=== PATIENT | female | born 1955 | race Caucasian/White ===

== ENCOUNTER 2018-03-25 05:41 | Emergency (ER) | payer OTHER ==
[2018-03-25 06:14] VITALS: BMI 43.0
--- NOTE | 2018-03-25 06:14 | PDOC ---
History of Present Illness - General Chief Complaint: Headache Stated Complaint: HEADACHE Time Seen by Provider: 03/25/18 06:01 History Source: Patient - History of Present Illness Initial Comments: 03/25/18 06:39 62-year-old female complaining of frontal headache and neck pain. Patient seen for similar complaints on 03/17/18 with negative workup patient was noted to have some disc bulging with possible C6 nerve root impingement as per report. Patient denies any numbness or tingling to arms, loss of function or sensory loss. Patient reports neck pain is as per usual however the headache is much more severe than normal. Past History - Past Medical History Allergies/Adverse Reactions: Allergies Allergy/AdvReac Type Severity Reaction Status Date / Time ciprofloxacin [From Cipro] Allergy Verified 03/25/18 06:13 ciprofloxacin HCl Allergy Verified 03/25/18 06:13 [From Cipro] Penicillins Allergy Verified 03/25/18 06:13 Tetracyclines Allergy Verified 03/25/18 06:13 Home Medications: Ambulatory Orders Albuterol Sulfate [Proair Hfa -] 1 - 2 inh PO TID PRN 11/30/14 Hydrochlorothiazide [Hctz -] 25 mg PO HS 11/30/14 Ranitidine [Zantac -] 150 mg PO BID 11/30/14 Acetaminophen [Tylenol -] 1,000 mg PO Q6H #100 tablet 03/17/18 Lidocaine 5% Patch [Lidoderm Patch -] 1 patch TP DAILY #7 patch 03/17/18 Olmesartan/Hydrochlorothiazide [Benicar Hct 40-25 mg Tablet] 1 each PO DAILY 09/03 Asthma: Yes Cardiac Disorders: Yes (SVT's enlarged heart) COPD: Yes HTN: Yes - Surgical History Cardiac Surgery: Yes (cardiac ablation for SVT'S 1998) - Immunization History Immunization Up to Date: Yes - Suicide/Smoking/Psychosocial Hx Smoking History: Former smoker Have you smoked in the past 12 months: No If you are a former smoker, when did you quit?: 2012 Hx Alcohol Use: No Drug/Substance Use Hx: No Substance Use Type: None *Physical Exam - Vital Signs 03/25/18 06:39 Last Vital Signs Temp Pulse Resp BP Pulse Ox 98.7 F 76 18 153/78 96 03/25/18 05:45 03/25/18 05:45 03/25/18 05:45 08/09/18 05:45 03/25/18 05:45 - Physical Exam General Appearance: Yes: Appropriately Dressed HEENT: positive: Normal ENT Inspection Respiratory/Chest: positive: Lungs Clear, Normal Breath Sounds Cardiovascular: positive: Regular Rhythm, Regular Rate Gastrointestinal/Abdominal: positive: Normal Bowel Sounds, Soft Extremity: positive: Normal Capillary Refill, Normal Inspection, Normal Range of Motion Integumentary: positive: Normal Color, Dry, Warm 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
[2018-03-25] MEDS ORDERED: SODIUM CHLORIDE 1,000 ML IV SCH (06:15)
[2018-03-25] MEDS ORDERED: ACETAMINOPHEN 1000 MG/100 ML VIAL (NON FORMULARY) IVPB ONE (06:15)
[2018-03-25] MEDS ORDERED: METOCLOPRAMIDE HCL INJECTION 10 MG/2 ML VIAL IVPB ONE (06:16)
--- NOTE | 2018-03-25 06:45 | PDOC ---
*Physical Exam - Vital Signs Last Vital Signs Temp Pulse Resp BP Pulse Ox 98.7 F 76 18 153/78 96 03/25/18 05:45 03/25/18 05:45 03/25/18 05:45 03/25/18 05:45 03/25/18 05:45 Medical Decision Making - Medical Decision Making 03/25/18 06:45 agree with care from [facility] *DC/Admit/Observation/Transfer Diagnosis at time of Disposition: Neck pain Headache Qualifiers: Headache type: tension-type Headache chronicity pattern: acute headache Intractability: not intractable Qualified Code(s): G44.209 - Tension-type headache, unspecified, not intractable - Referrals - Patient Instructions - Post Discharge Activity
[2018-03-25] MEDS ORDERED: ACETAMINOPHEN INJECTION 100 ML IVPB ONE (07:02)
[2018-03-25] MEDS ORDERED: METOCLOPRAMIDE HCL INJECTION 10 MG/2 ML VIAL ONE (07:02)
--- NOTE | 2018-03-25 07:09 | PDOC ---
*Physical Exam - Vital Signs Last Vital Signs Temp Pulse Resp BP Pulse Ox 98.7 F 76 18 153/78 96 03/25/18 05:45 03/25/18 05:45 03/25/18 05:45 03/25/18 05:45 03/25/18 05:45 - Physical Exam General Appearance: Yes: Nourished, Appropriately Dressed. No: Apparent Distress HEENT: positive: EOMI, FARTUN Neck: positive: Trachea midline, Supple. 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 Pt currently pending CT read, work up. Dispo to follow. 03/25/18 09:49 CT C-spine: There is no fracture, subluxation, prevertebral soft tissue swelling. There is a small to moderate size bulging disc osteophyte complexes at the C5-6 and C6-7 levels which causing mild central canal and bilateral neural foraminal narrowing. The lung apices are clear. Right lobe of the thyroid large secondary to 3.1 x 2.4 CMP mass. Impression Right thyroid mass can be further evaluated with nonemergent ultrasound. Head CT: No evidence of acute intracranial hemorrhage, edema, midline shift, mass effect, or skull fracture. No CT evidence of acute territorial ischemic changes. Normal CSF. Pt reports feeling much better at this time after IVF and medication. States headache is almost completely resolved. Still pending urine. No leukocytosis, electrolyte abnormalities. H&H low, however less than one point drop since last week. Told pt about the thyroid mass and that she needs to follow up with her PCP. Will dc home at this time. Return precautions given. Neuro surgery follow up given. Pt understands all dc instructions and all questions were answered. *DC/Admit/Observation/Transfer Diagnosis at time of Disposition: Neck pain Headache Qualifiers: Headache type: tension-type Headache chronicity pattern: acute headache Intractability: not intractable Qualified Code(s): G44.209 - Tension-type headache, unspecified, not intractable - Discharge Dispostion Disposition: HOME Condition at time of disposition: Stable Decision to Admit order: No - Referrals Referrals: Dominic Moreno MD, [facility] [Staff Physician] - Shakeel Licona MD [Staff Physician] - - Patient Instructions Printed Discharge Instructions: DI for Headache, DI for Neck Pain Additional Instructions: Head CT was normal today. Your neck CT showed your degenerative disc disease in her neck. Also showed a mass on your right thyroid. This needs to be followed up with your primary care doctor for ultrasound. Please drink plenty of fluids You may take Tylenol 500 mg every 4 hours as needed for headache. Please follow up with her primary care doctor next week. Your also provided a referral for neurosurgery. Return to the emergency department he develop worsening pain, fevers, chills, or any changes in your symptoms. - Post Discharge Activity Forms/Work/School Notes: Back to Work
[2018-03-25 07:19] LABS: BASO % 0.4 % (0-2.0); EOS % 1.8 % (0-4.5); HEMATOCRIT 28.2 % (32.4-45.2); HEMOGLOBIN 9.2 GM/dL (10.7-15.3); LYMPH % 16.9 % (8-40); MCH 22.9 pg (25.7-33.7); MCHC 32.6 g/dl (32.0-36.0); MEAN CELL VOLUME 70.2 fl (80-96); MEAN PLT VOLUME 8.1 fl (7.5-11.1); MONO % 5.9 % (3.8-10.2); PLATELET COUNT 259 K/MM3 (134-434); RBC 4.02 M/mm3 (3.60-5.2); RDW 17.2 % (11.6-15.6); WHITE BLOOD COUNT 6.6 K/mm3 (4.0-10.0)
[2018-03-25 07:24] LABS: INR 1.21 (0.83-1.09); PROTHROMBIN TIME (PATIENT) 13.7 SEC (9.7-13.0)
[2018-03-25 07:32] LABS: ALBUMIN 3.1 g/dl (3.4-5.0); ANION GAP 7 (8-16); BLOOD UREA NITROGEN 14 mg/dL (7-18); CALCIUM 8.6 mg/dL (8.5-10.1); CHLORIDE 106 mmol/L (98-107); CO2 30 mmol/L (21-32); CREATININE 0.6 mg/dL (0.55-1.02); GLUCOSE,RANDOM 130 mg/dL (74-106); POTASSIUM 4.7 mmol/L (3.5-5.1); SGOT/AST 9 U/L (15-37); SGPT/ALT 15 U/L (12-78); SODIUM 143 mmol/L (136-145)
[2018-03-25 07:34] LABS: ALK PHOS 89 U/L (45-117); BILIRUBIN,TOTAL 0.3 mg/dL (0.2-1.0); TOT PROT 6.4 g/dl (6.4-8.2)
[2018-03-25 09:38] VITALS: BP 104/78; PULSE 58; TEMP 98.3
[2018-03-25 09:50] LABS: URINE APPEARANCE CLEAR; URINE BILIRUBIN NEGATIVE (<2.0 mg/dL); URINE COLOR STRAW; URINE GLUCOSE (UA) NEGATIVE (NEGATIVE); URINE KETONE NEGATIVE (NEGATIVE); URINE LEUK ESTERASE NEGATIVE (NEGATIVE); URINE NITRITE NEGATIVE (NEGATIVE); URINE PROTEIN NEGATIVE (NEGATIVE); URINE UROBILINOGEN NEGATIVE mg/dL (0.2-1.0)
--- NOTE | 2018-03-25 15:35 | EKG ---
Test Reason : Blood Pressure : / mmHG Vent. Rate : 061 BPM Atrial Rate : 061 BPM P-R Int : 168 ms QRS Dur : 096 ms QT Int : 422 ms P-R-T Axes : 068 022 030 degrees QTc Int : 424 ms SINUS RHYTHM WITH MARKED SINUS ARRHYTHMIA WITH PREMATURE ATRIAL COMPLEXES OTHERWISE NORMAL ECG WHEN COMPARED WITH ECG OF 01-DEC-2014 10:11, PREMATURE ATRIAL COMPLEXES ARE NOW PRESENT Confirmed by RONI DE GUZMAN, MALGORZATA ([id number]) on 03/25/2018 3:34:44 PM Referred By: Confirmed By:MALGORZATA TAMAYO MD
== END 2018-03-25 11:08 | disposition home or self-care (01) ==
LOC: JER 05:41
PROC: 3E033NZ Introduction of Analgesics, Hypnotics, Sedatives into Peripheral Vein, Percutaneous Approach (ICD-10-PCS; principal; 2018-03-25)
PROC: 3E033GC Introduction of Other Therapeutic Substance into Peripheral Vein, Percutaneous Approach (ICD-10-PCS; 2018-03-25)
PROC: 3E0337Z Introduction of Electrolytic and Water Balance Substance into Peripheral Vein, Percutaneous Approach (ICD-10-PCS; 2018-03-25)
DX: G44.209 Tension-type headache, unspecified, not intractable (principal); M54.2 Cervicalgia; Z87.891 Personal history of nicotine dependence
CPT/HCPCS: 36415; 70450-TC; 72125-TC; 80053; 81003; 85025; 85610; 93005; 93010; 99283-25; J0131; J7030

== ENCOUNTER 2018-03-30 13:57 | Inpatient (IN) | payer OTHER ==
--- NOTE | 2018-03-30 15:03 | HP ---
Admitting History and Physical - Primary Care Physician PCP: Nyla Faith S - Admission Chief Complaint: headaches and blurry vision History of Present Illness: Pt is a 62yo F with PMH of DM, HTN, COPD, herniated discs and OA DJD CSpine, presenting to ED with complaints of headaches for few weeks getting progressively worse. Starts at base of skull, radiates to forehead. Diffuse. Did not have blurry vision until couple days ago, saw me in office yesterday and generalized YEAGER and also L temporal tenderness (new) and some blurry vision like looking through a kaleidoscope. I ordered high doses prednisone as outpt but she was afraid to take it; I called her home today for f/u and she feels worse so I advised her to come to ER aj for further w/u and tx. No fever, chills, neck stiffness, n/v, ear pain, jaw pain, numbness/tingling. History Source: Patient, Medical Record Limitations to Obtaining History: No Limitations - Past Medical History Cardiovascular: Yes: CHF, HTN Pulmonary: Yes: Asthma Heme/Onc: Yes: Cancer Musculoskeletal: Yes: Chronic low back pain, Osteoarthritis Endocrine: Yes: Other (Impaired glucose tolerance) - Smoking History Smoking history: Former smoker Have you smoked in the past 12 months: No If you are a former smoker, when did you quit?: 2013 - Alcohol/Substance Use Hx Alcohol Use: No History of Substance Use: reports: None - Social History Usual Living Arrangement: Yes: With Child ADL: Independent History of Recent Travel: No Home Medications - Allergies Allergies/Adverse Reactions: Allergies Allergy/AdvReac Type Severity Reaction Status Date / Time ciprofloxacin [From Cipro] Allergy Verified 03/25/18 06:13 ciprofloxacin HCl Allergy Verified 03/25/18 06:13 [From Cipro] Penicillins Allergy Verified 03/25/18 06:13 Tetracyclines Allergy Verified 03/25/18 06:13 - Home Medications Home Medications: Ambulatory Orders Albuterol Sulfate [Proair Hfa -] 1 - 2 inh PO TID PRN 11/30/14 Hydrochlorothiazide [Hctz -] 25 mg PO HS 11/30/14 Ranitidine [Zantac -] 150 mg PO BID 11/30/14 Acetaminophen [Tylenol -] 1,000 mg PO Q6H #100 tablet 03/17/18 Lidocaine 5% Patch [Lidoderm Patch -] 1 patch TP DAILY #7 patch 03/17/18 Olmesartan/Hydrochlorothiazide [Benicar Hct 40-25 mg Tablet] 1 each PO DAILY 09/03 Family Disease History - Family Disease History Family Disease History: Heart Disease: Father, Mother Review of Systems - Review of Systems Constitutional: denies: Chills, Fever, Lethargy Eyes: reports: Blurred Vision, Recent Change in Vision. denies: Blind Spots, Double Vision, Eye Pain, Floaters, Photophobia HENT: denies: Difficult Swallowing, Ear Discharge, Ear Pain, Epistaxis Neck: denies: Stiffness, Tenderness Cardiovascular: denies: Chest Pain, Shortness of Breath Respiratory: denies: Cough, SOB Gastrointestinal: denies: Abdominal Pain, Constipation, Diarrhea, Vomiting Genitourinary: denies: Dysuria, Flank Pain Musculoskeletal: reports: Back Pain (chronic) Integumentary: denies: Blister, Bruising, Eczema, Wound Neurological: reports: Headache. denies: Change in LOC, Change in Speech, Confusion, Dizziness, Numbness, Parasthesia, Seizure, Syncope, Tremors, Unsteady Gait, Weakness Endocrine: denies: Unexplained Weight Gain, Unexplained Weight Loss Hematology/Lymphatic: denies: Easily Bruised, Excessive Bleeding Psychiatric: denies: Altered Sleep Pattern, Anxiety, Depression, Hallucinations , Panic, Paranoia, Suicidal Physical Examination Vital Signs: Vital Signs Temperature 98.9 F 03/30/18 14:08 Pulse Rate 51 L 03/30/18 14:08 Respiratory Rate 16 03/30/18 14:08 Blood Pressure 151/73 03/30/18 14:08 O2 Sat by Pulse Oximetry (%) 98 03/30/18 14:08 Constitutional: Yes: No Distress, Anxious Eyes: Yes: Conjunctiva Clear HENT: Yes: Atraumatic Neck: Yes: Supple Cardiovascular: Yes: Regular Rate and Rhythm Respiratory: Yes: CTA Bilaterally Gastrointestinal: Yes: Soft. No: Tenderness Renal/: No: CVA Tenderness - Left, CVA Tenderness - Right Musculoskeletal: No: Joint Stiffness, Joint Swelling Extremities: No: Cold, Cool, Cyanosis Edema: No Peripheral Pulses WNL: Yes Integumentary: No: Pressure Ulcer, Rash, Venous Stasis Changes Neurological: Yes: WNL, Alert, Oriented, Other (L temporal > R temporal tenderness with local palpation) ...Motor Strength: WNL Psychiatric: Yes: WNL, Alert, Oriented. No: Agitated, Suicidal Ideation Imaging - Results Chest X-ray: Report Reviewed Other: Report Reviewed Assessment/Plan Pt is a 62yo F with PMH of DM, HTN, COPD, herniated disc and OA DJD, admitted with intractable YEAGER. R/o temporal arteritis check ESR had recent head and neck CT c/w OA DJD spine and R thyroid mass for which she was advised to see endocrine and have thyroid US IV steroids neurology and rheum eval borderline anemic, anemia w/u gi and heme eval d/w pt and staff
[2018-03-30] MEDS ORDERED: ACETAMINOPHEN 1000 MG/100 ML VIAL (NON FORMULARY) IVPB ONE (15:41)
[2018-03-30] MEDS ORDERED: SODIUM CHLORIDE 1,000 ML IV STA (15:41)
[2018-03-30] MEDS ORDERED: METOCLOPRAMIDE HCL INJECTION 10 MG/2 ML VIAL IVPUSH ONE (15:41)
[2018-03-30] MEDS ORDERED: METOCLOPRAMIDE HCL INJECTION 10 MG/2 ML VIAL ONE (16:02)
[2018-03-30] MEDS ORDERED: ACETAMINOPHEN INJECTION 100 ML IVPB ONE (16:02)
[2018-03-30] MEDS ORDERED: ALBUTEROL SO4 8 GM HFA INHALER IH PRN (16:41)
[2018-03-30] MEDS ORDERED: ACETAMINOPHEN 500 MG TABLET (FP) PO PRN (16:41)
[2018-03-30] MEDS ORDERED: predniSONE 20 MG TABLET (UD) PO ONE (16:47)
--- NOTE | 2018-03-30 16:58 | PDOC ---
History of Present Illness - General Chief Complaint: Migraine Headache Stated Complaint: Migraine Headache Time Seen by Provider: 03/30/18 15:04 History Source: Patient - History of Present Illness Initial Comments: 03/30/18 16:49 Pt is a 62yo F with PMH of DM, HTN, COPD, herniated disc in C3-7 presenting to ED with complaints of YEAGER. Starts at base of skull, radiates to forehead. Diffuse. Not sure if associated with blurry vision. Did seem like periphery of L vision is like a kaleidoscope. some photophobia. not bothered by loud noises. No fever, chills, neck stiffness, n/v, ear pain, jaw pain, numbness/tingling. PCP: [facility] PMH: see hpi PSH: none Meds: see med rec Allergies: levaquins, tetracyclins, penicillins, benadryl, codeine Social: Quit tobacco 6 years ago. Denies alcohol, illicit drug use. Past History - Past Medical History Allergies/Adverse Reactions: Allergies Allergy/AdvReac Type Severity Reaction Status Date / Time ciprofloxacin [From Cipro] Allergy Verified 04/05/18 09:52 ciprofloxacin HCl Allergy Verified 04/05/18 09:52 [From Cipro] Penicillins Allergy Verified 04/05/18 09:52 Tetracyclines Allergy Verified 04/05/18 09:52 Home Medications: Ambulatory Orders Albuterol Sulfate [Proair Hfa -] 1 - 2 inh PO TID PRN 11/30/14 Hydrochlorothiazide [Hctz -] 25 mg PO HS 11/30/14 Ranitidine [Zantac -] 150 mg PO BID 11/30/14 Acetaminophen [Tylenol .Extra-Strength -] 1,000 mg PO Q6H #100 tablet 03/17/18 Olmesartan/Hydrochlorothiazide [Benicar Hct 40-25 mg Tablet] 1 each PO DAILY 09/03 Cholecalciferol (Vitamin D3) [Vitamin D3 -] 1,000 unit PO DAILY tab 04/02/18 Ferrous Sulfate [Feosol] 325 mg PO DAILY ud 04/02/18 Insulin Sliding Scale [Novolog Vial Sliding Scale -] 1 vial SQ ACHS #1 bottle Lidocaine 5% Patch [Lidoderm -] 1 patch TP DAILY #7 patch 04/02/18 Multivitamins [Multivit ([facility] Formulary)] 1 tab PO DAILY tab 04/02/18 Prednisone 50 mg PO BID 15 Days #150 tablet 04/02/18 Sitagliptin Phosphate [Januvia -] 100 mg PO DAILY@0700 #90 ud 04/02/18 Asthma: Yes Cardiac Disorders: Yes (SVT's enlarged heart) COPD: Yes HTN: Yes - Surgical History Cardiac Surgery: Yes (cardiac ablation for SVT'S 1998) - Immunization History Immunization Up to Date: Yes - Suicide/Smoking/Psychosocial Hx Smoking History: Never smoked Have you smoked in the past 12 months: No If you are a former smoker, when did you quit?: 2012 Information on smoking cessation initiated: No Hx Alcohol Use: No Drug/Substance Use Hx: No Substance Use Type: None Review of Systems - Review of Systems Constitutional: Yes: See HPI. No: Chills, Diaphoresis, Fever HEENTM: Yes: See HPI, Recent change in vision. No: Eye Pain, Blurred Vision, Ear Discharge, Throat Pain Respiratory: No: Cough, Shortness of Breath Cardiac (ROS): No: Chest Pain, Lightheadedness, Palpitations, Syncope ABD/GI: No: Constipated, Diarrhea, Nausea, Vomiting, Abdominal cramping : No: Burning, Dysuria Musculoskeletal: Yes: See HPI Neurological: No: Headache, Numbness, Paresthesia, Tingling *Physical Exam - Vital Signs Last Vital Signs Temp Pulse Resp BP Pulse Ox 98.9 F 51 L 16 151/73 98 03/30/18 14:08 03/30/18 14:08 03/30/18 14:08 03/30/18 14:08 03/30/18 14:08 - Physical Exam General Appearance: Yes: Nourished, Appropriately Dressed. No: Apparent Distress HEENT: positive: EOMI, FARTUN, Normal ENT Inspection, Other (no papilledema noted) Neck: positive: Trachea midline, Supple. negative: Lymphadenopathy (R), Lymphadenopathy (L) Respiratory/Chest: positive: Lungs Clear, Normal Breath Sounds. negative: Crackles, Rales, Rhonchi, Stridor Cardiovascular: positive: Regular Rhythm, Regular Rate, S1, S2. negative: JVD, Murmur Vascular Pulses: Dorsalis-Pedis (R): 2+, Doralis-Pedis (L): 2+ Gastrointestinal/Abdominal: positive: Normal Bowel Sounds, Soft. negative: Guarding, Rebound, Tenderness Musculoskeletal: positive: Normal Inspection. 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, Fully Oriented, Alert, Normal Mood/ Affect, Normal Response, Motor Strength 12/19 ED Treatment Course - LABORATORY CBC & Chemistry Diagram: 04/02/18 06:45 04/02/18 06:45 - Medications Given in the ED: ED Medications Discontinued Medications Generic Name Dose Route Start Last Admin Trade Name Freq PRN Reason Stop Dose Admin Acetaminophen 1,000 mg 03/30/18 15:41 03/30/18 16:05 Ofirmev Injection - IVPB 03/30/18 15:42 1,000 mg ONCE ONE Administration Sodium Chloride 1,000 mls @ 1,000 mls/hr 03/30/18 15:41 03/30/18 16:05 Normal Saline - IV 03/30/18 16:40 1,000 mls/hr ASDIR STA Administration Metoclopramide HCl 10 mg 03/30/18 15:41 03/30/18 16:05 Reglan Injection - IVPUSH 03/30/18 15:42 10 mg ONCE ONE Administration Medical Decision Making - Medical Decision Making 03/30/18 16:53 Pt is a 62yo F with PMH of DM, HTN, COPD, herniated disc in C3-7 presenting to ED with complaints of YEAGER. DDX: GCA, meningitis, migraine YEAGER, VST, ICH, vertebral artery dissection. This is the 3rd time pt has been here. has had CT. Did not perform CT today. Dr. Faith is concerned about GCA and pt not complying to see a neurologist. Pt will be admitted to Dr Faith for further management. Pt agrees to plan. Started on IVF, tylenol and reglan. started prednisone CBC CMP *DC/Admit/Observation/Transfer Diagnosis at time of Disposition: Headache Qualifiers: Headache type: tension-type Headache chronicity pattern: acute headache Intractability: not intractable Qualified Code(s): G44.209 - Tension-type headache, unspecified, not intractable - Discharge Dispostion Disposition: HOME Condition at time of disposition: Improved Decision to Admit order Date/Time: Decision to Admit Order Category Date Time Status Decision to Admit to Hospital Routine Admission 03/30/18 16:48 Ordered - Prescriptions - Referrals - Patient Instructions - Post Discharge Activity
--- NOTE | 2018-03-30 17:31 | PDOC ---
Attending Attestation - Resident Resident Name: Karen Butt - ED Attending Attestation I have performed the following: I have examined & evaluated the patient, The case was reviewed & discussed with the resident, I agree w/resident's findings & plan, Exceptions are as noted - HPI HPI: 03/30/18 17:28 62F with h/o HTN, COPD, SVT, presenting with headache. Pt has been having intermittent headaches x 1 month. Has been seen in this ED several times but has not followed up with neurology. Denies F/C. Denies N/V. Denies neck stiffness. Denies weakness/numbness in any extremity. - Physicial Exam PE: 03/30/18 17:30 GENERAL: Awake, alert, and fully oriented, in no acute distress. HEAD: No signs of trauma EYES: PERRLA, EOMI, sclera anicteric, conjunctiva clear ENT: Auricles normal inspection, hearing grossly normal, nares patent, oropharynx clear without exudates. Moist mucosa NECK: Nontender, no stepoffs, Normal ROM, supple, no lymphadenopathy, JVD, or masses LUNGS: Breath sounds equal, clear to auscultation bilaterally. No wheezes, and no crackles HEART: Regular rate and rhythm, normal S1 and S2, no murmurs, rubs or gallops ABDOMEN: Soft, nontender, normoactive bowel sounds. No guarding, no rebound. No masses EXTREMITIES: Normal range of motion, no edema. No clubbing or cyanosis. No cords, erythema, or tenderness NEUROLOGICAL: Cranial nerves II through XII intact. 5/5 strength and sensation in all extremities, Normal speech, normal gait, normal cerebellar function SKIN: Warm, Dry, normal turgor, no rashes or lesions noted. - Medical Decision Making 03/30/18 17:30 62 F with recurrent headaches. Has had multiple prior CTs for similar complaint. - Labs - Tylenol, reglan - Admit to Dr. Faith for further w/u and neuro eval
[2018-03-30] MEDS ORDERED: predniSONE 20 MG TABLET (UD) ONE (17:44)
[2018-03-30] MEDS ORDERED: LIDOCAINE 5% TOPICAL PATCH ONE (17:44)
[2018-03-30] MEDS: LIDOCAINE 5% TOPICAL PATCH TP SCH (17:51)
[2018-03-30 17:56] LABS: BASO % 0.3 % (0-2.0); EOS % 1.5 % (0-4.5); HEMATOCRIT 28.4 % (32.4-45.2); HEMOGLOBIN 9.1 GM/dL (10.7-15.3); LYMPH % 20.4 % (8-40); MCH 22.5 pg (25.7-33.7); MCHC 32.1 g/dl (32.0-36.0); MEAN CELL VOLUME 70.1 fl (80-96); MEAN PLT VOLUME 7.7 fl (7.5-11.1); NEUT % 72.8 % (42.8-82.8); PLATELET COUNT 320 K/MM3 (134-434); RBC 4.05 M/mm3 (3.60-5.2); RDW 17.5 % (11.6-15.6); WHITE BLOOD COUNT 6.3 K/mm3 (4.0-10.0)
[2018-03-30] MEDS: CHOLECALCIFEROL (VITAMIN D3) 1,000 UNIT TABLET (FP) PO SCH (18:04)
[2018-03-30 18:38] LABS: ALBUMIN 3.1 g/dl (3.4-5.0); ALK PHOS 84 U/L (45-117); ANION GAP 9 (8-16); BILIRUBIN,TOTAL 0.4 mg/dL (0.2-1.0); BLOOD UREA NITROGEN 9 mg/dL (7-18); CALCIUM 8.3 mg/dL (8.5-10.1); CHLORIDE 105 mmol/L (98-107); CO2 27 mmol/L (21-32); CREATININE 0.6 mg/dL (0.55-1.02); GLUCOSE,RANDOM 83 mg/dL (74-106); POTASSIUM 3.8 mmol/L (3.5-5.1); SGOT/AST 10 U/L (15-37); SGPT/ALT 14 U/L (12-78); SODIUM 141 mmol/L (136-145); TOT PROT 6.4 g/dl (6.4-8.2)
[2018-03-30 19:23] LABS: ERYTHROCYTE SEDIMENTATION RATE 102 mm/hr (0-30)
[2018-03-30] MEDS ORDERED: CYANOCOBALAMIN (VITAMIN B-12) 1000 MCG/1 ML VIAL IM SCH (21:45)
[2018-03-30] MEDS: methylPREDNISolone NA SUCC 40 MG/1 ML VIAL IVPB SCH (23:00)
[2018-03-30] MEDS: MULTIVITAMINS (DAILY MVI) TABLET (FP) PO SCH (23:00)
[2018-03-30] MEDS: RANITIDINE HCL 150 MG TABLET (FP) PO SCH (23:00)
[2018-03-30] MEDS: HYDROCHLOROTHIAZIDE 25 MG TABLET (FP) PO SCH (23:00)
[2018-03-30] MEDS: CYANOCOBALAMIN (VITAMIN B-12) 100 MCG TABLET PO SCH (23:01)
[2018-03-31 02:23] VITALS: BMI 45.1
--- NOTE | 2018-03-31 07:48 | PN ---
Progress Note, Physician Chief Complaint: feels much better no more blurred vision and head and neck pain almost gone, slept well d/w dr Calixto most likely TA, would ask for TA biopsy, pt agreed - Current Medication List Current Medications: Active Medications Acetaminophen (Tylenol -) 500 mg PO Q6H PRN PRN Reason: PAIN LEVEL 1 - 3 Last Admin: 03/30/18 23:01 Dose: 500 mg Albuterol Sulfate (Ventolin Hfa Inhaler -) 1 puff IH Q6H PRN PRN Reason: ASTHMA Cholecalciferol (Vitamin D3 -) 1,000 unit PO DAILY [facility] Last Admin: 03/30/18 18:04 Dose: 1,000 unit Cyanocobalamin (Vitamin B12 -) 100 mcg PO DAILY [facility] Last Admin: 03/30/18 23:01 Dose: 100 mcg Cyanocobalamin (Vitamin B12 Injection -) 1,000 mcg IM DAILY [facility] Hydrochlorothiazide (Hctz -) 25 mg PO HS [facility] Last Admin: 03/30/18 23:00 Dose: 25 mg Hydrochlorothiazide (Hctz -) 25 mg PO DAILY [facility] Lidocaine (Lidoderm Patch -) 1 patch TP DAILY [facility] Last Admin: 03/30/18 17:51 Dose: 1 patch Methylprednisolone Sodium Succinate (Solu-Medrol -) 60 mg IVPB BID [facility] Last Admin: 03/30/18 23:00 Dose: 60 mg Multivitamins/Minerals/Vitamin C (Tab-A-Vit -) 1 tab PO DAILY [facility] Last Admin: 03/30/18 23:00 Dose: 1 tab Ranitidine HCl (Zantac -) 150 mg PO BID [facility] Last Admin: 03/30/18 23:00 Dose: 150 mg Valsartan (Diovan -) 320 mg PO DAILY [facility] - Objective Vital Signs: Vital Signs Temperature 98 F 03/30/18 22:30 Pulse Rate 74 03/30/18 22:30 Respiratory Rate 18 03/30/18 22:30 Blood Pressure 116/79 03/30/18 22:30 O2 Sat by Pulse Oximetry (%) 98 03/30/18 22:30 Constitutional: Yes: No Distress, Calm Eyes: Yes: Conjunctiva Clear HENT: Yes: Atraumatic Neck: Yes: Supple Cardiovascular: Yes: Regular Rate and Rhythm Respiratory: Yes: CTA Bilaterally Gastrointestinal: Yes: Soft. No: Tenderness Genitourinary: No: CVA Tenderness - Left, CVA Tenderness - Right Musculoskeletal: No: Joint Stiffness, Joint Swelling Extremities: No: Cold, Cool, Cyanosis Edema: No Integumentary: No: Pressure Ulcer, Rash, Skin Tear, Venous Stasis Changes Neurological: Yes: WNL, Alert, Oriented ...Motor Strength: WNL Psychiatric: Yes: WNL, Alert, Oriented. No: Agitated, Suicidal Ideation Labs: CBC, BMP 03/30/18 17:35 03/30/18 17:35 - ....Imaging Other: Report Reviewed Assessment/Plan Pt is a 62yo F with PMH of DM, HTN, COPD, herniated disc and OA DJD, admitted with intractable YEAGER. R/o temporal arteritis high ESR had recent head and neck CT c/w OA DJD spine and R thyroid mass for which she was advised to see endocrine and have thyroid US IV steroids neurology and rheum eval borderline anemic, anemia w/u gi and heme eval TA biopsy d/w pt and staff, pt agreed with plan falls PFX d/w pt.
--- NOTE | 2018-03-31 09:23 | CONSULT ---
Consult - text type - Consultation Consultation Note: Neurology History of Present Illness Pt is a 62yo F with PMH of DM, HTN, COPD, herniated disc in C3-7 presenting to ED with complaints of YEAGER. She reports it orginates at base of skull, radiates to forehead. Diffuse. Not sure if associated with blurry vision. Did report like periphery of L vision is like a kaleidoscope. some photophobia. not bothered by loud noises. No fever, chills, neck stiffness, n/v, ear pain, jaw pain, numbness/tingling. She completed CT head on recent visits, no acute changes. Of note, ESR elevated to 102 and diagnosis of giant cell arterities being considered. When asked specifically, does report bitemporal (L>R) discomfort with these heads. Additionally, started on IV solumedrol and reports much improved. This also points to GCA as likely diagnosis. Spoke with nurse, Ebenezer consulted for further rec'd. Past History - Past Medical History Allergies/Adverse Reactions: Allergies Allergy/AdvReac Type Severity Reaction Status Date / Time ciprofloxacin [From Cipro] Allergy Verified 03/25/18 06:13 ciprofloxacin HCl Allergy Verified 03/25/18 06:13 [From Cipro] Penicillins Allergy Verified 03/25/18 06:13 Tetracyclines Allergy Verified 03/25/18 06:13 Home Medications: Ambulatory Orders Albuterol Sulfate [Proair Hfa -] 1 - 2 inh PO TID PRN 11/30/14 Hydrochlorothiazide [Hctz -] 25 mg PO HS 11/30/14 Ranitidine [Zantac -] 150 mg PO BID 11/30/14 Acetaminophen [Tylenol -] 1,000 mg PO Q6H #100 tablet 03/17/18 Lidocaine 5% Patch [Lidoderm Patch -] 1 patch TP DAILY #7 patch 03/17/18 Olmesartan/Hydrochlorothiazide [Benicar Hct 40-25 mg Tablet] 1 each PO DAILY 09/03 Asthma: Yes Cardiac Disorders: Yes (SVT's enlarged heart) COPD: Yes HTN: Yes - Surgical History Cardiac Surgery: Yes (cardiac ablation for SVT'S 1998) - Immunization History Immunization Up to Date: Yes - Suicide/Smoking/Psychosocial Hx Smoking History: Never smoked Have you smoked in the past 12 months: No If you are a former smoker, when did you quit?: 2013 Information on smoking cessation initiated: No Hx Alcohol Use: No Drug/Substance Use Hx: No Substance Use Type: None *Physical Exam Vital Signs Temperature 97.5 F L 03/31/18 06:00 Pulse Rate 64 03/31/18 06:00 Respiratory Rate 18 03/31/18 06:00 Blood Pressure 167/84 03/31/18 06:00 O2 Sat by Pulse Oximetry (%) 98 03/30/18 22:30 Gen: Awake, alert, responds to questions Card: RRR, nml S1,S2 Resp: Normal symmetric effort, lungs clear to auscultation Abdomen: Soft, nontender, bowel sounds active Musculoskeletal: Adequate range of motion without significant deformity Head atraumatic and normocephalic CN: PERRL, EOMI intact, no apparent facial droop, no abnormalities in facial sensation, palate elevates, uvula and tongue midline Motor: Full strength to confrontation in upper and lower extermities proximally and distally. Tone normal throughout Sensory: Intact to Temperature, light touch, and pinprick in all extremities Reflexes: 2+ biceps, brachioradialis, patellar, achillies Coordination: Intact on [id number] testing CBCD WBC 6.3 K/mm3 (4.0-10.0) 03/30/18 17:35 RBC 4.05 M/mm3 (3.60-5.2) 03/30/18 17:35 Hgb 9.1 GM/dL (10.7-15.3) L 03/30/18 17:35 Hct 28.4 % (32.4-45.2) L 03/30/18 17:35 MCV 70.1 fl (80-96) L 03/30/18 17:35 MCHC 32.1 g/dl (32.0-36.0) 03/30/18 17:35 RDW 17.5 % (11.6-15.6) H 03/30/18 17:35 Plt Count 320 K/MM3 (134-434) D 03/30/18 17:35 MPV 7.7 fl (7.5-11.1) 03/30/18 17:35 CMP Sodium 141 mmol/L (136-145) 03/30/18 17:35 Potassium 3.8 mmol/L (3.5-5.1) 03/30/18 17:35 Chloride 105 mmol/L (98-107) 03/30/18 17:35 Carbon Dioxide 27 mmol/L (21-32) 03/30/18 17:35 Anion Gap 9 (8-16) 03/30/18 17:35 BUN 9 mg/dL (7-18) 03/30/18 17:35 Creatinine 0.6 mg/dL (0.55-1.02) 03/30/18 17:35 Creat Clearance w eGFR > 60 (>60) 03/30/18 17:35 Random Glucose 83 mg/dL (74-106) 03/30/18 17:35 Calcium 8.3 mg/dL (8.5-10.1) L 03/30/18 17:35 Total Bilirubin 0.4 mg/dL (0.2-1.0) 03/30/18 17:35 AST 10 U/L (15-37) L 03/30/18 17:35 ALT 14 U/L (12-78) 03/30/18 17:35 Alkaline Phosphatase 84 U/L (45-117) 03/30/18 17:35 Total Protein 6.4 g/dl (6.4-8.2) 03/30/18 17:35 Albumin 3.1 g/dl (3.4-5.0) L 03/30/18 17:35 CT head reviewed Medical Decision Making 62yo F with PMH of DM, HTN, COPD, herniated disc in C3-7 presenting to ED with complaints of YEAGER. She reports it orginates at base of skull, radiates to forehead. Diffuse. Not sure if associated with blurry vision. Did report like periphery of L vision is like a kaleidoscope. some photophobia. not bothered by loud noises. No fever, chills, neck stiffness, n/v, ear pain, jaw pain, numbness /tingling. She completed CT head on recent visits, no acute changes. Of note, ESR elevated to 102 and diagnosis of giant cell arterities being considered. When asked specifically, does report bitemporal (L>R) discomfort with these heads. Additionally, started on IV solumedrol and reports much improved. This also points to GCA as likely diagnosis. Spoke with nurse, Rheum consulted for further rec'd. Continue steroids, will not add further medication as patient much improved. Monitor glucose, consider insulin sliding scale. Consider PPI while on steroids. Cognitive rest recommended as well. Maintain hydration.
[2018-03-31] MEDS: LIDOCAINE 5% TOPICAL PATCH TP SCH (09:39)
[2018-03-31] MEDS: HYDROCHLOROTHIAZIDE 25 MG TABLET (FP) PO SCH ×2 (09:39→21:46)
[2018-03-31] MEDS: methylPREDNISolone NA SUCC 40 MG/1 ML VIAL IVPB SCH ×2 (09:39→21:49)
[2018-03-31] MEDS: VALSARTAN 160 MG TABLET (UD) PO SCH (09:39)
[2018-03-31] MEDS: RANITIDINE HCL 150 MG TABLET (FP) PO SCH ×2 (09:39→21:46)
[2018-03-31] MEDS: CHOLECALCIFEROL (VITAMIN D3) 1,000 UNIT TABLET (FP) PO SCH (09:39)
[2018-03-31] MEDS: MULTIVITAMINS (DAILY MVI) TABLET (FP) PO SCH (09:39)
--- NOTE | 2018-03-31 09:48 | CONSULT ---
Consult Consult Specialty:: Rheumatology - History of Present Illness History of Present Illness: 62yo Female with PMH of DM, HTN, COPD, S/P ablation for SVT, lymphedema in lower limbs, herniated disc in C3-7, obesity and GERD admitted with severe headache and elevated ESR. HPI. Six weeks ago the patient developed headache, initially in the occipital region and the global. The pain has been very severe with daily presentation and probably it is worse at night. Partial response to Acetaminophen. Three days ago she had transient changes in vision in the left eye, resolved spontaneously in less than 5 minutes. In the hospital she was started on Solumedrol 60 mg IV BID resulting in significant improvement. The patient has a 3 year history of diffuse aches and pains with occasional neck pain radiated to shoulders, mainly the right, low back pain and tenderness in the lateral aspect of pelvis. Occasional pain in knees. Laboratorty woek-up revealed WBC of 6.3, ESR 102, CRP 3.7, creatinine 0.6 and liver function tests were normal. - Past Medical History Cardio/Vascular: Yes: CHF, HTN Pulmonary: Yes: Asthma ...: No Musculoskeletal: Yes: Chronic low back pain, Osteoarthritis Endocrine: Yes: Other (Impaired glucose tolerance) - Alcohol/Substance Use Hx Alcohol Use: No History of Substance Use: reports: None - Smoking History Smoking history: Current some day smoker Have you smoked in the past 12 months: No If you are a former smoker, when did you quit?: 2013 - Social History ADL: Independent History of Recent Travel: No Home Medications - Allergies Allergies/Adverse Reactions: Allergies Allergy/AdvReac Type Severity Reaction Status Date / Time ciprofloxacin [From Cipro] Allergy Verified 03/25/18 06:13 ciprofloxacin HCl Allergy Verified 03/25/18 06:13 [From Cipro] Penicillins Allergy Verified 03/25/18 06:13 Tetracyclines Allergy Verified 03/25/18 06:13 - Home Medications Home Medications: Ambulatory Orders Albuterol Sulfate [Proair Hfa -] 1 - 2 inh PO TID PRN 11/30/14 Hydrochlorothiazide [Hctz -] 25 mg PO HS 11/30/14 Ranitidine [Zantac -] 150 mg PO BID 11/30/14 Acetaminophen [Tylenol -] 1,000 mg PO Q6H #100 tablet 03/17/18 Lidocaine 5% Patch [Lidoderm Patch -] 1 patch TP DAILY #7 patch 03/17/18 Olmesartan/Hydrochlorothiazide [Benicar Hct 40-25 mg Tablet] 1 each PO DAILY 09/03 Family Disease History - Family Disease History Family Disease History: Heart Disease: Father, Mother Review of Systems - Review of Systems Constitutional: reports: Malaise Eyes: reports: Recent Change in Vision HENT: reports: No Symptoms Neck: reports: Tenderness Cardiovascular: reports: No Symptoms Respiratory: reports: No Symptoms Gastrointestinal: reports: No Symptoms Genitourinary: reports: No Symptoms Musculoskeletal: reports: Other (See HPI) Integumentary: reports: No Symptoms Neurological: reports: No Symptoms Physical Exam Vital Signs: Vital Signs Temperature 98.2 F 03/31/18 09:00 Pulse Rate 101 H 03/31/18 09:00 Respiratory Rate 17 03/31/18 09:00 Blood Pressure 159/100 03/31/18 09:00 O2 Sat by Pulse Oximetry (%) 98 03/30/18 22:30 Constitutional: Yes: No Distress, Obese Eyes: Yes: WNL HENT: Yes: WNL Neck: Yes: WNL Cardiovascular: Yes: Other (3/6 systolic murmur in right 2nd intercostal space.) Respiratory: Yes: WNL Musculoskeletal: Yes: Other (Mild tenderness in the right temporal region. Mild tenderness in the right shoulder, mainly over the grater tuberosity on extension of the joint (suggestive of rotator cuff tendonitis or PMR), left hip and right knee. No other active joints.) Labs: CBC, BMP 03/30/18 17:35 03/30/18 17:35 Laboratory Tests 03/30/18 03/30/18 03/30/18 17:35 17:35 17:35 ESR 102 H Ferritin 12.5 Total Bilirubin 0.4 AST 10 L ALT 14 Alkaline Phosphatase 84 C-Reactive Protein 3.7 H Albumin 3.1 L TSH 1.38 Problem List - Problems (1) Giant cell arteritis Assessment/Plan: Probable temporal arteritis. Plan: consult to Dr. Duvall for temporal artery biopsy. Patient is on Solumedrol 60 mg BID, continue same dose, after biopsy, change to same dose of Prednisone PO. (her weight is 108.6 Kg, Requires at least 1 mg/kg) Code(s): M31.6 - OTHER GIANT CELL ARTERITIS
--- NOTE | 2018-03-31 09:50 | CONSULT ---
Consult Consult Specialty:: Hematology -oncology Reason for Consultation:: Anemia - History of Present Illness Chief Complaint: Headache History of Present Illness: Pt is a 62yo F with PMH of DM, HTN, COPD, herniated disc in C3-7 presenting to ED with complaints of YEAGER. She reports it originates at base of skull, radiates to forehead. Diffuse. Not sure if associated with blurry vision. Did report like periphery of L vision is like a kaleidoscope. some photophobia. not bothered by loud noises. No fever, chills, neck stiffness, n/v, ear pain, jaw pain, numbness/tingling. She completed CT head on recent visits, no acute changes. Of note, ESR elevated to 102. She also report decrease in her appetite and loss of weight which she address can be because of stress in her life as she is living in hotel from one month and her apartment in under renovation. Denies blood in stool, constipation, diarrhoea, sob, chest pain, dysphagia, lump in any part of body - Past Medical History Cardio/Vascular: Yes: CHF, HTN Pulmonary: Yes: Asthma ...: No Heme/Onc: Yes: Cancer (breast cancer R side ( details not available)) Musculoskeletal: Yes: Chronic low back pain, Osteoarthritis Endocrine: Yes: Other (Impaired glucose tolerance) - Past Surgical History Additional Surgical History: Lumpectomy left side. - Alcohol/Substance Use Hx Alcohol Use: No History of Substance Use: reports: None - Smoking History Smoking history: Current some day smoker Have you smoked in the past 12 months: No If you are a former smoker, when did you quit?: 2013 - Social History ADL: Independent Occupation: works in [employer], 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 History of Recent Travel: No Home Medications - Allergies Allergies/Adverse Reactions: Allergies Allergy/AdvReac Type Severity Reaction Status Date / Time ciprofloxacin [From Cipro] Allergy Verified 03/25/18 06:13 ciprofloxacin HCl Allergy Verified 03/25/18 06:13 [From Cipro] Penicillins Allergy Verified 03/25/18 06:13 Tetracyclines Allergy Verified 03/25/18 06:13 - Home Medications Home Medications: Ambulatory Orders Albuterol Sulfate [Proair Hfa -] 1 - 2 inh PO TID PRN 11/30/14 Hydrochlorothiazide [Hctz -] 25 mg PO HS 11/30/14 Ranitidine [Zantac -] 150 mg PO BID 11/30/14 Acetaminophen [Tylenol -] 1,000 mg PO Q6H #100 tablet 03/17/18 Lidocaine 5% Patch [Lidoderm Patch -] 1 patch TP DAILY #7 patch 03/17/18 Olmesartan/Hydrochlorothiazide [Benicar Hct 40-25 mg Tablet] 1 each PO DAILY 09/03 Family Disease History - Family Disease History Family Disease History: Heart Disease: Father, Mother Other Family History: unlcles from mother side has esophageal cancer, lymphoma. Physical Exam Vital Signs: Vital Signs Temperature 98.2 F 03/31/18 09:00 Pulse Rate 101 H 03/31/18 09:00 Respiratory Rate 17 03/31/18 09:00 Blood Pressure 159/100 03/31/18 09:00 O2 Sat by Pulse Oximetry (%) 98 03/30/18 22:30 Labs: CBC, BMP 03/30/18 17:35 03/30/18 17:35 Problem List - Problems (1) Anemia Code(s): D64.9 - ANEMIA, UNSPECIFIED (2) Headache Code(s): R51 - HEADACHE Qualifiers: Headache type: tension-type Headache chronicity pattern: acute headache Intractability: not intractable Qualified Code(s): G44.209 - Tension-type headache, unspecified, not intractable (3) ESR raised Code(s): R70.0 - ELEVATED ERYTHROCYTE SEDIMENTATION RATE Assessment/Plan Laboratory Tests 03/25/18 03/30/18 03/30/18 06:40 17:35 17:35 ESR 102 H PT with INR 13.70 H INR 1.21 H Iron Ferritin C-Reactive Protein 3.7 H Vitamin B12 SHABNAM Screen Intrinsic Factor Ab 03/30/18 03/30/18 03/31/18 17:35 17:35 07:00 ESR PT with INR INR Iron Pending Ferritin 12.5 C-Reactive Protein Vitamin B12 134 L SHABNAM Screen Pending Intrinsic Factor Ab Pending 62 y/o female with came to [facility] with complaint of headache and was found to have elevated esr and anemia. Anemia. Micrococytic anemia with low b12 with elevated esr ?temporal arteritis. we will order stool for occult, iron studies , hemoglobin electrophoresis. Other We will start her on IM vitamin b12 and we will order intrinsic factor and parital cell antibody. Patient needs age related cancer workup. Visit type - Emergency Visit Emergency Visit: Yes ED Registration Date: 03/30/18 Care time: The patient presented to the Emergency Department on the above date and was hospitalized for further evaluation of their emergent condition. - New Patient This patient is new to me today: Yes Date on this admission: 04/01/18 - Critical Care Critical Care patient: No
[2018-03-31] MEDS ORDERED: PATIENT'S OWN MEDICATION (NON-FORMULARY) (Olmesartan/Hydrochlorothiazide [Benicar Hct 40-2 PO SCH (10:00)
[2018-03-31] MEDS ORDERED: INSULIN (NOVOLOG) ASPART 100 UNITS/ML 10ML VIAL ONE (11:20)
[2018-03-31] MEDS: INSULIN SLIDING SCALE (NOVOLOG) 1 VIAL SQ SCH ×3 (11:30→21:49)
[2018-03-31] MEDS: CYANOCOBALAMIN (VITAMIN B-12) 1000 MCG/1 ML VIAL IM SCH (11:30)
--- NOTE | 2018-03-31 12:12 | PN ---
Progress Note (short form) - Note Progress Note: Vascular Surgery Pt seen and examined. History of head aches and left sided visual disturbances. Elevated ESR. Pt feels better on iv steriods. Will do temporal artery biopsy tom. Rivera wellington DO
--- NOTE | 2018-03-31 13:49 | CONSULT ---
Consult Consult Specialty:: Endocrinology Referred by:: Dr Nyla Faith Reason for Consultation:: Thyroid mass - History of Present Illness Chief Complaint: Headache History of Present Illness: This is a 62yo F with PMH of DM on diet, HTN, COPD, herniated discs and OA DJD CSpine, who presented to ED with complaints of headaches for few weeks getting progressively worse. It starts at base of skull, radiates to forehead and is diffuse. Left temporal tenderness noted by Dr Faith in her office. Pt also c /o some blurry vision like looking through a kaleidoscope. Pt found to have thyroid mass on CT and referred for evaluation. Denies any neck pain, No difficulty swallowing. Denies any family h/o thyroid ca - History Source History Provided By: Patient, Medical Record - Past Medical History Cardio/Vascular: Yes: CHF, HTN Pulmonary: Yes: Asthma ...: No Musculoskeletal: Yes: Chronic low back pain, Osteoarthritis Endocrine: Yes: Other (Impaired glucose tolerance) - Past Surgical History Additional Surgical History: Lumpectomy left side. 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 History of Recent Travel: No Home Medications - Allergies Allergies/Adverse Reactions: Allergies Allergy/AdvReac Type Severity Reaction Status Date / Time ciprofloxacin [From Cipro] Allergy Verified 03/25/18 06:13 ciprofloxacin HCl Allergy Verified 03/25/18 06:13 [From Cipro] Penicillins Allergy Verified 03/25/18 06:13 Tetracyclines Allergy Verified 03/25/18 06:13 - Home Medications Home Medications: Ambulatory Orders Albuterol Sulfate [Proair Hfa -] 1 - 2 inh PO TID PRN 11/30/14 Hydrochlorothiazide [Hctz -] 25 mg PO HS 11/30/14 Ranitidine [Zantac -] 150 mg PO BID 11/30/14 Acetaminophen [Tylenol -] 1,000 mg PO Q6H #100 tablet 03/17/18 Lidocaine 5% Patch [Lidoderm Patch -] 1 patch TP DAILY #7 patch 03/17/18 Olmesartan/Hydrochlorothiazide [Benicar Hct 40-25 mg Tablet] 1 each PO DAILY 09/03 Family Disease History - Family Disease History Family Disease History: Diabetes: Grandparent, Heart Disease: Father, Mother Other Family History: unlcles from mother side has esophageal cancer, lymphoma. No family h/o thyroid ca Review of Systems - Review of Systems Constitutional: reports: No Symptoms Eyes: reports: No Symptoms HENT: reports: No Symptoms Neck: reports: No Symptoms Cardiovascular: reports: No Symptoms Respiratory: reports: No Symptoms Gastrointestinal: reports: No Symptoms Genitourinary: reports: No Symptoms Breasts: reports: No Symptoms Reported Musculoskeletal: reports: No Symptoms Neurological: reports: No Symptoms Endocrine: reports: No Symptoms Physical Exam Vital Signs: Vital Signs Temperature 98.2 F 03/31/18 09:00 Pulse Rate 101 H 03/31/18 09:00 Respiratory Rate 17 03/31/18 09:00 Blood Pressure 159/100 03/31/18 09:00 O2 Sat by Pulse Oximetry (%) 98 03/30/18 22:30 Constitutional: Yes: No Distress, Calm Eyes: Yes: Conjunctiva Clear, EOM Intact HENT: Yes: Atraumatic, Normocephalic Neck: Yes: Supple, Trachea Midline, Other (rt thyroid mass felt only on deglutition) Cardiovascular: Yes: Regular Rate and Rhythm Respiratory: Yes: Regular, CTA Bilaterally Gastrointestinal: Yes: Normal Bowel Sounds, Soft Musculoskeletal: Yes: WNL Extremities: Yes: WNL Edema: No Neurological: Yes: Alert, Oriented Labs: CBC, BMP 03/30/18 17:35 03/30/18 17:35 Imaging - Results Cat Scan: Report Reviewed Assessment/Plan AP; Headache: ?Temporal Arteritis For Bx tomorrow On IV steroids Rt thyroid Mass Sonogram of thyroid as outpt. Will not be done as inpatient May need FNA T2DM: On diet BGM QACHS Novolog SS coverage Teach pt to self monitor blood sugar and self inject Insulin May need to go home on Insulin if she is discharged on Steroids
--- NOTE | 2018-03-31 18:05 | PN ---
Teaching Attending Note Name of Resident: Krishna Soto ATTENDING PHYSICIAN STATEMENT I saw and evaluated the patient. I reviewed the resident's note and discussed the case with the resident. I agree with the resident's findings and plan as documented. ASSESSMENT AND PLAN: Microcytic anemia, with low ferritin, and low B12. Degree of microcytosis seems out of keeping with that expected with simple combined SHONDA and megaloblastic anemia. Possible hemoglobinopathy in addition. Either way agree with empiric iron and B12 repletion. Check HbEP, for completeness. Needs age appropriate cancer colon screening - has not had colonoscopy. Recommend IV iron while admitted.
[2018-03-31] MEDS ORDERED: IRON SUCROSE INJECTION 300 MG in SODIUM CHLORIDE 235 ML IVPB ONE (18:30)
[2018-04-01] MEDS: INSULIN SLIDING SCALE (NOVOLOG) 1 VIAL SQ SCH ×4 (06:09→22:04)
[2018-04-01 07:10] LABS: BASO % 0.1 % (0-2.0); HEMATOCRIT 28.9 % (32.4-45.2); HEMOGLOBIN 9.5 GM/dL (10.7-15.3); LYMPH % 5.9 % (8-40); MCH 22.7 pg (25.7-33.7); MCHC 32.7 g/dl (32.0-36.0); MEAN CELL VOLUME 69.4 fl (80-96); MEAN PLT VOLUME 7.8 fl (7.5-11.1); MONO % 2.1 % (3.8-10.2); NEUT % 91.9 % (42.8-82.8); PLATELET COUNT 372 K/MM3 (134-434); RBC 4.17 M/mm3 (3.60-5.2); RDW 17.5 % (11.6-15.6); WHITE BLOOD COUNT 14.6 K/mm3 (4.0-10.0)
[2018-04-01 07:55] LABS: ALBUMIN 3.2 g/dl (3.4-5.0); ANION GAP 10 (8-16); BLOOD UREA NITROGEN 25 mg/dL (7-18); CALCIUM 9.2 mg/dL (8.5-10.1); CHLORIDE 98 mmol/L (98-107); CO2 28 mmol/L (21-32); GLUCOSE,RANDOM 185 mg/dL (74-106); POTASSIUM 4.3 mmol/L (3.5-5.1); SODIUM 136 mmol/L (136-145)
[2018-04-01 07:59] LABS: ALK PHOS 82 U/L (45-117); BILIRUBIN,TOTAL 0.2 mg/dL (0.2-1.0); CREATININE 0.8 mg/dL (0.55-1.02); SGOT/AST 8 U/L (15-37); SGPT/ALT 16 U/L (12-78); TOT PROT 6.9 g/dl (6.4-8.2)
--- NOTE | 2018-04-01 08:42 | PN ---
Progress Note, Physician Chief Complaint: feels better less headaches no visual problems on steroids, for TA biopsy today - Current Medication List Current Medications: Active Medications Acetaminophen (Tylenol -) 500 mg PO Q6H PRN PRN Reason: PAIN LEVEL 1 - 3 Last Admin: 03/30/18 23:01 Dose: 500 mg Albuterol Sulfate (Ventolin Hfa Inhaler -) 1 puff IH Q6H PRN PRN Reason: ASTHMA Cholecalciferol (Vitamin D3 -) 1,000 unit PO DAILY [facility] Last Admin: 03/31/18 09:39 Dose: 1,000 unit Cyanocobalamin (Vitamin B12 Injection -) 1,000 mcg IM DAILY [facility] Last Admin: 03/31/18 11:30 Dose: 1,000 mcg Hydrochlorothiazide (Hctz -) 25 mg PO HS [facility] Last Admin: 03/31/18 21:46 Dose: 25 mg Hydrochlorothiazide (Hctz -) 25 mg PO DAILY [facility] Last Admin: 03/31/18 09:39 Dose: 25 mg Insulin Aspart (Novolog Vial Sliding Scale -) 1 vial SQ [facility]; Protocol Last Admin: 04/01/18 06:09 Dose: Not Given Lidocaine (Lidoderm Patch -) 1 patch TP DAILY [facility] Last Admin: 03/31/18 09:39 Dose: 1 patch Methylprednisolone Sodium Succinate (Solu-Medrol -) 60 mg IVPB BID [facility] Last Admin: 03/31/18 21:49 Dose: 60 mg Multivitamins/Minerals/Vitamin C (Tab-A-Vit -) 1 tab PO DAILY [facility] Last Admin: 03/31/18 09:39 Dose: 1 tab Ranitidine HCl (Zantac -) 150 mg PO BID [facility] Last Admin: 03/31/18 21:46 Dose: 150 mg Valsartan (Diovan -) 320 mg PO DAILY [facility] Last Admin: 03/31/18 09:39 Dose: 320 mg - Objective Vital Signs: Vital Signs Temperature 98.5 F 04/01/18 06:00 Pulse Rate 50 L 04/01/18 06:00 Respiratory Rate 18 04/01/18 06:00 Blood Pressure 150/64 04/01/18 06:00 O2 Sat by Pulse Oximetry (%) 97 03/31/18 21:00 Constitutional: Yes: No Distress, Calm Eyes: Yes: Conjunctiva Clear HENT: Yes: Atraumatic Neck: Yes: Supple Cardiovascular: Yes: Regular Rate and Rhythm Respiratory: Yes: CTA Bilaterally Gastrointestinal: Yes: Soft. No: Distention Genitourinary: No: CVA Tenderness - Left, CVA Tenderness - Right Musculoskeletal: No: Joint Stiffness, Joint Swelling Extremities: No: Cold, Cool, Cyanosis Edema: No Integumentary: No: Rash, Venous Stasis Changes Neurological: Yes: WNL, Alert, Oriented ...Motor Strength: WNL Psychiatric: Yes: WNL, Alert, Oriented. No: Agitated, Suicidal Ideation Labs: CBC, BMP 04/01/18 06:15 04/01/18 06:15 - ....Imaging Other: Report Reviewed Assessment/Plan Pt is a 62yo F with PMH of DM, HTN, COPD, herniated disc and OA DJD, admitted with intractable YEAGER. R/o temporal arteritis high ESR had recent head and neck CT c/w OA DJD spine and R thyroid mass for which she was advised to see endocrine and have thyroid US IV steroids per rheum neurology and rheum eval borderline anemic, anemia w/u gi and heme eval; will need EGD colonoscopy outpt pt aware TA biopsy d/w pt and staff, pt agreed with plan falls PFX d/w pt.
--- NOTE | 2018-04-01 09:29 | PN ---
Progress Note (short form) - Note Progress Note: Neurology History of Present Illness Pt is a 62yo F with PMH of DM, HTN, COPD, herniated disc in C3-7 presenting to ED with complaints of YEAGER. She reports it orginates at base of skull, radiates to forehead. Diffuse. Not sure if associated with blurry vision. Did report like periphery of L vision is like a kaleidoscope. some photophobia. not bothered by loud noises. No fever, chills, neck stiffness, n/v, ear pain, jaw pain, numbness/tingling. She completed CT head on recent visits, no acute changes. Of note, ESR elevated to 102 and diagnosis of giant cell arterities being considered. When asked specifically, does report bitemporal (L>R) discomfort with these heads. Additionally, started on IV solumedrol and reports much improved. This also points to GCA as likely diagnosis. Rheum consult reviewed, recommended Dr Duvall for biopsy. Dr. Duvall note reviewed, biopsy planned for today. Well appearing and reports significant improvement. Active Medications Acetaminophen (Tylenol -) 500 mg PO Q6H PRN PRN Reason: PAIN LEVEL 1 - 3 Last Admin: 03/30/18 23:01 Dose: 500 mg Albuterol Sulfate (Ventolin Hfa Inhaler -) 1 puff IH Q6H PRN PRN Reason: ASTHMA Cholecalciferol (Vitamin D3 -) 1,000 unit PO DAILY [facility] Last Admin: 03/31/18 09:39 Dose: 1,000 unit Cyanocobalamin (Vitamin B12 Injection -) 1,000 mcg IM DAILY [facility] Last Admin: 03/31/18 11:30 Dose: 1,000 mcg Ferrous Sulfate (Feosol -) 325 mg PO DAILY [facility] Hydrochlorothiazide (Hctz -) 25 mg PO HS [facility] Last Admin: 03/31/18 21:46 Dose: 25 mg Hydrochlorothiazide (Hctz -) 25 mg PO DAILY [facility] Last Admin: 03/31/18 09:39 Dose: 25 mg Insulin Aspart (Novolog Vial Sliding Scale -) 1 vial SQ ACHS [facility]; Protocol Last Admin: 04/01/18 06:09 Dose: Not Given Lidocaine (Lidoderm Patch -) 1 patch TP DAILY [facility] Last Admin: 03/31/18 09:39 Dose: 1 patch Methylprednisolone Sodium Succinate (Solu-Medrol -) 60 mg IVPB BID [facility] Last Admin: 03/31/18 21:49 Dose: 60 mg Multivitamins/Minerals/Vitamin C (Tab-A-Vit -) 1 tab PO DAILY [facility] Last Admin: 03/31/18 09:39 Dose: 1 tab Ranitidine HCl (Zantac -) 150 mg PO BID [facility] Last Admin: 03/31/18 21:46 Dose: 150 mg Valsartan (Diovan -) 320 mg PO DAILY [facility] Last Admin: 03/31/18 09:39 Dose: 320 mg *Physical Exam Vital Signs Period Temp Pulse Resp BP Sys/Juarez Pulse Ox Last 24 Hr 98 F-98.9 F 50-60 -18 150-165/64-76 97 Gen: Awake, alert, responds to questions Card: RRR, nml S1,S2 Resp: Normal symmetric effort, lungs clear to auscultation Abdomen: Soft, nontender, bowel sounds active Musculoskeletal: Adequate range of motion without significant deformity Head atraumatic and normocephalic CN: PERRL, EOMI intact, no apparent facial droop, no abnormalities in facial sensation, palate elevates, uvula and tongue midline Motor: Full strength to confrontation in upper and lower extermities proximally and distally. Tone normal throughout Sensory: Intact to Temperature, light touch, and pinprick in all extremities Reflexes: 2+ biceps, brachioradialis, patellar, achillies Coordination: Intact on [id number] testing CBCD WBC 14.6 K/mm3 (4.0-10.0) H 04/01/18 06:15 RBC 4.17 M/mm3 (3.60-5.2) 04/01/18 06:15 Hgb 9.5 GM/dL (10.7-15.3) L 04/01/18 06:15 Hct 28.9 % (32.4-45.2) L 04/01/18 06:15 MCV 69.4 fl (80-96) L 04/01/18 06:15 MCHC 32.7 g/dl (32.0-36.0) 04/01/18 06:15 RDW 17.5 % (11.6-15.6) H 04/01/18 06:15 Plt Count 372 K/MM3 (134-434) 04/01/18 06:15 MPV 7.8 fl (7.5-11.1) 04/01/18 06:15 CMP Sodium 136 mmol/L (136-145) 04/01/18 06:15 Potassium 4.3 mmol/L (3.5-5.1) 04/01/18 06:15 Chloride 98 mmol/L (98-107) 04/01/18 06:15 Carbon Dioxide 28 mmol/L (21-32) 04/01/18 06:15 Anion Gap 10 (8-16) 04/01/18 06:15 BUN 25 mg/dL (7-18) H 04/01/18 06:15 Creatinine 0.8 mg/dL (0.55-1.02) 04/01/18 06:15 Creat Clearance w eGFR > 60 (>60) 04/01/18 06:15 Calcium 9.2 mg/dL (8.5-10.1) 04/01/18 06:15 Total Bilirubin 0.2 mg/dL (0.2-1.0) 04/01/18 06:15 AST 8 U/L (15-37) L 04/01/18 06:15 ALT 16 U/L (12-78) 04/01/18 06:15 Alkaline Phosphatase 82 U/L (45-117) 04/01/18 06:15 Total Protein 6.9 g/dl (6.4-8.2) 04/01/18 06:15 Albumin 3.2 g/dl (3.4-5.0) L 04/01/18 06:15 CT head reviewed Medical Decision Making 62yo F with PMH of DM, HTN, COPD, herniated disc in C3-7 presenting to ED with complaints of YEAGER. She reports it orginates at base of skull, radiates to forehead. Diffuse. Not sure if associated with blurry vision. Did report like periphery of L vision is like a kaleidoscope. some photophobia. not bothered by loud noises. No fever, chills, neck stiffness, n/v, ear pain, jaw pain, numbness /tingling. She completed CT head on recent visits, no acute changes. Of note, ESR elevated to 102 and diagnosis of giant cell arterities being considered. When asked specifically, does report bitemporal (L>R) discomfort with these heads. Additionally, started on IV solumedrol and reports much improved. This also points to GCA as likely diagnosis. SRheum consult reviewed, recommended Dr Duvall for biopsy. Dr. Duvall note reviewed, biopsy planned for today. Well appearing and reports significant improvement. Monitor glucose, on insulin sliding scale. Continue PPI while on steroids. Follow up biopsy, duration of IV vs PO steroids per Rheum/primary.
[2018-04-01] MEDS: CYANOCOBALAMIN (VITAMIN B-12) 100 MCG TABLET PO SCH (09:47)
[2018-04-01] MEDS ORDERED: BENZOIN/ALOE VERA/STORAX/TOLU 58 ML BOTTLE ONE (09:55)
[2018-04-01] MEDS ORDERED: FERROUS SO4 325 MG TABLET (FP) PO SCH (10:00)
[2018-04-01] MEDS ORDERED: LACTATED RINGERS SOLUTION 1,000 ML IV SCH (10:45)
[2018-04-01] MEDS ORDERED: MIDAZOLAM HCL 2 MG/2 ML SINGLE DOSE VIAL ONE ×2 (10:53)
[2018-04-01] MEDS ORDERED: PROPOFOL 20 ML ONE ×2 (11:05)
[2018-04-01] MEDS ORDERED: LIDOCAINE HCL 1%, 10 MG/ML (20ML VIAL) INF ONE ×2 (11:10)
--- NOTE | 2018-04-01 11:51 | OP ---
Operative Note - Note: Operative Date: 04/01/18 Pre-Operative Diagnosis: rule out temporal arteritis Operation: left temporal artery biopsy Post-Operative Diagnosis: Same as Pre-op Surgeon: Rivera Duvall Anesthesia: Fractional Estimated Blood Loss (mls): 20 Operative Report Dictated: Yes
[2018-04-01] MEDS: HYDROCHLOROTHIAZIDE 25 MG TABLET (FP) PO SCH (11:53)
[2018-04-01] MEDS: LIDOCAINE 5% TOPICAL PATCH TP SCH (11:53)
[2018-04-01] MEDS: VALSARTAN 160 MG TABLET (UD) PO SCH (11:53)
[2018-04-01] MEDS: CHOLECALCIFEROL (VITAMIN D3) 1,000 UNIT TABLET (FP) PO SCH (11:54)
[2018-04-01] MEDS: RANITIDINE HCL 150 MG TABLET (FP) PO SCH ×2 (11:54→22:01)
[2018-04-01] MEDS: MULTIVITAMINS (DAILY MVI) TABLET (FP) PO SCH (11:54)
[2018-04-01] MEDS: methylPREDNISolone NA SUCC 40 MG/1 ML VIAL IVPB SCH (11:54)
[2018-04-01] MEDS: CYANOCOBALAMIN (VITAMIN B-12) 1000 MCG/1 ML VIAL IM SCH (11:54)
[2018-04-01 12:05] LABS: ANISOCYTOSIS 1+; MACROCYTOSIS 0; PLATELET ESTIMATE NORMAL
[2018-04-01] MEDS ORDERED: ALBUTEROL SO4 8 GM HFA INHALER IH PRN (12:19)
[2018-04-01 12:41] LABS: ERYTHROCYTE SEDIMENTATION RATE 115 mm/hr (0-30)
[2018-04-01] MEDS: ACETAMINOPHEN 500 MG TABLET (FP) PO PRN ×2 (13:58→20:24)
[2018-04-01] MEDS: LACTATED RINGERS SOLUTION 1,000 ML IV SCH (14:09)
--- NOTE | 2018-04-01 18:52 | PN ---
Physical Exam: SUBJECTIVE: Patient seen and examined feels better. states headache improved. OBJECTIVE: Vital Signs Period Temp Pulse Resp BP Sys/Juarez Pulse Ox Last 24 Hr 98.3 F-99.1 F 50-107 15-18 128-176/60-79 96-98 GENERAL: The patient is awake, alert, and fully oriented, LUNGS: Breath sounds equal, clear to auscultation bilaterally, no wheezes, no crackles, no accessory muscle use. HEART: Regular rate and rhythm, S1, S2 without murmur, ABDOMEN: Soft, nontender, nondistended, normoactive bowel sounds, no guarding, EXTREMITIES: 2+ pulses, warm, well-perfused, no edema. PSYCH: Normal mood, normal affect. SKIN: Warm, dry, Laboratory Results - last 24 hr 03/30/18 03/31/18 03/31/18 17:35 10:21 21:48 WBC RBC Hgb Hct MCV MCH MCHC RDW Plt Count MPV Absolute Neuts (auto) Neutrophils % Neutrophils % (Manual) Band Neutrophils % Lymphocytes % Lymphocytes % (Manual) Monocytes % Monocytes % (Manual) Eosinophils % Eosinophils % (Manual) Basophils % Basophils % (Manual) Myelocytes % (Man) Promyelocytes % (Man) Blast Cells % (Manual) Nucleated RBC % Metamyelocytes Hypochromia Platelet Estimate Poikilocytosis Anisocytosis Microcytosis Macrocytosis ESR Sodium Potassium Chloride Carbon Dioxide Anion Gap BUN Creatinine Creat Clearance w eGFR POC Glucometer 207 Random Glucose Calcium Iron 22 L 32 TIBC 350 Iron Saturation 9 L Total Bilirubin AST ALT Alkaline Phosphatase C-Reactive Protein Total Protein Albumin Anti-Parietal Cell Ab 0.8 04/01/18 04/01/18 04/01/18 06:09 06:15 06:15 WBC 14.6 H RBC 4.17 Hgb 9.5 L Hct 28.9 L MCV 69.4 L MCH 22.7 L MCHC 32.7 RDW 17.5 H Plt Count 372 MPV 7.8 Absolute Neuts (auto) 13.4 H Neutrophils % 91.9 H D Neutrophils % (Manual) 92.8 H Band Neutrophils % 0.0 Lymphocytes % 5.9 L D Lymphocytes % (Manual) 7.2 L Monocytes % 2.1 L Monocytes % (Manual) 0 L Eosinophils % 0.0 D Eosinophils % (Manual) 0.0 Basophils % 0.1 Basophils % (Manual) 0.0 Myelocytes % (Man) 0 Promyelocytes % (Man) 0 Blast Cells % (Manual) 0 Nucleated RBC % 0 Metamyelocytes 0 Hypochromia 1+ Platelet Estimate Normal Poikilocytosis 1+ Anisocytosis 1+ Microcytosis 1+ Macrocytosis 0 ESR 115 H Sodium 136 Potassium 4.3 Chloride 98 Carbon Dioxide 28 Anion Gap 10 BUN 25 H Creatinine 0.8 Creat Clearance w eGFR > 60 POC Glucometer 190 Random Glucose 185 H Calcium 9.2 Iron TIBC Iron Saturation Total Bilirubin 0.2 AST 8 L ALT 16 Alkaline Phosphatase 82 C-Reactive Protein 1.4 H Total Protein 6.9 Albumin 3.2 L Anti-Parietal Cell Ab 04/01/18 16:35 WBC RBC Hgb Hct MCV MCH MCHC RDW Plt Count MPV Absolute Neuts (auto) Neutrophils % Neutrophils % (Manual) Band Neutrophils % Lymphocytes % Lymphocytes % (Manual) Monocytes % Monocytes % (Manual) Eosinophils % Eosinophils % (Manual) Basophils % Basophils % (Manual) Myelocytes % (Man) Promyelocytes % (Man) Blast Cells % (Manual) Nucleated RBC % Metamyelocytes Hypochromia Platelet Estimate Poikilocytosis Anisocytosis Microcytosis Macrocytosis ESR Sodium Potassium Chloride Carbon Dioxide Anion Gap BUN Creatinine Creat Clearance w eGFR POC Glucometer 157 Random Glucose Calcium Iron TIBC Iron Saturation Total Bilirubin AST ALT Alkaline Phosphatase C-Reactive Protein Total Protein Albumin Anti-Parietal Cell Ab Active Medications Generic Name Dose Route Start Last Admin Trade Name Freq PRN Reason Stop Dose Admin Acetaminophen 500 mg 04/01/18 12:19 04/01/18 13:58 Tylenol - PO 500 mg Q6H PRN Administration PAIN LEVEL 1 - 3 Albuterol Sulfate 1 puff 04/01/18 12:19 Ventolin Hfa Inhaler - IH Q6H PRN ASTHMA Cholecalciferol 1,000 unit 04/02/18 10:00 Vitamin D3 - PO DAILY [facility] Cyanocobalamin 1,000 mcg 04/02/18 10:00 Vitamin B12 Injection - IM DAILY [facility] Ferrous Sulfate 325 mg 04/02/18 10:00 Feosol - PO DAILY [facility] Hydrochlorothiazide 25 mg 04/01/18 22:00 Hctz - PO HS [facility] Hydrochlorothiazide 25 mg 04/02/18 10:00 Hctz - PO DAILY [facility] Lactated Ringer's 1,000 mls @ 75 mls/hr 04/01/18 12:19 04/01/18 14:09 Lactated Ringers Solution IV 75 mls/hr ASDIR [facility] Administration Iron Sucrose 300 mg/ Sodium 250 mls @ 250 mls/hr 04/02/18 10:00 Chloride IVPB 04/02/18 10:59 ONCE ONE Insulin Aspart 1 vial 04/01/18 16:30 04/01/18 16:43 Novolog Vial Sliding Scale - SQ 2 unit ACHS [facility] Administration Protocol Lidocaine 1 patch 04/02/18 10:00 Lidoderm Patch - TP DAILY [facility] Methylprednisolone Sodium Succinate 60 mg 04/01/18 22:00 Solu-Medrol - IVPB BID [facility] Miscellaneous 1 each 04/01/18 22:00 Lidoderm Patch Removal MC DAILY@2200 [facility] Multivitamins/Minerals/Vitamin C 1 tab 04/02/18 10:00 Tab-A-Vit - PO DAILY [facility] Ranitidine HCl 150 mg 04/01/18 22:00 Zantac - PO BID [facility] Valsartan 320 mg 04/02/18 10:00 Diovan - PO DAILY [facility] ASSESSMENT/PLAN: Headache with elevated ESR? temporal arteritis. Vitamin B12 deficiency. Plan: continue vitamin b12 and iron. Parital call antibody negative. Intrinsic factor pending. Problem List - Problems (1) Anemia Code(s): D64.9 - ANEMIA, UNSPECIFIED (2) Headache Code(s): R51 - HEADACHE Qualifiers: Headache type: tension-type Headache chronicity pattern: acute headache Intractability: not intractable Qualified Code(s): G44.209 - Tension-type headache, unspecified, not intractable (3) ESR raised Code(s): R70.0 - ELEVATED ERYTHROCYTE SEDIMENTATION RATE Visit type - Emergency Visit Emergency Visit: Yes ED Registration Date: 03/30/18 Care time: The patient presented to the Emergency Department on the above date and was hospitalized for further evaluation of their emergent condition. - New Patient This patient is new to me today: No - Critical Care Critical Care patient: No
--- NOTE | 2018-04-01 18:54 | PN ---
Progress Note (short form) - Note Progress Note: Patient seen and examined Seen with Dr. Soto Feels improved Less headache . Some LE musculoskeletal pains Last Vital Signs Temp Pulse Resp BP Pulse Ox 98.3 F 93 H 18 128/74 98 04/01/18 14:50 04/01/18 14:50 04/01/18 14:50 04/01/18 14:50 04/01/18 12:45 HEENT: ASHELY, EOM Intact Cor: RSR, No murmurs, No gallops Lungs: Clear to P&A Abd: Soft, Normal bowel sounds, No organomegaly Ext: edema LE Skin: No rashes, Integument intact CBC, BMP 04/01/18 06:15 04/01/18 06:15 Current Medications Generic Name Dose Route Start Last Admin Trade Name Freq PRN Reason Stop Dose Admin Acetaminophen 500 mg 04/01/18 12:19 04/01/18 13:58 Tylenol - PO 500 mg Q6H PRN Administration PAIN LEVEL 1 - 3 Albuterol Sulfate 1 puff 04/01/18 12:19 Ventolin Hfa Inhaler - IH Q6H PRN ASTHMA Cholecalciferol 1,000 unit 04/02/18 10:00 Vitamin D3 - PO DAILY [facility] Cyanocobalamin 1,000 mcg 04/02/18 10:00 Vitamin B12 Injection - IM DAILY [facility] Ferrous Sulfate 325 mg 04/02/18 10:00 Feosol - PO DAILY [facility] Hydrochlorothiazide 25 mg 04/01/18 22:00 Hctz - PO HS [facility] Hydrochlorothiazide 25 mg 04/02/18 10:00 Hctz - PO DAILY [facility] Lactated Ringer's 1,000 mls @ 75 mls/hr 04/01/18 12:19 04/01/18 14:09 Lactated Ringers Solution IV 75 mls/hr ASDIR [facility] Administration Iron Sucrose 300 mg/ Sodium 250 mls @ 250 mls/hr 04/02/18 10:00 Chloride IVPB 04/02/18 10:59 ONCE ONE Insulin Aspart 1 vial 04/01/18 16:30 04/01/18 16:43 Novolog Vial Sliding Scale - SQ 2 unit ACHS [facility] Administration Protocol Lidocaine 1 patch 04/02/18 10:00 Lidoderm Patch - TP DAILY [facility] Methylprednisolone Sodium Succinate 60 mg 04/01/18 22:00 Solu-Medrol - IVPB BID [facility] Miscellaneous 1 each 04/01/18 22:00 Lidoderm Patch Removal MC DAILY@2200 [facility] Multivitamins/Minerals/Vitamin C 1 tab 04/02/18 10:00 Tab-A-Vit - PO DAILY [facility] Ranitidine HCl 150 mg 04/01/18 22:00 Zantac - PO BID [facility] Valsartan 320 mg 04/02/18 10:00 Diovan - PO DAILY [facility] Impression: S/P temporal artery biopsy S/P B-12 and IV venofer Clinically improved Continue Fe++ and B-12 therapy. Await HbE and T.A. biopsy Continue steroids.
--- NOTE | 2018-04-01 21:29 | CON.GI ---
Consult Consult Specialty:: Gastroenterology Referred by:: Dr Faith Reason for Consultation:: Anemia - History of Present Illness Chief Complaint: Headaches History of Present Illness: 62F is admitted for headaches, visual disturbance and temporal area tenderness and underwent a temporal artery biopsy today. Steroids have already been initiated and causing steroid induced diabetes. She has no GI complaints aside from GERD. She has never had an EGD or a colonoscopy. She denies any signs of GI bleeding. Her anemia is new. She is iron and Vitamin B12 deficient. No FH of colon cancer. A maternal uncle had esophageal cancer and her maternal grandmother and aunt had Crohn's Disease. No dysphagia, early satiety, weight loss or narrowed stools. - History Source History Provided By: Patient Limitations to Obtaining History: No Limitations - Past Medical History Cardio/Vascular: Yes: HTN, Hyperlipdemia, Murmur, Other (SVT required abl;ation at [facility] Dr García) Pulmonary: Yes: Asthma, COPD Gastrointestinal: Yes: GERD Hepatobiliary: Yes: Other (fatty liver) ...: No Heme/Onc: Yes: Anemia, B12 Deficiency, Cancer (breast cancer managed with lumpectomy, no adjuvant therapy) Musculoskeletal: Yes: Chronic low back pain (vertebral spinal fractures), Osteoarthritis Endocrine: Yes: Diabetes Mellitus, Other (morbid obesity, new thyroid nodules) - Past Surgical History Additional Surgical History: Lumpectomy left side for cancer. Benign skin excisions. 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 Place of : [facility] History of Recent Travel: No Home Medications - Allergies Allergies/Adverse Reactions: Allergies Allergy/AdvReac Type Severity Reaction Status Date / Time ciprofloxacin [From Cipro] Allergy Verified 03/25/18 06:13 ciprofloxacin HCl Allergy Verified 03/25/18 06:13 [From Cipro] Penicillins Allergy Verified 03/25/18 06:13 Tetracyclines Allergy Verified 03/25/18 06:13 - Home Medications Home Medications: Ambulatory Orders Albuterol Sulfate [Proair Hfa -] 1 - 2 inh PO TID PRN 11/30/14 Hydrochlorothiazide [Hctz -] 25 mg PO HS 11/30/14 Ranitidine [Zantac -] 150 mg PO BID 11/30/14 Acetaminophen [Tylenol -] 1,000 mg PO Q6H #100 tablet 03/17/18 Lidocaine 5% Patch [Lidoderm Patch -] 1 patch TP DAILY #7 patch 03/17/18 Olmesartan/Hydrochlorothiazide [Benicar Hct 40-25 mg Tablet] 1 each PO DAILY 09/03 Family Disease History - Family Disease History Family Disease History: Diabetes: Grandparent, Heart Disease: Father ( 78 of mesothelioma), Mother (alive 81), CA: Father Other Family History: uncle from mother side has esophageal cancer. maternal GM and aunt had Crohn's Disease Review of Systems - Review of Systems Constitutional: reports: No Symptoms HENT: reports: No Symptoms Neck: reports: No Symptoms Cardiovascular: reports: No Symptoms Respiratory: reports: Exercise Intolerance Gastrointestinal: reports: Other (heartburn) Genitourinary: reports: No Symptoms Musculoskeletal: reports: Back Pain Neurological: reports: No Symptoms Physical Exam-GI Vital Signs: Vital Signs Temperature 98.2 F 04/01/18 18:00 Pulse Rate 59 L 04/01/18 18:00 Respiratory Rate 18 04/01/18 18:00 Blood Pressure 109/56 04/01/18 18:00 O2 Sat by Pulse Oximetry (%) 98 04/01/18 12:45 CBC,CMP WBC 14.6 K/mm3 (4.0-10.0) H 04/01/18 06:15 RBC 4.17 M/mm3 (3.60-5.2) 04/01/18 06:15 Hgb 9.5 GM/dL (10.7-15.3) L 04/01/18 06:15 Hct 28.9 % (32.4-45.2) L 04/01/18 06:15 MCV 69.4 fl (80-96) L 04/01/18 06:15 MCH 22.7 pg (25.7-33.7) L 04/01/18 06:15 MCHC 32.7 g/dl (32.0-36.0) 04/01/18 06:15 RDW 17.5 % (11.6-15.6) H 04/01/18 06:15 Plt Count 372 K/MM3 (134-434) 04/01/18 06:15 MPV 7.8 fl (7.5-11.1) 04/01/18 06:15 Absolute Neuts (auto) 13.4 K/mm3 (1.5-8.0) H 04/01/18 06:15 Neutrophils % 91.9 % (42.8-82.8) H D 04/01/18 06:15 Neutrophils % (Manual) 92.8 % (42.8-82.8) H 04/01/18 06:15 Band Neutrophils % 0.0 % 04/01/18 06:15 Lymphocytes % 5.9 % (8-40) L D 04/01/18 06:15 Lymphocytes % (Manual) 7.2 % (8-40) L 04/01/18 06:15 Monocytes % 2.1 % (3.8-10.2) L 04/01/18 06:15 Monocytes % (Manual) 0 % (3.8-10.2) L 04/01/18 06:15 Eosinophils % 0.0 % (0-4.5) D 04/01/18 06:15 Eosinophils % (Manual) 0.0 % (0-4.5) 04/01/18 06:15 Basophils % 0.1 % (0-2.0) 04/01/18 06:15 Basophils % (Manual) 0.0 % (0-2.0) 04/01/18 06:15 Myelocytes % (Man) 0 % (0-2) 04/01/18 06:15 Promyelocytes % (Man) 0 % (0-2) 04/01/18 06:15 Blast Cells % (Manual) 0 % (0-0) 04/01/18 06:15 Nucleated RBC % 0 % (0-0) 04/01/18 06:15 Metamyelocytes 0 % (0-2) 04/01/18 06:15 Hypochromia 1+ 04/01/18 06:15 Platelet Estimate Normal 04/01/18 06:15 Poikilocytosis 1+ 04/01/18 06:15 Anisocytosis 1+ 04/01/18 06:15 Microcytosis 1+ 04/01/18 06:15 Macrocytosis 0 04/01/18 06:15 ESR 115 mm/hr (0-30) H 04/01/18 06:15 Retic Count 2.44 % (0.5-1.5) H 03/30/18 17:35 Sodium 136 mmol/L (136-145) 04/01/18 06:15 Potassium 4.3 mmol/L (3.5-5.1) 04/01/18 06:15 Chloride 98 mmol/L (98-107) 04/01/18 06:15 Carbon Dioxide 28 mmol/L (21-32) 04/01/18 06:15 Anion Gap 10 (8-16) 04/01/18 06:15 BUN 25 mg/dL (7-18) H 04/01/18 06:15 Creatinine 0.8 mg/dL (0.55-1.02) 04/01/18 06:15 Creat Clearance w eGFR > 60 (>60) 04/01/18 06:15 POC Glucometer 157 UNITS (80-120) 04/01/18 16:35 Random Glucose 185 mg/dL (74-106) H 04/01/18 06:15 Calcium 9.2 mg/dL (8.5-10.1) 04/01/18 06:15 Iron 32 ug/dL (27-159) 03/31/18 10:21 TIBC 350 ug/dL (250-450) 03/31/18 10:21 Iron Saturation 9 % (15-55) L 03/31/18 10:21 Ferritin 12.5 ng/ml (6.9-282.5) 03/30/18 17:35 Total Bilirubin 0.2 mg/dL (0.2-1.0) 04/01/18 06:15 AST 8 U/L (15-37) L 04/01/18 06:15 ALT 16 U/L (12-78) 04/01/18 06:15 Alkaline Phosphatase 82 U/L (45-117) 04/01/18 06:15 C-Reactive Protein 1.4 MG/DL (0.00-0.3) H 04/01/18 06:15 Total Protein 6.9 g/dl (6.4-8.2) 04/01/18 06:15 Albumin 3.2 g/dl (3.4-5.0) L 04/01/18 06:15 Vitamin B12 134 pg/ml (180-914) L 03/30/18 17:35 Serum Folate 11 ng/ml (3.1-17.5) 03/31/18 10:21 TSH 1.38 uIU/ml (0.358-3.74) 03/30/18 17:35 Current Medications Generic Name Dose Route Start Last Admin Trade Name Freq PRN Reason Stop Dose Admin Acetaminophen 500 mg 04/01/18 12:19 04/01/18 20:24 Tylenol - PO 500 mg Q6H PRN Administration PAIN LEVEL 1 - 3 Albuterol Sulfate 1 puff 04/01/18 12:19 Ventolin Hfa Inhaler - IH Q6H PRN ASTHMA Cholecalciferol 1,000 unit 04/02/18 10:00 Vitamin D3 - PO DAILY [facility] Cyanocobalamin 1,000 mcg 04/02/18 10:00 Vitamin B12 Injection - IM DAILY [facility] Ferrous Sulfate 325 mg 04/02/18 10:00 Feosol - PO DAILY [facility] Hydrochlorothiazide 25 mg 04/01/18 22:00 Hctz - PO HS [facility] Hydrochlorothiazide 25 mg 04/02/18 10:00 Hctz - PO DAILY [facility] Lactated Ringer's 1,000 mls @ 75 mls/hr 04/01/18 12:19 04/01/18 14:09 Lactated Ringers Solution IV 75 mls/hr ASDIR [facility] Administration Iron Sucrose 300 mg/ Sodium 250 mls @ 166.667 mls/hr 04/02/18 10:00 Chloride IVPB 04/02/18 11:29 ONCE ONE Insulin Aspart 1 vial 04/01/18 16:30 04/01/18 16:43 Novolog Vial Sliding Scale - SQ 2 unit ACHS [facility] Administration Protocol Lidocaine 1 patch 04/02/18 10:00 Lidoderm Patch - TP DAILY [facility] Methylprednisolone Sodium Succinate 60 mg 04/01/18 22:00 Solu-Medrol - IVPB BID [facility] Miscellaneous 1 each 04/01/18 22:00 Lidoderm Patch Removal MC DAILY@2200 [facility] Multivitamins/Minerals/Vitamin C 1 tab 04/02/18 10:00 Tab-A-Vit - PO DAILY [facility] Ranitidine HCl 150 mg 04/01/18 22:00 Zantac - PO BID [facility] Valsartan 320 mg 04/02/18 10:00 Diovan - PO DAILY [facility] Constitutional: Yes: No Distress Eyes: Yes: Conjunctiva Clear HENT: Yes: Atraumatic Neck: Yes: Supple Cardiovascular: Yes: Regular Rate and Rhythm Respiratory: Yes: CTA Bilaterally Gastrointestinal Inspection: Yes: Other (obese) ...Auscultate: Yes: Normoactive Bowel Sounds ...Palpate: Yes: Soft, Other (nontender) ...Rectal Exam: Yes: Guaiac Negative (no masses) Edema: No Peripheral Pulses WNL: Yes Neurological: Yes: Alert, Oriented Labs: CBC, BMP 04/01/18 06:15 04/01/18 06:15 Laboratory Tests 03/30/18 03/30/18 03/30/18 17:35 17:35 17:35 Hgb 9.1 L MCV Iron 22 L Ferritin 12.5 C-Reactive Protein Albumin Vitamin B12 134 L 04/01/18 04/01/18 06:15 06:15 Hgb MCV 69.4 L Iron Ferritin C-Reactive Protein 1.4 H Albumin 3.2 L Vitamin B12 Problem List - Problems (1) Iron deficiency anemia Assessment/Plan: Despite the lack of occult blood ion her stools I have advised Rowena to undergo both an EGD and a colonoscopy as an outpatient after discharge and recovery from her temporal artery biopsy and headache. She is agreeable to this and has accepted my business card. I have advised dieting and weight loss Code(s): D50.9 - IRON DEFICIENCY ANEMIA, UNSPECIFIED (2) Pernicious anemia Code(s): D51.0 - VITAMIN B12 DEFIC ANEMIA DUE TO INTRINSIC FACTOR DEFICIENCY (3) Morbidly obese Code(s): E66.01 - MORBID (SEVERE) OBESITY DUE TO EXCESS CALORIES (4) Fatty (change of) liver, not elsewhere classified Assessment/Plan: will check fibrosure Code(s): K76.0 - FATTY (CHANGE OF) LIVER, NOT ELSEWHERE CLASSIFIED (5) Acid reflux Assessment/Plan: continue ranitidine Code(s): K21.9 - GASTRO-ESOPHAGEAL REFLUX DISEASE WITHOUT ESOPHAGITIS
[2018-04-01] MEDS ORDERED: LIDOCAINE PATCH REMOVAL MC SCH (22:00)
[2018-04-01] MEDS ORDERED: HYDROCHLOROTHIAZIDE 25 MG TABLET (FP) PO SCH (22:00)
[2018-04-01] MEDS: methylPREDNISolone NA SUCC 125 MG/2 ML VIAL IVPB SCH (22:15)
[2018-04-02] MEDS: LACTATED RINGERS SOLUTION 1,000 ML IV SCH (06:29)
[2018-04-02] MEDS: INSULIN SLIDING SCALE (NOVOLOG) 1 VIAL SQ SCH ×2 (06:30→11:43)
[2018-04-02] MEDS: ACETAMINOPHEN 500 MG TABLET (FP) PO PRN (06:55)
[2018-04-02 07:02] LABS: BASO % 0.1 % (0-2.0); HEMATOCRIT 29.7 % (32.4-45.2); HEMOGLOBIN 9.7 GM/dL (10.7-15.3); LYMPH % 6.7 % (8-40); MCH 22.6 pg (25.7-33.7); MCHC 32.5 g/dl (32.0-36.0); MEAN CELL VOLUME 69.5 fl (80-96); MEAN PLT VOLUME 7.5 fl (7.5-11.1); MONO % 1.4 % (3.8-10.2); NEUT % 91.8 % (42.8-82.8); PLATELET COUNT 374 K/MM3 (134-434); RBC 4.28 M/mm3 (3.60-5.2); RDW 17.6 % (11.6-15.6); WHITE BLOOD COUNT 11.2 K/mm3 (4.0-10.0)
--- NOTE | 2018-04-02 07:20 | PN ---
Progress Note (short form) - Note Progress Note: Patient seen and examined Complains of some minimal headache - relieved by tylenol Seen by GI, Dr. Molina and for outpatient work up for GI blood loss Last Vital Signs Temp Pulse Resp BP Pulse Ox 97.9 F 46 L 18 141/63 98 04/02/18 06:00 04/02/18 06:00 04/02/18 06:00 04/02/18 06:00 04/01/18 21:00 HEENT: ASHELY, EOM Intact Oropharynx: No thrush, No mucositis Cor: RSR, No murmurs, No gallops Lungs: Clear to P&A Abd: Soft, Normal bowel sounds, No organomegaly Ext:LE edema Skin: No rashes, Integument intact CBC, BMP 04/02/18 06:45 Current Medications Generic Name Dose Route Start Last Admin Trade Name Freq PRN Reason Stop Dose Admin Acetaminophen 500 mg 04/01/18 12:19 04/02/18 06:55 Tylenol - PO 500 mg Q6H PRN Administration PAIN LEVEL 1 - 3 Albuterol Sulfate 1 puff 04/01/18 12:19 Ventolin Hfa Inhaler - IH Q6H PRN ASTHMA Cholecalciferol 1,000 unit 04/02/18 10:00 Vitamin D3 - PO DAILY [facility] Cyanocobalamin 1,000 mcg 04/02/18 10:00 Vitamin B12 Injection - IM DAILY [facility] Ferrous Sulfate 325 mg 04/02/18 10:00 Feosol - PO DAILY [facility] Hydrochlorothiazide 25 mg 04/01/18 22:00 04/01/18 22:01 Hctz - PO 25 mg HS [facility] Administration Hydrochlorothiazide 25 mg 04/02/18 10:00 Hctz - PO DAILY [facility] Lactated Ringer's 1,000 mls @ 75 mls/hr 04/01/18 12:19 04/02/18 06:29 Lactated Ringers Solution IV 75 mls/hr ASDIR [facility] Administration Iron Sucrose 300 mg/ Sodium 250 mls @ 166.667 mls/hr 04/02/18 10:00 Chloride IVPB 04/02/18 11:29 ONCE ONE Insulin Aspart 1 vial 04/01/18 16:30 04/02/18 06:30 Novolog Vial Sliding Scale - SQ 4 unit ACHS [facility] Administration Protocol Lidocaine 1 patch 04/02/18 10:00 Lidoderm Patch - TP DAILY [facility] Methylprednisolone Sodium Succinate 60 mg 04/01/18 22:00 04/01/18 22:15 Solu-Medrol - IVPB 60 mg BID [facility] Administration Miscellaneous 1 each 04/01/18 22:00 04/01/18 22:02 Lidoderm Patch Removal MC Not Given DAILY@2200 [facility] Multivitamins/Minerals/Vitamin C 1 tab 04/02/18 10:00 Tab-A-Vit - PO DAILY [facility] Ranitidine HCl 150 mg 04/01/18 22:00 04/01/18 22:01 Zantac - PO 150 mg BID [facility] Administration Valsartan 320 mg 04/02/18 10:00 Diovan - PO DAILY [facility] Impression: Awaiting biopsy results of T.A> On medrol- 60 BID - equivalent of Prednisone 150 mg. Vitamin B-12 deficiency Fe++ deficiency Plan: IV Venofer Rheumatology to decide upon dosing of Prednisone upon discharge GI follow up in future Await IF antibodies and anti-parietal cell antibodies.
[2018-04-02 07:47] LABS: ANION GAP 8 (8-16); BLOOD UREA NITROGEN 26 mg/dL (7-18); CALCIUM 9.5 mg/dL (8.5-10.1); CHLORIDE 99 mmol/L (98-107); CO2 30 mmol/L (21-32); CREATININE 0.9 mg/dL (0.55-1.02); GLUCOSE,RANDOM 179 mg/dL (74-106); POTASSIUM 4.7 mmol/L (3.5-5.1); SODIUM 137 mmol/L (136-145)
--- NOTE | 2018-04-02 07:53 | DS ---
Physical Examination Vital Signs: Vital Signs Temperature 97.9 F 04/02/18 06:00 Pulse Rate 46 L 04/02/18 06:00 Respiratory Rate 18 04/02/18 06:00 Blood Pressure 141/63 04/02/18 06:00 O2 Sat by Pulse Oximetry (%) 98 04/01/18 21:00 Findings/Remarks: s/p L TA biopsy has some mild discomfort at the surgical site but no headaches no visual c/o. OK to DC home on po steroids and PPI, scripts and f/u needed d/w pt in detail ordered glucometer and diabetic supplies all scripts done and d/w pt t time 40 min d/w dr Calixto pt to be DC home on prednisone 50 mg po bid x 2 weeks and to see him within 1-2 weeks in office for further steroids taper d/w pt too. f/u needed d/w pt GI (EGD colonoscopy), breast surgery f/u and mammogram, [employer], cardiology, endocrine f/u and thyroid US, possible biopsy - to be done over the next few weeks; she said she will. Constitutional: Yes: No Distress, Calm Eyes: Yes: Conjunctiva Clear HENT: Yes: Atraumatic Neck: Yes: Supple Cardiovascular: Yes: Regular Rate and Rhythm Respiratory: Yes: CTA Bilaterally Gastrointestinal: Yes: Soft. No: Distention Renal/: No: CVA Tenderness - Left, CVA Tenderness - Right Musculoskeletal: No: Joint Stiffness, Joint Swelling Extremities: No: Cold, Cool Edema: No Integumentary: No: Rash, Venous Stasis Changes Neurological: Yes: WNL, Alert, Oriented ...Motor Strength: WNL Psychiatric: Yes: WNL, Alert, Oriented. No: Agitated, Suicidal Ideation Labs: CBC, BMP 04/02/18 06:45 04/02/18 06:45 Discharge Summary Reason For Visit: HEADACHE Current Active Problems Acid reflux (Acute) Anemia (Acute) ESR raised (Acute) Fatty (change of) liver, not elsewhere classified (Acute) Iron deficiency anemia (Acute) Morbidly obese (Acute) Pernicious anemia (Acute) Procedures: Principal: admitted with intractable headaches r/o TA Other Procedures: seen by rheumatology and neurology; started on IV steroids which improved symtoms; had TA biopsy results pending; Hospital Course: improved with above; DC home on po steroids, f/u as advised Condition: Improved - Instructions Diet, Activity, Other Instructions: f/u labs CBC CMP ESR CRP in 1-2 weeks PCP and rheumatology fu in 1-2 weeks taper steroids per rheumatology; PPI Prilosec while on steroids check BGM TID home while on steroids; might need sq insulin per sliding scale; scripts done GI for EGD colonoscopy outpt check pathology report in 1-2 weeks; cardiology f/u; thyroid US and endocrine f/u in 1-2 weeks; mammogram and breast surgery f/u in 1-2 weeks RTER if worse or recurrent c/o Referrals: Nyla Faith [Primary Care Provider] - Nikita Aceves MD [Staff Physician] - Sivakumar Calixto MD [Staff Physician] - Mario Molina MD [Staff Physician] - Boogie Goodman MD [Staff Physician] - Ara Okeefe MD [Staff Physician] - Disposition: HOME - Home Medications Comprehensive Discharge Medication List: Ambulatory Orders Albuterol Sulfate [Proair Hfa -] 1 - 2 inh PO TID PRN 11/30/14 Hydrochlorothiazide [Hctz -] 25 mg PO HS 11/30/14 Ranitidine [Zantac -] 150 mg PO BID 11/30/14 Acetaminophen [Tylenol -] 1,000 mg PO Q6H #100 tablet 03/17/18 Lidocaine 5% Patch [Lidoderm Patch -] 1 patch TP DAILY #7 patch 03/17/18 Olmesartan/Hydrochlorothiazide [Benicar Hct 40-25 mg Tablet] 1 each PO DAILY 09/03
--- NOTE | 2018-04-02 09:05 | PN ---
Progress Note (short form) - Note Progress Note: Feels good Denies any complaints S/P left temporal artery biopsy Vital Signs Period Temp Pulse Resp BP Sys/Juarez Pulse Ox Last 24 Hr 97.7 F-99.1 F 46-107 109-176/56-81 96-98 PE:aOx3 Neck: Supple HEENT: Left temporal incision site clean, no DC Lungs: CTA CVS: S1S2 Abd: Benign Ext: No edema Neuro: No focal deficit CMP Sodium 137 mmol/L (136-145) 04/02/18 06:45 Potassium 4.7 mmol/L (3.5-5.1) 04/02/18 06:45 Chloride 99 mmol/L (98-107) 04/02/18 06:45 Carbon Dioxide 30 mmol/L (21-32) 04/02/18 06:45 Anion Gap 8 (8-16) 04/02/18 06:45 BUN 26 mg/dL (7-18) H 04/02/18 06:45 Creatinine 0.9 mg/dL (0.55-1.02) 04/02/18 06:45 Creat Clearance w eGFR > 60 (>60) 04/02/18 06:45 POC Glucometer 206 UNITS (80-120) 04/02/18 06:28 Random Glucose 179 mg/dL (74-106) H 04/02/18 06:45 Calcium 9.5 mg/dL (8.5-10.1) 04/02/18 06:45 Iron 32 ug/dL (27-159) 03/31/18 10:21 TIBC 350 ug/dL (250-450) 03/31/18 10:21 Iron Saturation 9 % (15-55) L 03/31/18 10:21 Ferritin 12.5 ng/ml (6.9-282.5) 03/30/18 17:35 Total Bilirubin 0.2 mg/dL (0.2-1.0) 04/01/18 06:15 GGT 27 U/L (5-85) 04/02/18 06:45 AST 8 U/L (15-37) L 04/01/18 06:15 ALT 16 U/L (12-78) 04/01/18 06:15 Alkaline Phosphatase 82 U/L (45-117) 04/01/18 06:15 C-Reactive Protein 1.4 MG/DL (0.00-0.3) H 04/01/18 06:15 Total Protein 6.9 g/dl (6.4-8.2) 04/01/18 06:15 Albumin 3.2 g/dl (3.4-5.0) L 04/01/18 06:15 Vitamin B12 134 pg/ml (180-914) L 03/30/18 17:35 Serum Folate 11 ng/ml (3.1-17.5) 03/31/18 10:21 TSH 1.38 uIU/ml (0.358-3.74) 03/30/18 17:35 Current Medications Generic Name Dose Route Start Last Admin Trade Name Freq PRN Reason Stop Dose Admin Acetaminophen 500 mg 04/01/18 12:19 04/02/18 06:55 Tylenol - PO 500 mg Q6H PRN Administration PAIN LEVEL 1 - 3 Albuterol Sulfate 1 puff 04/01/18 12:19 Ventolin Hfa Inhaler - IH Q6H PRN ASTHMA Cholecalciferol 1,000 unit 04/02/18 10:00 Vitamin D3 - PO DAILY [facility] Cyanocobalamin 1,000 mcg 04/02/18 10:00 Vitamin B12 Injection - IM DAILY [facility] Ferrous Sulfate 325 mg 04/02/18 10:00 Feosol - PO DAILY [facility] Hydrochlorothiazide 25 mg 04/01/18 22:00 04/01/18 22:01 Hctz - PO 25 mg HS [facility] Administration Hydrochlorothiazide 25 mg 04/02/18 10:00 Hctz - PO DAILY [facility] Iron Sucrose 300 mg/ Sodium 250 mls @ 166.667 mls/hr 04/02/18 10:00 Chloride IVPB 04/02/18 11:29 ONCE ONE Insulin Aspart 1 vial 04/01/18 16:30 04/02/18 06:30 Novolog Vial Sliding Scale - SQ 4 unit ACHS [facility] Administration Protocol Lidocaine 1 patch 04/02/18 10:00 Lidoderm Patch - TP DAILY [facility] Losartan Potassium 100 mg 04/02/18 10:00 Cozaar - PO DAILY [facility] Methylprednisolone Sodium Succinate 60 mg 04/01/18 22:00 04/01/18 22:15 Solu-Medrol - IVPB 60 mg BID [facility] Administration Miscellaneous 1 each 04/01/18 22:00 04/01/18 22:02 Lidoderm Patch Removal MC Not Given DAILY@2200 [facility] Multivitamins/Minerals/Vitamin C 1 tab 04/02/18 10:00 Tab-A-Vit - PO DAILY [facility] Ranitidine HCl 150 mg 04/01/18 22:00 04/01/18 22:01 Zantac - PO 150 mg BID [facility] Administration AP; Headache: ?Temporal Arteritis For Bx tomorrow On IV steroids Rt thyroid Mass Sonogram of thyroid as outpt. Will not be done as inpatient May need FNA T2DM: On diet On Methylprednisolone 60 BID IV BGM QACHS Novolog SS coverage Start Januvia 100mg Qd Can't tolerate Metformin Teach pt to self monitor blood sugar and self inject Insulin May need to go home on Insulin if she is discharged on Steroids
[2018-04-02] MEDS: methylPREDNISolone NA SUCC 125 MG/2 ML VIAL IVPB SCH (09:28)
[2018-04-02] MEDS: RANITIDINE HCL 150 MG TABLET (FP) PO SCH (09:28)
[2018-04-02 09:48] LABS: ANISOCYTOSIS 1+; MACROCYTOSIS 0; PLATELET ESTIMATE NORMAL
--- NOTE | 2018-04-02 09:55 | PN ---
Progress Note (short form) - Note Progress Note: Neurology History of Present Illness Pt is a 62yo F with PMH of DM, HTN, COPD, herniated disc in C3-7 presenting to ED with complaints of YEAGER. She reports it orginates at base of skull, radiates to forehead. Diffuse. Not sure if associated with blurry vision. Did report like periphery of L vision is like a kaleidoscope. some photophobia. not bothered by loud noises. No fever, chills, neck stiffness, n/v, ear pain, jaw pain, numbness/tingling. She completed CT head on recent visits, no acute changes. Of note, ESR elevated to 102 and diagnosis of giant cell arterities being considered. When asked specifically, does report bitemporal (L>R) discomfort with these heads. Additionally, started on IV solumedrol and reports much improved. This also points to GCA as likely diagnosis. Rheum consult reviewed, recommended Dr Duvall for biopsy. Dr. Duvall completed biopsy. Well appearing and reports significant improvement. Likely for discharge. Active Medications Acetaminophen (Tylenol -) 500 mg PO Q6H PRN PRN Reason: PAIN LEVEL 1 - 3 Last Admin: 04/02/18 06:55 Dose: 500 mg Albuterol Sulfate (Ventolin Hfa Inhaler -) 1 puff IH Q6H PRN PRN Reason: ASTHMA Cholecalciferol (Vitamin D3 -) 1,000 unit PO DAILY [facility] Last Admin: 04/02/18 09:28 Dose: 1,000 unit Cyanocobalamin (Vitamin B12 Injection -) 1,000 mcg IM DAILY [facility] Last Admin: 04/02/18 09:28 Dose: 1,000 mcg Ferrous Sulfate (Feosol -) 325 mg PO DAILY [facility] Last Admin: 04/02/18 09:28 Dose: 325 mg Hydrochlorothiazide (Hctz -) 25 mg PO HS [facility] Last Admin: 04/01/18 22:01 Dose: 25 mg Hydrochlorothiazide (Hctz -) 25 mg PO DAILY [facility] Last Admin: 04/02/18 09:29 Dose: 25 mg Iron Sucrose 300 mg/ Sodium (Chloride) 250 mls @ 166.667 mls/hr IVPB ONCE ONE Stop: 04/02/18 11:29 Insulin Aspart (Novolog Vial Sliding Scale -) 1 vial SQ ACHS [facility]; Protocol Last Admin: 04/02/18 06:30 Dose: 4 unit Lidocaine (Lidoderm Patch -) 1 patch TP DAILY [facility] Last Admin: 04/02/18 09:29 Dose: 1 patch Losartan Potassium (Cozaar -) 100 mg PO DAILY [facility] Last Admin: 04/02/18 09:28 Dose: 100 mg Methylprednisolone Sodium Succinate (Solu-Medrol -) 60 mg IVPB BID [facility] Last Admin: 04/02/18 09:28 Dose: 60 mg Miscellaneous (Lidoderm Patch Removal) 1 each MC DAILY@2200 [facility] Last Admin: 04/01/18 22:02 Dose: Not Given Multivitamins/Minerals/Vitamin C (Tab-A-Vit -) 1 tab PO DAILY [facility] Last Admin: 04/02/18 09:28 Dose: 1 tab Ranitidine HCl (Zantac -) 150 mg PO BID [facility] Last Admin: 04/02/18 09:28 Dose: 150 mg Sitagliptin Phosphate (Januvia -) 100 mg PO DAILY@0700 [facility] *Physical Exam Vital Signs Period Temp Pulse Resp BP Sys/Juarez Pulse Ox Last 24 Hr 97.7 F-99.1 F 46-107 15-18 109-176/56-81 96-98 Gen: Awake, alert, responds to questions Card: RRR, nml S1,S2 Resp: Normal symmetric effort, lungs clear to auscultation Abdomen: Soft, nontender, bowel sounds active Musculoskeletal: Adequate range of motion without significant deformity Head atraumatic and normocephalic CN: PERRL, EOMI intact, no apparent facial droop, no abnormalities in facial sensation, palate elevates, uvula and tongue midline Motor: Full strength to confrontation in upper and lower extermities proximally and distally. Tone normal throughout Sensory: Intact to Temperature, light touch, and pinprick in all extremities Reflexes: 2+ biceps, brachioradialis, patellar, achillies Coordination: Intact on [id number] testing CBCD WBC 14.6 K/mm3 (4.0-10.0) H 04/01/18 06:15 RBC 4.17 M/mm3 (3.60-5.2) 04/01/18 06:15 Hgb 9.5 GM/dL (10.7-15.3) L 04/01/18 06:15 Hct 28.9 % (32.4-45.2) L 04/01/18 06:15 MCV 69.4 fl (80-96) L 04/01/18 06:15 MCHC 32.7 g/dl (32.0-36.0) 04/01/18 06:15 RDW 17.5 % (11.6-15.6) H 04/01/18 06:15 Plt Count 372 K/MM3 (134-434) 04/01/18 06:15 MPV 7.8 fl (7.5-11.1) 04/01/18 06:15 CMP Sodium 136 mmol/L (136-145) 04/01/18 06:15 Potassium 4.3 mmol/L (3.5-5.1) 04/01/18 06:15 Chloride 98 mmol/L (98-107) 04/01/18 06:15 Carbon Dioxide 28 mmol/L (21-32) 04/01/18 06:15 Anion Gap 10 (8-16) 04/01/18 06:15 BUN 25 mg/dL (7-18) H 04/01/18 06:15 Creatinine 0.8 mg/dL (0.55-1.02) 04/01/18 06:15 Creat Clearance w eGFR > 60 (>60) 04/01/18 06:15 Calcium 9.2 mg/dL (8.5-10.1) 04/01/18 06:15 Total Bilirubin 0.2 mg/dL (0.2-1.0) 04/01/18 06:15 AST 8 U/L (15-37) L 04/01/18 06:15 ALT 16 U/L (12-78) 04/01/18 06:15 Alkaline Phosphatase 82 U/L (45-117) 04/01/18 06:15 Total Protein 6.9 g/dl (6.4-8.2) 04/01/18 06:15 Albumin 3.2 g/dl (3.4-5.0) L 04/01/18 06:15 CT head reviewed Medical Decision Making 62yo F with PMH of DM, HTN, COPD, herniated disc in C3-7 presenting to ED with complaints of YEAGER. She reports it orginates at base of skull, radiates to forehead. Diffuse. Not sure if associated with blurry vision. Did report like periphery of L vision is like a kaleidoscope. some photophobia. not bothered by loud noises. No fever, chills, neck stiffness, n/v, ear pain, jaw pain, numbness /tingling. She completed CT head on recent visits, no acute changes. Of note, ESR elevated to 102 and diagnosis of giant cell arterities being considered. When asked specifically, does report bitemporal (L>R) discomfort with these heads. Additionally, started on IV solumedrol and reports much improved. This also points to GCA as likely diagnosis. SRheum consult reviewed, recommended Dr Duvall for biopsy. Dr. Duvall note reviewed, biopsy completed. Well appearing and reports significant improvement. Monitor glucose, on insulin sliding scale. Continue PPI while on steroids. Follow up biopsy, duration of IV vs PO steroids per Rheum/primary.
[2018-04-02] MEDS ORDERED: LOSARTAN POTASSIUM 50 MG TABLET (FP) PO SCH (10:00)
[2018-04-02] MEDS ORDERED: HYDROCHLOROTHIAZIDE 25 MG TABLET (FP) PO SCH (10:00)
[2018-04-02] MEDS ORDERED: VALSARTAN 160 MG TABLET (UD) PO SCH (10:00)
[2018-04-02] MEDS ORDERED: IRON SUCROSE INJECTION 300 MG in SODIUM CHLORIDE 235 ML IVPB ONE (10:00)
[2018-04-02] MEDS ORDERED: FERROUS SO4 325 MG TABLET (FP) PO SCH (10:00)
[2018-04-02] MEDS ORDERED: CHOLECALCIFEROL (VITAMIN D3) 1,000 UNIT TABLET (FP) PO SCH (10:00)
[2018-04-02] MEDS ORDERED: MULTIVITAMINS (DAILY MVI) TABLET (FP) PO SCH (10:00)
[2018-04-02] MEDS ORDERED: LIDOCAINE 5% TOPICAL PATCH TP SCH (10:00)
[2018-04-02] MEDS ORDERED: CYANOCOBALAMIN (VITAMIN B-12) 1000 MCG/1 ML VIAL IM SCH (10:00)
[2018-04-02 13:33] VITALS: BP 142/66; PULSE 50; TEMP 98
--- NOTE | 2018-04-02 13:35 | PATH ---
Surgical Pathology Report Patient Name: OWEN JOHNSON Med. Rec. #: [id number] /Age/Gender: 1955 (Age: 62) / F Account: [id number] Location: [facility] MED/SURG Taken: 04/01/2018 Received: 04/01/2018 Reported: 04/02/2018 Physicians: Rivera Duvall PHYSICIAN EMERGENCY DEPT Specimen(s) Received LEFT TEMPORAL ARTERY BIOPSY Clinical History Rule out temporal artery arteritis Final Diagnosis TEMPORAL ARTERY, LEFT, BIOPSY: MUSCULAR ARTERY WITH NO EVIDENCE OF ARTERITIS. MULTIPLE LEVELS EXAMINED. Electronically Signed Thalia Martin M.D. Gross Description Received in formalin labeled "left temporal artery," is a 1.4 cm in length portion of vasculature, consistent with a temporal artery biopsy. The specimen is cross sectioned and entirely submitted in one cassette. /04/01/2018 saudi/04/01/2018
[2018-04-03] MEDS ORDERED: sitaGLIPtin PHOSPHATE 100 MG TABLET (FP) PO SCH (07:00)
[2018-04-03 10:11] LABS: TRANSGLUTAMINASE IGA < 2 U/mL (0-3); TRANSGLUTAMINASE IGG < 2 U/mL (0-5)
[2018-04-06 10:14] LABS: ALPHA 2 MACROGLOBULINS,QN 140 mg/dL (110-276); ALT(SGPT)P5P 12 IU/L (0-40); CHOLESTEROL TOTAL 206 mg/dL (100-199); FIBROSIS SCORE 0.04 (0.00-0.21); GGT= 20 IU/L (0-60); GLUCOSE SERUM 199 mg/dL (65-99); HEIGHT 61 in (.); WEIGHT- 238 LBS (.)
[2018-04-06 14:20] LABS: HGB SOLUBILITY Negative (Negative); Hgb A 98.7 % (96.4-98.8); Hgb C 0 % (0.0); Hgb F 0 % (0.0-2.0); Hgb S 0 % (0.0)
--- NOTE | 2018-04-15 08:57 | OP ---
DATE OF OPERATION: 04/01/2018 PREOPERATIVE DIAGNOSIS: Rule out left temporal arteritis. POSTOPERATIVE DIAGNOSIS: Rule out left temporal arteritis. PROCEDURE: Left temporal artery biopsy. SURGEON: Rivera Enrique DO ANESTHESIA: Fractional. BLOOD LOSS: 10 mL The patient is a 62-year-old female sent to our office for left-sided headaches and blurry vision. She has an elevated ESR and CRP which were performed in Dr. Calixto's office, and it was decided that she needs a temporal artery biopsy. Patient was consented for the procedure, understanding all risks, benefits, and alternatives and was then taken to the operating room. Once in the operating room, the area of the left temporal region was prepped and draped in a sterile surgical manner. We then went ahead and injected 10 mL of lidocaine 1% over the left temporal artery which was palpable. We then went ahead and made a 4-cm incision using a 15 blade. Bovie electrocautery used to control hemostasis, and we were able to take Bovie electrocautery all the way down through the fascia. Once down through the fascia, we were able to take Metzenbaum scissors and open the fascia, and we were able to dissect out our temporal artery. Temporal artery was dissected anterior and posteriorly for a segment of 2 cm. We then used 4-0 silk, and we tied the distal portion first and tied the proximal portion next and then ligated the artery and sent it off to Pathology. The incision site was well irrigated, and 3-0 Vicryl was used and the subcutaneous tissue was approximated in an interrupted manner. The skin was closed with 4-0 Biosyn in a subcuticular running fashion. Area was wet and dried, and 2 Steri-Strips were placed. The patient tolerated the procedure with no complications. Patient was transferred to PACU in stable condition. RIVERA ENRIQUE DO BUCKLE STRINGER/[id number]
== END 2018-04-02 16:40 | disposition home or self-care (01) | DRG 41 ==
LOC: JER 13:57 → JERBED 16:48 → J7W 21:57
PROVIDERS: ADMIT Internal Medicine; ATTEND Internal Medicine
PROC: 03BT0ZX Excision of Left Temporal Artery, Open Approach, Diagnostic (ICD-10-PCS; principal; 2018-03-30)
DX: G43.909 Migraine, unspecified, not intractable, without status migrainosus (principal); I11.0 Hypertensive heart disease with heart failure; I50.9 Heart failure, unspecified; Z68.42 Body mass index [BMI] 45.0-49.9, adult; D51.0 Vitamin B12 deficiency anemia due to intrinsic factor deficiency; D50.9 Iron deficiency anemia, unspecified; J44.9 Chronic obstructive pulmonary disease, unspecified; Z87.891 Personal history of nicotine dependence; M54.5 Low back pain; Z79.4 Long term (current) use of insulin; M50.21 Other cervical disc displacement, high cervical region; M50.221 Other cervical disc displacement at C4-C5 level; M50.222 Other cervical disc displacement at C5-C6 level; M50.223 Other cervical disc displacement at C6-C7 level; Z85.3 Personal history of malignant neoplasm of breast; R22.1 Localized swelling, mass and lump, neck; K21.9 Gastro-esophageal reflux disease without esophagitis; K76.0 Fatty (change of) liver, not elsewhere classified; E09.9 Drug or chemical induced diabetes mellitus without complications; E66.01 Morbid (severe) obesity due to excess calories
CPT/HCPCS: 36415; 80048; 80053; 82172; 82247; 82465; 82607; 82728; 82746; 82947; 82962; 82977; 83010; 83021; 83516; 83540; 83550; 83883; 84443; 84450; 84460; 84478; 85025; 85044; 85651; 85660; 86038; 86140; 86340; 88305-TC; 94760; 99283-25; J0131; J1756; J7030

== ENCOUNTER 2018-04-12 12:55 | Inpatient (IN) | payer OTHER ==
[2018-04-12] MEDS: SODIUM CHLORIDE 1,000 ML IV SCH ×2 (14:17→20:38)
--- NOTE | 2018-04-12 14:24 | PDOC ---
History of Present Illness - General Chief Complaint: Weakness Stated Complaint: WOUND Time Seen by Provider: 04/12/18 13:59 History Source: Patient Exam Limitations: No Limitations - History of Present Illness Initial Comments: 04/12/18 14:21 Patient is 62F with history of SVT s/p ablation, HTN, DM, COPD, herniated disc in C3-7 here today complaining of intermittent episodes of left arm weakness and aphasia. She describes 1-2 episodes per day of being unable to speak despite knowing what she wants to say with left arm and hand weakness. She was recently admitted and treated for possible temporal arteritis. Biopsy was negative. Patient complains of a headache for that past two months. Denies chest pain, shortness of breath. The episodes last about an hour and resolve on their own. She was sent in by Dr Duvall for further evaluate for possible TIA. Past History - Past Medical History Allergies/Adverse Reactions: Allergies Allergy/AdvReac Type Severity Reaction Status Date / Time ciprofloxacin [From Cipro] Allergy Verified 04/12/18 12:57 ciprofloxacin HCl Allergy Verified 04/12/18 12:57 [From Cipro] Penicillins Allergy Verified 04/12/18 12:57 Tetracyclines Allergy Verified 04/12/18 12:57 Home Medications: Ambulatory Orders Hydrochlorothiazide [Hctz -] 25 mg PO HS 11/30/14 Ranitidine [Zantac -] 150 mg PO BID 11/30/14 Acetaminophen [Tylenol .Extra-Strength -] 1,000 mg PO Q6H #100 tablet 03/17/18 Olmesartan/Hydrochlorothiazide [Benicar Hct 40-25 mg Tablet] 1 each PO DAILY 09/03 Cholecalciferol (Vitamin D3) [Vitamin D3 -] 1,000 unit PO DAILY tab 04/02/18 Ferrous Sulfate [Feosol] 325 mg PO DAILY ud 04/02/18 Insulin Sliding Scale [Novolog Vial Sliding Scale -] 1 vial SQ ACHS #1 bottle Multivitamins [Multivit ([facility] Formul[facility])] 1 tab PO DAILY tab 04/02/18 Sitagliptin Phosphate [Januvia -] 100 mg PO DAILY@0700 #90 ud 04/02/18 Prednisone 10 mg PO BID 04/12/18 Anemia: No Asthma: Yes Cancer: No Cardiac Disorders: Yes (SVT's enlarged heart) CVA: No COPD: Yes CHF: No Dementia: No Diabetes: Yes GI Disorders: No Disorders: No HTN: Yes Hypercholesterolemia: No Liver Disease: No Seizures: No Thyroid Disease: No - Surgical History Abdominal Surgery: No Appendectomy: No Cardiac Surgery: Yes (cardiac ablation for SVT'S 1998) Cholecystectomy: No Lung Surgery: No Neurologic Surgery: No Orthopedic Surgery: No - Immunization History Immunization Up to Date: Yes - Suicide/Smoking/Psychosocial Hx Smoking History: Former smoker Have you smoked in the past 12 months: No If you are a former smoker, when did you quit?: 2013 Information on smoking cessation initiated: No Hx Alcohol Use: Yes (rare wine) Drug/Substance Use Hx: No Substance Use Type: None Hx Substance Use Treatment: No *Physical Exam - Vital Signs Last Vital Signs Temp Pulse Resp BP Pulse Ox 98.3 F 58 L 18 149/58 100 04/12/18 12:58 04/12/18 12:58 04/12/18 12:58 04/12/18 12:58 04/12/18 12:58 - Physical Exam Comments: 04/12/18 14:31 GENERAL/CONSTITUTIONAL: No fever or chills. + l arm weakness. HEAD, EYES, EARS, NOSE AND THROAT: No change in vision. No ear pain or discharge. No sore throat. CARDIOVASCULAR: No chest pain or shortness of breath RESPIRATORY: No cough, wheezing, or hemoptysis. GASTROINTESTINAL: No nausea, vomiting, diarrhea or constipation. GENITOURINARY: No dysuria, frequency, or change in urination. MUSCULOSKELETAL: No joint or muscle swelling or pain. No neck or back pain. SKIN: No rash NEUROLOGIC: +headache. No vertigo, loss of consciousness, or change in strength/ sensation. ENDOCRINE: No increased thirst. No abnormal weight change HEMATOLOGIC/LYMPHATIC: No anemia, easy bleeding, or history of blood clots. ALLERGIC/IMMUNOLOGIC: No hives or skin allergy. ED Treatment Course - LABORATORY CBC & Chemistry Diagram: 04/12/18 17:07 04/12/18 17:07 - RADIOLOGY Radiology Studies Ordered: Category Date Time Status HEAD CT WITHOUT CONTRAST [CT] Stat CT Scan 04/12/18 14:10 Ordered CHEST X-RAY PORTABLE* [RAD] Stat Radiology 04/12/18 14:10 Ordered Medical Decision Making - Medical Decision Making 04/12/18 14:31 Patient is 62F with history of HTN, DM, COPD, SVT s/p ablation here today with episodic weakness and aphasia. Currently asymptomatic. Vital signs normal and stable. DDx includes, but is not limited to: complex migraine, TIA. 04/12/18 16:39 CBC, CMP, UA, Troponin all wnl. Patient continues to be asymptomatic. CT head shows no acute abnormalities. CXR shows no acute abnormalities. Case d/w Dr Nyla Faith, will admit patient to telemetry for further workup for possible TIA. *DC/Admit/Observation/Transfer Diagnosis at time of Disposition: Weakness - Discharge Dispostion Condition at time of disposition: Stable - Referrals - Patient Instructions - Post Discharge Activity
--- NOTE | 2018-04-12 14:29 | HP ---
Admitting History and Physical - Primary Care Physician PCP: Nyla Faith S - Admission Chief Complaint: blurred vision, slurred speech, L arm wekaness History of Present Illness: Patient is 62F with history of SVT s/p ablation, HTN, DM, COPD, herniated disc in C3-7 here today complaining of intermittent episodes of left arm weakness, blurred vision and slurred speech. She describes 1-2 episodes per day of being unable to speak despite knowing what she wants to say with left arm and some Left hand weakness (unable to rip a paper). She was recently admitted and treated for possible temporal arteritis. Biopsy was negative. Patient complains of a headache for that past few weeks. Denies chest pain, shortness of breath. The episodes last about an hour and resolve on their own. She was seen today by dr Duvall in office and he sent her in for further evaluate for possible TIA. History Source: Patient, Medical Record Limitations to Obtaining History: No Limitations - Past Medical History Cardiovascular: Yes: HTN, Hyperlipdemia, Murmur, Other (SVT required abl;ation at [facility] Dr García) Pulmonary: Yes: Asthma, COPD Gastrointestinal: Yes: GERD Hepatobiliary: Yes: Other (fatty liver) Heme/Onc: Yes: Anemia, B12 Deficiency, Cancer (breast cancer managed with lumpectomy, no adjuvant therapy) Musculoskeletal: Yes: Chronic low back pain (vertebral spinal fractures), Osteoarthritis Endocrine: Yes: Diabetes Mellitus, Other (morbid obesity, new thyroid nodules) - Smoking History Smoking history: Former smoker Have you smoked in the past 12 months: No If you are a former smoker, when did you quit?: 2013 - Alcohol/Substance Use Hx Alcohol Use: Yes (rare wine) History of Substance Use: reports: None - Social History Usual Living Arrangement: Yes: Alone ADL: Independent 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[employer], 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 History of Recent Travel: No Home Medications - Allergies Allergies/Adverse Reactions: Allergies Allergy/AdvReac Type Severity Reaction Status Date / Time ciprofloxacin [From Cipro] Allergy Verified 04/12/18 12:57 ciprofloxacin HCl Allergy Verified 04/12/18 12:57 [From Cipro] Penicillins Allergy Verified 04/12/18 12:57 Tetracyclines Allergy Verified 04/12/18 12:57 - Home Medications Home Medications: Ambulatory Orders Hydrochlorothiazide [Hctz -] 25 mg PO HS 11/30/14 Ranitidine [Zantac -] 150 mg PO BID 11/30/14 Acetaminophen [Tylenol .Extra-Strength -] 1,000 mg PO Q6H #100 tablet 03/17/18 Olmesartan/Hydrochlorothiazide [Benicar Hct 40-25 mg Tablet] 1 each PO DAILY 09/03 Cholecalciferol (Vitamin D3) [Vitamin D3 -] 1,000 unit PO DAILY tab 04/02/18 Ferrous Sulfate [Feosol] 325 mg PO DAILY ud 04/02/18 Insulin Sliding Scale [Novolog Vial Sliding Scale -] 1 vial SQ ACHS #1 bottle Multivitamins [Multivit ([facility] Formulary)] 1 tab PO DAILY tab 04/02/18 Sitagliptin Phosphate [Januvia -] 100 mg PO DAILY@0700 #90 ud 04/02/18 Prednisone 10 mg PO BID 04/12/18 Family Disease History - Family Disease History Family Disease History: Diabetes: Grandparent, Heart Disease: Father ( 78 of mesothelioma), Mother (alive 81), CA: Father Review of Systems - Review of Systems Constitutional: denies: Chills, Fever, Lethargy, Loss of Appetite Eyes: reports: Blurred Vision (r eye). denies: Blind Spots, Double Vision HENT: denies: Difficult Swallowing, Ear Pain, Epistaxis Neck: denies: Stiffness, Tenderness Cardiovascular: denies: Chest Pain, Edema, Palpitations, Shortness of Breath Respiratory: denies: Cough, SOB Gastrointestinal: denies: Abdominal Pain, Constipation, Diarrhea Genitourinary: denies: Dysuria, Flank Pain Musculoskeletal: reports: Back Pain (chronic on/off). denies: Extremity Pain Neurological: reports: Change in Speech, Headache. denies: Change in LOC, Confusion, Dizziness, Seizure, Syncope, Tremors, Unsteady Gait, Weakness Hematology/Lymphatic: denies: Easily Bruised, Excessive Bleeding Psychiatric: denies: Altered Sleep Pattern, Anxiety, Depression Physical Examination Vital Signs: Vital Signs Temperature 98.3 F 04/12/18 12:58 Pulse Rate 58 L 04/12/18 12:58 Respiratory Rate 18 04/12/18 12:58 Blood Pressure 149/58 04/12/18 12:58 O2 Sat by Pulse Oximetry (%) 100 08/27/18 12:58 Constitutional: Yes: No Distress, Calm Eyes: Yes: Conjunctiva Clear HENT: Yes: Atraumatic Neck: Yes: Supple Cardiovascular: Yes: Regular Rate and Rhythm Respiratory: Yes: CTA Bilaterally Gastrointestinal: Yes: Soft. No: Distention Renal/: No: CVA Tenderness - Left, CVA Tenderness - Right Musculoskeletal: No: Joint Stiffness, Joint Swelling Extremities: No: Cold, Cool, Cyanosis Edema: Yes (lymphedema legs) Integumentary: Yes: Venous Stasis Changes Neurological: Yes: WNL, Alert, Oriented ...Motor Strength: WNL Psychiatric: Yes: WNL, Alert, Oriented. No: Agitated, Suicidal Ideation Imaging - Results Chest X-ray: Report Reviewed Cat Scan: Report Reviewed Other: Report Reviewed Assessment/Plan Patient is 62F with history of SVT s/p ablation, HTN, DM, COPD, breast CA, herniated disc in C3-7 here today complaining of intermittent episodes of left arm weakness, headaches, R eye blurred vision (intermittent; previously had Left eye blurred vision) and some slurred speech, transitory, unable to get words out. Currently asymptomatic. admit to telemetry r/o TIA/CVA cardiology and neurology eval rheum eval d/w dr Calixto brain MRI MRA aortic arch MRA carotid US, vascular sx f/u echo, holter prognosis guarded pt reports multiple allergies but might be able to tolerate ASA, lipitor, will start in low dose will d/w cardio, neurology ? Anticoagulation? DVT PFX BP GLU and cholesterol control and weight loss imperative, d/w pt - wreath and garland maker eval; pt also recently diagnosed with thryoid mass needs biopsy - will d/w IR d/w dr Calixto d/w dr Duvall; d/w pt and staff; d/w pt's mother at bedside t time 75 min
[2018-04-12 14:43] LABS: BASO % 0.3 % (0-2.0); EOS % 0.7 % (0-4.5); LYMPH % 17.1 % (8-40); MCH 23.2 pg (25.7-33.7); MCHC 31.5 g/dl (32.0-36.0); MEAN CELL VOLUME 73.6 fl (80-96); MEAN PLT VOLUME 9.6 fl (7.5-11.1); MONO % 6.3 % (3.8-10.2); NEUT % 75.6 % (42.8-82.8); PLATELET COUNT 245 K/MM3 (134-434); RBC 4.76 M/mm3 (3.60-5.2); RDW 22.5 % (11.6-15.6); WHITE BLOOD COUNT 18.9 K/mm3 (4.0-10.0)
[2018-04-12 14:47] LABS: URINE APPEARANCE CLEAR; URINE BILIRUBIN NEGATIVE (<2.0 mg/dL); URINE COLOR YELLOW; URINE GLUCOSE (UA) NEGATIVE (NEGATIVE); URINE KETONE NEGATIVE (NEGATIVE); URINE LEUK ESTERASE NEGATIVE (NEGATIVE); URINE NITRITE NEGATIVE (NEGATIVE); URINE PROTEIN NEGATIVE (NEGATIVE)
[2018-04-12 14:57] LABS: INR 1.01 (0.83-1.09); PROTHROMBIN TIME (PATIENT) 11.4 SEC (9.7-13.0)
[2018-04-12 16:09] LABS: ALBUMIN 3.5 g/dl (3.4-5.0); ANION GAP 9 MMOL/L (8-16); BLOOD UREA NITROGEN 25 mg/dL (7-18); CALCIUM 9.4 mg/dL (8.5-10.1); CHLORIDE 100 mmol/L (98-107); CO2 27 mmol/L (21-32); GLUCOSE,RANDOM 75 mg/dL (74-106); POTASSIUM 4.7 mmol/L (3.5-5.1); SODIUM 136 mmol/L (136-145)
[2018-04-12 16:14] LABS: ALK PHOS 60 U/L (45-117); BILIRUBIN,TOTAL 0.4 mg/dL (0.2-1.0); CHOLESTEROL 162 mg/dL (50-200); CREATININE 0.6 mg/dL (0.55-1.02); HDL CHOLESTEROL 93 mg/dL (40-60); SGOT/AST 9 U/L (15-37); SGPT/ALT 25 U/L (12-78); TOT PROT 6.5 g/dl (6.4-8.2); TRIGLYCERIDES 97 mg/dL (35-160)
[2018-04-12] MEDS ORDERED: ACETAMINOPHEN 500 MG TABLET (FP) PO PRN (16:42)
--- NOTE | 2018-04-12 16:43 | EKG ---
Test Reason : Blood Pressure : / mmHG Vent. Rate : 050 BPM Atrial Rate : 050 BPM P-R Int : 182 ms QRS Dur : 094 ms QT Int : 408 ms P-R-T Axes : 076 020 042 degrees QTc Int : 371 ms SINUS BRADYCARDIA WITH MARKED SINUS ARRHYTHMIA OTHERWISE NORMAL ECG WHEN COMPARED WITH ECG OF 25-MAR-2018 06:57, PREMATURE ATRIAL COMPLEXES ARE NO LONGER PRESENT QT HAS SHORTENED Confirmed by SUKH OBREGON MD ([id number]) on 04/12/2018 4:42:46 PM Referred By: Confirmed By:SUKH OBREGON MD
[2018-04-12 17:17] LABS: BASO % 0.2 % (0-2.0); EOS % 0.9 % (0-4.5); HEMATOCRIT 32.5 % (32.4-45.2); HEMOGLOBIN 10.4 GM/dL (10.7-15.3); LYMPH % 19.1 % (8-40); MCH 23.5 pg (25.7-33.7); MCHC 31.9 g/dl (32.0-36.0); MEAN CELL VOLUME 73.6 fl (80-96); MEAN PLT VOLUME 8.9 fl (7.5-11.1); MONO % 6.7 % (3.8-10.2); NEUT % 73.1 % (42.8-82.8); PLATELET COUNT 217 K/MM3 (134-434); RBC 4.41 M/mm3 (3.60-5.2); RDW 21.7 % (11.6-15.6); WHITE BLOOD COUNT 15.1 K/mm3 (4.0-10.0)
[2018-04-12 17:40] LABS: ALBUMIN 3.2 g/dl (3.4-5.0); ALK PHOS 56 U/L (45-117); ANION GAP 8 MMOL/L (8-16); BILIRUBIN,TOTAL 0.3 mg/dL (0.2-1.0); BLOOD UREA NITROGEN 25 mg/dL (7-18); CALCIUM 8.8 mg/dL (8.5-10.1); CHLORIDE 102 mmol/L (98-107); CO2 29 mmol/L (21-32); CREATININE 0.6 mg/dL (0.55-1.02); GLUCOSE,RANDOM 110 mg/dL (74-106); POTASSIUM 4.5 mmol/L (3.5-5.1); SGOT/AST 8 U/L (15-37); SGPT/ALT 25 U/L (12-78); SODIUM 139 mmol/L (136-145)
--- NOTE | 2018-04-12 18:10 | PDOC ---
Attending Attestation - Resident Resident Name: Gene Ceja - ED Attending Attestation I have performed the following: I have examined & evaluated the patient, The case was reviewed & discussed with the resident, I agree w/resident's findings & plan - HPI HPI: 04/12/18 18:09 62 year old female, with a significant past medical history of COPD, SVT (s/p ablation), HTN, and DM, who presents to the emergency department with, intermittent left arm weakness and aphasia. She reports having 1-2 episodes per day for the past week. The weakness she reports has been persistent for the past 2 weeks. The patient also endorses an associated headache persisting for the past month and half. She denies recent fevers, chills, or dizziness. She denies recent nausea, vomit , diarrhea or constipation. She denies recent dysuria, frequency, urgency or hematuria. She denies recent chest pain or shortness of breath. Allergies: levaquin, tetracyclines, penicillin, benadryl, codeine Primary Care Physician: Dr. Faith - Physicial Exam PE: 04/12/18 18:07 NAD, well appearing, MMM, nl conjunctiva, anicteric; neck supple.+Left carotid bruit, FROM. No JVD. lungs clear, RRR, abdomen soft nontender. No peripheral edema. normal color for ethnicity, WWP. Alert, oriented to person time and place. CN II-XII grossly intact. Strength prox and distally 5/5 throughout. Sensation grossly intact to light touch. BAKER x4. No cerebellar signs, no dysmetria, bilateral finger to nose and heel to mccracken equal and symmetric. Speech clear. - Medical Decision Making 04/12/18 18:05 A portion of this note was documented by scribe services under my direction. I have reviewed the details of the note, within reason, and agree with the documentation with the following case summary and management plan written by me. MDM: Ansemlo 62 YOF with h/o COPD, SVT s/p ablation, HTN, DM, recent temporal artery biopsy presenting with Right arm/side weakness and aphasia and word finding difficulties., typically lasting few minutes x 1 hour, intermittently x 2-3 weeks, last CT imaging 2 weeks ago unremarkable. Currently asymptomatic. DDX, TIA, CVA, metabolic/electrolyte derangements, infection, UTI, pneumonia, ischemia. Vital signs reviewed, wnl. Medical Plan: CBC, CMP, UA, urine cx, ECG, trops/card panel, CXR, CT head; inpatient MRI imaging of brain, head/neck Prior notes reviewed, including admissions, discharges and consultations. laboratory results and imaging reviewed, basic labs and lytes wnl, baseline leukocytosis. trop negative. EKG normal sinus rhythm bradycardia 50 bpm, no interval abnormalities, narrow QRS, ST and T wave segments and morphology normal. Nonspecific T wave abnormalities CT head neg for acute infarct or bleed or abnormalities. currently no neuro deficits, NIHSS 0. will need inpatient neuro cs and stroke workup. Dispo: Admit for stroke/TIA workup. Discussed results and management plan with pt and family member at bedside, agree with impression and plan 04/12/18 18:09 Heart Score/ECG Review - ECG Impressions Comment:: 04/12/18 18:11 EKG normal sinus rhythm bradycardia 50 bpm, no interval abnormalities, narrow QRS, ST and T wave segments and morphology normal. Nonspecific T wave abnormalities
[2018-04-12 18:26] LABS: ANISOCYTOSIS 1+; PLATELET ESTIMATE ADEQUATE
--- NOTE | 2018-04-12 19:11 | CON.CARD ---
Consult Consult Specialty:: cardiology Reason for Consultation:: r/o TIA; multiple cardiac risks - History of Present Illness Chief Complaint: A&Ox3; no chest pain, palpitations. +Gait disturbance, especially on first getting up out of chair. History of Present Illness: Patient is 62 white woman with history of SVT s/p ablation, HTN, DM, COPD, morbid obesity, anxiety, herniated disc in C3-7 here today complaining of intermittent episodes of left arm weakness and aphasia. She describes 1-2 episodes per day of being unable to speak despite knowing what she wants to say with left arm and hand weakness. She was recently admitted and treated for possible temporal arteritis. Biopsy was negative. Patient complains of a headache for that past two months. Denies chest pain, shortness of breath. The episodes last about an hour and resolve on their own. She was sent in by Dr Duvall for further evaluate for possible TIA. - History Source History Provided By: Patient, Family Member, Medical Record Limitations to Obtaining History: No Limitations - Past Medical History Cardio/Vascular: Yes: CHF (diastolic), HTN, Hyperlipdemia, Murmur, Other (SVT required abl;ation at [facility] Dr García) Pulmonary: Yes: Asthma, COPD Gastrointestinal: Yes: GERD Hepatobiliary: Yes: Other (fatty liver) Musculoskeletal: Yes: Chronic low back pain (vertebral spinal fractures), Osteoarthritis Endocrine: Yes: Diabetes Mellitus, Other (morbid obesity, new thyroid nodules) - Alcohol/Substance Use Hx Alcohol Use: Yes (rare wine) History of Substance Use: reports: None - Smoking History Smoking history: Former smoker Have you smoked in the past 12 months: No If you are a former smoker, when did you quit?: 2013 - Social History Usual Living Arrangement: Alone () ADL: Independent 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[employer], 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 History of Recent Travel: No Home Medications - Allergies Allergies/Adverse Reactions: Allergies Allergy/AdvReac Type Severity Reaction Status Date / Time ciprofloxacin [From Cipro] Allergy Verified 04/12/18 12:57 ciprofloxacin HCl Allergy Verified 04/12/18 12:57 [From Cipro] Penicillins Allergy Verified 04/12/18 12:57 Tetracyclines Allergy Verified 04/12/18 12:57 - Home Medications Home Medications: Ambulatory Orders Hydrochlorothiazide [Hctz -] 25 mg PO HS 11/30/14 Ranitidine [Zantac -] 150 mg PO BID 11/30/14 Acetaminophen [Tylenol .Extra-Strength -] 1,000 mg PO Q6H #100 tablet 03/17/18 Olmesartan/Hydrochlorothiazide [Benicar Hct 40-25 mg Tablet] 1 each PO DAILY 09/03 Cholecalciferol (Vitamin D3) [Vitamin D3 -] 1,000 unit PO DAILY tab 04/02/18 Ferrous Sulfate [Feosol] 325 mg PO DAILY ud 04/02/18 Insulin Sliding Scale [Novolog Vial Sliding Scale -] 1 vial SQ ACHS #1 bottle Multivitamins [Multivit ([facility] Formulary)] 1 tab PO DAILY tab 04/02/18 Sitagliptin Phosphate [Januvia -] 100 mg PO DAILY@0700 #90 ud 04/02/18 Prednisone 10 mg PO BID 04/12/18 Family Disease History - Family Disease History Family Disease History: Diabetes: Grandparent, Heart Disease: Father ( 78 of mesothelioma), Mother (alive 81), CA: Father Vital Signs: Vital Signs Temperature 98.4 F 04/12/18 18:32 Pulse Rate 52 L 04/12/18 18:32 Respiratory Rate 16 04/12/18 18:32 Blood Pressure 159/63 04/12/18 18:32 O2 Sat by Pulse Oximetry (%) 94 L 04/12/18 18:32 - Other Data Labs, Other Data: CBC, BMP 04/12/18 17:07 04/12/18 17:07 INR, PTT INR 1.01 (0.83-1.09) 04/12/18 14:31 Troponin, BNP 04/12/18 14:34 Troponin I < 0.02 Troponin, BNP 04/12/18 14:34 Troponin I < 0.02 Problem List - Problems (1) Low vitamin B12 level Code(s): E53.8 - DEFICIENCY OF OTHER SPECIFIED B GROUP VITAMINS (2) TIA (transient ischemic attack) Assessment/Plan: r/o CVA. CT and MRI/A of head. Telemetry (r/o AF). ECHO for LVEF, chamber sizes. F/u with neurology. Code(s): G45.9 - TRANSIENT CEREBRAL ISCHEMIC ATTACK, UNSPECIFIED (3) Weakness Code(s): R53.1 - WEAKNESS (4) Anemia Code(s): D64.9 - ANEMIA, UNSPECIFIED (5) Bradycardia Assessment/Plan: Pt gives hx thyroid mass; f/u TFTs. r/o brain tumor (sinus bradycardia may at times be the first sign of it). Code(s): R00.1 - BRADYCARDIA, UNSPECIFIED (6) HTN (hypertension) Code(s): I10 - ESSENTIAL (PRIMARY) HYPERTENSION (7) Obesity Code(s): E66.9 - OBESITY, UNSPECIFIED
[2018-04-12] MEDS ORDERED: HYDROCHLOROTHIAZIDE 25 MG TABLET (FP) PO ONE (19:14)
[2018-04-12] MEDS ORDERED: VALSARTAN 160 MG TABLET (UD) PO ONE (19:18)
[2018-04-12] MEDS: RANITIDINE HCL 150 MG TABLET (FP) PO SCH (21:34)
[2018-04-12] MEDS: predniSONE 10 MG TABLET (UD) PO SCH (21:34)
[2018-04-12] MEDS: INSULIN SLIDING SCALE (NOVOLOG) 1 VIAL SQ SCH (21:36)
[2018-04-12] MEDS ORDERED: HYDROCHLOROTHIAZIDE 25 MG TABLET (FP) PO SCH (22:00)
--- NOTE | 2018-04-13 05:44 | PN ---
Progress Note, Physician Chief Complaint: feels better less headaches no slurred speech no vision changes consults tests and results d/w pt caroitd US head CT no acute changes will check brain MRI MRA, Aortic MRA holter and echo d/w rheum dr Calixto called neurology; cardio input appreciated - Current Medication List Current Medications: Active Medications Acetaminophen (Tylenol -) 500 mg PO Q6H PRN PRN Reason: FEVER Aspirin (Ecotrin -) 81 mg PO DAILY [facility] Atorvastatin Calcium (Lipitor -) 10 mg PO HS [facility] Cholecalciferol (Vitamin D3 -) 1,000 unit PO DAILY [facility] Ferrous Sulfate (Feosol -) 325 mg PO DAILY [facility] Hydrochlorothiazide (Hctz -) 25 mg PO DAILY [facility] Sodium Chloride (Normal Saline -) 1,000 mls @ 42 mls/hr IV ASDIR [facility] Last Admin: 04/12/18 20:38 Dose: 42 mls/hr Insulin Aspart (Novolog Vial Sliding Scale -) 1 vial SQ ACHS [facility]; Protocol Last Admin: 04/12/18 21:36 Dose: Not Given Multivitamins/Minerals/Vitamin C (Tab-A-Vit -) 1 tab PO DAILY [facility] Prednisone (Deltasone -) 30 mg PO BID [facility] Last Admin: 04/12/18 21:34 Dose: 30 mg Ranitidine HCl (Zantac -) 150 mg PO BID [facility] Last Admin: 04/12/18 21:34 Dose: 150 mg Sitagliptin Phosphate (Januvia -) 100 mg PO DAILY@0700 [facility] Valsartan (Diovan -) 320 mg PO DAILY [facility] - Objective Vital Signs: Vital Signs Temperature 98.3 F 04/13/18 02:00 Pulse Rate 43 L 04/13/18 02:00 Respiratory Rate 18 04/13/18 02:00 Blood Pressure 120/59 04/13/18 02:00 O2 Sat by Pulse Oximetry (%) 96 04/12/18 21:00 Constitutional: Yes: No Distress, Calm Eyes: Yes: Conjunctiva Clear HENT: Yes: Atraumatic Neck: Yes: Supple Cardiovascular: Yes: Regular Rate and Rhythm Respiratory: Yes: CTA Bilaterally Gastrointestinal: Yes: Soft. No: Tenderness Genitourinary: No: CVA Tenderness - Left, CVA Tenderness - Right Musculoskeletal: No: Joint Stiffness, Joint Swelling Extremities: No: Cold, Cool, Cyanosis Edema: Yes (lymphedema both legs) Integumentary: Yes: Venous Stasis Changes. No: Pressure Ulcer, Rash Neurological: Yes: WNL, Alert, Oriented ...Motor Strength: WNL Psychiatric: Yes: WNL, Alert, Oriented. No: Agitated, Suicidal Ideation Labs: CBC, BMP 04/12/18 17:07 04/12/18 17:07 INR, PTT INR 1.01 (0.83-1.09) 04/12/18 14:31 - ....Imaging Other: Report Reviewed Assessment/Plan Patient is 62F with history of SVT s/p ablation, HTN, DM, COPD, breast CA, herniated disc in C3-7 here today complaining of intermittent episodes of left arm weakness, headaches, R eye blurred vision (intermittent; previously had Left eye blurred vision) and some slurred speech, transitory, unable to get words out. Currently asymptomatic. admit to telemetry r/o TIA/CVA cardiology and neurology eval rheum eval d/w dr Calixto brain MRI MRA ordered aortic arch MRA ordered carotid US negative vascular sx echo, holter ordered prognosis guarded pt reports multiple allergies but might be able to tolerate ASA, lipitor, started in low dose will d/w cardio, neurology regarding Anticoagulation, depending on brain MRI results DVT PFX falls PFX gastric PFX while on prednisone; f/u BGM while on steroids; d/w pt possible SE from [facility] doses steroids for senior living. BP GLU and cholesterol control and weight loss imperative, d/w pt - button riveter eval; pt also recently diagnosed with thryoid mass needs biopsy - will d/w IR d/w dr Calixto d/w pt and staff; t time 45 min
[2018-04-13] MEDS: INSULIN SLIDING SCALE (NOVOLOG) 1 VIAL SQ SCH ×4 (06:09→21:58)
[2018-04-13] MEDS: sitaGLIPtin PHOSPHATE 100 MG TABLET (FP) PO SCH (06:10)
[2018-04-13] MEDS ORDERED: INSULIN (NOVOLOG) ASPART 100 UNITS/ML 10ML VIAL ONE (06:14)
[2018-04-13] MEDS: predniSONE 10 MG TABLET (UD) PO SCH ×2 (09:53→21:57)
[2018-04-13] MEDS: MULTIVITAMINS (DAILY MVI) TABLET (FP) PO SCH (09:54)
[2018-04-13] MEDS: RANITIDINE HCL 150 MG TABLET (FP) PO SCH ×2 (09:54→21:58)
[2018-04-13] MEDS: CHOLECALCIFEROL (VITAMIN D3) 1,000 UNIT TABLET (FP) PO SCH (09:58)
[2018-04-13] MEDS: FERROUS SO4 325 MG TABLET (FP) PO SCH (09:59)
[2018-04-13] MEDS ORDERED: VALSARTAN 160 MG TABLET (UD) PO SCH (10:00)
[2018-04-13] MEDS ORDERED: HEPARIN NA (PORCINE) 5,000 UNITS/ML 1ML VIAL SQ SCH (10:00)
[2018-04-13] MEDS ORDERED: HYDROCHLOROTHIAZIDE 25 MG TABLET (FP) PO SCH (10:00)
[2018-04-13] MEDS ORDERED: PATIENT'S OWN MEDICATION (NON-FORMULARY) (Olmesartan/Hydrochlorothiazide [Benicar Hct 40-2 PO SCH (10:00)
[2018-04-13] MEDS ORDERED: ASPIRIN COATED 81 MG TABLET.EC PO SCH (10:00)
--- NOTE | 2018-04-13 10:48 | CON.NEURO ---
Consult - Past Medical History Cardio/Vascular: Yes: HTN, Hyperlipdemia, Murmur, Other (SVT required abl;ation at [facility] Dr García) Pulmonary: Yes: Asthma, COPD Gastrointestinal: Yes: GERD Hepatobiliary: Yes: Other (fatty liver) Musculoskeletal: Yes: Chronic low back pain (vertebral spinal fractures), Osteoarthritis Endocrine: Yes: Diabetes Mellitus, Other (morbid obesity, new thyroid nodules) - Alcohol/Substance Use Hx Alcohol Use: Yes (rare wine) History of Substance Use: reports: None - Smoking History Smoking history: Former smoker Have you smoked in the past 12 months: No If you are a former smoker, when did you quit?: 2013 - Social History Usual Living Arrangement: Alone () ADL: Independent 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[employer], 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 History of 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 Travel: No Home Medications - Allergies Allergies/Adverse Reactions: Allergies Allergy/AdvReac Type Severity Reaction Status Date / Time ciprofloxacin [From Cipro] Allergy Verified 04/12/18 12:57 ciprofloxacin HCl Allergy Verified 04/12/18 12:57 [From Cipro] Penicillins Allergy Verified 04/12/18 12:57 Tetracyclines Allergy Verified 04/12/18 12:57 - Home Medications Home Medications: Ambulatory Orders Hydrochlorothiazide [Hctz -] 25 mg PO HS 11/30/14 Ranitidine [Zantac -] 150 mg PO BID 11/30/14 Acetaminophen [Tylenol .Extra-Strength -] 1,000 mg PO Q6H #100 tablet 03/17/18 Olmesartan/Hydrochlorothiazide [Benicar Hct 40-25 mg Tablet] 1 each PO DAILY 09/03 Cholecalciferol (Vitamin D3) [Vitamin D3 -] 1,000 unit PO DAILY tab 04/02/18 Ferrous Sulfate [Feosol] 325 mg PO DAILY ud 04/02/18 Insulin Sliding Scale [Novolog Vial Sliding Scale -] 1 vial SQ ACHS #1 bottle Multivitamins [Multivit ([facility] Formulary)] 1 tab PO DAILY tab 04/02/18 Sitagliptin Phosphate [Januvia -] 100 mg PO DAILY@0700 #90 ud 04/02/18 Prednisone 10 mg PO BID 04/12/18 Family Disease History - Family Disease History Family Disease History: Diabetes: Grandparent, Heart Disease: Father ( 78 of mesothelioma), Mother (alive 81), CA: Father Physical Exam-Neuro Vital Signs: Vital Signs Temperature 98.2 F 04/13/18 06:00 Pulse Rate 65 04/13/18 06:00 Respiratory Rate 19 04/13/18 06:00 Blood Pressure 140/87 04/13/18 06:00 O2 Sat by Pulse Oximetry (%) 96 04/12/18 21:00 Labs: CBC, BMP 04/12/18 17:07 04/12/18 17:07 INR, PTT INR 1.01 (0.83-1.09) 04/12/18 14:31 Assessment/Plan cc Left arm weakness and slurring of speech HPI 62 year old female history of HTN, DM, COPD, Cervical radiculoapthy, SVT s/ p ablation. She has been going through stress and recent had headhace for one and h afl month. Yesterday she felt she had trouble lifting her hand and weakness along with slurring of speech. Her symptoms resolved in two hour. Her ct scan was normal, she do not take aspirin and statin at home. PMH as above and B12 deficeincy, history of breast cancer, fatty liver Allergies/Adverse Reactions: Allergies Allergy/AdvReac Type Severity Reaction Status Date / Time ciprofloxacin [From Cipro] Allergy Verified 04/12/18 12:57 ciprofloxacin HCl Allergy Verified 04/12/18 12:57 [From Cipro] Penicillins Allergy Verified 04/12/18 12:57 Tetracyclines Allergy Verified 04/12/18 12:57 Home Medications: Hydrochlorothiazide [Hctz -] 25 mg PO HS 11/30/14 Ranitidine [Zantac -] 150 mg PO BID 11/30/14 Acetaminophen [Tylenol .Extra-Strength -] 1,000 mg PO Q6H #100 tablet 03/17/18 Olmesartan/Hydrochlorothiazide [Benicar Hct 40-25 mg Tablet] 1 each PO DAILY 09/03 Cholecalciferol (Vitamin D3) [Vitamin D3 -] 1,000 unit PO DAILY tab 04/02/18 Ferrous Sulfate [Feosol] 325 mg PO DAILY ud 04/02/18 Insulin Sliding Scale [Novolog Vial Sliding Scale -] 1 vial SQ ACHS #1 bottle Multivitamins [Multivit ([facility] Formul[facility])] 1 tab PO DAILY tab 04/02/18 Sitagliptin Phosphate [Januvia -] 100 mg PO DAILY@0700 #90 ud 04/02/18 Prednisone 10 mg PO BID 04/12/18 FH,ROS, SH reviewed in chart Neurological Examination Alert oriented x 3 EOMI, pupils reactive, no face asymmetry motor 5/5 all ext sensation is noraml reflex are normal ct head is normal carotid ultrasound is normal mri of brain and mra of brain is unremarkable Assessment- TIA , risk factor DM,HTN Plan- agree wtih [place] [facility] [place] up on mri of brain and mra - once mri of brain is uremarkable, she can be discharged from neuro point of view Thanking you so much Shakeel Licona MD
--- NOTE | 2018-04-13 13:34 | EKG ---
Test Reason : Blood Pressure : / mmHG Vent. Rate : 046 BPM Atrial Rate : 046 BPM P-R Int : 148 ms QRS Dur : 094 ms QT Int : 402 ms P-R-T Axes : 072 011 030 degrees QTc Int : 351 ms SINUS BRADYCARDIA WITH PREMATURE ATRIAL COMPLEXES MINIMAL VOLTAGE CRITERIA FOR LVH, MAY BE NORMAL VARIANT BORDERLINE ECG WHEN COMPARED WITH ECG OF 12-APR-2018 13:11, PREMATURE ATRIAL COMPLEXES ARE NOW PRESENT Confirmed by Carlos Khan ([id number]) on 04/13/2018 1:34:21 PM Referred By: LEEANN HDEZ DR Confirmed By:Carlos Khan
--- NOTE | 2018-04-13 14:03 | ECHO ---
Name: OWEN JOHNSON Exam:Adult Echocardiogram Study Date: 04/13/2018 11:20 AM Age: 62 yrs Reason For Study: R/O CHF Height: 61 in Weight: 238 lb BSA: 2.0 m2 MMode/2D Measurements & Calculations IVSd: 1.2 cm Ao root diam: 2.6 cm LVIDd: 6.0 cm LA dimension: 4.5 cm LVIDs: 3.7 cm LVPWd: 0.98 cm EDV(Teich): 181.6 ml LAV(MOD-sp4): 88.9 ml ESV(Teich): 58.3 ml Doppler Measurements & Calculations MV E max deniz: 93.5 cm/sec Ao V2 max: 197.6 cm/sec MV A max deniz: 90.3 cm/sec Ao max P.6 mmHg MV E/A: 1.0 Ao V2 mean: 126.3 cm/sec MV dec time: 0.16 sec Ao mean P.5 mmHg Ao V2 VTI: 38.7 cm LV V1 max P.8 mmHg MR max deniz: 342.4 cm/sec LV V1 mean P.4 mmHg MR max P.9 mmHg LV V1 max: 109.6 cm/sec LV V1 mean: 71.8 cm/sec LV V1 VTI: 23.8 cm Med Peak E' Deniz: 8.4 cm/sec Med E/e': 11.2 Lat Peak E' Deniz: 9.0 cm/sec Lat E/e': 10.4 Procedure A complete two-dimensional transthoracic echocardiogram was performed (2D, M-mode, Doppler and color flow Doppler). Left Ventricle The left ventricular size, thickness and function are normal. Right Ventricle The right ventricle is normal in size and function. Atria The left atrium is mildly dilated. Mitral Valve The mitral valve is normal. Tricuspid Valve The tricuspid valve is normal. There is trace tricuspid regurgitation. Inadequate TR to accurately es timate PASP. Aortic Valve The aortic valve is normal in structure and function. Pulmonic Valve The pulmonic valve is not well seen, but is grossly normal. Great Vessels The aortic root is normal size. Mildly dilated inferior vena cava. Pericardium/Pleura There is no pericardial effusion. There is no pleural effusion. Interpretation Summary The left ventricular size, thickness and function are normal The right ventricle is normal in size and function. The left atrium is mildly dilated. Carlos Khan 04/13/2018 01:50 PM
--- NOTE | 2018-04-13 14:47 | PN ---
Progress Note, Physician Chief Complaint: Pt A&Ox3; able to ambulate in hallway at moderate pace; easily tires and is dyspneic. Still feels her "balance is off". History of Present Illness: Patient is 62 white woman with history of SVT s/p ablation, HTN, DM, COPD, morbid obesity, anxiety, herniated disc in C3-7 here today complaining of intermittent episodes of left arm weakness and aphasia. She describes 1-2 episodes per day of being unable to speak despite knowing what she wants to say with left arm and hand weakness. She was recently admitted and treated for possible temporal arteritis. Biopsy was negative. Patient complains of a headache for that past two months. Denies chest pain, shortness of breath. The episodes last about an hour and resolve on their own. She was sent in by Dr Duvall for further evaluate for possible TIA. - Current Medication List Current Medications: Active Medications Acetaminophen (Tylenol -) 500 mg PO Q6H PRN PRN Reason: FEVER Aspirin (Ecotrin -) 81 mg PO DAILY [facility] Last Admin: 04/13/18 09:55 Dose: 81 mg Atorvastatin Calcium (Lipitor -) 10 mg PO [facility] Cholecalciferol (Vitamin D3 -) 1,000 unit PO DAILY [facility] Last Admin: 04/13/18 09:58 Dose: 1,000 unit Ferrous Sulfate (Feosol -) 325 mg PO DAILY [facility] Last Admin: 04/13/18 09:59 Dose: 325 mg Heparin Sodium (Porcine) (Heparin -) 5,000 unit SQ BID [facility] Last Admin: 04/13/18 09:52 Dose: 5,000 unit Hydrochlorothiazide (Hctz -) 25 mg PO DAILY [facility] Last Admin: 04/13/18 09:55 Dose: 25 mg Sodium Chloride (Normal Saline -) 1,000 mls @ 42 mls/hr IV ASDIR [facility] Last Admin: 04/12/18 20:38 Dose: 42 mls/hr Insulin Aspart (Novolog Vial Sliding Scale -) 1 vial SQ ACHS [facility]; Protocol Last Admin: 04/13/18 11:02 Dose: Not Given Multivitamins/Minerals/Vitamin C (Tab-A-Vit -) 1 tab PO DAILY [facility] Last Admin: 04/13/18 09:54 Dose: 1 tab Prednisone (Deltasone -) 30 mg PO BID [facility] Last Admin: 04/13/18 09:53 Dose: 30 mg Ranitidine HCl (Zantac -) 150 mg PO BID [facility] Last Admin: 04/13/18 09:54 Dose: 150 mg Sitagliptin Phosphate (Januvia -) 100 mg PO DAILY@0700 [facility] Last Admin: 04/13/18 06:10 Dose: 100 mg Valsartan (Diovan -) 320 mg PO DAILY [facility] Last Admin: 04/13/18 09:58 Dose: 320 mg - Objective Vital Signs: Vital Signs Temperature 98.2 F 04/13/18 06:00 Pulse Rate 65 04/13/18 06:00 Respiratory Rate 19 04/13/18 06:00 Blood Pressure 140/87 04/13/18 06:00 O2 Sat by Pulse Oximetry (%) 96 04/12/18 21:00 Constitutional: Yes: Anxious Eyes: Yes: WNL HENT: Yes: WNL Neck: Yes: WNL Cardiovascular: Yes: Regular Rate and Rhythm Respiratory: Yes: WNL Gastrointestinal: Yes: Soft, Abdomen, Obese ...Rectal Exam: Yes: Deferred Genitourinary: No: Anuria Musculoskeletal: Yes: Joint Stiffness, Muscle Weakness Extremities: Yes: WNL Edema: No Peripheral Pulses WNL: Yes Integumentary: Yes: WNL Neurological: Yes: Alert, Oriented, Unsteady Gait, Weakness Psychiatric: Yes: Alert, Oriented Labs: CBC, BMP 04/12/18 17:07 04/12/18 17:07 INR, PTT INR 1.01 (0.83-1.09) 04/12/18 14:31 Abnormal Lab Results 04/14/18 04/14/18 04/14/18 02:30 06:00 06:00 WBC 10.9 H Hgb 10.5 L MCV 73.8 L MCH 23.3 L MCHC 31.5 L RDW 22.9 H Absolute Neuts (auto) 9.8 H Neutrophils % 89.5 H D Lymphocytes % 6.5 L D PTT (Actin FS) 52.6 H Sodium 135 L BUN 19 H Random Glucose 174 H AST 10 L C-Reactive Protein 0.5 H Total Protein 6.2 L Albumin 3.2 L TSH 0.25 L - ....Imaging Other: Image Reviewed (telemetry: sinus rhythm;frequent PACs; periods of irregular HR with baseline artifact; cannot exclude AF; marked sinus bradycardia to low 30s.) Problem List - Problems (1) Multiple lacunar infarcts Assessment/Plan: Discussed with Dr. Faith: Agree with anticoagualation (IV heparin). Pt has hx of SVT--> ablation 20 years ago. Telemetry:cannot exclude PAF. Await Holter monitor results. Code(s): I63.9 - CEREBRAL INFARCTION, UNSPECIFIED (2) Low vitamin B12 level Code(s): E53.8 - DEFICIENCY OF OTHER SPECIFIED B GROUP VITAMINS (3) COPD (chronic obstructive pulmonary disease) Code(s): J44.9 - CHRONIC OBSTRUCTIVE PULMONARY DISEASE, UNSPECIFIED (4) Bradycardia Assessment/Plan: Await Holter results. F/u throid function tests; hx throid mass. Code(s): R00.1 - BRADYCARDIA, UNSPECIFIED (5) Obesity Code(s): E66.9 - OBESITY, UNSPECIFIED (6) Thyroid mass Assessment/Plan: will require biopsy F/u TFTs Code(s): E07.9 - DISORDER OF THYROID, UNSPECIFIED
[2018-04-13] MEDS: SODIUM CHLORIDE 1,000 ML IV SCH (15:00)
[2018-04-13] MEDS ORDERED: HEPARIN NA (PORCINE) 5,000 UNITS/ML 1ML VIAL IVPUSH PRN (17:30)
[2018-04-13] MEDS: HEPARIN SOD,PORK IN 0.45% NACL 25,000 UNITS/500 ML INFUS.BAG IVPB SCH (20:26)
[2018-04-13] MEDS ORDERED: PT OWN MED DRAWER 7, Y5N ONE (21:55)
[2018-04-13] MEDS: LOSARTAN 50MG/HCTZ 12.5MG 1 TAB (FP) PO SCH (21:57)
[2018-04-13] MEDS: ATORVASTATIN CA 10 MG TABLET (FP) PO SCH (21:58)
[2018-04-14] MEDS: SODIUM CHLORIDE 1,000 ML IV SCH ×3 (00:52→22:20)
[2018-04-14] MEDS: INSULIN SLIDING SCALE (NOVOLOG) 1 VIAL SQ SCH ×4 (06:23→22:23)
[2018-04-14] MEDS: sitaGLIPtin PHOSPHATE 100 MG TABLET (FP) PO SCH (06:23)
[2018-04-14 06:36] LABS: BASO % 0.2 % (0-2.0); HEMATOCRIT 33.4 % (32.4-45.2); HEMOGLOBIN 10.5 GM/dL (10.7-15.3); LYMPH % 6.5 % (8-40); MCH 23.3 pg (25.7-33.7); MCHC 31.5 g/dl (32.0-36.0); MEAN CELL VOLUME 73.8 fl (80-96); MEAN PLT VOLUME 9.5 fl (7.5-11.1); MONO % 3.8 % (3.8-10.2); NEUT % 89.5 % (42.8-82.8); PLATELET COUNT 192 K/MM3 (134-434); RBC 4.53 M/mm3 (3.60-5.2); RDW 22.9 % (11.6-15.6); WHITE BLOOD COUNT 10.9 K/mm3 (4.0-10.0)
[2018-04-14 06:53] LABS: ADD RBC MORPHOLOGY YES
[2018-04-14 07:26] LABS: CHLORIDE 98 mmol/L (98-107); POTASSIUM 4.5 mmol/L (3.5-5.1); SODIUM 135 mmol/L (136-145)
[2018-04-14 07:50] LABS: ALBUMIN 3.2 g/dl (3.4-5.0); ALK PHOS 60 U/L (45-117); ANION GAP 9 MMOL/L (8-16); BILIRUBIN,TOTAL 0.5 mg/dL (0.2-1.0); BLOOD UREA NITROGEN 19 mg/dL (7-18); CALCIUM 8.7 mg/dL (8.5-10.1); CO2 28 mmol/L (21-32); CREATININE 0.7 mg/dL (0.55-1.02); GLUCOSE,RANDOM 174 mg/dL (74-106); SGOT/AST 10 U/L (15-37); SGPT/ALT 27 U/L (12-78); TOT PROT 6.2 g/dl (6.4-8.2)
--- NOTE | 2018-04-14 08:14 | PN ---
Progress Note (short form) - Note Progress Note: Transient Left arm weakness and slurring of speech, symptoms resolved. She is 62 year old female history of HTN, DM, COPD, Cervical radiculoapthy, SVT s/p ablation. She has been going through stress and recent had headhace for one and h afl month. Yesterday she felt she had trouble lifting her hand and weakness along with slurring of speech. Her symptoms resolved in two hour. Her ct scan was normal, she do not take aspirin and statin at home. PMH as above and B12 deficeincy, history of breast cancer, fatty liver She has been diagnosed with temporal arteritis ( not confirmed on biopsy) and on high dose of steroid. SUBJECTIVE: focal neuro symptoms resolved, equal opportunity officer note reviewed and case discussed with pmd and equal opportunity officer. Given there is suspician for atrial fibrillation adn bilateral hemispheric stroke identified, agree to start on heparin and start anticoagulation. apsirin is stopped and continue steroid for now. Neurological Examination Alert oriented x 3 EOMI, pupils reactive, no face asymmetry motor 5/5 all ext sensation is noraml reflex are normal ct head is normal carotid ultrasound is normal mri of brain showed bi hemispheric stroke Assessment- TIA , risk factor DM,HTN discussed with primary and equal opportunity officer, there is suspician for atrial fibrillation and started on heparin, I agree with that decision , as she has bi hemisperic stroke Plan- agree wtih iv heparin and anticoagultion, stop asirin and continue statin - continue prednisone for temporal arteritis and to be co managed by electronic equipment maint tech - [facility] Thanking you so much Shakeel Licona MD
--- NOTE | 2018-04-14 10:05 | PN ---
Progress Note, Physician History of Present Illness: Patient is 62 white woman with history of SVT s/p ablation, HTN, DM, COPD, morbid obesity, anxiety, herniated disc in C3-7 here today complaining of intermittent episodes of left arm weakness and aphasia. She describes 1-2 episodes per day of being unable to speak despite knowing what she wants to say with left arm and hand weakness. She was recently admitted and treated for possible temporal arteritis. Biopsy was negative. Patient complains of a headache for that past two months. Denies chest pain, shortness of breath. The episodes last about an hour and resolve on their own. She was sent in by Dr Duvall for further evaluate for possible TIA. - Current Medication List Current Medications: Active Medications Acetaminophen (Tylenol -) 500 mg PO Q6H PRN PRN Reason: FEVER Atorvastatin Calcium (Lipitor -) 10 mg PO HS [facility] Last Admin: 04/13/18 21:58 Dose: 10 mg Cholecalciferol (Vitamin D3 -) 1,000 unit PO DAILY [facility] Last Admin: 04/13/18 09:58 Dose: 1,000 unit Ferrous Sulfate (Feosol -) 325 mg PO DAILY [facility] Last Admin: 04/13/18 09:59 Dose: 325 mg HCTZ/Losartan Potassium (Hyzaar -) 2 tab PO HS [facility] Last Admin: 04/13/18 21:57 Dose: 2 tab Heparin Sodium (Porcine) (Heparin -) 1,000 unit IVPUSH PRN PRN PRN Reason: Heparin Sodium Chloride (Normal Saline -) 1,000 mls @ 42 mls/hr IV ASDIR [facility] Last Admin: 04/14/18 00:52 Dose: 42 mls/hr HEPARIN SOD,PORK IN 0.45% NACL (Heparin-1/2ns 25,000 Units/500) 25,000 units in 500 mls @ 20 mls/hr IVPB TITR [facility]; Protocol Last Titration: 04/14/18 03:29 Dose: 1,000 units/hr, 20 mls/hr Insulin Aspart (Novolog Vial Sliding Scale -) 1 vial SQ ACHS [facility]; Protocol Last Admin: 04/14/18 06:23 Dose: 2 units Multivitamins/Minerals/Vitamin C (Tab-A-Vit -) 1 tab PO DAILY [facility] Last Admin: 04/13/18 09:54 Dose: 1 tab Prednisone (Deltasone -) 30 mg PO BID [facility] Last Admin: 04/13/18 21:57 Dose: 30 mg Ranitidine HCl (Zantac -) 150 mg PO BID [facility] Last Admin: 04/13/18 21:58 Dose: 150 mg Sitagliptin Phosphate (Januvia -) 100 mg PO DAILY@0700 [facility] Last Admin: 04/14/18 06:23 Dose: 100 mg - Objective Vital Signs: Vital Signs Temperature 97.6 F 04/14/18 06:00 Pulse Rate 55 L 04/14/18 06:00 Respiratory Rate 18 04/14/18 09:00 Blood Pressure 136/66 04/14/18 06:00 O2 Sat by Pulse Oximetry (%) 97 04/14/18 09:00 Eyes: Yes: WNL, Conjunctiva Clear, EOM Intact HENT: Yes: WNL, Atraumatic, Normocephalic Neck: Yes: WNL, Supple, Trachea Midline Cardiovascular: Yes: WNL, Regular Rate and Rhythm Respiratory: Yes: WNL, Regular, CTA Bilaterally Gastrointestinal: Yes: WNL, Normal Bowel Sounds Genitourinary: Yes: WNL Musculoskeletal: Yes: WNL Extremities: Yes: WNL Edema: No Integumentary: Yes: WNL Neurological: Yes: Alert, Oriented ...Motor Strength: WNL Psychiatric: Yes: WNL Labs: CBC, BMP 04/14/18 06:00 04/14/18 06:00 INR, PTT INR 1.01 (0.83-1.09) 04/12/18 14:31 Assessment/Plan - Problems (1) Multiple lacunar infarcts Assessment/Plan: Discussed with Dr. Faith: Agree with anticoagualation (IV heparin). Pt has hx of SVT--> ablation 20 years ago. Telemetry:cannot exclude PAF. Await Holter monitor results. Code(s): I63.9 - CEREBRAL INFARCTION, UNSPECIFIED (2) Low vitamin B12 level Code(s): E53.8 - DEFICIENCY OF OTHER SPECIFIED B GROUP VITAMINS (3) COPD (chronic obstructive pulmonary disease) Code(s): J44.9 - CHRONIC OBSTRUCTIVE PULMONARY DISEASE, UNSPECIFIED (4) Bradycardia Assessment/Plan: Await Holter results. F/u throid function tests; hx throid mass. Code(s): R00.1 - BRADYCARDIA, UNSPECIFIED (5) Obesity Code(s): E66.9 - OBESITY, UNSPECIFIED (6) Thyroid mass Assessment/Plan: will require biopsy F/u TFTs Code(s): E07.9 - DISORDER OF THYROID, UNSPECIFIED
--- NOTE | 2018-04-14 10:15 | PN ---
Progress Note, Physician Chief Complaint: events noted; MRI MRA Brain c/w small bilateral lacunar new CVAs lond discussions with cardio and neuro, start iv heparin no bolus, for PTT 50-70, stop ASA; carotid US negative; will check legs US r/o DVT and blood cx. d/w rheum dr Calixto suggested Aortic MRA r.o arteritis but pt does not want to do it (d/w pt risks consequences and alternatives) offered xanax if anxiety but still does not want to do it no new neuro signs; HR droppes sometimes 40s no CP/SOB not on betablockers or Ca blockers - Current Medication List Current Medications: Active Medications Acetaminophen (Tylenol -) 500 mg PO Q6H PRN PRN Reason: FEVER Atorvastatin Calcium (Lipitor -) 10 mg PO HS [facility] Last Admin: 04/13/18 21:58 Dose: 10 mg Cholecalciferol (Vitamin D3 -) 1,000 unit PO DAILY [facility] Last Admin: 04/13/18 09:58 Dose: 1,000 unit Ferrous Sulfate (Feosol -) 325 mg PO DAILY [facility] Last Admin: 04/13/18 09:59 Dose: 325 mg HCTZ/Losartan Potassium (Hyzaar -) 2 tab PO HS [facility] Last Admin: 04/13/18 21:57 Dose: 2 tab Heparin Sodium (Porcine) (Heparin -) 1,000 unit IVPUSH PRN PRN PRN Reason: Heparin Sodium Chloride (Normal Saline -) 1,000 mls @ 42 mls/hr IV ASDIR [facility] Last Admin: 04/14/18 00:52 Dose: 42 mls/hr HEPARIN SOD,PORK IN 0.45% NACL (Heparin-1/2ns 25,000 Units/500) 25,000 units in 500 mls @ 20 mls/hr IVPB TITR [facility]; Protocol Last Titration: 04/14/18 03:29 Dose: 1,000 units/hr, 20 mls/hr Insulin Aspart (Novolog Vial Sliding Scale -) 1 vial SQ ACHS [facility]; Protocol Last Admin: 04/14/18 06:23 Dose: 2 units Multivitamins/Minerals/Vitamin C (Tab-A-Vit -) 1 tab PO DAILY [facility] Last Admin: 04/13/18 09:54 Dose: 1 tab Prednisone (Deltasone -) 30 mg PO BID [facility] Last Admin: 04/13/18 21:57 Dose: 30 mg Ranitidine HCl (Zantac -) 150 mg PO BID [facility] Last Admin: 04/13/18 21:58 Dose: 150 mg Sitagliptin Phosphate (Januvia -) 100 mg PO DAILY@0700 [facility] Last Admin: 04/14/18 06:23 Dose: 100 mg - Objective Vital Signs: Vital Signs Temperature 97.6 F 04/14/18 06:00 Pulse Rate 55 L 04/14/18 06:00 Respiratory Rate 18 04/14/18 09:00 Blood Pressure 136/66 04/14/18 06:00 O2 Sat by Pulse Oximetry (%) 97 04/14/18 09:00 Constitutional: Yes: No Distress, Calm Eyes: Yes: Conjunctiva Clear HENT: Yes: Atraumatic Neck: Yes: Supple Cardiovascular: Yes: Regular Rate and Rhythm Respiratory: Yes: CTA Bilaterally Gastrointestinal: Yes: Soft. No: Tenderness Genitourinary: No: CVA Tenderness - Left, CVA Tenderness - Right Musculoskeletal: No: Joint Stiffness, Joint Swelling Extremities: No: Cold, Cool, Cyanosis Edema: No Integumentary: No: Rash, Venous Stasis Changes Neurological: Yes: WNL, Alert, Oriented ...Motor Strength: WNL Psychiatric: Yes: WNL, Alert, Oriented. No: Agitated, Suicidal Ideation Labs: CBC, BMP 04/14/18 06:00 04/14/18 06:00 INR, PTT INR 1.01 (0.83-1.09) 04/12/18 14:31 - ....Imaging Other: Report Reviewed Assessment/Plan Patient is 62F with history of SVT s/p ablation, HTN, DM, COPD, breast CA, herniated disc in C3-7 here today complaining of intermittent episodes of left arm weakness, headaches, R eye blurred vision (intermittent; previously had Left eye blurred vision) and some slurred speech, transitory, unable to get words out. Currently asymptomatic. admitted to telemetry new lacunar small bilateral CVAs, bradycardia possible short AFib on monitor check holter- start IV heparin no bolus, further AC to be determined cardiology and neurology f/u rheum dr Calixto is away in vacation this week no coverage brain MRI MRA noted and d/w pt aortic arch MRA pt refused carotid US negative vascular sx f/u echo, holter ordered prognosis guarded pt reports multiple allergies but might be able to tolerate ASA, lipitor, started in low dose sq heparin stop, ASA stop d/w cardio and neuro who agree gastric PFX while on prednisone; f/u BGM while on steroids; 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
[2018-04-14] MEDS: predniSONE 10 MG TABLET (UD) PO SCH ×2 (10:31→22:25)
[2018-04-14] MEDS: RANITIDINE HCL 150 MG TABLET (FP) PO SCH ×2 (10:32→22:25)
[2018-04-14] MEDS: FERROUS SO4 325 MG TABLET (FP) PO SCH (10:32)
[2018-04-14] MEDS: MULTIVITAMINS (DAILY MVI) TABLET (FP) PO SCH (10:32)
[2018-04-14] MEDS: CHOLECALCIFEROL (VITAMIN D3) 1,000 UNIT TABLET (FP) PO SCH (10:32)
--- NOTE | 2018-04-14 11:43 | PN ---
Progress Note (short form) - Note Progress Note: VAscular surgery Pt seen and examined. Feels much better. CArotid doppler and brain mri and mra are negative. Pt on IV heparin. Not having any episodes of TIA anymore. No need for vascular intervention at this time. 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
[2018-04-14 12:43] VITALS: BMI 49.8
--- NOTE | 2018-04-14 15:07 | HOL ---
Hook-up date: 2018-04-13 09:24:00 Duration: 23:49:00 Test Indications: R/O TIA Medications: 47382 QRS complexes 182 Ventricular ectopics which represent <1 % of total QRS comp. 575 Supraventricular ectopics which represent <1 % of total QRS comp. * Paced QRS complexs which represent % of total QRS comp. 11 % of Time Classified as Noise VENTRICULAR ECTOPY 180 Isolated 0 Bigeminal Cycles 1 Couplets 0 Runs 0 Beats in Runs * Beats LONGEST at * BPM at :: -- * Beats FASTEST at * BPM at :: -- SUPRAVENTRICULAR ECTOPY 478 Isolated 39 Couplets 6 Runs 19 Beats in Runs 4 Beats LONGEST at 100 BPM at 10:59:51 2018-04-13 3 Beats FASTEST at 148 BPM at 10:37:56 2018-04-13 HEART RATES 29 MIN at 03:30:25 2018-04-14 55 AVG 97 MAX at 09:29:09 2018-04-13 LONGEST RR 2.536 secs at 03:30:17 2018-04-14 SCANNED BY: JACEK 04/14/18 nsr episodes of profund sinus bradycardia at 29 BPM occasional apc's and vpc's 6 short (3-4 beats) atrial runs Confirmed by FAVIOLA DE GUZMAN, GIANNI ([id number]) on 04/14/2018 3:05:57 PM Referred By: Silva SHUKLA Overread By: GIANNI SALMERON MD
[2018-04-14] MEDS: HEPARIN SOD,PORK IN 0.45% NACL 25,000 UNITS/500 ML INFUS.BAG IVPB SCH ×2 (16:55→21:00)
[2018-04-14] MEDS ORDERED: PT OWN MED DRAWER 7, Y5N ONE (22:14)
[2018-04-14] MEDS: ATORVASTATIN CA 10 MG TABLET (FP) PO SCH (22:25)
[2018-04-14] MEDS: LOSARTAN 50MG/HCTZ 12.5MG 1 TAB (FP) PO SCH (22:25)
[2018-04-15] MEDS: INSULIN SLIDING SCALE (NOVOLOG) 1 VIAL SQ SCH ×4 (06:51→21:54)
[2018-04-15] MEDS: sitaGLIPtin PHOSPHATE 100 MG TABLET (FP) PO SCH (06:52)
[2018-04-15] MEDS ORDERED: INSULIN (NOVOLOG) ASPART 100 UNITS/ML 10ML VIAL ONE (06:57)
[2018-04-15 07:20] LABS: BASO % 0.1 % (0-2.0); EOS % 0.1 % (0-4.5); HEMATOCRIT 31.3 % (32.4-45.2); HEMOGLOBIN 9.9 GM/dL (10.7-15.3); LYMPH % 7.3 % (8-40); MCH 23.7 pg (25.7-33.7); MCHC 31.7 g/dl (32.0-36.0); MEAN CELL VOLUME 74.9 fl (80-96); MEAN PLT VOLUME 9.8 fl (7.5-11.1); MONO % 3.6 % (3.8-10.2); NEUT % 88.9 % (42.8-82.8); PLATELET COUNT 159 K/MM3 (134-434); RBC 4.18 M/mm3 (3.60-5.2); RDW 22.4 % (11.6-15.6); WHITE BLOOD COUNT 9.8 K/mm3 (4.0-10.0)
--- NOTE | 2018-04-15 07:47 | PN ---
Progress Note, Physician Chief Complaint: OOB to chair on IV heparin PTT 50s feels better no new c/o holter no AFib but HR down to 29, h/o SVT/ ablation 20 years ago d/w pt and staff; d/w cardio further w/u per cardio - ? EPS, cardiac cath? continue anticoags? to be determined by cardio. pt asked me to fill papers for her work for disability and fax them, will do today - Current Medication List Current Medications: Active Medications Acetaminophen (Tylenol -) 500 mg PO Q6H PRN PRN Reason: FEVER Atorvastatin Calcium (Lipitor -) 10 mg PO HS [facility] Last Admin: 04/14/18 22:25 Dose: 10 mg Cholecalciferol (Vitamin D3 -) 1,000 unit PO DAILY [facility] Last Admin: 04/14/18 10:32 Dose: 1,000 unit Ferrous Sulfate (Feosol -) 325 mg PO DAILY [facility] Last Admin: 04/14/18 10:32 Dose: 325 mg HCTZ/Losartan Potassium (Hyzaar -) 2 tab PO HS [facility] Last Admin: 04/14/18 22:25 Dose: 2 tab Heparin Sodium (Porcine) (Heparin -) 1,000 unit IVPUSH PRN PRN PRN Reason: Heparin Last Admin: 04/14/18 22:27 Dose: 1,000 unit Sodium Chloride (Normal Saline -) 1,000 mls @ 42 mls/hr IV ASDIR [facility] Last Admin: 04/14/18 22:20 Dose: 42 mls/hr HEPARIN SOD,PORK IN 0.45% NACL (Heparin-1/2ns 25,000 Units/500) 25,000 units in 500 mls @ 20 mls/hr IVPB TITR [facility]; Protocol Last Titration: 04/15/18 05:24 Dose: 1,100 units/hr, 22 mls/hr Insulin Aspart (Novolog Vial Sliding Scale -) 1 vial SQ ACHS [facility]; Protocol Last Admin: 04/15/18 06:51 Dose: 2 units Multivitamins/Minerals/Vitamin C (Tab-A-Vit -) 1 tab PO DAILY [facility] Last Admin: 04/14/18 10:32 Dose: 1 tab Prednisone (Deltasone -) 30 mg PO BID [facility] Last Admin: 04/14/18 22:25 Dose: 30 mg Ranitidine HCl (Zantac -) 150 mg PO BID [facility] Last Admin: 04/14/18 22:25 Dose: 150 mg Sitagliptin Phosphate (Januvia -) 100 mg PO DAILY@0700 [facility] Last Admin: 04/15/18 06:52 Dose: 100 mg - Objective Vital Signs: Vital Signs Temperature 97.8 F 04/15/18 06:00 Pulse Rate 47 L 04/15/18 06:00 Respiratory Rate 20 04/15/18 06:00 Blood Pressure 122/63 04/15/18 06:00 O2 Sat by Pulse Oximetry (%) 98 04/14/18 21:00 Constitutional: Yes: No Distress, Calm Eyes: Yes: Conjunctiva Clear HENT: Yes: Atraumatic Neck: Yes: Supple Cardiovascular: Yes: Regular Rate and Rhythm Respiratory: Yes: CTA Bilaterally Gastrointestinal: Yes: Soft. No: Tenderness Genitourinary: No: CVA Tenderness - Left, CVA Tenderness - Right Musculoskeletal: No: Joint Stiffness, Joint Swelling Extremities: No: Cold, Cool, Cyanosis Edema: No (lymphedema ) Integumentary: Yes: Venous Stasis Changes. No: Rash Neurological: Yes: WNL, Alert, Oriented ...Motor Strength: WNL Psychiatric: Yes: WNL, Alert, Oriented. No: Agitated, Suicidal Ideation Labs: INR, PTT INR 1.01 (0.83-1.09) 04/12/18 14:31 - ....Imaging Other: Report Reviewed Assessment/Plan Patient is 62F with history of SVT s/p ablation, HTN, DM, COPD, breast CA, herniated disc in C3-7 here today complaining of intermittent episodes of left arm weakness, headaches, R eye blurred vision (intermittent; previously had Left eye blurred vision) and some slurred speech, transitory, unable to get words out. Currently asymptomatic. admitted to telemetry new lacunar small bilateral CVAs, bradycardia HR down to 29 on holter, started on IV heparin no bolus, further AC tx to be determined cardiology and neurology f/u; further w/u per cardio: cath? EPS? PPM? 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
[2018-04-15 08:20] LABS: CHLORIDE 99 mmol/L (98-107); POTASSIUM 5.2 mmol/L (3.5-5.1); SODIUM 135 mmol/L (136-145)
[2018-04-15 08:38] LABS: ALK PHOS 55 U/L (45-117); ANION GAP 7 MMOL/L (8-16); BILIRUBIN,TOTAL 0.1 mg/dL (0.2-1.0); BLOOD UREA NITROGEN 21 mg/dL (7-18); CALCIUM 8.7 mg/dL (8.5-10.1); CO2 29 mmol/L (21-32); CREATININE 0.6 mg/dL (0.55-1.02); GLUCOSE,RANDOM 171 mg/dL (74-106); SGOT/AST 9 U/L (15-37); SGPT/ALT 24 U/L (12-78); TOT PROT 5.8 g/dl (6.4-8.2)
--- NOTE | 2018-04-15 08:42 | CON.NEURO ---
Consult - Past Medical History Cardio/Vascular: Yes: CHF (diastolic), HTN, Hyperlipdemia, Murmur, Other (SVT required abl;ation at [facility] [place] Dr García) Pulmonary: Yes: Asthma, COPD Gastrointestinal: Yes: GERD Hepatobiliary: Yes: Other (fatty liver) Musculoskeletal: Yes: Chronic low back pain (vertebral spinal fractures), Osteoarthritis Endocrine: Yes: Diabetes Mellitus, Other (morbid obesity, new thyroid nodules) - Alcohol/Substance Use Hx Alcohol Use: Yes (rare wine) History of Substance Use: reports: None - Smoking History Smoking history: Former smoker Have you smoked in the past 12 months: No If you are a former smoker, when did you quit?: 2013 - Social History Usual Living Arrangement: Alone () ADL: Independent 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 [employer], 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 History of Recent Travel: No Home Medications - Allergies Allergies/Adverse Reactions: Allergies Allergy/AdvReac Type Severity Reaction Status Date / Time ciprofloxacin [From Cipro] Allergy Verified 04/12/18 12:57 ciprofloxacin HCl Allergy Verified 04/12/18 12:57 [From Cipro] Penicillins Allergy Verified 04/12/18 12:57 Tetracyclines Allergy Verified 04/12/18 12:57 - Home Medications Home Medications: Ambulatory Orders Hydrochlorothiazide [Hctz -] 25 mg PO HS 11/30/14 Ranitidine [Zantac -] 150 mg PO BID 11/30/14 Acetaminophen [Tylenol .Extra-Strength -] 1,000 mg PO Q6H #100 tablet 03/17/18 Olmesartan/Hydrochlorothiazide [Benicar Hct 40-25 mg Tablet] 1 each PO DAILY 09/03 Cholecalciferol (Vitamin D3) [Vitamin D3 -] 1,000 unit PO DAILY tab 04/02/18 Ferrous Sulfate [Feosol] 325 mg PO DAILY ud 04/02/18 Insulin Sliding Scale [Novolog Vial Sliding Scale -] 1 vial SQ ACHS #1 bottle Multivitamins [Multivit ([facility] Formulary)] 1 tab PO DAILY tab 04/02/18 Sitagliptin Phosphate [Januvia -] 100 mg PO DAILY@0700 #90 ud 04/02/18 Prednisone 10 mg PO BID 04/12/18 Family Disease History - Family Disease History Family Disease History: Diabetes: Grandparent, Heart Disease: Father ( 78 of mesothelioma), Mother (alive 81), CA: Father Physical Exam-Neuro Vital Signs: Vital Signs Temperature 97.8 F 04/15/18 06:00 Pulse Rate 47 L 04/15/18 06:00 Respiratory Rate 20 04/15/18 06:00 Blood Pressure 122/63 04/15/18 06:00 O2 Sat by Pulse Oximetry (%) 98 04/14/18 21:00 Labs: CBC, BMP 04/15/18 06:30 INR, PTT INR 1.01 (0.83-1.09) 04/12/18 14:31 Assessment/Plan Transient Left arm weakness and slurring of speech, symptoms resolved. She is 62 year old female history of HTN, DM, COPD, Cervical radiculoapthy, SVT s/p ablation. She has been going through stress and recent had headhace for one and h afl month. Yesterday she felt she had trouble lifting her hand and weakness along with slurring of speech. Her symptoms resolved in two hour. Her ct scan was normal, she do not take aspirin and statin at home. MRI showed bihemispheric strokes. PMH as above and B12 deficeincy, history of breast cancer, fatty liver She has been diagnosed with temporal arteritis ( not confirmed on biopsy) and on high dose of steroid. SUBJECTIVE: focal neuro symptoms resolved, no focal neuro symptoms, and her hr is going in 20s NEUROLOGICAL EXAMINATION: Alert oriented x 3 EOMI, pupils reactive, no face asymmetry motor 5/5 all ext sensation is noraml reflex are normal ct head is normal carotid ultrasound is normal mri of brain showed bi hemispheric stroke Assessment- TIA , risk factor DM,HTN and suspected atrial fibrillation. Plan- continue anticoagulation and heparin - continue prednisone for temporal arteritis and to be co managed by sales development consultant - [facility] Thanking you so much Shakeel Licona MD
[2018-04-15] MEDS: FERROUS SO4 325 MG TABLET (FP) PO SCH (10:06)
[2018-04-15] MEDS: predniSONE 10 MG TABLET (UD) PO SCH ×2 (10:06→21:53)
[2018-04-15] MEDS: PANTOPRAZOLE 20 MG TABLET (FP) PO SCH (10:07)
[2018-04-15] MEDS: MULTIVITAMINS (DAILY MVI) TABLET (FP) PO SCH (10:07)
[2018-04-15] MEDS: RANITIDINE HCL 150 MG TABLET (FP) PO SCH ×2 (10:07→21:53)
[2018-04-15] MEDS: CHOLECALCIFEROL (VITAMIN D3) 1,000 UNIT TABLET (FP) PO SCH (10:07)
[2018-04-15] MEDS ORDERED: PT OWN MED DRAWER 7, Y5N ONE ×2 (10:34→21:50)
--- NOTE | 2018-04-15 12:34 | PN ---
Progress Note, Physician Chief Complaint: Pt A&Ox3;still feels weak and off-balance when she tries to walk. History of Present Illness: Patient is 62 white woman with history of SVT s/p ablation, HTN, DM, COPD, morbid obesity, anxiety, herniated disc in C3-7 here today complaining of intermittent episodes of left arm weakness and aphasia. She describes 1-2 episodes per day of being unable to speak despite knowing what she wants to say with left arm and hand weakness. She was recently admitted and treated for possible temporal arteritis. Biopsy was negative. Patient complains of a headache for that past two months. Denies chest pain, shortness of breath. The episodes last about an hour and resolve on their own. She was sent in by Dr Duvall for further evaluate for possible TIA. - Current Medication List Current Medications: Active Medications Acetaminophen (Tylenol -) 500 mg PO Q6H PRN PRN Reason: FEVER Atorvastatin Calcium (Lipitor -) 10 mg PO HS [facility] Last Admin: 04/14/18 22:25 Dose: 10 mg Cholecalciferol (Vitamin D3 -) 1,000 unit PO DAILY [facility] Last Admin: 04/15/18 10:07 Dose: 1,000 unit Ferrous Sulfate (Feosol -) 325 mg PO DAILY [facility] Last Admin: 04/15/18 10:06 Dose: 325 mg HCTZ/Losartan Potassium (Hyzaar -) 2 tab PO HS [facility] Last Admin: 04/14/18 22:25 Dose: 2 tab Heparin Sodium (Porcine) (Heparin -) 1,000 unit IVPUSH PRN PRN PRN Reason: Heparin Last Admin: 04/14/18 22:27 Dose: 1,000 unit Sodium Chloride (Normal Saline -) 1,000 mls @ 42 mls/hr IV ASDIR [facility] Last Admin: 04/14/18 22:20 Dose: 42 mls/hr HEPARIN SOD,PORK IN 0.45% NACL (Heparin-1/2ns 25,000 Units/500) 25,000 units in 500 mls @ 20 mls/hr IVPB TITR [facility]; Protocol Last Titration: 04/15/18 10:09 Dose: 1,100 units/hr, 22 mls/hr Insulin Aspart (Novolog Vial Sliding Scale -) 1 vial SQ ACHS [facility]; Protocol Last Admin: 04/15/18 11:40 Dose: Not Given Multivitamins/Minerals/Vitamin C (Tab-A-Vit -) 1 tab PO DAILY [facility] Last Admin: 04/15/18 10:07 Dose: 1 tab Pantoprazole Sodium (Protonix -) 20 mg PO DAILY [facility] Last Admin: 04/15/18 10:07 Dose: 20 mg Prednisone (Deltasone -) 30 mg PO BID [facility] Last Admin: 04/15/18 10:06 Dose: 30 mg Ranitidine HCl (Zantac -) 150 mg PO BID [facility] Last Admin: 04/15/18 10:07 Dose: 150 mg Sitagliptin Phosphate (Januvia -) 100 mg PO DAILY@0700 [facility] Last Admin: 04/15/18 06:52 Dose: 100 mg - Objective Vital Signs: Vital Signs Temperature 97.7 F 04/15/18 09:14 Pulse Rate 40 L 04/15/18 09:14 Respiratory Rate 18 04/15/18 09:14 Blood Pressure 146/80 04/15/18 09:14 O2 Sat by Pulse Oximetry (%) 98 04/15/18 09:00 Constitutional: Yes: Anxious, Obese Eyes: Yes: WNL HENT: Yes: WNL Neck: Yes: WNL Cardiovascular: Yes: Bradycardia, Pulse Irregular, S1, S2 Respiratory: Yes: Regular Gastrointestinal: Yes: Soft, Abdomen, Obese ...Rectal Exam: Yes: Deferred Genitourinary: No: Anuria Breast(s): Yes: WNL Musculoskeletal: Yes: Muscle Weakness Extremities: Yes: WNL Edema: No Peripheral Pulses WNL: Yes Integumentary: Yes: Bruising (right upper arm 4x6 cm; nontender) Psychiatric: Yes: Other (anxiety/depression) Labs: CBC, BMP 04/15/18 06:30 04/15/18 06:30 INR, PTT INR 1.01 (0.83-1.09) 04/12/18 14:31 - ....Imaging Other: Image Reviewed (telemetry: NSR; periods of marked sinus bradycardia) Problem List - Problems (1) Multiple lacunar infarcts Assessment/Plan: Discussed with Dr. Faith: Agree with anticoagualation (IV heparin). Pt has hx of SVT--> ablation 20 years ago; brief run of PSVT on Holter. Telemetry:cannot exclude PAF. As discussed with Dr. Doll, EP, pt will have long-term loop recorder implanted as outpatient for f/u of PSVT, ?AF, and bradycardia. On PO anticoagulation ((PSVT; ?PAF; distended LA; frequent atrial ectopy increase risk of emboli). Code(s): I63.9 - CEREBRAL INFARCTION, UNSPECIFIED (2) Low vitamin B12 level Code(s): E53.8 - DEFICIENCY OF OTHER SPECIFIED B GROUP VITAMINS (3) COPD (chronic obstructive pulmonary disease) Code(s): J44.9 - CHRONIC OBSTRUCTIVE PULMONARY DISEASE, UNSPECIFIED (4) Bradycardia Assessment/Plan: Holter: average HR 50 bpm; minimum 29 bpm. Discussed with EP: Pt will be folowed as oupatient with Dr. Kumar Doll, EP at [facility]. An implantable loop recorder will be placed for long-terma f/u of HR and rhythm. Code(s): R00.1 - BRADYCARDIA, UNSPECIFIED (5) Obesity Code(s): E66.9 - OBESITY, UNSPECIFIED (6) Thyroid mass Code(s): E07.9 - DISORDER OF THYROID, UNSPECIFIED
[2018-04-15] MEDS: RIVAROXABAN 20 MG TABLET PO SCH (18:14)
[2018-04-15] MEDS: LOSARTAN 50MG/HCTZ 12.5MG 1 TAB (FP) PO SCH (21:53)
[2018-04-15] MEDS: ATORVASTATIN CA 10 MG TABLET (FP) PO SCH (21:53)
[2018-04-16] MEDS: sitaGLIPtin PHOSPHATE 100 MG TABLET (FP) PO SCH (06:29)
[2018-04-16] MEDS: INSULIN SLIDING SCALE (NOVOLOG) 1 VIAL SQ SCH ×4 (06:29→21:42)
[2018-04-16 06:48] LABS: BASO % 0.2 % (0-2.0); EOS % 0.1 % (0-4.5); HEMATOCRIT 32.8 % (32.4-45.2); HEMOGLOBIN 10.3 GM/dL (10.7-15.3); MCH 23.4 pg (25.7-33.7); MCHC 31.5 g/dl (32.0-36.0); MEAN CELL VOLUME 74.4 fl (80-96); MEAN PLT VOLUME 9.6 fl (7.5-11.1); MONO % 3.7 % (3.8-10.2); PLATELET COUNT 193 K/MM3 (134-434); RBC 4.41 M/mm3 (3.60-5.2); WHITE BLOOD COUNT 13.8 K/mm3 (4.0-10.0)
[2018-04-16 07:28] LABS: ALBUMIN 3.2 g/dl (3.4-5.0); ALK PHOS 52 U/L (45-117); ANION GAP 7 MMOL/L (8-16); BILIRUBIN,TOTAL 0.4 mg/dL (0.2-1.0); BLOOD UREA NITROGEN 20 mg/dL (7-18); CALCIUM 9.3 mg/dL (8.5-10.1); CHLORIDE 99 mmol/L (98-107); CO2 30 mmol/L (21-32); CREATININE 0.7 mg/dL (0.55-1.02); GLUCOSE,RANDOM 155 mg/dL (74-106); POTASSIUM 4.7 mmol/L (3.5-5.1); SGOT/AST 6 U/L (15-37); SGPT/ALT 26 U/L (12-78); SODIUM 136 mmol/L (136-145); TOT PROT 6.1 g/dl (6.4-8.2)
[2018-04-16] MEDS ORDERED: INSULIN (NOVOLOG) ASPART 100 UNITS/ML 10ML VIAL ONE (08:06)
--- NOTE | 2018-04-16 09:02 | PN ---
Progress Note, Physician Chief Complaint: pt had new general weakness last night and unsteady gait (I was called by nurse who also called neuro dr Lock) head CT done stat no bleed, I also ordered stat MRI last evening but pt refused to do it, also d/w pt again about aortic arch mra as rec by rheumatology but she does not want to do it said she is allergic to all IV contrasts and has anxiety in MRI; I offered premedication but she does not want to do it; risks and alternatives d/w pt;will d/.w cardio and neuro further w/u and treatment; she was just started on po xarelto and IV heparin and po ASA were held (I d/w neuro dr Licona and cardio dr Goodman extensively last evening and they were all in agreement with the plan). this am all symptoms resolved and she feels back to NL. - Current Medication List Current Medications: Active Medications Acetaminophen (Tylenol -) 500 mg PO Q6H PRN PRN Reason: FEVER Atorvastatin Calcium (Lipitor -) 10 mg PO HS [facility] Last Admin: 04/15/18 21:53 Dose: 10 mg Cholecalciferol (Vitamin D3 -) 1,000 unit PO DAILY [facility] Last Admin: 04/15/18 10:07 Dose: 1,000 unit Ferrous Sulfate (Feosol -) 325 mg PO DAILY [facility] Last Admin: 04/15/18 10:06 Dose: 325 mg HCTZ/Losartan Potassium (Hyzaar -) 2 tab PO HS [facility] Last Admin: 04/15/18 21:53 Dose: 2 tab Insulin Aspart (Novolog Vial Sliding Scale -) 1 vial SQ ACHS [facility]; Protocol Last Admin: 04/16/18 06:29 Dose: 2 units Multivitamins/Minerals/Vitamin C (Tab-A-Vit -) 1 tab PO DAILY [facility] Last Admin: 04/15/18 10:07 Dose: 1 tab Pantoprazole Sodium (Protonix -) 20 mg PO DAILY [facility] Last Admin: 04/15/18 10:07 Dose: 20 mg Prednisone (Deltasone -) 30 mg PO BID [facility] Last Admin: 04/15/18 21:53 Dose: 30 mg Ranitidine HCl (Zantac -) 150 mg PO BID [facility] Last Admin: 04/15/18 21:53 Dose: 150 mg Rivaroxaban (Xarelto -) 20 mg PO DAILY@1800 [facility] Last Admin: 04/15/18 18:14 Dose: 20 mg Sitagliptin Phosphate (Januvia -) 100 mg PO DAILY@0700 [facility] Last Admin: 04/16/18 06:29 Dose: 100 mg - Objective Vital Signs: Vital Signs Temperature 97.6 F 04/16/18 06:00 Pulse Rate 67 04/16/18 06:00 Respiratory Rate 20 04/16/18 06:00 Blood Pressure 147/71 04/16/18 06:00 O2 Sat by Pulse Oximetry (%) 98 04/15/18 21:00 Constitutional: Yes: No Distress, Calm Eyes: Yes: Conjunctiva Clear HENT: Yes: Atraumatic Neck: Yes: Supple Cardiovascular: Yes: Regular Rate and Rhythm Respiratory: Yes: CTA Bilaterally Gastrointestinal: Yes: Soft. No: Tenderness Genitourinary: No: CVA Tenderness - Left, CVA Tenderness - Right Musculoskeletal: No: Joint Stiffness, Joint Swelling Extremities: No: Cold, Cool, Cyanosis Edema: No Integumentary: No: Rash, Venous Stasis Changes Neurological: Yes: WNL, Alert, Oriented ...Motor Strength: WNL Psychiatric: Yes: WNL, Alert, Oriented. No: Agitated, Suicidal Ideation Labs: CBC, BMP 04/16/18 06:05 04/16/18 06:05 INR, PTT INR 1.01 (0.83-1.09) 04/12/18 14:31 - ....Imaging Other: Report Reviewed Assessment/Plan Patient is 62F with history of SVT s/p ablation, HTN, DM, COPD, breast CA, cervical herniated discs, intermittent episodes of left arm weakness, headaches , R eye blurred vision (intermittent; previously had Left eye blurred vision) and some slurred speech, transitory, unable to get words out. admitted to telemetry new lacunar small bilateral CVAs, bradycardia HR down to 29 on holter, started on IV heparin no bolus and po ASA per neuro, had another episode last evening but totally resolved now. Head CT no bleed; started on xarelto po per cardiology and neurology further w/u per cardio and neuro: cath? EPS? PPM? SORIN? 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 pt also recently diagnosed with thryoid mass needs biopsy - in light of new strokes and AC needed, the biopsy will be challenging d/w pt will need cardio and neuro clearance heme onc eval r/o hypercoag state d/w pt and staff; t time 40 min
[2018-04-16] MEDS: predniSONE 10 MG TABLET (UD) PO SCH ×2 (10:29→21:41)
[2018-04-16] MEDS: RANITIDINE HCL 150 MG TABLET (FP) PO SCH ×2 (10:30→21:41)
[2018-04-16] MEDS: CHOLECALCIFEROL (VITAMIN D3) 1,000 UNIT TABLET (FP) PO SCH (10:30)
[2018-04-16] MEDS: FERROUS SO4 325 MG TABLET (FP) PO SCH (10:30)
[2018-04-16] MEDS: PANTOPRAZOLE 20 MG TABLET (FP) PO SCH (10:30)
[2018-04-16] MEDS: MULTIVITAMINS (DAILY MVI) TABLET (FP) PO SCH (10:30)
--- NOTE | 2018-04-16 10:43 | PN ---
Progress Note, Physician History of Present Illness: Patient is 62 white woman with history of SVT s/p ablation, HTN, DM, COPD, morbid obesity, anxiety, herniated disc in C3-7 here today complaining of intermittent episodes of left arm weakness and aphasia. She describes 1-2 episodes per day of being unable to speak despite knowing what she wants to say with left arm and hand weakness. She was recently admitted and treated for possible temporal arteritis. Biopsy was negative. Patient complains of a headache for that past two months. Denies chest pain, shortness of breath. The episodes last about an hour and resolve on their own. She was sent in by Dr Duvall for further evaluate for possible TIA. - Current Medication List Current Medications: Active Medications Acetaminophen (Tylenol -) 500 mg PO Q6H PRN PRN Reason: FEVER Atorvastatin Calcium (Lipitor -) 10 mg PO HS [facility] Last Admin: 04/15/18 21:53 Dose: 10 mg Cholecalciferol (Vitamin D3 -) 1,000 unit PO DAILY [facility] Last Admin: 04/16/18 10:30 Dose: 1,000 unit Ferrous Sulfate (Feosol -) 325 mg PO DAILY [facility] Last Admin: 04/16/18 10:30 Dose: 325 mg HCTZ/Losartan Potassium (Hyzaar -) 2 tab PO [facility] Last Admin: 04/15/18 21:53 Dose: 2 tab Insulin Aspart (Novolog Vial Sliding Scale -) 1 vial SQ ACHS [facility]; Protocol Last Admin: 04/16/18 06:29 Dose: 2 units Multivitamins/Minerals/Vitamin C (Tab-A-Vit -) 1 tab PO DAILY [facility] Last Admin: 04/16/18 10:30 Dose: 1 tab Pantoprazole Sodium (Protonix -) 20 mg PO DAILY [facility] Last Admin: 04/16/18 10:30 Dose: 20 mg Prednisone (Deltasone -) 30 mg PO BID [facility] Last Admin: 04/16/18 10:29 Dose: 30 mg Ranitidine HCl (Zantac -) 150 mg PO BID [facility] Last Admin: 04/16/18 10:30 Dose: 150 mg Rivaroxaban (Xarelto -) 20 mg PO DAILY@1800 [facility] Last Admin: 04/15/18 18:14 Dose: 20 mg Sitagliptin Phosphate (Januvia -) 100 mg PO DAILY@0700 [facility] Last Admin: 04/16/18 06:29 Dose: 100 mg - Objective Vital Signs: Vital Signs Temperature 98 F 04/16/18 10:00 Pulse Rate 42 L 04/16/18 10:00 Respiratory Rate 20 04/16/18 10:00 Blood Pressure 135/67 04/16/18 10:00 O2 Sat by Pulse Oximetry (%) 98 04/15/18 21:00 Eyes: Yes: WNL, Conjunctiva Clear, EOM Intact HENT: Yes: WNL, Atraumatic, Normocephalic Neck: Yes: WNL, Supple, Trachea Midline Cardiovascular: Yes: WNL, Regular Rate and Rhythm Respiratory: Yes: WNL, Regular, CTA Bilaterally Gastrointestinal: Yes: WNL, Normal Bowel Sounds Genitourinary: Yes: WNL Musculoskeletal: Yes: WNL Extremities: Yes: WNL Edema: No Integumentary: Yes: WNL Neurological: Yes: WNL, Alert, Oriented ...Motor Strength: WNL Psychiatric: Yes: WNL Labs: CBC, BMP 04/16/18 06:05 04/16/18 06:05 INR, PTT INR 1.01 (0.83-1.09) 04/12/18 14:31 Assessment/Plan - Problems (1) Multiple lacunar infarcts Code(s): I63.9 - CEREBRAL INFARCTION, UNSPECIFIED f/u with Neurology cont AC (2) Low vitamin B12 level Code(s): E53.8 - DEFICIENCY OF OTHER SPECIFIED B GROUP VITAMINS (3) COPD (chronic obstructive pulmonary disease) Code(s): J44.9 - CHRONIC OBSTRUCTIVE PULMONARY DISEASE, UNSPECIFIED (4) Bradycardia Assessment/Plan: Holter: average HR 50 bpm; minimum 29 bpm. Discussed with EP: Pt will be folowed as oupatient with Dr. Kumar Doll, EP at [facility]. An implantable loop recorder will be placed for long-terma f/u of HR and rhythm. Code(s): R00.1 - BRADYCARDIA, UNSPECIFIED (5) Obesity Code(s): E66.9 - OBESITY, UNSPECIFIED (6) Thyroid mass Code(s): E07.9 - DISORDER OF THYROID, UNSPECIFIED
[2018-04-16 10:57] LABS: ANISOCYTOSIS 2+; MACROCYTOSIS 0; OVALOCYTE 1+; PLATELET ESTIMATE NORMAL
--- NOTE | 2018-04-16 11:10 | PN ---
Progress Note (short form) - Note Progress Note: Transient Left arm weakness and slurring of speech, symptoms resolved. She is 62 year old female history of HTN, DM, COPD, Cervical radiculoapthy, SVT s/p ablation. She has been going through stress and recent had headhace for one and h afl month. Yesterday she felt she had trouble lifting her hand and weakness along with slurring of speech. Her ct scan was normal, she do not take aspirin and statin at home. MRI showed bihemispheric strokes. PMH as above and B12 deficeincy, history of breast cancer, fatty liver She has been diagnosed with temporal arteritis ( not confirmed on biopsy) and on high dose of steroid. SUBJECTIVE: yesterday she has subjective feeling of left sided arm and leg weakness, no facial symptoms, and she is able to walk, no headache NEUROLOGICAL EXAMINATION: Alert oriented x 3 EOMI, pupils reactive, no face asymmetry motor 5/5 all ext sensation is noraml reflex are normal she is able to walk and hip flexion and extension , knee flexion and extension is normal on left side ct head is normal carotid ultrasound is normal mri of brain showed bi hemispheric stroke Assessment- Right mca stroke risk factor DM,HTN and suspected atrial fibrillation. yesterday she has subjective worsening , neuro exam is unremarkable Plan- continue anticoagulation and repeat ct head tomorrow, she refuse repeat mri of brain but agree for repeat ct head - continue prednisone for temporal arteritis and to be co managed by manager nursing - [facility] Thanking you so much Shakeel Licona MD
--- NOTE | 2018-04-16 11:33 | CONSULT ---
Consultation: REQUESTING PROVIDER: CONSULT REQUEST: We have been asked to medically evaluate this patient for ( evaluation of hypercoagulable state). HISTORY OF PRESENT ILLNESS: Patient is a 62 year old female was sent by Dr. Duvall from wound care on 2017 for evaluation of left arm weakness and blurring of vision. Patient was recently diagnosed to have Temporal cell arteritis, is being treated with high dose steroids, had a left sided temporal artery biospy and visited Dr. Duvall on a routing f/up. Patient mentions that since a day prior to admission, she had left arm and leg weakness, on/off, lasting for few hours, associated with alternate partial visual loss, on/off, feeling dizzy and weak. Patient reports she didn't know what was going on. Also is non compliant to doctors visits, hasn't had a colonoscopy ever, hasn't had a mammogram in 5 years. Gives a h/o Right breast CA diagnosed in 2007, had DCIS for which had lumpectomy , but didn't received chemo or radiation. Has a h/o unintentional weight loss 30-35 lbs over a period of 3 months. Also reports to have night sweats. Denies chest pain, sob, cough, palpitation, abdominal pain, nausea or vomiting. Now her neurological symptoms have resolved. Bowel/Bladder habit normal. Sleep/appetite normal. PAST MEDICAL HISTORY: Right breast DCIS s/p lumpectomy, SVT s/p ablation, HTN, DM, COPD, herniated disc in C3-7 PAST SURGICAL HISTORY: Lumpectomy of Right breast for DCIS. 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 REVIEW OF SYSTEMS: CONSTITUTIONAL: Absent: fever, chills, diaphoresis, generalized weakness, malaise, loss of appetite, weight change HEENT: Absent: rhinorrhea, nasal congestion, throat pain, throat swelling, difficulty swallowing, mouth swelling, ear pain, eye pain, visual changes CARDIOVASCULAR: Absent: chest pain, syncope, palpitations, irregular heart rate, lightheadedness , peripheral edema RESPIRATORY: Absent: cough, shortness of breath, dyspnea with exertion, orthopnea, wheezing, stridor, hemoptysis GASTROINTESTINAL: Absent: abdominal pain, abdominal distension, nausea, vomiting, diarrhea, constipation, melena, hematochezia GENITOURINARY: Absent: dysuria, frequency, urgency, hesitancy, hematuria, flank pain, genital pain MUSCULOSKELETAL: Absent: myalgia, arthralgia, joint swelling, back pain, neck pain SKIN: Absent: rash, itching, pallor HEMATOLOGIC/IMMUNOLOGIC: Absent: easy bleeding, easy bruising, lymphadenopathy, frequent infections ENDOCRINE: Absent: unexplained weight gain, unexplained weight loss, heat intolerance, cold intolerance NEUROLOGIC: Absent: headache, focal weakness or paresthesias, dizziness, unsteady gait, seizure, mental status changes, bladder or bowel incontinence PSYCHIATRIC: Absent: anxiety, depression, suicidal or homicidal ideation, hallucinations. PHYSICAL EXAMINATION Vital Signs - 24 hr 04/15/18 04/15/18 04/15/18 13:20 18:00 21:00 Temperature 98.2 F 97.9 F Pulse Rate 66 42 L Respiratory 18 18 16 Rate Blood Pressure 144/69 141/52 O2 Sat by Pulse 98 Oximetry (%) 04/15/18 04/16/18 04/16/18 21:52 02:00 06:00 Temperature 98.3 F 97.9 F 97.6 F Pulse Rate 45 L 45 L 67 Respiratory 16 20 20 Rate Blood Pressure 144/67 139/91 147/71 O2 Sat by Pulse Oximetry (%) 04/16/18 10:00 Temperature 98 F Pulse Rate 42 L Respiratory 20 Rate Blood Pressure 135/67 O2 Sat by Pulse Oximetry (%) GENERAL: Middle aged women, sitting comfortably in bed, Awake, alert, and fully oriented, in no acute distress. HEAD: Normal with no signs of trauma. EYES: EOM intact, no pallor or icterus. No visual loss. EARS, NOSE, THROAT: Ears normal. Moist mucous membranes. NECK: Supple, loud murmur heard on the right side of the neck. LUNGS: B/L Breath sounds equal, clear to auscultation bilaterally. No wheezes, and no crackles. No accessory muscle use. HEART: Regular rate and rhythm, normal S1 and S2 with loud systolic murmur radiating to the neck. BREAST: B/L breast exam normal, no lumps. ABDOMEN: Soft, nontender, not distended, normoactive bowel sounds, no guarding, no rebound, no masses. No hepatomegaly or splenomegaly. MUSCULOSKELETAL: Normal range of motion at all joints. No bony deformities or tenderness. No CVA tenderness. UPPER EXTREMITIES: 2+ pulses, warm, well-perfused. No cyanosis. No clubbing. Cap refill <2 seconds. No peripheral edema. LOWER EXTREMITIES: 2+ pulses, warm, well-perfused. No calf tenderness. No peripheral edema. NEUROLOGICAL: No facial droop, Cranial nerves II-XII intact. Normal speech. Gait not observed. PSYCHIATRIC: Cooperative. Good eye contact. Appropriate mood and affect. SKIN: Warm, dry, normal turgor, no rashes or lesions noted. Laboratory Results - last 24 hr 04/15/18 04/15/18 04/15/18 11:38 16:22 21:41 WBC RBC Hgb Hct MCV MCH MCHC RDW Plt Count MPV Absolute Neuts (auto) Neutrophils % Neutrophils % (Manual) Band Neutrophils % Lymphocytes % Lymphocytes % (Manual) Monocytes % Monocytes % (Manual) Eosinophils % Eosinophils % (Manual) Basophils % Basophils % (Manual) Myelocytes % (Man) Promyelocytes % (Man) Blast Cells % (Manual) Nucleated RBC % Metamyelocytes Hypochromia Platelet Estimate Polychromasia Poikilocytosis Anisocytosis Microcytosis Macrocytosis Ovalocytes PTT (Actin FS) Sodium Potassium Chloride Carbon Dioxide Anion Gap BUN Creatinine Creat Clearance w eGFR POC Glucometer 114 222 134 Random Glucose Calcium Total Bilirubin AST ALT Alkaline Phosphatase Total Protein Albumin 04/16/18 04/16/18 04/16/18 05:33 06:05 06:05 WBC 13.8 H RBC 4.41 Hgb 10.3 L Hct 32.8 MCV 74.4 L MCH 23.4 L MCHC 31.5 L RDW 23.0 H Plt Count 193 D MPV 9.6 Absolute Neuts (auto) 12.6 H Neutrophils % 91.0 H Neutrophils % (Manual) 93.0 H Band Neutrophils % 0.0 Lymphocytes % 5.0 L D Lymphocytes % (Manual) 4.0 L Monocytes % 3.7 L Monocytes % (Manual) 3 L D Eosinophils % 0.1 Eosinophils % (Manual) 0.0 Basophils % 0.2 Basophils % (Manual) 0.0 Myelocytes % (Man) 0 D Promyelocytes % (Man) 0 Blast Cells % (Manual) 0 Nucleated RBC % 0 Metamyelocytes 0 D Hypochromia 1+ Platelet Estimate Normal Polychromasia 0 Poikilocytosis 1+ Anisocytosis 2+ Microcytosis 2+ Macrocytosis 0 Ovalocytes 1+ PTT (Actin FS) 26.7 Sodium Potassium Chloride Carbon Dioxide Anion Gap BUN Creatinine Creat Clearance w eGFR POC Glucometer 181 Random Glucose Calcium Total Bilirubin AST ALT Alkaline Phosphatase Total Protein Albumin 04/16/18 04/16/18 06:05 11:13 WBC RBC Hgb Hct MCV MCH MCHC RDW Plt Count MPV Absolute Neuts (auto) Neutrophils % Neutrophils % (Manual) Band Neutrophils % Lymphocytes % Lymphocytes % (Manual) Monocytes % Monocytes % (Manual) Eosinophils % Eosinophils % (Manual) Basophils % Basophils % (Manual) Myelocytes % (Man) Promyelocytes % (Man) Blast Cells % (Manual) Nucleated RBC % Metamyelocytes Hypochromia Platelet Estimate Polychromasia Poikilocytosis Anisocytosis Microcytosis Macrocytosis Ovalocytes PTT (Actin FS) Sodium 136 Potassium 4.7 Chloride 99 Carbon Dioxide 30 Anion Gap 7 L BUN 20 H Creatinine 0.7 Creat Clearance w eGFR > 60 POC Glucometer 195 Random Glucose 155 H Calcium 9.3 Total Bilirubin 0.4 AST 6 L ALT 26 Alkaline Phosphatase 52 Total Protein 6.1 L Albumin 3.2 L Active Medications Generic Name Dose Route Start Last Admin Trade Name Freq PRN Reason Stop Dose Admin Acetaminophen 500 mg 04/12/18 16:42 Tylenol - PO Q6H PRN FEVER Atorvastatin Calcium 10 mg 04/13/18 22:00 04/15/18 21:53 Lipitor - PO 10 mg HS [facility] Administration Cholecalciferol 1,000 unit 04/13/18 10:00 04/16/18 10:30 Vitamin D3 - PO 1,000 unit DAILY [facility] Administration Ferrous Sulfate 325 mg 04/13/18 10:00 04/16/18 10:30 Feosol - PO 325 mg DAILY [facility] Administration HCTZ/Losartan Potassium 2 tab 04/13/18 22:00 04/15/18 21:53 Hyzaar - PO 2 tab HS [facility] Administration Insulin Aspart 1 vial 04/12/18 22:00 04/16/18 06:29 Novolog Vial Sliding Scale - SQ 2 units ACHS [facility] Administration Protocol Multivitamins/Minerals/Vitamin C 1 tab 04/13/18 10:00 04/16/18 10:30 Tab-A-Vit - PO 1 tab DAILY [facility] Administration Pantoprazole Sodium 20 mg 04/15/18 10:00 04/16/18 10:30 Protonix - PO 20 mg DAILY [facility] Administration Prednisone 30 mg 04/12/18 22:00 04/16/18 10:29 Deltasone - PO 30 mg BID [facility] Administration Ranitidine HCl 150 mg 04/12/18 22:00 04/16/18 10:30 Zantac - PO 150 mg BID [facility] Administration Rivaroxaban 20 mg 04/15/18 18:00 04/15/18 18:14 Xarelto - PO 20 mg DAILY@1800 [facility] Administration Sitagliptin Phosphate 100 mg 04/13/18 07:00 04/16/18 06:29 Januvia - PO 100 mg DAILY@0700 [facility] Administration Patient is a 62 year old female with significant past medical history of Right breast DCIS s/p lumpectomy, SVT s/p ablation, HTN, DM, COPD, herniated disc in C3-[address] Duvall from wound care on 03/13/2018 for evaluation of left arm weakness and blurring of vision. ASSESSMENT: New onset right MCA stroke Right breast CA DCIS s/p lumpectomy in 2007 Hypertension DM COPD: not in exacerbation Postmenopausal bleed PLAN: New onset right MCA stroke without focal neurological deficits Heme was consulted for hypercoagulable workup. Etiology could be: Factor 5 leiden def, Prothrombin gene 2; Antiphospholipid ab; Protein c/s def; malignancy For the new onset of stroke, suggest to start anticoagulation. Right breast CA (DCIS s.p lumpectomy) Patient reports she had lumpectomy done in 2007, however, didn't see any incisional scar. Would consider getting reports from her oncologist In 11/2014 , she had postmenopausal bleed for which she was recommended to do a cytology and malignancy work up, however, patient never followed up as outpatient. Since patient has a h/o breast cancer and is a non compliant patient (hasn't done a colonoscopy, mammogram since 5 yrs, pap smear), would consider doing an age related tumor work up Will order CT of chest, abdomen/pelvis. Needs mammogram which can be done as outpatient. Microcytic anemia Iron profile 03/31/18, Iron saturation 9 %, rest of the iron profile is normal. Needs GI work up- colonoscopy and Endoscopy. Plan of care explained to the patient. She verbalized understanding. Wants all tests to be done. Case discussed with Dr. Kraus. Dispo: We will continue to follow the patient. Thank you for this consultative opportunity.
--- NOTE | 2018-04-16 13:29 | PN ---
Teaching Attending Note Name of Resident: Stephanie Greenberg ATTENDING PHYSICIAN STATEMENT I saw and evaluated the patient. I reviewed the resident's note and discussed the case with the resident. I agree with the resident's findings and plan as documented. SUBJECTIVE:Case discussed ; Work up as outlined . OBJECTIVE: ASSESSMENT AND PLAN:
[2018-04-16] MEDS ORDERED: PT OWN MED DRAWER 7, Y5N ONE ×2 (17:28→21:34)
[2018-04-16] MEDS: RIVAROXABAN 20 MG TABLET PO SCH (17:54)
[2018-04-16] MEDS: ATORVASTATIN CA 10 MG TABLET (FP) PO SCH (21:41)
[2018-04-16] MEDS: LOSARTAN 50MG/HCTZ 12.5MG 1 TAB (FP) PO SCH (21:41)
[2018-04-17] MEDS: sitaGLIPtin PHOSPHATE 100 MG TABLET (FP) PO SCH (07:00)
[2018-04-17] MEDS: INSULIN SLIDING SCALE (NOVOLOG) 1 VIAL SQ SCH ×4 (07:00→22:00)
[2018-04-17 07:55] LABS: HEMATOCRIT 33.5 % (32.4-45.2); HEMOGLOBIN 10.6 GM/dL (10.7-15.3); MCH 23.6 pg (25.7-33.7); MCHC 31.7 g/dl (32.0-36.0); MEAN CELL VOLUME 74.3 fl (80-96); MEAN PLT VOLUME 9.6 fl (7.5-11.1); PLATELET COUNT 208 K/MM3 (134-434); RBC 4.51 M/mm3 (3.60-5.2)
--- NOTE | 2018-04-17 08:26 | PN ---
Progress Note, Physician Chief Complaint: all consults reviewed and d/w pt she feels well no new c/o ate OK slept OK no new neuro c.o taking her meds as ordered, AxOx3 nonfocal. d/w heme dr Kraus, ordered hypercoag state w/u and Chest abdomen pelvic CT ordered r/o occult malignancy - d/w pt she agreed for CT but she does not want MRIs or MRAs. Also d/w pt and cardio dr Goodman about SORIN, pt is reluctant to have SORIN at this time - I advised her to d/w cardio dr Goodman. d/w cardio no definite AFib on holter but had bradycardia and few SVT episodes and the monitor on 4S showed some episodes suspicious for AFib; is on anticoag per cardio and neuro. Will need EPS and SORIN as outpt. No PPM needed at this point per cardio. HR average 55 on holter. also I d./w cardio dr Goodman and neuro dr Licona pt should be stable for DC home on the current regimen with close f/u as outpt; per cardio and neuro there are no restrictions to return to work and to drive; d/w pt, papers for work done head CT from 04/15 showed the acute CVA that was seen initially on MRI but no new CVA, will repeat head CT today for f/u given that pt still refusing MRI, d/ w neuro dr Licona - Current Medication List Current Medications: Active Medications Acetaminophen (Tylenol -) 500 mg PO Q6H PRN PRN Reason: FEVER Atorvastatin Calcium (Lipitor -) 10 mg PO HS [facility] Last Admin: 04/16/18 21:41 Dose: 10 mg Cholecalciferol (Vitamin D3 -) 1,000 unit PO DAILY [facility] Last Admin: 04/16/18 10:30 Dose: 1,000 unit Ferrous Sulfate (Feosol -) 325 mg PO DAILY [facility] Last Admin: 04/16/18 10:30 Dose: 325 mg HCTZ/Losartan Potassium (Hyzaar -) 2 tab PO HS [facility] Last Admin: 04/16/18 21:41 Dose: 2 tab Insulin Aspart (Novolog Vial Sliding Scale -) 1 vial SQ ACHS [facility]; Protocol Last Admin: 04/17/18 07:00 Dose: Not Given Multivitamins/Minerals/Vitamin C (Tab-A-Vit -) 1 tab PO DAILY [facility] Last Admin: 04/16/18 10:30 Dose: 1 tab Pantoprazole Sodium (Protonix -) 20 mg PO DAILY [facility] Last Admin: 04/16/18 10:30 Dose: 20 mg Prednisone (Deltasone -) 30 mg PO BID [facility] Last Admin: 04/16/18 21:41 Dose: 30 mg Ranitidine HCl (Zantac -) 150 mg PO BID [facility] Last Admin: 04/16/18 21:41 Dose: 150 mg Rivaroxaban (Xarelto -) 20 mg PO DAILY@1800 [facility] Last Admin: 04/16/18 17:54 Dose: 20 mg Sitagliptin Phosphate (Januvia -) 100 mg PO DAILY@0700 [facility] Last Admin: 04/17/18 07:00 Dose: Not Given - Objective Vital Signs: Vital Signs Temperature 98.0 F 04/17/18 06:00 Pulse Rate 60 04/17/18 06:00 Respiratory Rate 18 04/17/18 06:00 Blood Pressure 147/63 04/17/18 06:00 O2 Sat by Pulse Oximetry (%) 98 04/16/18 21:00 Constitutional: Yes: No Distress, Calm Eyes: Yes: Conjunctiva Clear HENT: Yes: Atraumatic Neck: Yes: Supple Cardiovascular: Yes: Regular Rate and Rhythm Respiratory: Yes: CTA Bilaterally Gastrointestinal: Yes: Soft. No: Tenderness Genitourinary: No: CVA Tenderness - Left, CVA Tenderness - Right Musculoskeletal: No: Joint Stiffness, Joint Swelling Extremities: No: Cold, Cool, Cyanosis Edema: No Neurological: Yes: WNL, Alert, Oriented ...Motor Strength: WNL Psychiatric: Yes: WNL, Alert, Oriented. No: Agitated, Suicidal Ideation Labs: CBC, BMP 04/17/18 07:15 04/16/18 06:05 INR, PTT INR 1.01 (0.83-1.09) 04/12/18 14:31 - ....Imaging Cat Scan: Report Reviewed Other: Report Reviewed Assessment/Plan Patient is 62F with history of SVT s/p ablation, HTN, DM, COPD, breast CA, cervical herniated discs, recent temporal arteritis, admitted to telemetry new lacunar small bilateral CVAs, bradycardia; started on xarelto po per cardiology and neurology continue current treatment, as per previous discussions with cardio and neuro, will need close f/u and w/u as outpt, d/w pt she agreed with plan. Temporal arteritis on po prednisone 30 mg po bid will need f/u with dr Calixto in office soon after DC home. heme onc eval r/o hypercoag state w/u in progress. possible DC home in am; d/w pt and staff; t time 35 min
--- NOTE | 2018-04-17 08:42 | PN ---
Progress Note, Physician Chief Complaint: Pt A&Ox3;lying in bed. Frustrated that she cannot get back to her daily routine. History of Present Illness: Patient is 62 white woman with history of SVT s/p ablation, HTN, DM, COPD, morbid obesity, anxiety, herniated disc in C3-7 here today complaining of intermittent episodes of left arm weakness and aphasia. She describes 1-2 episodes per day of being unable to speak despite knowing what she wants to say with left arm and hand weakness. She was recently admitted and treated for possible temporal arteritis. Biopsy was negative. Patient complains of a headache for that past two months. Denies chest pain, shortness of breath. The episodes last about an hour and resolve on their own. She was sent in by Dr Duvall for further evaluate for possible TIA. - Current Medication List Current Medications: Active Medications Acetaminophen (Tylenol -) 500 mg PO Q6H PRN PRN Reason: FEVER Atorvastatin Calcium (Lipitor -) 10 mg PO HS [facility] Last Admin: 04/16/18 21:41 Dose: 10 mg Cholecalciferol (Vitamin D3 -) 1,000 unit PO DAILY [facility] Last Admin: 04/16/18 10:30 Dose: 1,000 unit Ferrous Sulfate (Feosol -) 325 mg PO DAILY [facility] Last Admin: 04/16/18 10:30 Dose: 325 mg HCTZ/Losartan Potassium (Hyzaar -) 2 tab PO [facility] Last Admin: 04/16/18 21:41 Dose: 2 tab Insulin Aspart (Novolog Vial Sliding Scale -) 1 vial SQ [facility]; Protocol Last Admin: 04/17/18 07:00 Dose: Not Given Multivitamins/Minerals/Vitamin C (Tab-A-Vit -) 1 tab PO DAILY [facility] Last Admin: 04/16/18 10:30 Dose: 1 tab Pantoprazole Sodium (Protonix -) 20 mg PO DAILY [facility] Last Admin: 04/16/18 10:30 Dose: 20 mg Prednisone (Deltasone -) 30 mg PO BID [facility] Last Admin: 04/16/18 21:41 Dose: 30 mg Ranitidine HCl (Zantac -) 150 mg PO BID [facility] Last Admin: 04/16/18 21:41 Dose: 150 mg Rivaroxaban (Xarelto -) 20 mg PO DAILY@1800 [facility] Last Admin: 04/16/18 17:54 Dose: 20 mg Sitagliptin Phosphate (Januvia -) 100 mg PO DAILY@0700 [facility] Last Admin: 04/17/18 07:00 Dose: Not Given - Objective Vital Signs: Vital Signs Temperature 98.0 F 04/17/18 06:00 Pulse Rate 60 04/17/18 06:00 Respiratory Rate 18 04/17/18 06:00 Blood Pressure 147/63 04/17/18 06:00 O2 Sat by Pulse Oximetry (%) 98 04/16/18 21:00 Constitutional: Yes: Anxious, Obese Eyes: Yes: WNL Labs: CBC, BMP 04/17/18 07:15 04/16/18 06:05 INR, PTT INR 1.01 (0.83-1.09) 04/12/18 14:31 Problem List - Problems (1) Multiple lacunar infarcts Assessment/Plan: Discussed with Dr. Faith: Agree with anticoagualation (IV heparin). Pt has hx of SVT--> ablation 20 years ago; brief run of PSVT on Holter. Telemetry: NSR; periods of marked sinus bradycardia; frequent atrial ectopy). As discussed with Dr. Doll, EP, pt will have long-term loop recorder implanted as outpatient for f/u of PSVT, ?AF, and bradycardia. On PO anticoagulation ((PSVT; ?PAF; distended LA; frequent atrial ectopy increase risk of emboli). Code(s): I63.9 - CEREBRAL INFARCTION, UNSPECIFIED (2) Low vitamin B12 level Code(s): E53.8 - DEFICIENCY OF OTHER SPECIFIED B GROUP VITAMINS (3) COPD (chronic obstructive pulmonary disease) Code(s): J44.9 - CHRONIC OBSTRUCTIVE PULMONARY DISEASE, UNSPECIFIED (4) Bradycardia Assessment/Plan: Holter: average HR 50 bpm; minimum 29 bpm. Discussed with EP: Pt will be folowed as oupatient with Dr. Kumar Doll, EP at [facility]. An implantable loop recorder will be placed for long-terma f/u of HR and rhythm. Code(s): R00.1 - BRADYCARDIA, UNSPECIFIED (5) Obesity Code(s): E66.9 - OBESITY, UNSPECIFIED (6) Thyroid mass Assessment/Plan: Free T3 and free T4 WNL. Code(s): E07.9 - DISORDER OF THYROID, UNSPECIFIED (7) Anxiety and depression Assessment/Plan: pt is under great stress at home (caring for son and mother; work-related issues ; self-esteem). Often non-compliant to diet, medications.She feels all responsibilities are on her. Code(s): F41.9 - ANXIETY DISORDER, UNSPECIFIED; F32.9 - MAJOR DEPRESSIVE DISORDER, SINGLE EPISODE, UNSPECIFIED
--- NOTE | 2018-04-17 13:09 | PN ---
Progress Note (short form) - Note Progress Note: Transient Left arm weakness and slurring of speech, symptoms resolved. She is 62 year old female history of HTN, DM, COPD, Cervical radiculoapthy, SVT s/p ablation. She has been going through stress and recent had headhace for one and h afl month. Yesterday she felt she had trouble lifting her hand and weakness along with slurring of speech. Her ct scan was normal, she do not take aspirin and statin at home. MRI showed bihemispheric strokes. PMH as above and B12 deficeincy, history of breast cancer, fatty liver She has been diagnosed with temporal arteritis ( not confirmed on biopsy) and on high dose of steroid. SUBJECTIVE: She is feeling better today, and able to walk around. she had ct head done and report pending NEUROLOGICAL EXAMINATION: Alert oriented x 3 EOMI, pupils reactive, no face asymmetry motor 5/5 all ext sensation is noraml reflex are normal she is able to walk and hip flexion and extension , knee flexion and extension is normal on left side ct head is normal, repeat ct head done on april 17 i spending carotid ultrasound is normal mri of brain showed bi hemispheric stroke Assessment- Right mca stroke risk factor DM,HTN and suspected atrial fibrillation. clinically stable and on anticoagulation. Plan -continue prednisone for temporal arteritis and to be co managed by type photography supervisor . continue anticoagulation , statin and no aspirin - ct head is pending - shahab[employer] education, probable discharge tomorrow Thanking you so much Shakeel Licona MD
[2018-04-17] MEDS: MULTIVITAMINS (DAILY MVI) TABLET (FP) PO SCH (13:30)
[2018-04-17] MEDS: RANITIDINE HCL 150 MG TABLET (FP) PO SCH ×2 (13:30→22:00)
[2018-04-17] MEDS: predniSONE 10 MG TABLET (UD) PO SCH ×2 (13:30→22:00)
[2018-04-17] MEDS: CHOLECALCIFEROL (VITAMIN D3) 1,000 UNIT TABLET (FP) PO SCH (13:30)
[2018-04-17] MEDS: PANTOPRAZOLE 20 MG TABLET (FP) PO SCH (13:30)
[2018-04-17] MEDS: FERROUS SO4 325 MG TABLET (FP) PO SCH (13:30)
[2018-04-17] MEDS: RIVAROXABAN 20 MG TABLET PO SCH (17:40)
[2018-04-17] MEDS: LOSARTAN 50MG/HCTZ 12.5MG 1 TAB (FP) PO SCH (22:00)
[2018-04-17] MEDS: ATORVASTATIN CA 10 MG TABLET (FP) PO SCH (22:00)
--- NOTE | 2018-04-17 23:19 | PN ---
Progress Note (short form) - Note Progress Note: Patient seen and examined Denies any complaints AFVSS Cor: RSR, No murmurs, No gallops Lungs: Clear to P&A Abd: Soft, Normal bowel sounds, No organomegaly Ext:No significant edema Labs/Meds reviewed A/P New onset right MCA stroke Right breast CA DCIS s/p lumpectomy in 2007 Hypertension DM COPD: not in exacerbation Postmenopausal bleed PLAN: New onset right MCA stroke without focal neurological deficits.transient left arm weakness suspected afib On Xeralto Thrombophilia w/u -- Factor 5 leiden def, Prothrombin gene 2; Antiphospholipid ab; Protein c/s def; malignancy w/u Right breast CA (DCIS s.p lumpectomy) Patient reports she had lumpectomy done in 2007, In 11/2014 , she had postmenopausal bleed for which she was recommended to do a cytology and malignancy work up, however, patient never followed up CT c/a/p pending Microcytic anemia Iron profile 03/31/18, Iron saturation 9 % Needs GI work up- colonoscopy and Endoscopy when mediccallycleasred
[2018-04-17] MEDS ORDERED: PT OWN MED DRAWER 7, Y5N ONE (23:40)
[2018-04-18] MEDS: sitaGLIPtin PHOSPHATE 100 MG TABLET (FP) PO SCH (06:27)
[2018-04-18] MEDS: INSULIN SLIDING SCALE (NOVOLOG) 1 VIAL SQ SCH ×2 (06:52→11:46)
[2018-04-18 07:57] LABS: HEMATOCRIT 31.3 % (32.4-45.2); HEMOGLOBIN 9.9 GM/dL (10.7-15.3); MCH 23.6 pg (25.7-33.7); MCHC 31.7 g/dl (32.0-36.0); MEAN CELL VOLUME 74.5 fl (80-96); MEAN PLT VOLUME 9.7 fl (7.5-11.1); PLATELET COUNT 175 K/MM3 (134-434); WHITE BLOOD COUNT 14.2 K/mm3 (4.0-10.0)
--- NOTE | 2018-04-18 08:29 | PN ---
Progress Note, Physician Chief Complaint: when I walked in pt's room this am pt was very sleepy (around 10.30 am) but she woke up with chest rubbing; she could not get words out (she could say only yes or no) and her left arm and left leg were weak 3/5; i ordered stat head CT no ivc and also I called with neuro dr Escobar heme dr Westfall and cardio dr Goodman; stroke code was called stat. per nurse pt was at baseline earlier this am when she ate her breakfast OK then she went to sleep. Noted that head CT done yesterday read last night as 0.7 cm acute R frontal CVA but pt had no new neuro smptoms at that time (per note neuro dr Bentley was informed). I spoke with pt's son Chad about the above and called pt's mother Callie ( no answer); son Chad said he saw Rowena last night and she was ok although not her usual self, but he thinks she might try to hide symptoms because she wants to go home; pt told him she was reluctant to have repeat MRI and to have SORIN and said he will d/w her later about them. I mentioned that the fact she still has new neuro symptoms despite treatment are very concerning, and would transfer her to [facility] for further management. - Current Medication List Current Medications: Active Medications Acetaminophen (Tylenol -) 500 mg PO Q6H PRN PRN Reason: FEVER Atorvastatin Calcium (Lipitor -) 10 mg PO HS VINEET Last Admin: 04/17/18 22:00 Dose: 10 mg Cholecalciferol (Vitamin D3 -) 1,000 unit PO DAILY VINEET Last Admin: 04/17/18 13:30 Dose: 1,000 unit Ferrous Sulfate (Feosol -) 325 mg PO DAILY VINEET Last Admin: 04/17/18 13:30 Dose: 325 mg HCTZ/Losartan Potassium (Hyzaar -) 2 tab PO HS VINEET Last Admin: 04/17/18 22:00 Dose: 2 tab Insulin Aspart (Novolog Vial Sliding Scale -) 1 vial SQ ACHS [facility]; Protocol Last Admin: 04/18/18 06:52 Dose: Not Given Multivitamins/Minerals/Vitamin C (Tab-A-Vit -) 1 tab PO DAILY VINEET Last Admin: 04/17/18 13:30 Dose: 1 tab Pantoprazole Sodium (Protonix -) 20 mg PO DAILY [facility] Last Admin: 04/17/18 13:30 Dose: 20 mg Prednisone (Deltasone -) 30 mg PO BID [facility] Last Admin: 04/17/18 22:00 Dose: 30 mg Ranitidine HCl (Zantac -) 150 mg PO BID [facility] Last Admin: 04/17/18 22:00 Dose: 150 mg Rivaroxaban (Xarelto -) 20 mg PO DAILY@1800 [facility] Last Admin: 04/17/18 17:40 Dose: 20 mg Sitagliptin Phosphate (Januvia -) 100 mg PO DAILY@0700 [facility] Last Admin: 04/18/18 06:27 Dose: 100 mg - Objective Vital Signs: Vital Signs Temperature 98.1 F 04/18/18 06:00 Pulse Rate 76 04/18/18 06:00 Respiratory Rate 16 04/18/18 06:00 Blood Pressure 148/62 04/18/18 06:00 O2 Sat by Pulse Oximetry (%) 98 04/17/18 21:00 Constitutional: Yes: Mild Distress Eyes: Yes: Conjunctiva Clear HENT: Yes: Atraumatic Neck: Yes: Supple. No: Tenderness Cardiovascular: Yes: Regular Rate and Rhythm Respiratory: Yes: CTA Bilaterally Gastrointestinal: Yes: Soft. No: Tenderness Genitourinary: No: Hematuria Musculoskeletal: No: Joint Swelling Extremities: No: Cold, Cool, Cyanosis Edema: No Integumentary: No: Rash, Venous Stasis Changes Neurological: Yes: Alert, Aphasia. No: Oriented ...Motor Strength: LUE (3/5), LLE (3/5) Psychiatric: Yes: Alert. No: Oriented, Agitated Labs: CBC, BMP 04/18/18 06:45 04/16/18 06:05 INR, PTT INR 1.01 (0.83-1.09) 04/12/18 14:31 Fibrinogen 339.0 mg/dL (238-498) 04/17/18 07:15 - ....Imaging Other: Report Reviewed Assessment/Plan Patient is 62F with history of SVT s/p ablation, HTN, DM, COPD, breast CA, cervical herniated discs, recent temporal arteritis, admitted to telemetry new lacunar small bilateral CVAs, bradycardia; started on xarelto po per cardiology and neurology new evolving neuro symptoms (aphasia and left sided weakness) despite treatment are very concerning; stroke protocol called; stat head CT ordered and called radiology, d/w staff pt sent on monitor and accompanied by house staff I called and d/w dr Licona neuro: if head CT negative will stop xarelto and start IV heparin no bolus and po baby ASA stat; no thrombolysis b/o recent anticoag treatment (received po xarelto last night) d/w heme dr Linton; called cardio dr Goodman; also I d/w rheum dr Calixto who suggested no change in her treatment (unlikely vasculitis ESR 16 & 20) but with recurrent symptoms despite treatment would recommend brain biopsy; d/w neuro dr Licona he initiated transfer to [facility]. Further w/u (repeat brain MRI, brain biopsy) to be done at [facility] per neuro. add note head CT done stat and read stat showed no bleed but increased size of bilateral CVAs d/w neuro, stop xarelto, start stat baby asa po and IV heparin 1000 U/h no bolus, d/w nurse Katie who will start them now; also I d/w dr NANCE transfer to ICU until bed available at [facility]; upon return from CT scan Rowena was more alert and able to speak better and seems able to understand and follows commands but LUE and LLE 3/5; advised bed rest; falls and decubs PFX; do not get OOB alone, NPO for now until swallow eval ; aspiration PFX. fiona Bonilla arrived at the hospital d/w pt and him at bedside all the above in detail and they agreed with plan d.w pt and staff t time over 3 hours
[2018-04-18] MEDS: RANITIDINE HCL 150 MG TABLET (FP) PO SCH (09:44)
[2018-04-18] MEDS: PANTOPRAZOLE 20 MG TABLET (FP) PO SCH (09:44)
[2018-04-18] MEDS: CHOLECALCIFEROL (VITAMIN D3) 1,000 UNIT TABLET (FP) PO SCH (09:44)
[2018-04-18] MEDS: MULTIVITAMINS (DAILY MVI) TABLET (FP) PO SCH (09:44)
[2018-04-18] MEDS: predniSONE 10 MG TABLET (UD) PO SCH (09:44)
[2018-04-18] MEDS: FERROUS SO4 325 MG TABLET (FP) PO SCH (09:44)
[2018-04-18] MEDS ORDERED: methylPREDNISolone NA SUCC 40 MG/1 ML VIAL IVPB SCH (10:45)
[2018-04-18] MEDS ORDERED: SODIUM CHLORIDE 1,000 ML IV SCH (11:00)
--- NOTE | 2018-04-18 12:03 | RAPID ---
Physical Examination Vital Signs: Vital Signs Temperature 98.3 F 04/18/18 09:42 Pulse Rate 72 04/18/18 09:42 Respiratory Rate 18 04/18/18 09:42 Blood Pressure 169/70 04/18/18 09:42 O2 Sat by Pulse Oximetry (%) 98 04/17/18 21:00 Findings/Remarks: Lisa schmid called 10:52AM Patient presented with weakness upon admission. Has received repeated imaging showing increasing microinfarcts Has been on xarelto for Afib. Has been seen by neurology throughout this admission. Last Neurologist encounter describes transient upper extremity weakness. Patient was seen in stretcher in [facility] by nurses station. she was having difficulty speaking, and answering questions. Physical exam General: middle aged female alert oriented x3 Cardiac: +S1 S2, no murmurs appreciated. Pulmonary: CTA B/L. No wheezing auscultated. GI: Obese abdomen, soft non-tender to palpation. No hepatoplenomegaly appreciated. Neuro: Mild left sided facial droop, mild slurring of her speech Left upper extremity 3/5 strength Left lower extremity 0/5 strength Right upper 5/5 strength Right lower 5/5 strength NIHSS: Facial Palsy 1, Motor leg left 4, Motor right arm 2 =7 at time of stroke code. Assessment: 62 year old female with history of Afib, on Xarelto, presented with weakness. Lisa Schmid was called at 10:52 for new onset lower extremity weakness. Left lower extremity weakness noted on physical exam. Embolic stroke vs. worsening infarct vs rule out hemorrhagic stroke Patient is not a candidate for thrombectomy, due to recent stroke with multi- infracts within the past three months (during this admission). She is currently on Xarelto. Plan CT head noncontrast STAT. Read as worsening multiinfarcts without new intracranial hemorrhage. Neurology consult (Dr. Licona) STAT Patient to be transferred to be ICU. Considering transfer to [facility] for elevation of care. Care as per. Dr. Faith, present at patient bedside. -Discontinue Xarelto, begin Heparin drip per neurology recommendation. Neuro Checks Q1H Speech and swallow consult Fall precautions Labs: CBC, BMP 04/18/18 06:45 04/16/18 06:05 Suspected CVA - Suspected CVA MD Exam Time (Code Lawson Time): 10:52 CT Stroke ordered: Yes Stat "Code Lawson" Consult to Neurology called: Yes Last Known Well (Date): 04/18/18 (Patient's nurse confirms patient was without left lower extremity weakness) Last Known Well (Time): 07:15 (Physical exam from Neurology ea (yesterday) showed transient left upper exremity weakness. ) Symptom Discovery (Date): 04/18/18 Symptom Discovery (Time): 10:52
[2018-04-18] MEDS ORDERED: HEPARIN NA (PORCINE) 5,000 UNITS/ML 1ML VIAL IVPUSH PRN (12:11)
[2018-04-18] MEDS ORDERED: HEPARIN - 25,000 UNIT in SODIUM CHLORIDE 495 ML IV SCH (12:15)
[2018-04-18] MEDS ORDERED: ASPIRIN COATED 81 MG TABLET.EC PO SCH (12:15)
[2018-04-18 12:27] LABS: BASO % 0.1 % (0-2.0); HEMOGLOBIN 10.4 GM/dL (10.7-15.3); LYMPH % 5.4 % (8-40); MCH 23.5 pg (25.7-33.7); MCHC 31.6 g/dl (32.0-36.0); MEAN CELL VOLUME 74.5 fl (80-96); MEAN PLT VOLUME 9.5 fl (7.5-11.1); MONO % 5.2 % (3.8-10.2); NEUT % 89.3 % (42.8-82.8); PLATELET COUNT 213 K/MM3 (134-434); RBC 4.43 M/mm3 (3.60-5.2); WHITE BLOOD COUNT 16.2 K/mm3 (4.0-10.0)
[2018-04-18 12:39] LABS: INR 1.27 (0.83-1.09); PROTHROMBIN TIME (PATIENT) 14.3 SEC (9.7-13.0)
[2018-04-18 12:40] LABS: TRIGLYCERIDES 86 mg/dL (35-160)
[2018-04-18 12:41] LABS: ALBUMIN 3.2 g/dl (3.4-5.0); ANION GAP 10 MMOL/L (8-16); BILIRUBIN,TOTAL 0.3 mg/dL (0.2-1.0); BLOOD UREA NITROGEN 29 mg/dL (7-18); CALCIUM 9.2 mg/dL (8.5-10.1); CHLORIDE 97 mmol/L (98-107); CHOLESTEROL 173 mg/dL (50-200); CO2 29 mmol/L (21-32); CREATININE 0.7 mg/dL (0.55-1.02); GLUCOSE,RANDOM 140 mg/dL (74-106); POTASSIUM 4.3 mmol/L (3.5-5.1); SGOT/AST 7 U/L (15-37); SGPT/ALT 28 U/L (12-78); SODIUM 136 mmol/L (136-145); TOT PROT 6.2 g/dl (6.4-8.2)
[2018-04-18 12:44] LABS: ALK PHOS 56 U/L (45-117); HDL CHOLESTEROL 99 mg/dL (40-60)
--- NOTE | 2018-04-18 13:15 | PN ---
Progress Note (short form) - Note Progress Note: 62 year old female initial admission was Transient Left arm weakness and slurring of speech, symptoms resolved. She is 62 year old female history of HTN , DM, COPD, Cervical radiculoapthy, SVT s/p ablation. She has been going through stress and recent had headhace for one and h afl month. Yesterday she felt she had trouble lifting her hand and weakness along with slurring of speech. Her ct scan was normal, she do not take aspirin and statin at home. MRI showed bihemispheric strokes. PMH as above and B12 deficeincy, history of breast cancer, fatty liver She has been diagnosed with temporal arteritis ( not confirmed on biopsy) and on high dose of steroid. SUBJECTIVE: This morning she is found to have left sided hemiparesis and difficulty in talking . Her symptom are improving little bit. Last night she was started in xarelto and heparin. Spent 30 minute doing critical care NEUROLOGICAL EXAMINATION: Alert follow command, having dificulty with spontaneous speech and not able to move her left side of arm and leg. She has trouble repeating and spontaneous speech EOMI, pupils reactive, mild left sided facial asymmetry Left arm threading machine tender is 5- and there is prnator drift and left lower extremity is grade [address] head is normal, repeat ct head done on april 17 i spending carotid ultrasound is normal mri of brain showed bi hemispheric stroke 98.3, hr 72, bp 169/70, rr 18 Assessment- Right mca stroke risk factor DM,HTN and suspected atrial fibrillation. It appears that she has another episode of stroke, ? she is already on anticoagulation , steroid and statin. Plan - patient is not a tpa candidate given she is on anticoagulation, I would like to add aspirin as she has stroke on anticoagulation and it was not very clear that she had atrial fibrillation - I inititated the transfer to [facility] and spoke to Neurology continuous yarn dyeing machine operator and he recommended that there is no intervention needed at this time, and they would check their bed situation and would call me back - in the mean time, would restart heparin and add aspirin. Continue statin and steroid - cardioloy follow up - speech, dvt prophylaxis, - I woudl order mri of brain THnaking you so much Shakeel Licona MD
[2018-04-18 13:32] VITALS: TEMP 98.3
[2018-04-18 13:47] VITALS: BP 167/43; PULSE 68
--- NOTE | 2018-04-19 13:27 | EKG ---
Test Reason : Blood Pressure : / mmHG Vent. Rate : 044 BPM Atrial Rate : 044 BPM P-R Int : 152 ms QRS Dur : 096 ms QT Int : 434 ms P-R-T Axes : 062 013 038 degrees QTc Int : 371 ms MARKED SINUS BRADYCARDIA WITH MARKED SINUS ARRHYTHMIA ABNORMAL ECG WHEN COMPARED WITH ECG OF 13-APR-2018 09:19, PREMATURE ATRIAL COMPLEXES ARE NO LONGER PRESENT Confirmed by SUKH OBREGON MD ([id number]) on 04/19/2018 1:27:36 PM Referred By: Aldo PRIETO Confirmed By:SUKH OBREGON MD
[2018-04-21 14:14] LABS: PROTEIN C ACTIVITY > 199 % (73-180); PROTEIN S, FREE 135 % (57-157)
== END 2018-04-18 15:57 | disposition short-term general hospital (02) | DRG 65 ==
LOC: JER 12:55 → JERBED 16:36 → J4S 18:16 → JICU 04-18 13:20
PROVIDERS: ADMIT Internal Medicine; ATTEND Internal Medicine
DX: I63.9 Cerebral infarction, unspecified (principal); G45.9 Transient cerebral ischemic attack, unspecified; Z68.41 Body mass index [BMI] 40.0-44.9, adult; I50.32 Chronic diastolic (congestive) heart failure; G81.94 Hemiplegia, unspecified affecting left nondominant side; R47.01 Aphasia; R47.81 Slurred speech; I11.0 Hypertensive heart disease with heart failure; E11.9 Type 2 diabetes mellitus without complications; Z79.4 Long term (current) use of insulin; Z79.84 Long term (current) use of oral hypoglycemic drugs; J44.9 Chronic obstructive pulmonary disease, unspecified; M50.21 Other cervical disc displacement, high cervical region; Z87.891 Personal history of nicotine dependence; E66.01 Morbid (severe) obesity due to excess calories; E04.1 Nontoxic single thyroid nodule; K76.0 Fatty (change of) liver, not elsewhere classified; K21.9 Gastro-esophageal reflux disease without esophagitis; D64.9 Anemia, unspecified; D51.9 Vitamin B12 deficiency anemia, unspecified; E78.5 Hyperlipidemia, unspecified; R00.1 Bradycardia, unspecified; Z85.3 Personal history of malignant neoplasm of breast; I48.91 Unspecified atrial fibrillation; F41.9 Anxiety disorder, unspecified; M31.6 Other giant cell arteritis; D50.9 Iron deficiency anemia, unspecified; F32.9 Major depressive disorder, single episode, unspecified
CPT/HCPCS: 36415; 70450-TC; 70544-TC; 70551-TC; 71045-TC-FY; 71250-TC; 74176-TC; 80053; 81003; 82465; 82550; 82962; 83718; 83721; 84439; 84443; 84478; 84481; 84484; 85025; 85027; 85300; 85303; 85305; 85306; 85384; 85610; 85651; 85730; 86140; 86850; 86900; 86901; 87040; 93005; 93010; 93225; 93226; 93306-TC; 93880-TC; 93970-TC; 97116-GP; 97161-GP; 99283-25; G0463-25; J1644; J7030

== ENCOUNTER 2018-09-06 12:51 | Inpatient (IN) | payer OTHER | END 2018-09-20 11:13 | disposition short-term general hospital (02) | LOC: JER 12:51 → JERBED 14:58 → J4W 22:39 ==

== ENCOUNTER 2018-11-01 17:10 | Inpatient (IN) | payer OTHER ==
[2018-11-01] MEDS ORDERED: ONDANSETRON 4 MG/2 ML VIAL IVPUSH ONE (18:01)
[2018-11-01] MEDS ORDERED: SODIUM CHLORIDE 1,000 ML IV STA (18:01)
--- NOTE | 2018-11-01 18:05 | PDOC ---
History of Present Illness - General Chief Complaint: Nausea/Vomiting Stated Complaint: ELEVATED LAB Time Seen by Provider: 11/01/18 17:55 History Source: Patient, Primary Care Provider Exam Limitations: No Limitations - History of Present Illness Initial Comments: 11/01/18 19:03 Patient is a 63F from [place] w/ PMHx SVT s/p ablation, afib on Eliquis, HTN , DM, COPD. C3-C7 herniation, multiple CVAs here today with vomiting and elevated LFTs. Patient is currently under the care of Dr Faith, who sent the patient in for admission. US done on 10/26 showed fatty liver, no other abnormalities. Dr Faith requesting CT scan at this time. Patient reports that she fell last night, as she got out of bed. Denies head trauma. Patient denies abdominal pain, blood in vomit, dysuria. Denies chest pain, shortness of breath and cough. Denies diarrhea, constipation. Past History - Past Medical History Allergies/Adverse Reactions: Allergies Allergy/AdvReac Type Severity Reaction Status Date / Time ciprofloxacin [From Cipro] Allergy Verified 11/01/18 17:18 ciprofloxacin HCl Allergy Verified 11/01/18 17:18 [From Cipro] Penicillins Allergy Verified 11/01/18 17:18 Tetracyclines Allergy Verified 11/01/18 17:18 Home Medications: Ambulatory Orders Multivitamins [Multivit ([facility] Form[facility])] 1 tab PO DAILY tab 04/02/18 Alprazolam 0.25 mg PO BID PRN 09/06/18 Apixaban [Eliquis -] 5 mg PO BID 09/06/18 Atorvastatin Ca [Lipitor] 80 mg PO HS 09/06/18 Escitalopram Oxalate [Lexapro -] 20 mg PO DAILY 09/06/18 Folic Acid 1 mg PO DAILY 09/06/18 Pantoprazole Sodium [Protonix] 40 mg PO DAILY 09/06/18 Ferrous Sulfate [Feosol] 325 mg PO TID 11/01/18 Lisinopril [Prinivil] 5 mg PO DAILY 11/01/18 Metoprolol Tartrate [Lopressor -] 25 mg PO DAILY 11/01/18 Sucralfate [Carafate -] 1 gm PO QID 11/01/18 Anemia: No Asthma: Yes Cancer: Yes (breast) Cardiac Disorders: Yes (SVT's enlarged heart) CVA: Yes (multiple - bilateral) COPD: Yes (asthma) CHF: No Dementia: No Diabetes: Yes GI Disorders: (GERD) Disorders: No HTN: Yes Hypercholesterolemia: No Liver Disease: No Seizures: No Thyroid Disease: (thyroid mass) - Surgical History Abdominal Surgery: No Appendectomy: No Cardiac Surgery: Yes (cardiac ablation for SVT'S 1998) Cholecystectomy: No Lung Surgery: No Neurologic Surgery: No Orthopedic Surgery: No - Immunization History Immunization Up to Date: Yes - Suicide/Smoking/Psychosocial Hx Smoking History: Former smoker Have you smoked in the past 12 months: No If you are a former smoker, when did you quit?: 2012 Information on smoking cessation initiated: No Hx Alcohol Use: No Drug/Substance Use Hx: No Substance Use Type: None Hx Substance Use Treatment: No Review of Systems - Review of Systems Able to Perform ROS?: Yes Comments:: 11/01/18 19:08 GENERAL/CONSTITUTIONAL: No fever or chills. No weakness. HEAD, EYES, EARS, NOSE AND THROAT: No change in vision. No ear pain or discharge. No sore throat. CARDIOVASCULAR: No chest pain or shortness of breath RESPIRATORY: No cough, wheezing, or hemoptysis. GASTROINTESTINAL: +nausea, +vomiting, no diarrhea or constipation. GENITOURINARY: No dysuria, frequency, or change in urination. MUSCULOSKELETAL: No joint or muscle swelling or pain. No neck or back pain. SKIN: No rash NEUROLOGIC: No headache, vertigo, loss of consciousness, or change in strength/ sensation. ENDOCRINE: No increased thirst. No abnormal weight change ALLERGIC/IMMUNOLOGIC: No hives or skin allergy. *Physical Exam - Vital Signs Last Vital Signs Temp Pulse Resp BP Pulse Ox 98.1 F 94 H 18 121/58 L 97 11/01/18 17:19 11/01/18 17:19 11/01/18 17:19 11/01/18 17:19 11/01/18 17:19 - Physical Exam Comments: 11/01/18 19:09 GENERAL: Awake, alert, and fully oriented, in no acute distress HEAD: No signs of trauma, normocephalic, atraumatic EYES: PERRLA, EOMI, sclera anicteric, conjunctiva clear ENT: Auricles normal inspection, hearing grossly normal, nares patent, oropharynx clear without exudates. Moist mucosa NECK: Normal ROM, supple, no lymphadenopathy, JVD, or masses LUNGS: No distress, speaks full sentences, clear to auscultation bilaterally HEART: Regular rate and rhythm, normal S1 and S2, no murmurs, rubs or gallops, peripheral pulses normal and equal bilaterally. ABDOMEN: Soft, +RUQ tenderness, normoactive bowel sounds. No guarding, no rebound. No masses EXTREMITIES: Normal inspection, Normal range of motion, no edema. No clubbing or cyanosis. NEUROLOGICAL: Cranial nerves II through XII grossly intact. Normal speech, no focal sensorimotor deficits SKIN: Warm, Dry, normal turgor, no rashes or lesions noted. Moderate Sedation - Procedure Monitoring Vital Signs: Procedure Monitoring Vital Signs Temperature 98.1 F 11/01/18 17:19 Pulse Rate 94 H 11/01/18 17:19 Respiratory Rate 18 11/01/18 17:19 Blood Pressure 121/58 L 11/01/18 17:19 O2 Sat by Pulse Oximetry (%) 97 11/01/18 17:19 ED Treatment Course - LABORATORY CBC & Chemistry Diagram: 11/01/18 18:15 11/01/18 18:15 - RADIOLOGY Radiology Studies Ordered: Category Date Time Status ABDOMEN US -LIMITED [US] Stat Ultrasound 11/01/18 18:02 Ordered Medical Decision Making - Medical Decision Making 11/01/18 19:09 Patient is 63F with history of SVT s/p ablation, afib on Eliquis, HTN, DM, COPD. C3-C7 herniation, multiple CVAs here today with vomiting and elevated LFTs as outpatient. Normal ultrasound as outpatient, Dr Faith requesting CT scan. Will workup with abdominal labs, ct head for fall, ct a/p. 11/01/18 22:27 EKG shows aflutter with 3:[address] head shows no acute abnormalities. CT abd/pelvis shows mild splenomegaly, no other changes. CBC shows baseline anemia, CMP shows mild elevation in LFTs. Dr Faith paged. *DC/Admit/Observation/Transfer Diagnosis at time of Disposition: Vomiting, Elevated LFTs - Discharge Dispostion Condition at time of disposition: Stable Decision to Admit order: Yes - Referrals Referrals: Nyla Faith [Primary Care Provider] - - Patient Instructions - Post Discharge Activity
--- NOTE | 2018-11-01 18:08 | PDOC ---
Attending Attestation - HPI HPI: 11/01/18 22:41 The patient is a 63 year old female, from [place] with a significant past medical history of SVT (s/p ablation), afib (on Eliquis), HTN, DM, COPD, C3-C7 herniation, multiple CVAs who presents to the emergency department with vomiting and elevated LFTs. Patient notes he was sent to the ED by Dr. Faith for further evaluation, a CT scan, and admission. The patient reports she fell last night as she was getting out of bed. The patient denies any head trauma, The patient denies chest pain, shortness of breath, headache or dizziness. The patient denies fever, chills, nausea, diarrhea or constipation. The patient denies abdominal pain, blood in vomit, dysuria, frequency, urgency or hematuria. Allergies: NKDA Past surgical history:Laparoscopic Right Oophorectomy, LUMBAR DISCECTOMY, LAMINECTOMY,Spinal Fusion (06/2016), and Appendectomy Social history: None reported PCP: Dr. Mariela Faith - Physicial Exam PE: 11/01/18 22:42 GENERAL: Awake, alert, and fully oriented, in no acute distress HEAD: No signs of trauma EYES: PERRLA, EOMI, sclera anicteric, conjunctiva clear ENT: Auricles normal inspection, hearing grossly normal, nares patent, oropharynx clear without exudates. Moist mucosa NECK: Normal ROM, supple, no lymphadenopathy, JVD, or masses LUNGS: Breath sounds equal, clear to auscultation bilaterally. No wheezes, and no crackles HEART: (+) regular irregular rate and rhythm, normal S1 and S2, no murmurs, rubs or gallops ABDOMEN: Soft, nontender, normoactive bowel sounds. No guarding, no rebound. No masses EXTREMITIES: (+) scattered ecchymosis. Normal range of motion, no edema. No clubbing or cyanosis. No cords, erythema, or tenderness NEUROLOGICAL: Cranial nerves II through XII grossly intact. Normal speech, normal gait SKIN: Warm, Dry, normal turgor, no rashes or lesions noted. <Silvino Mcintyre - Last Filed: 11/01/18 22:41> - Resident Resident Name: Gene Ceja - ED Attending Attestation I have performed the following: I have examined & evaluated the patient, The case was reviewed & discussed with the resident, I agree w/resident's findings & plan, Exceptions are as noted - HPI HPI: 11/01/18 18:07 CC :vomiting, this am, elevated LFTs sent in for admission by Dr Faith No diarrhea,fever,chest pain,sob ++RUQ tenderness - Medical Decision Making 11/03/18 02:53 pt admitted for fiurther eval by Dr Faith <Beverly Mills - Last Filed: 11/03/18 02:53> Attestations - Attestations 11/01/18 22:43 Documentation prepared by Silvino Mcintyre, acting as medical administrative technician for Beverly Mills MD <Silvino Mcintyre - Last Filed: 11/01/18 22:41>
[2018-11-01] MEDS ORDERED: ONDANSETRON 4 MG/2 ML VIAL ONE (18:13)
[2018-11-01 18:34] LABS: BASO % 0.5 % (0-2.0); EOS % 2.4 % (0-4.5); HEMATOCRIT 29.4 % (32.4-45.2); HEMOGLOBIN 9.7 GM/dL (10.7-15.3); LYMPH % 10.1 % (8-40); MCH 26.6 pg (25.7-33.7); MCHC 32.9 g/dl (32.0-36.0); MEAN CELL VOLUME 80.9 fl (80-96); MEAN PLT VOLUME 8.6 fl (7.5-11.1); MONO % 4.5 % (3.8-10.2); NEUT % 82.5 % (42.8-82.8); PLATELET COUNT 245 K/MM3 (134-434); RBC 3.64 M/mm3 (3.60-5.2); RDW 20.7 % (11.6-15.6); WHITE BLOOD COUNT 4.7 K/mm3 (4.0-10.0)
[2018-11-01 18:56] LABS: ALBUMIN 2.4 g/dl (3.4-5.0); ALK PHOS 662 U/L (45-117); ANION GAP 7 MMOL/L (8-16); BILIRUBIN,TOTAL 0.9 mg/dL (0.2-1); BLOOD UREA NITROGEN 15 mg/dL (7-18); CALCIUM 8.2 mg/dL (8.5-10.1); CHLORIDE 107 mmol/L (98-107); CO2 25 mmol/L (21-32); CREATININE 0.5 mg/dL (0.55-1.3); GLUCOSE,RANDOM 91 mg/dL (74-106); LIPASE 74 U/L (73-393); POTASSIUM 4.4 mmol/L (3.5-5.1); SGOT/AST 146 U/L (15-37); SGPT/ALT 141 U/L (13-61); SODIUM 139 mmol/L (136-145)
[2018-11-01 20:38] LABS: ANISOCYTOSIS 2+; MACROCYTOSIS 1+
[2018-11-01 20:39] LABS: PLATELET ESTIMATE ADEQUATE
[2018-11-01] MEDS ORDERED: ATORVASTATIN CA 80 MG TABLET (FP) PO SCH (22:00)
[2018-11-02] MEDS ORDERED: FERROUS SO4 325 MG TABLET (FP) ONE (00:54)
[2018-11-02] MEDS: FERROUS SO4 325 MG TABLET (FP) PO SCH ×4 (01:11→17:08)
[2018-11-02] MEDS: METOPROLOL TARTRATE 25 MG TABLET (FP) PO SCH ×3 (01:11→22:09)
[2018-11-02] MEDS: APIXABAN 5 MG TABLET PO SCH ×3 (01:11→22:09)
[2018-11-02] MEDS: SUCRALFATE 1 GM TABLET (FP) PO SCH ×5 (01:11→22:09)
[2018-11-02] MEDS: SODIUM CHLORIDE 1,000 ML IV SCH ×2 (01:45→22:17)
[2018-11-02 06:05] LABS: BASO % 0.3 % (0-2.0); EOS % 6.1 % (0-4.5); HEMATOCRIT 26.4 % (32.4-45.2); HEMOGLOBIN 8.6 GM/dL (10.7-15.3); LYMPH % 15.1 % (8-40); MCH 26.1 pg (25.7-33.7); MCHC 32.6 g/dl (32.0-36.0); MEAN PLT VOLUME 8.6 fl (7.5-11.1); MONO % 7.1 % (3.8-10.2); NEUT % 71.4 % (42.8-82.8); PLATELET COUNT 172 K/MM3 (134-434); RDW 20.3 % (11.6-15.6); WHITE BLOOD COUNT 3.4 K/mm3 (4.0-10.0)
[2018-11-02 06:20] VITALS: BMI 32.8
[2018-11-02 06:26] LABS: INR 1.26 (0.83-1.09); PROTHROMBIN TIME (PATIENT) 14.9 SEC (9.7-13.0)
[2018-11-02 06:29] LABS: ACTIVATED PTT 32.4 SECONDS (25.2-36.5)
[2018-11-02 06:44] LABS: ANION GAP 7 MMOL/L (8-16); BLOOD UREA NITROGEN 14 mg/dL (7-18); CALCIUM 7.9 mg/dL (8.5-10.1); CHLORIDE 107 mmol/L (98-107); CO2 26 mmol/L (21-32); CREATININE 0.4 mg/dL (0.55-1.3); GAMMA GLUTAMYL TRANSPEPTIDASE 492 U/L (5-85); GLUCOSE,RANDOM 68 mg/dL (74-106); LDH 188 U/L (84-246); POTASSIUM 3.7 mmol/L (3.5-5.1); SODIUM 140 mmol/L (136-145)
[2018-11-02 06:48] LABS: CHOLESTEROL 140 mg/dL (50-200); HDL CHOLESTEROL 52 mg/dL (40-60); N-TERMINAL BNP 500.3 pg/ml (5-125); TRIGLYCERIDES 45 mg/dL (0-150)
[2018-11-02 07:02] LABS: ALBUMIN 2.2 g/dl (3.4-5.0); BILIRUBIN,DIRECT 0.7 mg/dL (0.0-0.2); TOT PROT 4.4 g/dl (6.4-8.2)
--- NOTE | 2018-11-02 09:27 | HP ---
Admitting History and Physical - Primary Care Physician PCP: Nyla Faith S - Admission Chief Complaint: vomiting; high LFTs, fall h/o CVA History of Present Illness: Patient is a 63F from [place] w/ PMHx SVT s/p ablation, afib on Eliquis, HTN , DM, COPD. C3-C7 herniation, multiple CVAs, anemia and colon CA s/p recent R hemicolectomt; remote breast CA s/p lumpectomy; thyroid nodule s/p biopsy benign (needs f/u US in January- February) here today with vomiting and elevated LFTs. Patient is currently in Rehab had UTI 3 weeks ago tx with macrodantin then bactrim per S. US done on 10/26 in [place] showed fatty liver, no other abnormalities. Notived increased LFTs x 1 week on no hepatotoxic drugs. Asymtpomatic until thsi am when she started to vomit, sent to ER. Patient also fell last night, as she got out of bed alone despite being told not to, d/w [place] staff fall was witnessed no head trauma no new neuro changes noted, alert and more oriented and less aphasic than before. Patient denies abdominal pain, blood in vomit, dysuria. Denies chest pain, shortness of breath and cough. Denies diarrhea, constipation. 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: Yes: CVA Cardiovascular: Yes: AFIB, CHF, HTN, Hyperlipdemia, Murmur, Other Pulmonary: Yes: Asthma, COPD, Sleep Apnea (at high risk, if not already tested) Gastrointestinal: Yes: GERD Hepatobiliary: Yes: Other (fatty liver) Heme/Onc: Yes: Anemia Musculoskeletal: Yes: Chronic low back pain (vertebral spinal fractures), Osteoarthritis Endocrine: Yes: Diabetes Mellitus, Other (morbid obesity, new thyroid nodules) - Smoking History Smoking history: Former smoker Have you smoked in the past 12 months: No If you are a former smoker, when did you quit?: 2013 - Alcohol/Substance Use Hx Alcohol Use: No History of Substance Use: reports: None - Social History Usual Living Arrangement: Yes: Longterm ADL: Support Services 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[employer], 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 History of Recent Travel: No Home Medications - Allergies Allergies/Adverse Reactions: Allergies Allergy/AdvReac Type Severity Reaction Status Date / Time ciprofloxacin [From Cipro] Allergy Verified 11/01/18 17:18 ciprofloxacin HCl Allergy Verified 11/01/18 17:18 [From Cipro] Penicillins Allergy Verified 11/01/18 17:18 Tetracyclines Allergy Verified 11/01/18 17:18 - Home Medications Home Medications: Ambulatory Orders Multivitamins [Multivit ([facility] Formulary)] 1 tab PO DAILY tab 04/02/18 Alprazolam 0.25 mg PO BID PRN 09/06/18 Apixaban [Eliquis -] 5 mg PO BID 09/06/18 Atorvastatin Ca [Lipitor] 80 mg PO HS 09/06/18 Escitalopram Oxalate [Lexapro -] 20 mg PO DAILY 09/06/18 Folic Acid 1 mg PO DAILY 09/06/18 Pantoprazole Sodium [Protonix] 40 mg PO DAILY 09/06/18 Ferrous Sulfate [Feosol] 325 mg PO TID 11/01/18 Lisinopril [Prinivil] 5 mg PO DAILY 11/01/18 Metoprolol Tartrate [Lopressor -] 25 mg PO DAILY 11/01/18 Sucralfate [Carafate -] 1 gm PO QID 11/01/18 Family Disease History - Family Disease History Family Disease History: Diabetes: Grandparent, Heart Disease: Father ( 78 of myeloma), Mother (lung CA 82), CA: Father, Mother Review of Systems - Review of Systems Constitutional: denies: Chills, Fever, Lethargy Eyes: denies: Blind Spots, Double Vision HENT: denies: Ear Pain, Epistaxis Neck: denies: Stiffness, Tenderness Cardiovascular: denies: Chest Pain, Shortness of Breath Respiratory: denies: Cough, SOB Gastrointestinal: reports: Vomiting. denies: Abdominal Pain, Constipation, Diarrhea, Rectal Bleeding, Vomiting Blood Genitourinary: denies: Dysuria, Flank Pain Musculoskeletal: denies: Back Pain Neurological: reports: Confusion (occasional), Unsteady Gait, Weakness (general) . denies: Change in LOC, Change in Speech (not new but has expressive aphasia sine 2018), Dizziness, Seizure, Syncope Endocrine: denies: Excessive Sweating, Flushing Hematology/Lymphatic: denies: Easily Bruised, Excessive Bleeding, Swollen Glands Psychiatric: reports: Anxiety, Depression. denies: Altered Sleep Pattern, Suicidal Physical Examination Vital Signs: Vital Signs Temperature 97.5 F L 11/02/18 07:00 Pulse Rate 83 11/02/18 07:00 Respiratory Rate 17 11/02/18 07:00 Blood Pressure 111/84 11/02/18 07:00 O2 Sat by Pulse Oximetry (%) 99 11/02/18 05:15 Constitutional: Yes: No Distress, Calm Eyes: Yes: Conjunctiva Clear HENT: Yes: Atraumatic Neck: Yes: Supple Cardiovascular: Yes: Regular Rate and Rhythm Respiratory: Yes: CTA Bilaterally Gastrointestinal: Yes: Soft, Other (sp R hemicolectomy scar healed). No: Tenderness Renal/: No: CVA Tenderness - Left, CVA Tenderness - Right Musculoskeletal: No: Joint Stiffness, Joint Swelling Extremities: No: Cold, Cool, Cyanosis Edema: No Integumentary: No: Rash, Venous Stasis Changes Neurological: Yes: Alert, Oriented (x2), Pre-Existing Deficit (expressive aphasia), Other (moves U/LE bilat) Psychiatric: Yes: Alert, Oriented (x2). No: Agitated, Suicidal Ideation Labs: CBC, BMP 11/02/18 05:30 11/02/18 06:00 Imaging - Results Chest X-ray: Report Reviewed Cat Scan: Report Reviewed Other: Report Reviewed Assessment/Plan Patient is a 63F from [facility] w/ PMHx SVT s/p ablation, afib on Eliquis, HTN, DM, COPD. C3-C7 herniation, multiple CVAs, anemia, colon CA s/p recent R hemicolectomy, remote breast CA lumpectomy, benign thyroid nodule, admitted with vomiting x1 day and elevated LFTs x 1 week.. s/p recent UTI tx with macrodantin x2d then batrim x3d (had increased confusion and UA UCx c/w U[place] in [place] about 3 weeks ago) GI, ONC eval hold all hepatotoxic drugs; f/u labs; might need liver biopsy if not improving; is on eliquis will need to switch to IV heparin abdomen CT in ER also s/p fall within 24h no head trauma per [place] no new neuro changes no LOC but given h/o many CVAs head CT ordered; neuro and cardio eval falls pfx d/w pt do not get OOB alone she understood prognosis guarded d/w pt and staff called GI called pt's son Trent mckeon time 75 min
[2018-11-02] MEDS ORDERED: LISINOPRIL 5 MG TABLET (FP) PO SCH ×2 (10:00)
[2018-11-02] MEDS ORDERED: METOPROLOL TARTRATE 25 MG TABLET (FP) PO SCH (10:00)
[2018-11-02 10:29] LABS: ERYTHROCYTE SEDIMENTATION RATE 19 mm/hr (0-30)
--- NOTE | 2018-11-02 10:42 | EKG ---
Test Reason : Blood Pressure : / mmHG Vent. Rate : 088 BPM Atrial Rate : 264 BPM P-R Int : 000 ms QRS Dur : 078 ms QT Int : 386 ms P-R-T Axes : 089 029 042 degrees QTc Int : 467 ms ATRIAL FLUTTER WITH 3:1 A-V CONDUCTION NONSPECIFIC ST ABNORMALITY ABNORMAL ECG WHEN COMPARED WITH ECG OF 14-SEP-2018 13:39, NO SIGNIFICANT CHANGE WAS FOUND Confirmed by Greg De La Fuente MD ([id number]) on 11/02/2018 10:42:11 AM Referred By: Confirmed By:Greg De La Fuente MD
[2018-11-02] MEDS: MULTIVITAMINS (DAILY MVI) TABLET (FP) PO SCH (10:49)
[2018-11-02] MEDS: FOLIC ACID 1 MG TABLET (FP) PO SCH (10:49)
[2018-11-02] MEDS: ESCITALOPRAM OXALATE 20 MG TABLET (FP) PO SCH (10:49)
[2018-11-02] MEDS: LISINOPRIL 5 MG TABLET (FP) PO SCH (10:50)
[2018-11-02] MEDS: PANTOPRAZOLE 40 MG TABLET (FP) PO SCH (10:50)
[2018-11-02] MEDS: ONDANSETRON 4 MG/2 ML VIAL IVPB PRN (12:52)
--- NOTE | 2018-11-02 16:33 | CON.GI ---
Consult Consult Specialty:: Gastroenterology Referred by:: Dr. Faith Reason for Consultation:: Abnormal LFTs - History of Present Illness Chief Complaint: Fell in [place] History of Present Illness: 63F with h/o multiple CVAs fell backwards at the detention and onto her buttocks. She has fallen previously. She fell without warning but did not suffer syncope. Since her 09/04 surgery for cecal cancer she has been moving her bowels regularly and enjoying a good appetite. She denies abdominal pain. She presents with elevated LFTs. She denies any recent new medications but Dr Faith informed me that she got Macrodantin 3 weeks ago for a UTI. She does not have gallstones. Her CT scan revealed a 2cm increase in the size of her spleen and enlargement of nodes in the jamarcus hepatis. Her right hemicolectomy path revealed 21 lymph nodes negative for metastases but she had penetration into local pericolonic tissue and lymphovascular small vessel involvement. Her CEA has not risen significantly and remains in a normal range. She has an enlarged heart but has no lower extremity edema. - History Source History Provided By: Patient Limitations to Obtaining History: Poor Historian - Past Medical History TOUR GUIDE: Yes: CVA Cardio/Vascular: Yes: AFIB, CHF, HTN, Hyperlipdemia, Murmur, Other Pulmonary: Yes: Asthma, COPD, Sleep Apnea (at high risk, if not already tested) Gastrointestinal: Yes: Cancer (cecal cancer with right hemicolectomy 09/10/18), GERD (with Carter's esophagus), Hiatal Hernia, Other (gastric polyps and gastritis on 09/10/18 EGD) Hepatobiliary: Yes: Other (fatty liver) Musculoskeletal: Yes: Chronic low back pain (vertebral spinal fractures), Osteoarthritis Endocrine: Yes: Diabetes Mellitus, Other (morbid obesity, new thyroid nodules) - Past Surgical History Past Surgical History: Yes: Breast Biopsy (benign left lumpcetomy), Colectomy ( right open hemicolectomy 09/10/18), Colonoscopy, Upper Endoscopy Additional Surgical History: left temporal artery biopsy. 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 Formulary)] 1 tab PO DAILY tab 04/02/18 Alprazolam 0.25 mg PO BID PRN 09/06/18 Apixaban [Eliquis -] 5 mg PO BID 09/06/18 Atorvastatin Ca [Lipitor] 80 mg PO HS 09/06/18 Escitalopram Oxalate [Lexapro -] 20 mg PO DAILY 09/06/18 Folic Acid 1 mg PO DAILY 09/06/18 Pantoprazole Sodium [Protonix] 40 mg PO DAILY 09/06/18 Ferrous Sulfate [Feosol] 325 mg PO TID 11/01/18 Lisinopril [Prinivil] 5 mg PO DAILY 11/01/18 Metoprolol Tartrate [Lopressor -] 25 mg PO DAILY 11/01/18 Sucralfate [Carafate -] 1 gm PO QID 11/01/18 Family Disease History - Family Disease History Family Disease History: Diabetes: Grandparent, Heart Disease: Father ( 78 of mesothelioma), Mother ( 82), CA: Father Review of Systems - Review of Systems Constitutional: reports: No Symptoms Eyes: reports: No Symptoms HENT: reports: No Symptoms Neck: reports: No Symptoms Cardiovascular: reports: No Symptoms Respiratory: reports: No Symptoms Gastrointestinal: reports: No Symptoms Neurological: reports: Dizziness, Unsteady Gait, Other (prone to falls) Physical Exam-GI Vital Signs: Vital Signs Temperature 97.8 F 11/02/18 15:46 Pulse Rate 89 11/02/18 15:46 Respiratory Rate 18 11/02/18 15:46 Blood Pressure 156/88 11/02/18 15:46 O2 Sat by Pulse Oximetry (%) 99 11/02/18 09:00 CBC,CMP WBC 3.4 K/mm3 (4.0-10.0) L 11/02/18 05:30 RBC 3.30 M/mm3 (3.60-5.2) L 11/02/18 05:30 Hgb 8.6 GM/dL (10.7-15.3) L 11/02/18 05:30 Hct 26.4 % (32.4-45.2) L 11/02/18 05:30 MCV 80.0 fl (80-96) 11/02/18 05:30 MCH 26.1 pg (25.7-33.7) 11/02/18 05:30 MCHC 32.6 g/dl (32.0-36.0) 11/02/18 05:30 RDW 20.3 % (11.6-15.6) H 11/02/18 05:30 Plt Count 172 K/MM3 (134-434) D 11/02/18 05:30 MPV 8.6 fl (7.5-11.1) 11/02/18 05:30 Absolute Neuts (auto) 2.4 K/mm3 (1.5-8.0) 11/02/18 05:30 Neutrophils % 71.4 % (42.8-82.8) 11/02/18 05:30 Lymphocytes % 15.1 % (8-40) D 11/02/18 05:30 Monocytes % 7.1 % (3.8-10.2) 11/02/18 05:30 Eosinophils % 6.1 % (0-4.5) H D 11/02/18 05:30 Basophils % 0.3 % (0-2.0) 11/02/18 05:30 Nucleated RBC % 0 % (0-0) 11/02/18 05:30 Hypochromia 1+ 11/01/18 18:15 Platelet Estimate Adequate 11/01/18 18:15 Polychromasia 1+ 11/01/18 18:15 Anisocytosis 2+ 11/01/18 18:15 Microcytosis 1+ 11/01/18 18:15 Macrocytosis 1+ 11/01/18 18:15 ESR 19 mm/hr (0-30) 11/02/18 05:30 Retic Count 3.76 % (0.5-1.5) H D 11/02/18 05:30 Sodium 140 mmol/L (136-145) 11/02/18 06:00 Potassium 3.7 mmol/L (3.5-5.1) 11/02/18 06:00 Chloride 107 mmol/L (98-107) 11/02/18 06:00 Carbon Dioxide 26 mmol/L (21-32) 11/02/18 06:00 Anion Gap 7 MMOL/L (8-16) L 11/02/18 06:00 BUN 14 mg/dL (7-18) 11/02/18 06:00 Creatinine 0.4 mg/dL (0.55-1.3) L 11/02/18 06:00 Creat Clearance w eGFR 162.27 (>60) 11/02/18 06:00 Random Glucose 68 mg/dL (74-106) L 11/02/18 06:00 Calcium 7.9 mg/dL (8.5-10.1) L 11/02/18 06:00 Ferritin 61.5 ng/ml (8-388) 11/02/18 06:00 Total Bilirubin 1.0 mg/dL (0.2-1) 11/02/18 05:30 Direct Bilirubin 0.7 mg/dL (0.0-0.2) H 11/02/18 05:30 GGT 492 U/L (5-85) H 11/02/18 06:00 AST 123 U/L (15-37) H 11/02/18 05:30 ALT 131 U/L (13-61) H 11/02/18 05:30 Alkaline Phosphatase 579 U/L (45-117) H 11/02/18 05:30 Ammonia 23.80 umol/L (11-32) 11/02/18 06:00 LD Total 188 U/L (84-246) 11/02/18 06:00 Creatine Kinase 11 U/L (26-192) L 11/02/18 06:00 Troponin I < 0.02 ng/ml (0.00-0.05) 11/02/18 05:30 C-Reactive Protein 3.7 MG/DL (0.00-0.3) H 11/02/18 06:00 B-Natriuretic Peptide 500.3 pg/ml (5-125) H 11/02/18 05:30 Total Protein 4.4 g/dl (6.4-8.2) L 11/02/18 05:30 Albumin 2.2 g/dl (3.4-5.0) L 11/02/18 05:30 Triglycerides 45 mg/dL (0-150) 11/02/18 05:30 Cholesterol 140 mg/dL (50-200) 11/02/18 05:30 Total LDL Cholesterol 52 mg/dL (5-100) 11/02/18 05:30 HDL Cholesterol 52 mg/dL (40-60) 11/02/18 05:30 Total Amylase 18 U/L (25-115) L 11/02/18 05:30 Lipase 73 U/L (73-393) 11/02/18 05:30 Vitamin B12 1451 pg/ml (193-986) H 11/02/18 05:30 Current Medications Generic Name Dose Route Start Last Admin Trade Name Freq PRN Reason Stop Dose Admin Alprazolam 0.25 mg 11/01/18 20:53 Xanax - PO BID PRN AGITATION Apixaban 5 mg 11/01/18 22:00 11/02/18 10:51 Eliquis - PO 5 mg BID VINEET Administration Atorvastatin Calcium 40 mg 11/02/18 22:00 Lipitor - PO HS [facility] Escitalopram Oxalate 20 mg 11/02/18 10:00 11/02/18 10:49 Lexapro - PO 20 mg DAILY VINEET Administration Ferrous Sulfate 325 mg 11/01/18 22:00 11/02/18 12:04 Feosol - PO Not Given TIDCM [facility] Folic Acid 1 mg 11/02/18 10:00 11/02/18 10:49 Folic Acid - PO 1 mg DAILY [facility] Administration Sodium Chloride 1,000 mls @ 42 mls/hr 11/01/18 21:15 11/02/18 01:45 Normal Saline - IV 42 mls/hr ASDIR [facility] Administration Insulin Aspart 1 units 11/02/18 16:30 Novolog Vial SQ ACHS [facility] Protocol Lisinopril 2.5 mg 11/02/18 10:00 11/02/18 10:50 Prinivil PO 2.5 mg DAILY VINEET Administration Metoprolol Tartrate 25 mg 11/01/18 22:00 11/02/18 10:50 Lopressor - PO 25 mg BID VINEET Administration Multivitamins/Minerals/Vitamin C 1 tab 11/02/18 10:00 11/02/18 10:49 Tab-A-Vit - PO 1 tab DAILY VINEET Administration Ondansetron HCl 8 mg 11/01/18 21:04 11/02/18 12:52 Zofran Injection IVPB 8 mg Q8H PRN Administration NAUSEA AND/OR VOMITING Pantoprazole Sodium 40 mg 11/02/18 10:00 11/02/18 10:50 Protonix - PO 40 mg DAILY VINEET Administration Sucralfate 1 gm 11/01/18 22:00 11/02/18 10:49 Carafate - PO 1 gm ACHS VINEET Administration Constitutional: Yes: Calm Eyes: Yes: Conjunctiva Clear HENT: Yes: Atraumatic Neck: Yes: Supple Cardiovascular: Yes: Regular Rate and Rhythm Respiratory: Yes: CTA Bilaterally Gastrointestinal Inspection: Yes: Scars (healed transverse suprapubic incisions) ...Auscultate: Yes: Normoactive Bowel Sounds ...Palpate: Yes: Soft, Other (nontender) ...Rectal Exam: Yes: Guaiac Positive (brown soft guaiac positive stool) Edema: No Peripheral Pulses WNL: Yes Neurological: Yes: Alert, Aphasia (expressive) Labs: CBC, BMP 11/02/18 05:30 11/02/18 06:00 INR, PTT INR 1.26 (0.83-1.09) H 11/02/18 05:30 Problem List - Problems (1) Abnormal liver function Assessment/Plan: I find no obvious etiology for the rise in Rowena's LFTs unless this proves to be a DILI ( drug induced liver injury) from her recent treatment with Macrodantin. GIven her postsurgical pathology suggesting extracolonic cancer spread and her enlarging hepatic fossa nodes and spleen I am concerned that she has liver metastases. As those nodes are not easily accessible she will come to need a liver biopsy. If her LFTs start to improve can hold off. I discussed the case with Dr Kraus. Code(s): R94.5 - ABNORMAL RESULTS OF LIVER FUNCTION STUDIES (2) Colon cancer Code(s): C18.9 - MALIGNANT NEOPLASM OF COLON, UNSPECIFIED (3) Carter's esophagus determined by biopsy Code(s): K22.70 - CARTER'S ESOPHAGUS WITHOUT DYSPLASIA (4) CVA (cerebral vascular accident) Code(s): I63.9 - CEREBRAL INFARCTION, UNSPECIFIED (5) Fatty (change of) liver, not elsewhere classified Code(s): K76.0 - FATTY (CHANGE OF) LIVER, NOT ELSEWHERE CLASSIFIED (6) GI bleed Code(s): K92.2 - GASTROINTESTINAL HEMORRHAGE, UNSPECIFIED Assessment/Plan IMpression: Rise in LFTs may be due to Macrodantin. If they fail to fall then a liver biopsy needs to be considered to exclude metastatic liver cancer. 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 Plan: Follow LFTs and await liver studies If LFTs fail to improve will need liver biopsy
[2018-11-02] MEDS: INSULIN (NOVOLOG) ASPART 100 UNITS/ML 10ML VIAL SQ SCH ×2 (17:13→22:10)
--- NOTE | 2018-11-02 17:27 | CONSULT ---
Consult Consult Specialty:: Oncology Referred by:: Dr. Faith Reason for Consultation:: History of T3, N0 , colon ca s/p right hemicolectomy for a moderately differentiated adenoca invading thru the muscularis propria into the pericolonic fat (T3). Tumor measured 3.3 cm in greatest diameter. 21 negative lymph nodes;(N0). No MSI, No perineural invasion and all margins clear - History of Present Illness Chief Complaint: Abnormal LFT's recently noted. 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 Cardio/Vascular: Yes: AFIB, CHF, HTN, Hyperlipdemia, Murmur, Other (cardiac ablation) Pulmonary: Yes: Asthma, COPD, Sleep Apnea (at high risk, if not already tested) Gastrointestinal: Yes: Cancer (cecal cancer with right hemicolectomy 09/10/18), GERD (with Calderon's esophagus), Hiatal Hernia, Other (gastric polyps and gastritis on 09/10/18 EGD) Musculoskeletal: Yes: Chronic low back pain (vertebral spinal fractures), Osteoarthritis Endocrine: Yes: Diabetes Mellitus, Other (morbid obesity, new thyroid nodules) - Past Surgical History Past Surgical History: Yes: Breast Biopsy (benign left lumpcetomy), Colectomy ( right open hemicolectomy 09/10/18), Colonoscopy, Upper Endoscopy Additional Surgical History: left temporal artery biopsy. benign skin lesion excisions. 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 History of Recent Travel: No Home Medications - Allergies Allergies/Adverse Reactions: Allergies Allergy/AdvReac Type Severity Reaction Status Date / Time ciprofloxacin [From Cipro] Allergy Verified 11/01/18 17:18 ciprofloxacin HCl Allergy Verified 11/01/18 17:18 [From Cipro] Penicillins Allergy Verified 11/01/18 17:18 Tetracyclines Allergy Verified 11/01/18 17:18 - Home Medications Home Medications: Ambulatory Orders Multivitamins [Multivit ([facility] Formulary)] 1 tab PO DAILY tab 04/02/18 Alprazolam 0.25 mg PO BID PRN 09/06/18 Apixaban [Eliquis -] 5 mg PO BID 09/06/18 Atorvastatin Ca [Lipitor] 80 mg PO HS 09/06/18 Escitalopram Oxalate [Lexapro -] 20 mg PO DAILY 09/06/18 Folic Acid 1 mg PO DAILY 09/06/18 Pantoprazole Sodium [Protonix] 40 mg PO DAILY 09/06/18 Ferrous Sulfate [Feosol] 325 mg PO TID 11/01/18 Lisinopril [Prinivil] 5 mg PO DAILY 11/01/18 Metoprolol Tartrate [Lopressor -] 25 mg PO DAILY 11/01/18 Sucralfate [Carafate -] 1 gm PO QID 11/01/18 Family Disease History - Family Disease History Family Disease History: Diabetes: Grandparent, Heart Disease: Father ( 78 of mesothelioma), Mother ( 82), CA: Father Other Family History: maternal uncle- stomach ca; 2 other uncles with cancer --? ? type Review of Systems - Review of Systems Constitutional: reports: Loss of Appetite, Malaise, Weakness Eyes: denies: Blind Spots, Blurred Vision, Eye Pain, Photophobia HENT: denies: Difficult Swallowing, Hearing Loss, Throat Pain, Ringing in Ears, Other Neck: denies: Decreased ROM, Tenderness Cardiovascular: denies: Chest Pain Respiratory: denies: Exercise Intolerance, Hemoptysis, SOB on Exertion, Wheezing Gastrointestinal: reports: Nausea, Vomiting. denies: No Symptoms, Diarrhea Genitourinary: reports: Incontinence Breasts: reports: No Symptoms Reported Musculoskeletal: reports: Back Pain Integumentary: denies: Rash, Wound, Other Neurological: reports: Pre-Existing Deficit, Other (right sideed weakness). denies: Change in Speech Hematology/Lymphatic: reports: No Symptoms Psychiatric: reports: No Symptoms Physical Exam Vital Signs: Vital Signs Temperature 97.8 F 11/02/18 15:46 Pulse Rate 89 11/02/18 15:46 Respiratory Rate 18 11/02/18 15:46 Blood Pressure 156/88 11/02/18 15:46 O2 Sat by Pulse Oximetry (%) 99 11/02/18 09:00 Constitutional: Yes: Mild Distress Eyes: Yes: PERRL. No: Diplopia, Ptosis, Sclera Icterus HENT: Yes: Atraumatic, Normocephalic. No: Epistaxis, Hoarseness, Thrush, Tonsillar Exudate Neck: Yes: Supple, Trachea Midline. No: Lymphadenopathy, Tenderness, Thyromegaly Cardiovascular: Yes: Regular Rate and Rhythm Respiratory: Yes: CTA Bilaterally Gastrointestinal: Yes: Normal Bowel Sounds, Soft, Abdomen, Obese, Other (RUQ fullness). No: Hepatomegaly, Splenomegaly Renal/: No: CVA Tenderness - Left, CVA Tenderness - Right Breast(s): Yes: WNL, Left, Right Edema: No Peripheral Pulses WNL: Yes Neurological: Yes: Other (right sided weakness) ...Motor Strength: RLE (weeakness) Labs: CBC, BMP 11/02/18 05:30 11/02/18 06:00 Imaging - Results Cat Scan: Report Reviewed Problem List - Problems (1) Elevated LFTs Assessment/Plan: 09/10/18 - history of right hemicolectomy for a T3, N0 invasive adenoca with 0/ 21 nodes. Tumor penetrated the muscularis propria and invaded the pericolonic fat. Margins clear. No MSI. No perineural invasion. LVI as risk factor. Recently seen and decided against adjuvant therapy in view of T3 lesion , ( Stage II) and co- morbid conditions. Now with progressive abnormal LFT's with anorexia, general malaise and lassitude. CT with non specific periportal nodes, hepatomegaly and new splenomegaly. Without obvious etiology for abnormal LFT's. Consider metastatic disease. Discussed with Dr. Molina - recommend liver biopsy . Check coags . Code(s): R94.5 - ABNORMAL RESULTS OF LIVER FUNCTION STUDIES
--- NOTE | 2018-11-02 17:44 | CONSULT ---
Consult - text type - Consultation Consultation Note: Neurology History of Present Illness Chief Complaint: Nausea/Vomiting Stated Complaint: ELEVATED LAB Time Seen by Provider: 11/01/18 17:55 History Source: Patient, Primary Care Provider Exam Limitations: No Limitations - History of Present Illness Initial Comments: Patient is a 63F from [place] w/ PMHx SVT s/p ablation, afib on Eliquis, HTN , DM, COPD. C3-C7 herniation, multiple CVAs here today with vomiting and elevated LFTs. Patient is currently under the care of Dr Faith, who sent the patient in for admission. US done on 10/26 showed fatty liver, no other abnormalities. Patient reported that she had recent fall as she got out of bed. Denied head trauma but CT head completed and showed area of subacute hemoraghe in R bird radiata. Also showed ischemic infarcts in b/l bird as well as right occipital. I was notified by primary and discussed case earlier today. She is on AC, Eliquis, and at this time I would not hold AC for multiple reasons. 1. blood products no longer acute and therefore have resorbed regardless of AC. 2. though risk of bleed, risk of recurrent CVA also signficant and patient does not want recurrent infarcts. Ordered repeat CT head to confirm findings. Of note, elevated BP can also cause basal ganglia blood noted above and tight blood pressure control recommended. Patient denies abdominal pain, blood in vomit, dysuria. Denies chest pain, shortness of breath and cough. Denies diarrhea, constipation. Past History - Past Medical History Allergies/Adverse Reactions: Allergies Allergy/AdvReac Type Severity Reaction Status Date / Time ciprofloxacin [From Cipro] Allergy Verified 11/01/18 17:18 ciprofloxacin HCl Allergy Verified 11/01/18 17:18 [From Cipro] Penicillins Allergy Verified 11/01/18 17:18 Tetracyclines Allergy Verified 11/01/18 17:18 Home Medications: Ambulatory Orders Multivitamins [Multivit ([facility] Formulary)] 1 tab PO DAILY tab 04/02/18 Alprazolam 0.25 mg PO BID PRN 09/06/18 Apixaban [Eliquis -] 5 mg PO BID 09/06/18 Atorvastatin Ca [Lipitor] 80 mg PO HS 09/06/18 Escitalopram Oxalate [Lexapro -] 20 mg PO DAILY 09/06/18 Folic Acid 1 mg PO DAILY 09/06/18 Pantoprazole Sodium [Protonix] 40 mg PO DAILY 09/06/18 Ferrous Sulfate [Feosol] 325 mg PO TID 11/01/18 Lisinopril [Prinivil] 5 mg PO DAILY 11/01/18 Metoprolol Tartrate [Lopressor -] 25 mg PO DAILY 11/01/18 Sucralfate [Carafate -] 1 gm PO QID 11/01/18 Anemia: No Asthma: Yes Cancer: Yes (breast) Cardiac Disorders: Yes (SVT's enlarged heart) CVA: Yes (multiple - bilateral) COPD: Yes (asthma) CHF: No Dementia: No Diabetes: Yes GI Disorders: (GERD) Disorders: No HTN: Yes Hypercholesterolemia: No Liver Disease: No Seizures: No Thyroid Disease: (thyroid mass) - Surgical History Abdominal Surgery: No Appendectomy: No Cardiac Surgery: Yes (cardiac ablation for SVT'S 1998) Cholecystectomy: No Lung Surgery: No Neurologic Surgery: No Orthopedic Surgery: No Family history: heart disease, HTN Review of Systems GENERAL/CONSTITUTIONAL: No fever or chills. No weakness. HEAD, EYES, EARS, NOSE AND THROAT: No change in vision. No ear pain or discharge. No sore throat. CARDIOVASCULAR: No chest pain or shortness of breath RESPIRATORY: No cough, wheezing, or hemoptysis. GASTROINTESTINAL: +nausea, +vomiting, no diarrhea or constipation. GENITOURINARY: No dysuria, frequency, or change in urination. MUSCULOSKELETAL: No joint or muscle swelling or pain. No neck or back pain. SKIN: No rash NEUROLOGIC: No headache, vertigo, loss of consciousness, or change in strength/ sensation. ENDOCRINE: No increased thirst. No abnormal weight change ALLERGIC/IMMUNOLOGIC: No hives or skin allergy. *Physical Exam Vital Signs Period Temp Pulse Resp BP Sys/Juarez Pulse Ox Last 24 Hr 97.5 F-98.1 F 83-90 17-18 111-156/68-88 99-99 GENERAL: Awake, alert, and fully oriented, in no acute distress HEAD: No signs of trauma, normocephalic, atraumatic EYES: PERRLA, EOMI, sclera anicteric, conjunctiva clear ENT: Auricles normal inspection, hearing grossly normal, nares patent, oropharynx clear without exudates. Moist mucosa NECK: Normal ROM, supple, no lymphadenopathy, JVD, or masses LUNGS: No distress, speaks full sentences, clear to auscultation bilaterally HEART: Regular rate and rhythm, normal S1 and S2, no murmurs, rubs or gallops, peripheral pulses normal and equal bilaterally. ABDOMEN: Soft, +RUQ tenderness, normoactive bowel sounds. No guarding, no rebound. No masses EXTREMITIES: Normal inspection, Normal range of motion, no edema. No clubbing or cyanosis. NEUROLOGICAL: Cranial nerves II through XII grossly intact. Normal speech, no focal sensorimotor deficits SKIN: Warm, Dry, normal turgor, no rashes or lesions noted. CBCD WBC 3.4 K/mm3 (4.0-10.0) L 11/02/18 05:30 RBC 3.30 M/mm3 (3.60-5.2) L 11/02/18 05:30 Hgb 8.6 GM/dL (10.7-15.3) L 11/02/18 05:30 Hct 26.4 % (32.4-45.2) L 11/02/18 05:30 MCV 80.0 fl (80-96) 11/02/18 05:30 MCHC 32.6 g/dl (32.0-36.0) 11/02/18 05:30 RDW 20.3 % (11.6-15.6) H 11/02/18 05:30 Plt Count 172 K/MM3 (134-434) D 11/02/18 05:30 MPV 8.6 fl (7.5-11.1) 11/02/18 05:30 CMP Sodium 140 mmol/L (136-145) 11/02/18 06:00 Potassium 3.7 mmol/L (3.5-5.1) 11/02/18 06:00 Chloride 107 mmol/L (98-107) 11/02/18 06:00 Carbon Dioxide 26 mmol/L (21-32) 11/02/18 06:00 Anion Gap 7 MMOL/L (8-16) L 11/02/18 06:00 BUN 14 mg/dL (7-18) 11/02/18 06:00 Creatinine 0.4 mg/dL (0.55-1.3) L 11/02/18 06:00 Creat Clearance w eGFR 162.27 (>60) 11/02/18 06:00 Random Glucose 68 mg/dL (74-106) L 11/02/18 06:00 Calcium 7.9 mg/dL (8.5-10.1) L 11/02/18 06:00 Total Bilirubin 1.0 mg/dL (0.2-1) 11/02/18 05:30 AST 123 U/L (15-37) H 11/02/18 05:30 ALT 131 U/L (13-61) H 11/02/18 05:30 Alkaline Phosphatase 579 U/L (45-117) H 11/02/18 05:30 Total Protein 4.4 g/dl (6.4-8.2) L 11/02/18 05:30 Albumin 2.2 g/dl (3.4-5.0) L 11/02/18 05:30 CARDIAC ENZYMES Creatine Kinase 11 U/L (26-192) L 11/02/18 06:00 Troponin I < 0.02 ng/ml (0.00-0.05) 11/02/18 05:30 Medical Decision Making 63F from [place] w/ PMHx SVT s/p ablation, afib on Eliquis, HTN, DM, COPD. C3 -C7 herniation, multiple CVAs here today with vomiting and elevated LFTs. Patient is currently under the care of Dr Faith, who sent the patient in for admission. US done on 10/26 showed fatty liver, no other abnormalities. Patient reported that she had recent fall as she got out of bed. Denied head trauma but CT head completed and showed area of subacute hemoraghe in R bird radiata. Also showed ischemic infarcts in b/l bird as well as right occipital. I was notified by primary and discussed case earlier today. She is on AC, Eliquis, and at this time I would not hold AC for multiple reasons. 1. blood products no longer acute and therefore have resorbed regardless of AC. 2. though risk of bleed, risk of recurrent CVA also signficant and patient does not want recurrent infarcts. Ordered repeat CT head to confirm findings. Of note, elevated BP can also cause basal ganglia blood noted above and tight blood pressure control recommended, goal < 140/90 for now. Will not add seizure ppx as bleed is in deep schmid matter, not cortical. Strict avoidance of head trauma. Follow up cards rec'd, tele monitoring. PT as tolerated. DVT ppx.
[2018-11-02] MEDS ORDERED: LISINOPRIL 5 MG TABLET (FP) PO ONE (20:00)
[2018-11-02] MEDS: ATORVASTATIN CA 80 MG TABLET (FP) PO SCH (22:09)
[2018-11-03 05:18] LABS: HEP.C VIRUS AB <0.1 s/co ratio (0.0-0.9)
[2018-11-03] MEDS: SUCRALFATE 1 GM TABLET (FP) PO SCH ×4 (06:34→21:35)
[2018-11-03] MEDS: INSULIN (NOVOLOG) ASPART 100 UNITS/ML 10ML VIAL SQ SCH ×4 (06:38→21:36)
[2018-11-03 07:20] LABS: INR 1.46 (0.83-1.09); PROTHROMBIN TIME (PATIENT) 17.3 SEC (9.7-13.0)
[2018-11-03 07:22] LABS: ACTIVATED PTT 34.5 SECONDS (25.2-36.5)
[2018-11-03 08:24] LABS: ALBUMIN 2.1 g/dl (3.4-5.0); BILIRUBIN,DIRECT 0.7 mg/dL (0.0-0.2); BILIRUBIN,TOTAL 2.3 mg/dL (0.2-1); TOT PROT 4.4 g/dl (6.4-8.2)
--- NOTE | 2018-11-03 08:46 | PN ---
Progress Note (short form) - Note Progress Note: Neurology - History of Present Illness Initial Comments: 63F from [place] w/ PMHx SVT s/p ablation, afib on Eliquis, HTN, DM, COPD. C3 -C7 herniation, multiple CVAs here today with vomiting and elevated LFTs. Patient is currently under the care of Dr Faith, who was sent the patient in for admission. US done on 10/26 showed fatty liver, no other abnormalities. Patient reported that she had recent fall as she got out of bed. Denied head trauma but CT head completed and showed area of subacute hemoraghe in R bird radiata. Also showed ischemic infarcts in b/l bird as well as right occipital. I was notified by primary and discussed case. She is on AC, Eliquis, and at this time I would not hold AC for multiple reasons. 1. blood products no longer acute and therefore have resorbed regardless of AC. 2. though risk of bleed, risk of recurrent CVA also signficant and patient does not want recurrent infarcts. Ordered repeat CT head to confirm findings, reviewed images and report. Discussed with patient. She is agreement with above. Blood products now look subacute to chronic. Of note, elevated BP can also cause basal ganglia blood noted above and tight blood pressure control recommended. Active Medications Alprazolam (Xanax -) 0.25 mg PO BID PRN PRN Reason: AGITATION Apixaban (Eliquis -) 5 mg PO BID [facility] Last Admin: 11/02/18 22:09 Dose: 5 mg Atorvastatin Calcium (Lipitor -) 40 mg PO HS [facility] Last Admin: 11/02/18 22:09 Dose: 40 mg Escitalopram Oxalate (Lexapro -) 20 mg PO DAILY [facility] Last Admin: 11/02/18 10:49 Dose: 20 mg Ferrous Sulfate (Feosol -) 325 mg PO TIDCM [facility] Last Admin: 11/02/18 17:08 Dose: 325 mg Folic Acid (Folic Acid -) 1 mg PO DAILY [facility] Last Admin: 11/02/18 10:49 Dose: 1 mg Sodium Chloride (Normal Saline -) 1,000 mls @ 42 mls/hr IV ASDIR [facility] Last Admin: 11/02/18 22:17 Dose: 42 mls/hr Insulin Aspart (Novolog Vial) 1 units SQ ACHS [facility]; Protocol Last Admin: 11/03/18 06:38 Dose: Not Given Lisinopril (Prinivil) 2.5 mg PO DAILY [facility] Last Admin: 11/02/18 10:50 Dose: 2.5 mg Metoprolol Tartrate (Lopressor -) 25 mg PO BID [facility] Last Admin: 11/02/18 22:09 Dose: 25 mg Multivitamins/Minerals/Vitamin C (Tab-A-Vit -) 1 tab PO DAILY [facility] Last Admin: 11/02/18 10:49 Dose: 1 tab Ondansetron HCl (Zofran Injection) 8 mg IVPB Q8H PRN PRN Reason: NAUSEA AND/OR VOMITING Last Admin: 11/02/18 12:52 Dose: 8 mg Pantoprazole Sodium (Protonix -) 40 mg PO DAILY [facility] Last Admin: 11/02/18 10:50 Dose: 40 mg Sucralfate (Carafate -) 1 gm PO ACHS [facility] Last Admin: 11/03/18 06:34 Dose: 1 gm *Physical Exam Vital Signs Period Temp Pulse Resp BP Sys/Juarez Pulse Ox Last 24 Hr 97.8 F-98.2 F 72-90 17-18 119-156/68-90 99-99 GENERAL: Awake, alert, and fully oriented, in no acute distress HEAD: No signs of trauma, normocephalic, atraumatic EYES: PERRLA, EOMI, sclera anicteric, conjunctiva clear ENT: Auricles normal inspection, hearing grossly normal, nares patent, oropharynx clear without exudates. Moist mucosa NECK: Normal ROM, supple, no lymphadenopathy, JVD, or masses LUNGS: No distress, speaks full sentences, clear to auscultation bilaterally HEART: Regular rate and rhythm, normal S1 and S2, no murmurs, rubs or gallops, peripheral pulses normal and equal bilaterally. ABDOMEN: Soft, +RUQ tenderness, normoactive bowel sounds. No guarding, no rebound. No masses EXTREMITIES: Normal inspection, Normal range of motion, no edema. No clubbing or cyanosis. NEUROLOGICAL: Cranial nerves II through XII grossly intact. Normal speech, no focal sensorimotor deficits, finger to nose normal, sensory intact. SKIN: Warm, Dry, normal turgor, no rashes or lesions noted. CBCD WBC 3.4 K/mm3 (4.0-10.0) L 11/02/18 05:30 RBC 3.30 M/mm3 (3.60-5.2) L 11/02/18 05:30 Hgb 8.6 GM/dL (10.7-15.3) L 11/02/18 05:30 Hct 26.4 % (32.4-45.2) L 11/02/18 05:30 MCV 80.0 fl (80-96) 11/02/18 05:30 MCHC 32.6 g/dl (32.0-36.0) 11/02/18 05:30 RDW 20.3 % (11.6-15.6) H 11/02/18 05:30 Plt Count 172 K/MM3 (134-434) D 11/02/18 05:30 MPV 8.6 fl (7.5-11.1) 11/02/18 05:30 CMP Sodium 140 mmol/L (136-145) 11/02/18 06:00 Potassium 3.7 mmol/L (3.5-5.1) 11/02/18 06:00 Chloride 107 mmol/L (98-107) 11/02/18 06:00 Carbon Dioxide 26 mmol/L (21-32) 11/02/18 06:00 Anion Gap 7 MMOL/L (8-16) L 11/02/18 06:00 BUN 14 mg/dL (7-18) 11/02/18 06:00 Creatinine 0.4 mg/dL (0.55-1.3) L 11/02/18 06:00 Creat Clearance w eGFR 162.27 (>60) 11/02/18 06:00 Random Glucose 68 mg/dL (74-106) L 11/02/18 06:00 Calcium 7.9 mg/dL (8.5-10.1) L 11/02/18 06:00 Total Bilirubin 2.3 mg/dL (0.2-1) H 11/03/18 06:10 AST 120 U/L (15-37) H 11/03/18 06:10 ALT 124 U/L (13-61) H 11/03/18 06:10 Alkaline Phosphatase 692 U/L (45-117) H 11/03/18 06:10 Total Protein 4.4 g/dl (6.4-8.2) L 11/03/18 06:10 Albumin 2.1 g/dl (3.4-5.0) L 11/03/18 06:10 CARDIAC ENZYMES Creatine Kinase 11 U/L (26-192) L 11/02/18 06:00 Troponin I < 0.02 ng/ml (0.00-0.05) 11/02/18 05:30 Medical Decision Making 63F from [place] w/ PMHx SVT s/p ablation, afib on Eliquis, HTN, DM, COPD. C3 -C7 herniation, multiple CVAs here today with vomiting and elevated LFTs. Patient is currently under the care of Dr Faith, who sent the patient in for admission. US done on 10/26 showed fatty liver, no other abnormalities. Patient reported that she had recent fall as she got out of bed. Denied head trauma but CT head completed and showed area of subacute hemoraghe in R bird radiata. Also showed ischemic infarcts in b/l bird as well as right occipital. I was notified by primary and discussed case earlier today. She is on AC, Eliquis, and at this time I would not hold AC for multiple reasons. 1. blood products no longer acute and therefore have resorbed regardless of AC. 2. though risk of bleed, risk of recurrent CVA also signficant and patient does not want recurrent infarcts. Ordered repeat CT head to confirm findings, reviewed images and report. Discussed with patient. She is agreement with above. Blood products now look subacute to chronic. Of note, elevated BP can also cause basal ganglia blood noted above and tight blood pressure control recommended, goal < 140/90 for now. Will not add seizure ppx as blood products not cortical and now subacute to chronic. Strict avoidance of head trauma. Follow up cards rec'd, tele monitoring. PT as tolerated. DVT ppx. Continue to monitor mental status, informed by nurse previously that patient can have episodes of confusion. Can have outpatient follow up for more formal memory evaluation.
--- NOTE | 2018-11-03 09:12 | CON.CARD ---
Consult Consult Specialty:: cardiology Reason for Consultation:: new CVA - History of Present Illness History of Present Illness: The patient is a 63 year old female, from [place] with a significant past medical history of SVT (s/p ablation), afib (on Eliquis), HTN, DM, COPD, C3-C7 herniation, multiple CVAs who presents to the emergency department with vomiting and elevated LFTs. Patient notes he was sent to the ED by Dr. Faith for further evaluation, a CT scan, and admission. The patient reports she fell last night as she was getting out of bed. 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), GERD (with Calderon's esophagus), Hiatal Hernia, Other (gastric polyps and gastritis on 09/10/18 EGD) Hepatobiliary: Yes: Other (fatty liver) Reproductive: Yes: Postmenopausal ...: No Heme/Onc: Yes: Anemia Psych: Yes: Anxiety, Depression Musculoskeletal: Yes: Chronic low back pain (vertebral spinal fractures), Osteoarthritis Endocrine: Yes: Diabetes Mellitus, Other (morbid obesity, new thyroid nodules) - Past Surgical History Past Surgical History: Yes: Breast Biopsy (benign left lumpcetomy), Colectomy ( right open hemicolectomy 09/10/18), Colonoscopy, Upper Endoscopy Additional Surgical History: left temporal artery biopsy. 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 History of Recent Travel: No Home Medications - Allergies Allergies/Adverse Reactions: Allergies Allergy/AdvReac Type Severity Reaction Status Date / Time ciprofloxacin [From Cipro] Allergy Verified 11/01/18 17:18 ciprofloxacin HCl Allergy Verified 11/01/18 17:18 [From Cipro] Penicillins Allergy Verified 11/01/18 17:18 Tetracyclines Allergy Verified 11/01/18 17:18 - Home Medications Home Medications: Ambulatory Orders Multivitamins [Multivit ([facility] Formulary)] 1 tab PO DAILY tab 04/02/18 Alprazolam 0.25 mg PO BID PRN 09/06/18 Apixaban [Eliquis -] 5 mg PO BID 09/06/18 Atorvastatin Ca [Lipitor] 80 mg PO HS 09/06/18 Escitalopram Oxalate [Lexapro -] 20 mg PO DAILY 09/06/18 Folic Acid 1 mg PO DAILY 09/06/18 Pantoprazole Sodium [Protonix] 40 mg PO DAILY 09/06/18 Ferrous Sulfate [Feosol] 325 mg PO TID 11/01/18 Lisinopril [Prinivil] 5 mg PO DAILY 11/01/18 Metoprolol Tartrate [Lopressor -] 25 mg PO DAILY 11/01/18 Sucralfate [Carafate -] 1 gm PO QID 11/01/18 Family Disease History - Family Disease History Family Disease History: Diabetes: Grandparent, Heart Disease: Father ( 78 of mesothelioma), Mother ( 82), CA: Father Other Family History: maternal uncle- stomach ca; 2 other uncles with cancer --? ? type Review of Systems - Review of Systems Constitutional: reports: Malaise, Weakness Eyes: reports: No Symptoms HENT: reports: No Symptoms Neck: reports: No Symptoms Cardiovascular: reports: No Symptoms Respiratory: reports: No Symptoms Gastrointestinal: reports: No Symptoms Genitourinary: reports: No Symptoms Breasts: reports: No Symptoms Reported Musculoskeletal: reports: Muscle Weakness Integumentary: reports: No Symptoms Neurological: reports: Pre-Existing Deficit (multiple recent CVAs), Weakness Psychiatric: reports: Anxiety, Depression - Risk Factors Known Risk Factors: Yes: Age, Diabetes Mellitus, Hypercholesterolemia, Hypertension, Physical Inactivity, Prior AR /Emb Stroke Vital Signs: Vital Signs Temperature 98.1 F 11/03/18 06:00 Pulse Rate 72 11/03/18 06:00 Respiratory Rate 18 11/03/18 06:00 Blood Pressure 119/69 11/03/18 06:00 O2 Sat by Pulse Oximetry (%) 99 11/02/18 20:28 Constitutional: Yes: Anxious Eyes: Yes: WNL HENT: Yes: WNL Neck: Yes: WNL Respiratory: Yes: WNL Gastrointestinal: Yes: Soft, Abdomen, Obese Renal/: No: Anuria JVD: No Carotid Bruit: No PMI: Non-Displaced Heart Sounds: Yes: S1 (varies in intensity), S2 Murmur: Yes: Systolic Murmur, Grade 2 Musculoskeletal: Yes: Muscle Weakness Extremities: Yes: WNL Edema: No Peripheral Pulses WNL: Yes Integumentary: Yes: WNL Neurological: Yes: Alert, Oriented, Aphasia, Unsteady Gait, Weakness Psychiatric: Yes: Alert, Other - Other Data Labs, Other Data: CBC, BMP 11/02/18 05:30 11/02/18 06:00 INR, PTT INR 1.46 (0.83-1.09) H 11/03/18 06:10 Ejection Fraction %: LVEF > or = 40 % Imaging - Results Chest X-ray: Image Reviewed EKG: Image Reviewed Problem List - Problems (1) Elevated LFTs Code(s): R94.5 - ABNORMAL RESULTS OF LIVER FUNCTION STUDIES (2) Acute on chronic diastolic CHF (congestive heart failure) Code(s): I50.33 - ACUTE ON CHRONIC DIASTOLIC (CONGESTIVE) HEART FAILURE (3) Anemia Code(s): D64.9 - ANEMIA, UNSPECIFIED Qualifiers: Anemia type: unspecified type Qualified Code(s): D64.9 - Anemia, unspecified (4) Anxiety and depression Code(s): F41.9 - ANXIETY DISORDER, UNSPECIFIED; F32.9 - MAJOR DEPRESSIVE DISORDER, SINGLE EPISODE, UNSPECIFIED (5) Atrial flutter Assessment/Plan: ON metoprolol for HR control. Has been on apixaban: ? breakthrough embolic CVA. 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 Code(s): I10 - ESSENTIAL (PRIMARY) HYPERTENSION (12) Headache Code(s): R51 - HEADACHE Qualifiers: Headache type: tension-type Headache chronicity pattern: acute headache Intractability: not intractable Qualified Code(s): G44.209 - Tension-type headache, unspecified, not intractable (13) Hyperlipidemia Code(s): E78.5 - HYPERLIPIDEMIA, UNSPECIFIED (14) Obesity Code(s): E66.9 - OBESITY, UNSPECIFIED (15) Weakness Code(s): R53.1 - WEAKNESS (16) CVA (cerebral vascular accident) Assessment/Plan: Evidence of new CVA. Pt needs evaluation of efficacy of anticoaguant(s), if this incident shows "breakthrough" incident despite regular use of DOAC. F/u with hematolgy/oncology /GI. Code(s): I63.9 - CEREBRAL INFARCTION, UNSPECIFIED
--- NOTE | 2018-11-03 10:16 | PN ---
GI Progress Note Subjective: GI NOte: LFTS are not normalizing completely. Has indirect hyperbilirubinemia but alk phos continues to climb. INR is also elevated. Hesitant to stop Eliquis in anticipation of need for liver biopsy given new CVA. - Objective Vital Signs: Vital Signs Temperature 97.9 F 11/03/18 09:19 Pulse Rate 93 H 11/03/18 09:19 Respiratory Rate 18 11/03/18 09:19 Blood Pressure 131/78 11/03/18 09:19 O2 Sat by Pulse Oximetry (%) 99 11/02/18 20:28 Laboratory Tests 09/11/18 09/20/18 10/25/18 05:30 05:30 13:48 PT with INR Total Bilirubin Direct Bilirubin ALT 31 154 H Alkaline Phosphatase 53 621 H AST 14 L 114 H Carcinoembryonic Ag 2.3 10/25/18 11/01/18 11/02/18 13:48 18:15 05:30 PT with INR Total Bilirubin 0.9 1.0 Direct Bilirubin ALT 141 H 131 H Alkaline Phosphatase 662 H 579 H AST 146 H 123 H Carcinoembryonic Ag 2.6 11/03/18 11/03/18 06:10 06:10 PT with INR 17.30 H Total Bilirubin 2.3 H Direct Bilirubin 0.7 H ALT 124 H Alkaline Phosphatase 692 H AST 120 H Carcinoembryonic Ag Constitutional: Calm ...Auscultate: Yes: Normoactive Bowel Sounds ...Palpate: Yes: Soft, Other (nontender) Labs: CBC, BMP 11/02/18 05:30 11/02/18 06:00 INR, PTT INR 1.46 (0.83-1.09) H 11/03/18 06:10 Assessment/Plan IMpression: Rise in LFTs may be due to Macrodantin. If they fail to fall then a liver biopsy needs to be considered to exclude metastatic liver cancer. 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 Plan: Follow LFTs and await liver studies If LFTs fail to improve will need liver biopsy if deemed safe to stop Eliquis Problem List - Problems (1) Abnormal liver function Code(s): R94.5 - ABNORMAL RESULTS OF LIVER FUNCTION STUDIES (2) Colon cancer Code(s): C18.9 - MALIGNANT NEOPLASM OF COLON, UNSPECIFIED (3) Carter's esophagus determined by biopsy Code(s): K22.70 - CARTER'S ESOPHAGUS WITHOUT DYSPLASIA (4) CVA (cerebral vascular accident) Code(s): I63.9 - CEREBRAL INFARCTION, UNSPECIFIED (5) Fatty (change of) liver, not elsewhere classified Code(s): K76.0 - FATTY (CHANGE OF) LIVER, NOT ELSEWHERE CLASSIFIED (6) GI bleed Code(s): K92.2 - GASTROINTESTINAL HEMORRHAGE, UNSPECIFIED
[2018-11-03] MEDS: METOPROLOL TARTRATE 25 MG TABLET (FP) PO SCH ×2 (10:35→21:35)
[2018-11-03] MEDS: MULTIVITAMINS (DAILY MVI) TABLET (FP) PO SCH (10:35)
[2018-11-03] MEDS: ESCITALOPRAM OXALATE 20 MG TABLET (FP) PO SCH (10:35)
[2018-11-03] MEDS: APIXABAN 5 MG TABLET PO SCH ×2 (10:35→21:35)
[2018-11-03] MEDS: PANTOPRAZOLE 40 MG TABLET (FP) PO SCH (10:36)
[2018-11-03] MEDS: FOLIC ACID 1 MG TABLET (FP) PO SCH (10:36)
[2018-11-03] MEDS: FERROUS SO4 325 MG TABLET (FP) PO SCH ×3 (10:36→17:23)
[2018-11-03] MEDS: LISINOPRIL 5 MG TABLET (FP) PO SCH ×2 (10:37→21:35)
[2018-11-03] MEDS: ONDANSETRON 4 MG/2 ML VIAL IVPB PRN (11:14)
--- NOTE | 2018-11-03 13:05 | PN ---
Progress Note, Physician Chief Complaint: OOB to WC awake alert NAD VSS \had BP borderline high last night 146/86 but in am 111/60 - lisinopril changed to 2.5 mg po bid was anxious easr;ier received xanax; dw pt and staff falls pfx and possible risks and SE falls tolerance dependence vomied once today again, no abdominal pain; abdomen CT noted head CT noted subacute nonhg R frontal new CVA - pt has been on eliquis and taking it, and her BP, BGM, chol were well controlled; problematic, will d/w cardio, neuro and heme further AC LFTs stable; GI and onc input appreciated and d/w pt - Current Medication List Current Medications: Active Medications Alprazolam (Xanax -) 0.25 mg PO BID PRN PRN Reason: AGITATION Apixaban (Eliquis -) 5 mg PO BID [facility] Last Admin: 11/03/18 10:35 Dose: 5 mg Atorvastatin Calcium (Lipitor -) 40 mg PO HS [facility] Last Admin: 11/02/18 22:09 Dose: 40 mg Escitalopram Oxalate (Lexapro -) 20 mg PO DAILY [facility] Last Admin: 11/03/18 10:35 Dose: 20 mg Ferrous Sulfate (Feosol -) 325 mg PO TIDCM [facility] Last Admin: 11/03/18 11:23 Dose: Not Given Folic Acid (Folic Acid -) 1 mg PO DAILY [facility] Last Admin: 11/03/18 10:36 Dose: 1 mg Sodium Chloride (Normal Saline -) 1,000 mls @ 42 mls/hr IV ASDIR [facility] Last Admin: 11/02/18 22:17 Dose: 42 mls/hr Insulin Aspart (Novolog Vial) 1 units SQ ACHS [facility]; Protocol Last Admin: 11/03/18 11:17 Dose: Not Given Lisinopril (Prinivil) 2.5 mg PO BID [facility] Metoprolol Tartrate (Lopressor -) 25 mg PO BID [facility] Last Admin: 11/03/18 10:35 Dose: 25 mg Multivitamins/Minerals/Vitamin C (Tab-A-Vit -) 1 tab PO DAILY [facility] Last Admin: 11/03/18 10:35 Dose: 1 tab Ondansetron HCl (Zofran Injection) 8 mg IVPB Q8H PRN PRN Reason: NAUSEA AND/OR VOMITING Last Admin: 11/03/18 11:14 Dose: 8 mg Pantoprazole Sodium (Protonix -) 40 mg PO DAILY [facility] Last Admin: 11/03/18 10:36 Dose: 40 mg Sucralfate (Carafate -) 1 gm PO ACHS [facility] Last Admin: 11/03/18 10:36 Dose: 1 gm - Objective Vital Signs: Vital Signs Temperature 97.9 F 11/03/18 09:19 Pulse Rate 93 H 11/03/18 09:19 Respiratory Rate 18 11/03/18 09:19 Blood Pressure 131/78 11/03/18 09:19 O2 Sat by Pulse Oximetry (%) 99 11/02/18 20:28 Constitutional: Yes: No Distress, Calm Eyes: Yes: Conjunctiva Clear HENT: Yes: Atraumatic Neck: Yes: Supple Cardiovascular: Yes: Regular Rate and Rhythm Respiratory: Yes: CTA Bilaterally Gastrointestinal: Yes: Soft. No: Tenderness Musculoskeletal: No: Joint Stiffness, Joint Swelling Extremities: No: Cold, Cool, Cyanosis, Deformity Edema: No Integumentary: No: Rash, Venous Stasis Changes Neurological: Yes: Alert, Oriented, Unsteady Gait, Weakness (general but able to move U/LE bilat). No: Seizure ...Motor Strength: WNL Psychiatric: Yes: WNL, Alert, Oriented. No: Agitated, Suicidal Ideation Labs: CBC, BMP 11/02/18 05:30 11/02/18 06:00 INR, PTT INR 1.46 (0.83-1.09) H 11/03/18 06:10 - ....Imaging Other: Report Reviewed Assessment/Plan Patient is a 63F from [facility] w/ PMHx SVT s/p ablation, afib on Eliquis, HTN, DM, COPD. C3-C7 herniation, multiple CVAs, anemia, colon CA s/p recent R hemicolectomy, remote breast CA lumpectomy, benign thyroid nodule, admitted with vomiting and elevated LFTs x 1 week.. s/p recent UTI; falls recent subacute new CVA nonhg R frontal GI, ONC f/u - consults noted hold all hepatotoxic drugs; f/u labs; might need liver biopsy if not improving; is on eliquis will need to switch to IV heparin abdomen CT noted head CT noted; neuro and cardio evals noted; to determine further AC falls pfx d/w pt do not get OOB alone she understood prognosis guarded d/w pt and staff called GI called pt's son Trent t time 35 min
--- NOTE | 2018-11-03 13:08 | PN ---
Progress Note, Physician History of Present Illness: The patient is a 63 year old female, from [place] with a significant past medical history of SVT (s/p ablation), afib (on Eliquis), HTN, DM, COPD, C3-C7 herniation, multiple CVAs who presents to the emergency department with vomiting and elevated LFTs. Patient notes he was sent to the ED by Dr. Faith for further evaluation, a CT scan, and admission. The patient reports she fell last night as she was getting out of bed. The patient denies any head trauma, - Current Medication List Current Medications: Active Medications Alprazolam (Xanax -) 0.25 mg PO BID PRN PRN Reason: AGITATION Apixaban (Eliquis -) 5 mg PO BID [facility] Last Admin: 11/03/18 10:35 Dose: 5 mg Atorvastatin Calcium (Lipitor -) 40 mg PO HS [facility] Last Admin: 11/02/18 22:09 Dose: 40 mg Escitalopram Oxalate (Lexapro -) 20 mg PO DAILY [facility] Last Admin: 11/03/18 10:35 Dose: 20 mg Ferrous Sulfate (Feosol -) 325 mg PO TIDCM [facility] Last Admin: 11/03/18 11:23 Dose: Not Given Folic Acid (Folic Acid -) 1 mg PO DAILY [facility] Last Admin: 11/03/18 10:36 Dose: 1 mg Sodium Chloride (Normal Saline -) 1,000 mls @ 42 mls/hr IV ASDIR [facility] Last Admin: 11/02/18 22:17 Dose: 42 mls/hr Insulin Aspart (Novolog Vial) 1 units SQ ACHS [facility]; Protocol Last Admin: 11/03/18 11:17 Dose: Not Given Lisinopril (Prinivil) 2.5 mg PO BID [facility] Metoprolol Tartrate (Lopressor -) 25 mg PO BID [facility] Last Admin: 11/03/18 10:35 Dose: 25 mg Multivitamins/Minerals/Vitamin C (Tab-A-Vit -) 1 tab PO DAILY [facility] Last Admin: 11/03/18 10:35 Dose: 1 tab Ondansetron HCl (Zofran Injection) 8 mg IVPB Q8H PRN PRN Reason: NAUSEA AND/OR VOMITING Last Admin: 11/03/18 11:14 Dose: 8 mg Pantoprazole Sodium (Protonix -) 40 mg PO DAILY [facility] Last Admin: 11/03/18 10:36 Dose: 40 mg Sucralfate (Carafate -) 1 gm PO ACHS [facility] Last Admin: 11/03/18 10:36 Dose: 1 gm - Objective Vital Signs: Vital Signs Temperature 97.9 F 11/03/18 09:19 Pulse Rate 93 H 11/03/18 09:19 Respiratory Rate 18 11/03/18 09:19 Blood Pressure 131/78 11/03/18 09:19 O2 Sat by Pulse Oximetry (%) 99 11/02/18 20:28 Eyes: Yes: WNL, Conjunctiva Clear, EOM Intact HENT: Yes: WNL, Atraumatic, Normocephalic Neck: Yes: WNL, Supple, Trachea Midline Cardiovascular: Yes: WNL, Regular Rate and Rhythm Respiratory: Yes: WNL, Regular, CTA Bilaterally Gastrointestinal: Yes: WNL, Normal Bowel Sounds Genitourinary: Yes: WNL Musculoskeletal: Yes: WNL Extremities: Yes: WNL Edema: No Integumentary: Yes: WNL ...Motor Strength: WNL Psychiatric: Yes: WNL Labs: CBC, BMP 11/02/18 05:30 11/02/18 06:00 INR, PTT INR 1.46 (0.83-1.09) H 11/03/18 06:10 Assessment/Plan - Problems (1) Elevated LFTs Code(s): R94.5 - ABNORMAL RESULTS OF LIVER FUNCTION STUDIES (2) Acute on chronic diastolic CHF (congestive heart failure) 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 Code(s): K22.70 - CALDERON'S ESOPHAGUS WITHOUT DYSPLASIA (7) COPD (chronic obstructive pulmonary disease) Code(s): J44.9 - CHRONIC OBSTRUCTIVE PULMONARY DISEASE, UNSPECIFIED (8) Colon cancer Code(s): C18.9 - MALIGNANT NEOPLASM OF COLON, UNSPECIFIED (9) Diabetes Code(s): E11.9 - TYPE 2 DIABETES MELLITUS WITHOUT COMPLICATIONS (10) Fall Code(s): W19.XXXA - UNSPECIFIED FALL, INITIAL ENCOUNTER Qualifiers: Encounter type: initial encounter Qualified Code(s): W19.XXXA - Unspecified fall, initial encounter (11) HTN (hypertension) Code(s): I10 - ESSENTIAL (PRIMARY) HYPERTENSION (12) Headache Code(s): R51 - HEADACHE Qualifiers: Headache type: tension-type Headache chronicity pattern: acute headache Intractability: not intractable Qualified Code(s): G44.209 - Tension-type headache, unspecified, not intractable (13) Hyperlipidemia Code(s): E78.5 - HYPERLIPIDEMIA, UNSPECIFIED (14) Obesity Code(s): E66.9 - OBESITY, UNSPECIFIED (15) Weakness Code(s): R53.1 - WEAKNESS (16) CVA (cerebral vascular accident) Assessment/Plan: Evidence of new CVA. Pt needs evaluation of efficacy of anticoaguant(s), if this incident shows "breakthrough" incident despite regular use of DOAC. F/u with hematolgy/oncology /GI. Code(s): I63.9 - CEREBRAL INFARCTION, UNSPECIFIED
[2018-11-03] MEDS: ALPRAZolam 0.25 MG TABLET PO PRN ×2 (14:46→21:35)
[2018-11-03 17:16] LABS: MITOCHONDRIAL AB <20.0 Units (0.0-20.0)
--- NOTE | 2018-11-03 18:56 | PN ---
Progress Note (short form) - Note Progress Note: Patient seen and examined Possibility of macrodantoin raised as etiology for abnormal LFT's. -Liver biopsy on hold. Indirect hyperbilirubinemia - to check haptoglobin, LDH, retic count. ?? of failure of NOAC in view of recent new acute or subacute infarct. Coumadin may be problematic in view of abnormal LFT's. Lovenox may be a short term bridge and if LFT's improve switch to coumadin. Problem List - Problems (1) Elevated LFTs Code(s): R94.5 - ABNORMAL RESULTS OF LIVER FUNCTION STUDIES
[2018-11-03] MEDS: ATORVASTATIN CA 80 MG TABLET (FP) PO SCH (21:34)
[2018-11-03] MEDS: SODIUM CHLORIDE 1,000 ML IV SCH (21:35)
[2018-11-04] MEDS: SUCRALFATE 1 GM TABLET (FP) PO SCH ×4 (06:51→21:45)
[2018-11-04] MEDS: INSULIN (NOVOLOG) ASPART 100 UNITS/ML 10ML VIAL SQ SCH ×4 (07:03→21:55)
--- NOTE | 2018-11-04 07:27 | PN ---
Progress Note, Physician Chief Complaint: no vomiting today but felt nauseous no pain - Current Medication List Current Medications: Active Medications Alprazolam (Xanax -) 0.25 mg PO BID PRN PRN Reason: AGITATION Last Admin: 11/03/18 21:35 Dose: 0.25 mg Apixaban (Eliquis -) 5 mg PO BID [facility] Last Admin: 11/03/18 21:35 Dose: 5 mg Atorvastatin Calcium (Lipitor -) 40 mg PO HS [facility] Last Admin: 11/03/18 21:34 Dose: 40 mg Escitalopram Oxalate (Lexapro -) 20 mg PO DAILY [facility] Last Admin: 11/03/18 10:35 Dose: 20 mg Ferrous Sulfate (Feosol -) 325 mg PO TIDCM [facility] Last Admin: 11/03/18 17:23 Dose: 325 mg Folic Acid (Folic Acid -) 1 mg PO DAILY [facility] Last Admin: 11/03/18 10:36 Dose: 1 mg Sodium Chloride (Normal Saline -) 1,000 mls @ 42 mls/hr IV ASDIR [facility] Last Admin: 11/03/18 21:35 Dose: Not Given Insulin Aspart (Novolog Vial) 1 units SQ [facility]; Protocol Last Admin: 11/04/18 07:03 Dose: Not Given Lisinopril (Prinivil) 2.5 mg PO BID [facility] Last Admin: 11/03/18 21:35 Dose: 2.5 mg Metoprolol Tartrate (Lopressor -) 25 mg PO BID [facility] Last Admin: 11/03/18 21:35 Dose: 25 mg Multivitamins/Minerals/Vitamin C (Tab-A-Vit -) 1 tab PO DAILY [facility] Last Admin: 11/03/18 10:35 Dose: 1 tab Ondansetron HCl (Zofran Injection) 8 mg IVPB Q8H PRN PRN Reason: NAUSEA AND/OR VOMITING Last Admin: 11/03/18 11:14 Dose: 8 mg Pantoprazole Sodium (Protonix -) 40 mg PO DAILY [facility] Last Admin: 11/03/18 10:36 Dose: 40 mg Sucralfate (Carafate -) 1 gm PO [facility] Last Admin: 11/04/18 06:51 Dose: 1 gm - Objective Vital Signs: Vital Signs Temperature 97.7 F 11/03/18 23:00 Pulse Rate 60 11/04/18 06:38 Respiratory Rate 17 11/04/18 06:38 Blood Pressure 125/73 11/04/18 06:38 O2 Sat by Pulse Oximetry (%) 98 11/03/18 21:00 Constitutional: Yes: Calm Eyes: Yes: Conjunctiva Clear HENT: Yes: Atraumatic Neck: Yes: Supple Cardiovascular: Yes: Regular Rate and Rhythm Respiratory: Yes: CTA Bilaterally Gastrointestinal: Yes: Soft. No: Tenderness Genitourinary: No: CVA Tenderness - Left, CVA Tenderness - Right Musculoskeletal: No: Joint Stiffness, Joint Swelling Extremities: No: Cold, Cool, Cyanosis Edema: No Neurological: Yes: Alert ...Motor Strength: WNL Psychiatric: Yes: Alert. No: Agitated Labs: CBC, BMP 11/02/18 05:30 11/02/18 06:00 INR, PTT INR 1.46 (0.83-1.09) H 11/03/18 06:10 - ....Imaging Other: Report Reviewed Assessment/Plan Patient is a 63F from [facility] w/ PMHx SVT s/p ablation, afib on Eliquis, HTN, DM, COPD. C3-C7 herniation, multiple CVAs, anemia, colon CA s/p recent R hemicolectomy, remote breast CA lumpectomy, benign thyroid nodule, admitted with vomiting and elevated LFTs x 1 week.. s/p recent UTI; falls; on head CT evidence of recent subacute new CVA nonhg R frontal GI, ONC f/u - consults noted LFTs pending; f/u labs; might need liver biopsy if not improving; is on eliquis will need to switch to IV heparin abdomen CT noted head CT noted; neuro and cardio evals noted; to determine further AC falls pfx d/w pt do not get OOB alone she understood prognosis guarded d/w pt and staff
--- NOTE | 2018-11-04 09:06 | PN ---
Progress Note (short form) - Note Progress Note: Neurology - History of Present Illness 63F from [place] w/ PMHx SVT s/p ablation, afib on Eliquis, HTN, DM, COPD. C3 -C7 herniation, multiple CVAs here today with vomiting and elevated LFTs. Patient is currently under the care of Dr Faith, who was sent the patient in for admission. US done on 10/26 showed fatty liver, no other abnormalities. Patient reported that she had recent fall as she got out of bed. Denied head trauma but CT head completed and showed area of subacute infarct in R bird radiata. Also showed ischemic infarcts in b/l bird as well as right occipital. I was notified by primary and discussed case. She is on AC, Eliquis, and did not hold AC. Repeat CT head confirmed findings. Discussed with patient. She is agreement with above. Blood products now look subacute to chronic. Of note, elevated BP can also cause basal ganglia blood noted above and tight blood pressure control recommended. LDL normal at 52. Seen at bedside with nurse, still with elevated LFTs but no focal deficits. Active Medications Alprazolam (Xanax -) 0.25 mg PO BID PRN PRN Reason: AGITATION Last Admin: 11/03/18 21:35 Dose: 0.25 mg Apixaban (Eliquis -) 5 mg PO BID [facility] Last Admin: 11/03/18 21:35 Dose: 5 mg Atorvastatin Calcium (Lipitor -) 40 mg PO HS [facility] Last Admin: 11/03/18 21:34 Dose: 40 mg Escitalopram Oxalate (Lexapro -) 20 mg PO DAILY [facility] Last Admin: 11/03/18 10:35 Dose: 20 mg Ferrous Sulfate (Feosol -) 325 mg PO TIDCM [facility] Last Admin: 11/03/18 17:23 Dose: 325 mg Folic Acid (Folic Acid -) 1 mg PO DAILY [facility] Last Admin: 11/03/18 10:36 Dose: 1 mg Sodium Chloride (Normal Saline -) 1,000 mls @ 42 mls/hr IV ASDIR [facility] Last Admin: 11/03/18 21:35 Dose: Not Given Insulin Aspart (Novolog Vial) 1 units SQ ACHS [facility]; Protocol Last Admin: 11/04/18 07:03 Dose: Not Given Lisinopril (Prinivil) 2.5 mg PO BID [facility] Last Admin: 11/03/18 21:35 Dose: 2.5 mg Metoprolol Tartrate (Lopressor -) 25 mg PO BID [facility] Last Admin: 11/03/18 21:35 Dose: 25 mg Multivitamins/Minerals/Vitamin C (Tab-A-Vit -) 1 tab PO DAILY [facility] Last Admin: 11/03/18 10:35 Dose: 1 tab Ondansetron HCl (Zofran Injection) 8 mg IVPB Q8H PRN PRN Reason: NAUSEA AND/OR VOMITING Last Admin: 11/03/18 11:14 Dose: 8 mg Pantoprazole Sodium (Protonix -) 40 mg PO DAILY [facility] Last Admin: 11/03/18 10:36 Dose: 40 mg Sucralfate (Carafate -) 1 gm PO ACHS [facility] Last Admin: 11/04/18 06:51 Dose: 1 gm *Physical Exam Vital Signs Period Temp Pulse Resp BP Sys/Juarez Pulse Ox Last 24 Hr 97.7 F-98.5 F 60-97 16-18 125-145/73-86 98-98 GENERAL: Awake, alert, and fully oriented, in no acute distress HEAD: No signs of trauma, normocephalic, atraumatic EYES: PERRLA, EOMI, sclera anicteric, conjunctiva clear ENT: Auricles normal inspection, hearing grossly normal, nares patent, oropharynx clear without exudates. Moist mucosa NECK: Normal ROM, supple, no lymphadenopathy, JVD, or masses LUNGS: No distress, speaks full sentences, clear to auscultation bilaterally HEART: Regular rate and rhythm, normal S1 and S2, no murmurs, rubs or gallops, peripheral pulses normal and equal bilaterally. ABDOMEN: Soft, +RUQ tenderness, normoactive bowel sounds. No guarding, no rebound. No masses EXTREMITIES: Normal inspection, Normal range of motion, no edema. No clubbing or cyanosis. NEUROLOGICAL: Cranial nerves II through XII grossly intact. Normal speech, no focal sensorimotor deficits, finger to nose normal, sensory intact. SKIN: Warm, Dry, normal turgor, no rashes or lesions noted. CBCD WBC 3.4 K/mm3 (4.0-10.0) L 11/02/18 05:30 RBC 3.30 M/mm3 (3.60-5.2) L 11/02/18 05:30 Hgb 8.6 GM/dL (10.7-15.3) L 11/02/18 05:30 Hct 26.4 % (32.4-45.2) L 11/02/18 05:30 MCV 80.0 fl (80-96) 11/02/18 05:30 MCHC 32.6 g/dl (32.0-36.0) 11/02/18 05:30 RDW 20.3 % (11.6-15.6) H 11/02/18 05:30 Plt Count 172 K/MM3 (134-434) D 11/02/18 05:30 MPV 8.6 fl (7.5-11.1) 11/02/18 05:30 CMP Sodium 140 mmol/L (136-145) 11/02/18 06:00 Potassium 3.7 mmol/L (3.5-5.1) 11/02/18 06:00 Chloride 107 mmol/L (98-107) 11/02/18 06:00 Carbon Dioxide 26 mmol/L (21-32) 11/02/18 06:00 Anion Gap 7 MMOL/L (8-16) L 11/02/18 06:00 BUN 14 mg/dL (7-18) 11/02/18 06:00 Creatinine 0.4 mg/dL (0.55-1.3) L 11/02/18 06:00 Creat Clearance w eGFR 162.27 (>60) 11/02/18 06:00 Random Glucose 68 mg/dL (74-106) L 11/02/18 06:00 Calcium 7.9 mg/dL (8.5-10.1) L 11/02/18 06:00 Total Bilirubin 2.3 mg/dL (0.2-1) H 11/03/18 06:10 AST 120 U/L (15-37) H 11/03/18 06:10 ALT 124 U/L (13-61) H 11/03/18 06:10 Alkaline Phosphatase 692 U/L (45-117) H 11/03/18 06:10 Total Protein 4.4 g/dl (6.4-8.2) L 11/03/18 06:10 Albumin 2.1 g/dl (3.4-5.0) L 11/03/18 06:10 CARDIAC ENZYMES Creatine Kinase 11 U/L (26-192) L 11/02/18 06:00 Troponin I < 0.02 ng/ml (0.00-0.05) 11/02/18 05:30 Medical Decision Making 63F from [place] w/ PMHx SVT s/p ablation, afib on Eliquis, HTN, DM, COPD. C3 -C7 herniation, multiple CVAs here today with vomiting and elevated LFTs. Patient is currently under the care of Dr Faith, who was sent the patient in for admission. US done on 10/26 showed fatty liver, no other abnormalities. Patient reported that she had recent fall as she got out of bed. Denied head trauma but CT head completed and showed area of subacute infarct in R bird radiata. Also showed ischemic infarcts in b/l bird as well as right occipital. I was notified by primary and discussed case. She is on AC, Eliquis, and did not hold AC. Repeat CT head confirmed findings. Discussed with patient. She is agreement with above. Blood products now look subacute to chronic. Of note, elevated BP can also cause basal ganglia blood noted above and tight blood pressure control recommended. LDL normal at 52. Seen at bedside with nurse, still with elevated LFTs but no focal deficits. Continue medical optimization. BP monitoring, maintain <140/90 for now, <130/80 as outpatient. Can have outpatient follow up for more formal memory evaluation.
[2018-11-04] MEDS: LISINOPRIL 5 MG TABLET (FP) PO SCH ×2 (09:13→21:45)
[2018-11-04] MEDS: METOPROLOL TARTRATE 25 MG TABLET (FP) PO SCH ×2 (09:13→21:45)
[2018-11-04] MEDS: MULTIVITAMINS (DAILY MVI) TABLET (FP) PO SCH (09:13)
[2018-11-04] MEDS: APIXABAN 5 MG TABLET PO SCH ×2 (09:13→21:45)
[2018-11-04] MEDS: FERROUS SO4 325 MG TABLET (FP) PO SCH ×3 (09:13→17:33)
[2018-11-04] MEDS: FOLIC ACID 1 MG TABLET (FP) PO SCH (09:13)
[2018-11-04] MEDS: PANTOPRAZOLE 40 MG TABLET (FP) PO SCH (09:14)
[2018-11-04] MEDS: ESCITALOPRAM OXALATE 20 MG TABLET (FP) PO SCH (09:14)
[2018-11-04] MEDS: SODIUM CHLORIDE 1,000 ML IV SCH ×2 (09:29→21:45)
[2018-11-04 09:33] LABS: BASO % 0.6 % (0-2.0); EOS % 7.1 % (0-4.5); HEMATOCRIT 26.7 % (32.4-45.2); HEMOGLOBIN 8.5 GM/dL (10.7-15.3); LYMPH % 17.7 % (8-40); MCH 25.6 pg (25.7-33.7); MCHC 31.7 g/dl (32.0-36.0); MEAN CELL VOLUME 80.9 fl (80-96); MEAN PLT VOLUME 8.8 fl (7.5-11.1); MONO % 9.7 % (3.8-10.2); NEUT % 64.9 % (42.8-82.8); PLATELET COUNT 178 K/MM3 (134-434); RDW 19.6 % (11.6-15.6); WHITE BLOOD COUNT 3.8 K/mm3 (4.0-10.0)
[2018-11-04] MEDS: ONDANSETRON 4 MG/2 ML VIAL IVPB PRN (10:01)
[2018-11-04 11:06] LABS: ALK PHOS 836 U/L (45-117); ANION GAP 7 MMOL/L (8-16); BILIRUBIN,TOTAL 1.3 mg/dL (0.2-1); BLOOD UREA NITROGEN 10 mg/dL (7-18); CALCIUM 7.5 mg/dL (8.5-10.1); CHLORIDE 107 mmol/L (98-107); CO2 26 mmol/L (21-32); CREATININE 0.6 mg/dL (0.55-1.3); GLUCOSE,RANDOM 81 mg/dL (74-106); LDH 199 U/L (84-246); POTASSIUM 3.7 mmol/L (3.5-5.1); SGOT/AST 168 U/L (15-37); SGPT/ALT 150 U/L (13-61); SODIUM 140 mmol/L (136-145); TOT PROT 4.3 g/dl (6.4-8.2)
[2018-11-04] MEDS: ALPRAZolam 0.25 MG TABLET PO PRN ×2 (18:04→21:45)
[2018-11-04] MEDS: LIDOCAINE 5% TOPICAL PATCH TP SCH (18:46)
[2018-11-04] MEDS: ATORVASTATIN CA 80 MG TABLET (FP) PO SCH (21:44)
[2018-11-05] MEDS: INSULIN (NOVOLOG) ASPART 100 UNITS/ML 10ML VIAL SQ SCH ×4 (06:03→22:07)
[2018-11-05] MEDS: SUCRALFATE 1 GM TABLET (FP) PO SCH ×4 (06:27→22:07)
[2018-11-05 07:28] LABS: BASO % 0.4 % (0-2.0); EOS % 6.5 % (0-4.5); HEMATOCRIT 26.1 % (32.4-45.2); HEMOGLOBIN 8.5 GM/dL (10.7-15.3); LYMPH % 15.4 % (8-40); MCH 26.4 pg (25.7-33.7); MCHC 32.4 g/dl (32.0-36.0); MEAN CELL VOLUME 81.3 fl (80-96); MEAN PLT VOLUME 9.2 fl (7.5-11.1); MONO % 8.1 % (3.8-10.2); NEUT % 69.6 % (42.8-82.8); PLATELET COUNT 157 K/MM3 (134-434); RBC 3.21 M/mm3 (3.60-5.2); RDW 19.5 % (11.6-15.6); WHITE BLOOD COUNT 3.8 K/mm3 (4.0-10.0)
[2018-11-05 08:08] LABS: ALBUMIN 1.9 g/dl (3.4-5.0); ALK PHOS 811 U/L (45-117); ANION GAP 6 MMOL/L (8-16); BILIRUBIN,DIRECT 1.2 mg/dL (0.0-0.2); BILIRUBIN,TOTAL 1.4 mg/dL (0.2-1); BLOOD UREA NITROGEN 10 mg/dL (7-18); CALCIUM 7.6 mg/dL (8.5-10.1); CHLORIDE 107 mmol/L (98-107); CO2 26 mmol/L (21-32); CREATININE 0.4 mg/dL (0.55-1.3); GLUCOSE,RANDOM 78 mg/dL (74-106); POTASSIUM 3.5 mmol/L (3.5-5.1); SGOT/AST 168 U/L (15-37); SGPT/ALT 152 U/L (13-61); SODIUM 139 mmol/L (136-145); TOT PROT 3.9 g/dl (6.4-8.2)
[2018-11-05] MEDS: FERROUS SO4 325 MG TABLET (FP) PO SCH ×3 (09:06→16:42)
--- NOTE | 2018-11-05 09:08 | PN ---
Progress Note, Physician Chief Complaint: awake alert NAD no abdominal pain no vomiting but still with nausea; had some legs pains L>R yesterday; lidoderm ordered; NOT on tylenol. LFTs still high; AP high DBili slightly higher; MRI can not be done b/o PPM; will d/w GI reg liver biospy? - Current Medication List Current Medications: Active Medications Alprazolam (Xanax -) 0.25 mg PO BID PRN PRN Reason: AGITATION Last Admin: 11/04/18 21:45 Dose: 0.25 mg Apixaban (Eliquis -) 5 mg PO BID [facility] Last Admin: 11/04/18 21:45 Dose: 5 mg Atorvastatin Calcium (Lipitor -) 40 mg PO HS [facility] Last Admin: 11/04/18 21:44 Dose: 40 mg Escitalopram Oxalate (Lexapro -) 20 mg PO DAILY [facility] Last Admin: 11/04/18 09:14 Dose: 20 mg Ferrous Sulfate (Feosol -) 325 mg PO TIDCM [facility] Last Admin: 11/04/18 17:33 Dose: 325 mg Folic Acid (Folic Acid -) 1 mg PO DAILY [facility] Last Admin: 11/04/18 09:13 Dose: 1 mg Sodium Chloride (Normal Saline -) 1,000 mls @ 42 mls/hr IV ASDIR [facility] Last Admin: 11/04/18 21:45 Dose: Not Given Insulin Aspart (Novolog Vial) 1 units SQ [facility]; Protocol Last Admin: 11/05/18 06:03 Dose: Not Given Lidocaine (Lidoderm Patch -) 1 patch TP DAILY [facility] Last Admin: 11/04/18 18:46 Dose: 1 patch Lisinopril (Prinivil) 2.5 mg PO BID [facility] Last Admin: 11/04/18 21:45 Dose: 2.5 mg Metoprolol Tartrate (Lopressor -) 25 mg PO BID [facility] Last Admin: 11/04/18 21:45 Dose: 25 mg Miscellaneous (Lidoderm Patch Removal) 1 each [facility] DAILY@2200 [facility] Multivitamins/Minerals/Vitamin C (Tab-A-Vit -) 1 tab PO DAILY [facility] Last Admin: 11/04/18 09:13 Dose: 1 tab Ondansetron HCl (Zofran Injection) 8 mg IVPB Q8H PRN PRN Reason: NAUSEA AND/OR VOMITING Last Admin: 11/04/18 10:01 Dose: 8 mg Pantoprazole Sodium (Protonix -) 40 mg PO DAILY [facility] Last Admin: 11/04/18 09:14 Dose: 40 mg Sucralfate (Carafate -) 1 gm PO ACHS [facility] Last Admin: 11/05/18 06:27 Dose: 1 gm - Objective Vital Signs: Vital Signs Temperature 97.6 F 11/05/18 06:26 Pulse Rate 61 11/05/18 06:26 Respiratory Rate 18 11/05/18 06:26 Blood Pressure 119/54 L 11/05/18 06:26 O2 Sat by Pulse Oximetry (%) 98 11/04/18 21:00 Constitutional: Yes: Calm Eyes: Yes: Conjunctiva Clear HENT: Yes: Atraumatic Neck: Yes: Supple Cardiovascular: Yes: Regular Rate and Rhythm Respiratory: Yes: CTA Bilaterally Gastrointestinal: Yes: Soft. No: Tenderness Genitourinary: No: CVA Tenderness - Left, CVA Tenderness - Right, Hematuria Musculoskeletal: No: Joint Stiffness, Joint Swelling Extremities: No: Cold, Cool, Cyanosis Edema: No Integumentary: No: Rash, Venous Stasis Changes Neurological: Yes: Alert ...Motor Strength: WNL Psychiatric: Yes: Alert. No: Agitated, Suicidal Ideation Labs: CBC, BMP 11/05/18 06:35 11/05/18 06:35 INR, PTT INR 1.46 (0.83-1.09) H 11/03/18 06:10 - ....Imaging Other: Report Reviewed Assessment/Plan Patient is a 63F from [facility] w/ PMHx SVT s/p ablation, afib on Eliquis, HTN, DM, COPD. C3-C7 herniation, multiple CVAs, anemia, colon CA s/p recent R hemicolectomy, remote breast CA lumpectomy, benign thyroid nodule, admitted with vomiting and elevated LFTs x 1 week.. s/p recent UTI; falls; on head CT evidence of recent subacute new CVA nonhg R frontal GI, ONC f/u - consults noted LFTs high; will d/w GI might need liver biopsy if not improving; is on eliquis - will need to switch to IV heparin if eliquis will be DCd; abdomen CT; liver US c/w fatty liver; MRI can not be done b/o PPM head CT noted; neuro and cardio f/u; to determine further AC - consider switching from eliquis to coumadin? per heme WHEN LFTs normalizing falls pfx d/w pt do not get OOB alone she understood prognosis guarded d/w pt and staff d/w pt's son Bill all the above / phone and d/w CM
--- NOTE | 2018-11-05 10:07 | PN ---
Progress Note (short form) - Note Progress Note: Neurology - History of Present Illness 63F from [place] w/ PMHx SVT s/p ablation, afib on Eliquis, HTN, DM, COPD. C3 -C7 herniation, multiple CVAs here today with vomiting and elevated LFTs. Patient is currently under the care of Dr Fiath, who was sent the patient in for admission. US done on 10/26 showed fatty liver, no other abnormalities. Patient reported that she had recent fall as she got out of bed. Denied head trauma but CT head completed and showed area of subacute infarct in R bird radiata. Also showed ischemic infarcts in b/l bird as well as right occipital. I was notified by primary and discussed case. She is on AC, Eliquis, and did not hold AC. Repeat CT head confirmed findings. LDL normal at 52. Patient remains alert, awake, cooperative. Does have lapses in mental status at times. This AM does know she's in [facility] as well as October but had some difficulty with year. Remains stable, expect further improvement with time and being in more familiar enviorment. Active Medications Alprazolam (Xanax -) 0.25 mg PO BID PRN PRN Reason: AGITATION Last Admin: 11/04/18 21:45 Dose: 0.25 mg Apixaban (Eliquis -) 5 mg PO BID [facility] Last Admin: 11/04/18 21:45 Dose: 5 mg Atorvastatin Calcium (Lipitor -) 40 mg PO HS [facility] Last Admin: 11/04/18 21:44 Dose: 40 mg Escitalopram Oxalate (Lexapro -) 20 mg PO DAILY [facility] Last Admin: 11/04/18 09:14 Dose: 20 mg Ferrous Sulfate (Feosol -) 325 mg PO TIDCM [facility] Last Admin: 11/04/18 17:33 Dose: 325 mg Folic Acid (Folic Acid -) 1 mg PO DAILY [facility] Last Admin: 11/04/18 09:13 Dose: 1 mg Sodium Chloride (Normal Saline -) 1,000 mls @ 42 mls/hr IV ASDIR [facility] Last Admin: 11/04/18 21:45 Dose: Not Given Insulin Aspart (Novolog Vial) 1 units SQ ACHS [facility]; Protocol Last Admin: 11/05/18 06:03 Dose: Not Given Lidocaine (Lidoderm Patch -) 1 patch TP DAILY [facility] Last Admin: 11/04/18 18:46 Dose: 1 patch Lisinopril (Prinivil) 2.5 mg PO BID [facility] Last Admin: 11/04/18 21:45 Dose: 2.5 mg Metoprolol Tartrate (Lopressor -) 25 mg PO BID [facility] Last Admin: 11/04/18 21:45 Dose: 25 mg Miscellaneous (Lidoderm Patch Removal) 1 each MC DAILY@2200 [facility] Multivitamins/Minerals/Vitamin C (Tab-A-Vit -) 1 tab PO DAILY [facility] Last Admin: 11/04/18 09:13 Dose: 1 tab Ondansetron HCl (Zofran Injection) 8 mg IVPB Q8H PRN PRN Reason: NAUSEA AND/OR VOMITING Last Admin: 11/04/18 10:01 Dose: 8 mg Pantoprazole Sodium (Protonix -) 40 mg PO DAILY [facility] Last Admin: 11/04/18 09:14 Dose: 40 mg Sucralfate (Carafate -) 1 gm PO ACHS [facility] Last Admin: 11/05/18 06:27 Dose: 1 gm *Physical Exam Vital Signs Period Temp Pulse Resp BP Sys/Juarez Pulse Ox Last 24 Hr 97.4 F-97.6 F 61-87 18-18 119-134/54-90 98 GENERAL: Awake, alert, and fully oriented, in no acute distress HEAD: No signs of trauma, normocephalic, atraumatic EYES: PERRLA, EOMI, sclera anicteric, conjunctiva clear ENT: Auricles normal inspection, hearing grossly normal, nares patent, oropharynx clear without exudates. Moist mucosa NECK: Normal ROM, supple, no lymphadenopathy, JVD, or masses LUNGS: No distress, speaks full sentences, clear to auscultation bilaterally HEART: Regular rate and rhythm, normal S1 and S2, no murmurs, rubs or gallops, peripheral pulses normal and equal bilaterally. ABDOMEN: Soft, +RUQ tenderness, normoactive bowel sounds. No guarding, no rebound. No masses EXTREMITIES: Normal inspection, Normal range of motion, no edema. No clubbing or cyanosis. NEUROLOGICAL: Cranial nerves II through XII grossly intact. Normal speech, no focal sensorimotor deficits, finger to nose normal, sensory intact. SKIN: Warm, Dry, normal turgor, no rashes or lesions noted. CBCD WBC 3.8 K/mm3 (4.0-10.0) L 11/05/18 06:35 RBC 3.21 M/mm3 (3.60-5.2) L 11/05/18 06:35 Hgb 8.5 GM/dL (10.7-15.3) L 11/05/18 06:35 Hct 26.1 % (32.4-45.2) L 11/05/18 06:35 MCV 81.3 fl (80-96) 11/05/18 06:35 MCHC 32.4 g/dl (32.0-36.0) 11/05/18 06:35 RDW 19.5 % (11.6-15.6) H 11/05/18 06:35 Plt Count 157 K/MM3 (134-434) 11/05/18 06:35 MPV 9.2 fl (7.5-11.1) 11/05/18 06:35 CMP Sodium 139 mmol/L (136-145) 11/05/18 06:35 Potassium 3.5 mmol/L (3.5-5.1) 11/05/18 06:35 Chloride 107 mmol/L (98-107) 11/05/18 06:35 Carbon Dioxide 26 mmol/L (21-32) 11/05/18 06:35 Anion Gap 6 MMOL/L (8-16) L 11/05/18 06:35 BUN 10 mg/dL (7-18) 11/05/18 06:35 Creatinine 0.4 mg/dL (0.55-1.3) L 11/05/18 06:35 Creat Clearance w eGFR 162.27 (>60) 11/05/18 06:35 Calcium 7.6 mg/dL (8.5-10.1) L 11/05/18 06:35 Total Bilirubin 1.4 mg/dL (0.2-1) H 11/05/18 06:35 AST 168 U/L (15-37) H 11/05/18 06:35 ALT 152 U/L (13-61) H 11/05/18 06:35 Alkaline Phosphatase 811 U/L (45-117) H 11/05/18 06:35 Total Protein 3.9 g/dl (6.4-8.2) L 11/05/18 06:35 Albumin 1.9 g/dl (3.4-5.0) L 11/05/18 06:35 Medical Decision Making 63F from [place] w/ PMHx SVT s/p ablation, afib on Eliquis, HTN, DM, COPD. C3 -C7 herniation, multiple CVAs here today with vomiting and elevated LFTs. Patient is currently under the care of Dr Faith, who was sent the patient in for admission. US done on 10/26 showed fatty liver, no other abnormalities. Patient reported that she had recent fall as she got out of bed. Denied head trauma but CT head completed and showed area of subacute infarct in R bird radiata. Also showed ischemic infarcts in b/l bird as well as right occipital. I was notified by primary and discussed case. She is on AC, Eliquis, and did not hold AC. Repeat CT head confirmed findings. LDL normal at 52. Patient remains alert, awake, cooperative. Does have lapses in mental status at times. This AM does know she's in [place] as well as October but had some difficulty with year. Remains stable, expect further improvement with time and being in more familiar enviorment. Continue medical optimization. BP monitoring , maintain <140/90 for now, <130/80 as outpatient. Can have outpatient follow up for more formal memory evaluation.
[2018-11-05] MEDS: PANTOPRAZOLE 40 MG TABLET (FP) PO SCH (11:07)
[2018-11-05] MEDS: APIXABAN 5 MG TABLET PO SCH ×2 (11:07→23:12)
[2018-11-05] MEDS: LIDOCAINE 5% TOPICAL PATCH TP SCH (11:09)
[2018-11-05] MEDS: FOLIC ACID 1 MG TABLET (FP) PO SCH (13:08)
[2018-11-05] MEDS: MULTIVITAMINS (DAILY MVI) TABLET (FP) PO SCH (13:08)
[2018-11-05] MEDS: METOPROLOL TARTRATE 25 MG TABLET (FP) PO SCH ×2 (13:08→22:07)
[2018-11-05] MEDS: ESCITALOPRAM OXALATE 20 MG TABLET (FP) PO SCH (13:08)
[2018-11-05] MEDS: LISINOPRIL 5 MG TABLET (FP) PO SCH ×2 (13:09→22:07)
--- NOTE | 2018-11-05 15:38 | PN ---
Progress Note (short form) - Note Progress Note: Patient seen and examined LFT's remain abnormal Biopsy being contemplated. Eliquis will need be discontinued. Lovenox while off eliquis until 24 hours before procedure. Coags to be checked and blood products prn. Problem List - Problems (1) Elevated LFTs Code(s): R94.5 - ABNORMAL RESULTS OF LIVER FUNCTION STUDIES
--- NOTE | 2018-11-05 15:46 | PN.GI ---
GI Progress Note Subjective: GI NOte: LFTs are not substantially improving. No obvious etiologies so differential is Macrodantin DILI vs metastatic disease. I have told Rowena that I am in favor of proceeding with liver biopsy as the information will significantly alter management. She is agreeable. I have communicated with Dr Faith and Dr Kraus - Objective Vital Signs: Vital Signs Temperature 97.6 F 11/05/18 06:26 Pulse Rate 61 11/05/18 06:26 Respiratory Rate 18 11/05/18 06:26 Blood Pressure 119/54 L 11/05/18 06:26 O2 Sat by Pulse Oximetry (%) 98 11/04/18 21:00 Laboratory Tests 11/01/18 11/02/18 11/02/18 18:15 05:30 05:30 Iron 20 L Ferritin Total Bilirubin Direct Bilirubin AST 146 H ALT Alkaline Phosphatase 662 H Ceruloplasmin 24.7 SHABNAM Screen Negative Mitochon/Sm Musc Ab Titr <20.0 Hepatitis A IgM Ab Negative Hep Bs Antigen Negative Hep B Core IgM Ab Negative Hepatitis C Antibody <0.1 11/02/18 11/02/18 11/03/18 05:30 06:00 06:10 Iron Ferritin 61.5 Total Bilirubin Direct Bilirubin AST 120 H ALT Alkaline Phosphatase 579 H 692 H Ceruloplasmin SHABNAM Screen Mitochon/Sm Musc Ab Titr Hepatitis A IgM Ab Hep Bs Antigen Hep B Core IgM Ab Hepatitis C Antibody 11/04/18 11/05/18 08:25 06:35 Iron Ferritin Total Bilirubin 1.4 H Direct Bilirubin 1.2 H AST 168 H ALT 152 H Alkaline Phosphatase 836 H 811 H Ceruloplasmin SHABNAM Screen Mitochon/Sm Musc Ab Titr Hepatitis A IgM Ab Hep Bs Antigen Hep B Core IgM Ab Hepatitis C Antibody Constitutional: Anxious ...Auscultate: Yes: Normoactive Bowel Sounds ...Palpate: Yes: Soft, Other (nontender) Labs: CBC, BMP 11/05/18 06:35 11/05/18 06:35 INR, PTT INR 1.46 (0.83-1.09) H 11/03/18 06:10 Assessment/Plan IMpression: Abnormal LFTs: Macrodantin DILI vs metastatic liver cancer. 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 Plan: Stop Eliquis to allow for sono guided liver biopsy by IR Problem List - Problems (1) Abnormal liver function Code(s): R94.5 - ABNORMAL RESULTS OF LIVER FUNCTION STUDIES (2) Colon cancer Code(s): C18.9 - MALIGNANT NEOPLASM OF COLON, UNSPECIFIED (3) Carter's esophagus determined by biopsy Code(s): K22.70 - CARTER'S ESOPHAGUS WITHOUT DYSPLASIA (4) CVA (cerebral vascular accident) Code(s): I63.9 - CEREBRAL INFARCTION, UNSPECIFIED (5) Fatty (change of) liver, not elsewhere classified Code(s): K76.0 - FATTY (CHANGE OF) LIVER, NOT ELSEWHERE CLASSIFIED (6) GI bleed Code(s): K92.2 - GASTROINTESTINAL HEMORRHAGE, UNSPECIFIED
--- NOTE | 2018-11-05 20:46 | PN ---
Progress Note, Physician Chief Complaint: Pt alert; denies chest pain or dhyspnea. History of Present Illness: The patient is a 63 year old female, from [place] with a significant past medical history of SVT (s/p ablation), afib (on Eliquis), HTN, DM, COPD, C3-C7 herniation, multiple CVAs who presents to the emergency department with vomiting and elevated LFTs. Patient notes he was sent to the ED by Dr. Faith for further evaluation, a CT scan, and admission. The patient reports she fell last night as she was getting out of bed. The patient denies any head trauma, - Current Medication List Current Medications: Active Medications Alprazolam (Xanax -) 0.25 mg PO BID PRN PRN Reason: AGITATION Last Admin: 11/04/18 21:45 Dose: 0.25 mg Apixaban (Eliquis -) 5 mg PO BID [facility] Last Admin: 11/05/18 11:07 Dose: 5 mg Escitalopram Oxalate (Lexapro -) 20 mg PO DAILY [facility] Last Admin: 11/05/18 13:08 Dose: 20 mg Ferrous Sulfate (Feosol -) 325 mg PO TIDCM [facility] Last Admin: 11/05/18 16:42 Dose: 325 mg Folic Acid (Folic Acid -) 1 mg PO DAILY [facility] Last Admin: 11/05/18 13:08 Dose: 1 mg Insulin Aspart (Novolog Vial) [address] [facility]; Protocol Last Admin: 11/05/18 16:42 Dose: Not Given Lidocaine (Lidoderm Patch -) 1 patch TP DAILY [facility] Last Admin: 11/05/18 11:09 Dose: 1 patch Lisinopril (Prinivil) 2.5 mg PO BID [facility] Last Admin: 11/05/18 13:09 Dose: 2.5 mg Metoprolol Tartrate (Lopressor -) 25 mg PO BID [facility] Last Admin: 11/05/18 13:08 Dose: 25 mg Miscellaneous (Lidoderm Patch Removal) 1 each MC DAILY@2200 [facility] Multivitamins/Minerals/Vitamin C (Tab-A-Vit -) 1 tab PO DAILY [facility] Last Admin: 11/05/18 13:08 Dose: 1 tab Ondansetron HCl (Zofran Injection) 8 mg IVPB Q8H PRN PRN Reason: NAUSEA AND/OR VOMITING Last Admin: 11/04/18 10:01 Dose: 8 mg Pantoprazole Sodium (Protonix -) 40 mg PO DAILY [facility] Last Admin: 11/05/18 11:07 Dose: 40 mg Sucralfate (Carafate -) 1 gm PO ACHS [facility] Last Admin: 11/05/18 16:42 Dose: 1 gm - Objective Vital Signs: Vital Signs Temperature 97.8 F 11/05/18 17:31 Pulse Rate 89 11/05/18 17:31 Respiratory Rate 18 11/05/18 17:31 Blood Pressure 149/87 11/05/18 17:31 O2 Sat by Pulse Oximetry (%) 98 11/05/18 09:00 Labs: CBC, BMP 11/05/18 06:35 11/05/18 06:35 INR, PTT INR 1.46 (0.83-1.09) H 11/03/18 06:10 Problem List - Problems (1) Elevated LFTs Assessment/Plan: Increasing LFTS this admission. Decrease or hold statin. F/u with GI. Code(s): R94.5 - ABNORMAL RESULTS OF LIVER FUNCTION STUDIES (2) Acute on chronic diastolic CHF (congestive heart failure) Assessment/Plan: On metoprolol and lisinopril. Code(s): I50.33 - ACUTE ON CHRONIC DIASTOLIC (CONGESTIVE) HEART FAILURE (3) Anemia Code(s): D64.9 - ANEMIA, UNSPECIFIED Qualifiers: Anemia type: unspecified type Qualified Code(s): D64.9 - Anemia, unspecified (4) Anxiety and depression Assessment/Plan: On SSRI. Code(s): F41.9 - ANXIETY DISORDER, UNSPECIFIED; F32.9 - MAJOR DEPRESSIVE DISORDER, SINGLE EPISODE, UNSPECIFIED (5) Atrial flutter Assessment/Plan: ON metoprolol for HR control. Has been on apixaban: ? breakthrough embolic CVA. 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 Code(s): K22.70 - CALDERON'S ESOPHAGUS WITHOUT DYSPLASIA (7) COPD (chronic obstructive pulmonary disease) Code(s): J44.9 - CHRONIC OBSTRUCTIVE PULMONARY DISEASE, UNSPECIFIED (8) Colon cancer Code(s): C18.9 - MALIGNANT NEOPLASM OF COLON, UNSPECIFIED (9) Diabetes Code(s): E11.9 - TYPE 2 DIABETES MELLITUS WITHOUT COMPLICATIONS (10) Fall Code(s): W19.XXXA - UNSPECIFIED FALL, INITIAL ENCOUNTER Qualifiers: Encounter type: initial encounter Qualified Code(s): W19.XXXA - Unspecified fall, initial encounter (11) HTN (hypertension) Code(s): I10 - ESSENTIAL (PRIMARY) HYPERTENSION (12) Headache Code(s): R51 - HEADACHE Qualifiers: Headache type: tension-type Headache chronicity pattern: acute headache Intractability: not intractable Qualified Code(s): G44.209 - Tension-type headache, unspecified, not intractable (13) Hyperlipidemia Code(s): E78.5 - HYPERLIPIDEMIA, UNSPECIFIED (14) Obesity Code(s): E66.9 - OBESITY, UNSPECIFIED (15) Weakness Code(s): R53.1 - WEAKNESS (16) CVA (cerebral vascular accident) Code(s): I63.9 - CEREBRAL INFARCTION, UNSPECIFIED
[2018-11-05 21:12] LABS: COMPLEMENT TOTAL(CH50) 60 U/mL (>41)
[2018-11-05] MEDS ORDERED: ATORVASTATIN CA 20 MG TABLET (FP) PO SCH (22:00)
[2018-11-05] MEDS: ALPRAZolam 0.25 MG TABLET PO PRN (22:07)
[2018-11-05] MEDS: LIDOCAINE PATCH REMOVAL MC SCH ×2 (22:08→22:27)
[2018-11-06] MEDS: SUCRALFATE 1 GM TABLET (FP) PO SCH ×4 (06:37→22:46)
[2018-11-06] MEDS: INSULIN (NOVOLOG) ASPART 100 UNITS/ML 10ML VIAL SQ SCH ×4 (06:38→22:50)
[2018-11-06 08:03] LABS: INR 1.41 (0.83-1.09); PROTHROMBIN TIME (PATIENT) 16.7 SEC (9.7-13.0)
[2018-11-06 08:18] LABS: CHOLESTEROL 160 mg/dL (50-200); HDL CHOLESTEROL 32 mg/dL (40-60); TRIGLYCERIDES 40 mg/dL (0-150)
[2018-11-06 08:20] LABS: BASO % 0.5 % (0-2.0); EOS % 7.6 % (0-4.5); HEMATOCRIT 27.6 % (32.4-45.2); HEMOGLOBIN 8.8 GM/dL (10.7-15.3); LYMPH % 15.9 % (8-40); MCH 25.7 pg (25.7-33.7); MEAN CELL VOLUME 80.3 fl (80-96); MEAN PLT VOLUME 8.8 fl (7.5-11.1); MONO % 8.6 % (3.8-10.2); NEUT % 67.4 % (42.8-82.8); PLATELET COUNT 171 K/MM3 (134-434); RBC 3.44 M/mm3 (3.60-5.2); RDW 19.5 % (11.6-15.6); WHITE BLOOD COUNT 3.4 K/mm3 (4.0-10.0)
[2018-11-06 08:25] LABS: ALK PHOS 975 U/L (45-117); ANION GAP 6 MMOL/L (8-16); BILIRUBIN,DIRECT 1.6 mg/dL (0.0-0.2); BILIRUBIN,TOTAL 1.8 mg/dL (0.2-1); BLOOD UREA NITROGEN 8 mg/dL (7-18); CALCIUM 7.8 mg/dL (8.5-10.1); CHLORIDE 106 mmol/L (98-107); CO2 27 mmol/L (21-32); CREATININE 0.4 mg/dL (0.55-1.3); GLUCOSE,RANDOM 76 mg/dL (74-106); POTASSIUM 3.4 mmol/L (3.5-5.1); SGOT/AST 194 U/L (15-37); SGPT/ALT 177 U/L (13-61); SODIUM 138 mmol/L (136-145); TOT PROT 4.3 g/dl (6.4-8.2)
[2018-11-06] MEDS ORDERED: PT OWN MED DRAWER 7, Y5N ONE ×2 (08:33→17:08)
[2018-11-06] MEDS: FOLIC ACID 1 MG TABLET (FP) PO SCH (09:17)
[2018-11-06] MEDS: LISINOPRIL 5 MG TABLET (FP) PO SCH ×3 (09:17→22:46)
[2018-11-06] MEDS: PANTOPRAZOLE 40 MG TABLET (FP) PO SCH (09:17)
[2018-11-06] MEDS: APIXABAN 5 MG TABLET PO SCH ×2 (09:17→10:26)
[2018-11-06] MEDS: MULTIVITAMINS (DAILY MVI) TABLET (FP) PO SCH (09:17)
[2018-11-06] MEDS: METOPROLOL TARTRATE 25 MG TABLET (FP) PO SCH ×3 (09:17→22:47)
[2018-11-06] MEDS: ESCITALOPRAM OXALATE 20 MG TABLET (FP) PO SCH (09:17)
[2018-11-06] MEDS: LIDOCAINE 5% TOPICAL PATCH TP SCH ×2 (09:17→10:00)
[2018-11-06] MEDS: FERROUS SO4 325 MG TABLET (FP) PO SCH ×3 (09:18→18:30)
--- NOTE | 2018-11-06 09:57 | PN ---
Progress Note, Physician Chief Complaint: awake alert NAD n new c/o no pain no N/V increasing LFTs - Current Medication List Current Medications: Active Medications Alprazolam (Xanax -) 0.25 mg PO BID PRN PRN Reason: AGITATION Last Admin: 11/05/18 22:07 Dose: 0.25 mg Apixaban (Eliquis -) 5 mg PO BID [facility] Last Admin: 11/06/18 09:17 Dose: 5 mg Escitalopram Oxalate (Lexapro -) 20 mg PO DAILY [facility] Last Admin: 11/06/18 09:17 Dose: 20 mg Ferrous Sulfate (Feosol -) 325 mg PO TIDCM [facility] Last Admin: 11/06/18 09:18 Dose: 325 mg Folic Acid (Folic Acid -) 1 mg PO DAILY [facility] Last Admin: 11/06/18 09:17 Dose: 1 mg Insulin Aspart (Novolog Vial) 1 units SQ ACHS [facility]; Protocol Last Admin: 11/06/18 06:38 Dose: Not Given Lidocaine (Lidoderm Patch -) 1 patch TP DAILY [facility] Last Admin: 11/06/18 09:17 Dose: 1 patch Lisinopril (Prinivil) 2.5 mg PO BID [facility] Last Admin: 11/06/18 09:45 Dose: Not Given Metoprolol Tartrate (Lopressor -) 25 mg PO BID [facility] Last Admin: 11/06/18 09:42 Dose: Not Given Miscellaneous (Lidoderm Patch Removal) 1 each MC DAILY@2200 [facility] Last Admin: 11/05/18 22:27 Dose: 1 each Multivitamins/Minerals/Vitamin C (Tab-A-Vit -) 1 tab PO DAILY [facility] Last Admin: 11/06/18 09:17 Dose: 1 tab Ondansetron HCl (Zofran Injection) 8 mg IVPB Q8H PRN PRN Reason: NAUSEA AND/OR VOMITING Last Admin: 11/04/18 10:01 Dose: 8 mg Pantoprazole Sodium (Protonix -) 40 mg PO DAILY [facility] Last Admin: 11/06/18 09:17 Dose: 40 mg Sucralfate (Carafate -) 1 gm PO ACHS [facility] Last Admin: 11/06/18 06:37 Dose: 1 gm - Objective Vital Signs: Vital Signs Temperature 97.9 F 11/06/18 06:27 Pulse Rate 61 11/06/18 06:27 Respiratory Rate 18 11/06/18 06:27 Blood Pressure 134/74 11/06/18 06:27 O2 Sat by Pulse Oximetry (%) 98 11/05/18 21:00 Constitutional: Yes: No Distress, Calm Eyes: Yes: Conjunctiva Clear HENT: Yes: Atraumatic Neck: Yes: Supple Cardiovascular: Yes: Regular Rate and Rhythm Respiratory: Yes: CTA Bilaterally Gastrointestinal: Yes: Soft. No: Tenderness Genitourinary: No: Hematuria Musculoskeletal: No: Joint Stiffness, Joint Swelling Extremities: No: Cold, Cool, Cyanosis Edema: No Neurological: Yes: Alert ...Motor Strength: WNL Psychiatric: Yes: Alert. No: Agitated, Suicidal Ideation Labs: CBC, BMP 11/06/18 06:30 11/06/18 06:30 INR, PTT INR 1.41 (0.83-1.09) H 11/06/18 06:30 - ....Imaging Other: Report Reviewed Assessment/Plan Patient is a 63F from [facility] w/ PMHx SVT s/p ablation, afib on Eliquis, HTN, DM, COPD. C3-C7 herniation, multiple CVAs, anemia, colon CA s/p recent R hemicolectomy, remote breast CA lumpectomy, benign thyroid nodule, admitted with vomiting and elevated LFTs;. s/p recent UTI tx with 2d macrobid then 3 days bactrim (ATB completed in [place] about 1 month ago at that time UCx done for increased confusion and aggressive behaviour toward NH staff at that time) ; Recurrent falls; on head CT evidence of recent subacute new CVA nonhg R frontal (not present on head CT from September) despite eliquis tx. GI, ONC f/u - consults noted d/w GI might need liver biopsy if not improving; held eliquis - start sq lovenox d/w cardiology abdomen CT; liver US c/w fatty liver; MRI can not be done b/o PPM (d/w cardiology: her PPM is newer generation and is compatible with MRI but per MRI staff our MRI is not compatible with any PPM) falls pfx d/w pt do not get OOB alone she understood prognosis guarded d/w pt and staff d/w pt's son Bill all the above / phone
[2018-11-06] MEDS ORDERED: POTASSIUM CHLORIDE TABS 10 MEQ TABLET.ER (FP) PO ONE (10:24)
--- NOTE | 2018-11-06 10:42 | PN ---
Progress Note, Physician Chief Complaint: Pt alert; denies chest pain or dhyspnea.; able to talk about her conversation with her son, and his awareness that a procedure might need to be done. History of Present Illness: The patient is a 63 year old female, from [place] with a significant past medical history of SVT (s/p ablation), afib (on Eliquis), HTN, DM, COPD, C3-C7 herniation, multiple CVAs who presents to the emergency department with vomiting and elevated LFTs. Patient notes he was sent to the ED by Dr. Faith for further evaluation, a CT scan, and admission. The patient reports she fell last night as she was getting out of bed. The patient denies any head trauma, - Current Medication List Current Medications: Active Medications Alprazolam (Xanax -) 0.25 mg PO BID PRN PRN Reason: AGITATION Last Admin: 11/05/18 22:07 Dose: 0.25 mg Escitalopram Oxalate (Lexapro -) 20 mg PO DAILY [facility] Last Admin: 11/06/18 09:17 Dose: 20 mg Ferrous Sulfate (Feosol -) 325 mg PO TIDCM [facility] Last Admin: 11/06/18 09:18 Dose: 325 mg Folic Acid (Folic Acid -) 1 mg PO DAILY [facility] Last Admin: 11/06/18 09:17 Dose: 1 mg Insulin Aspart (Novolog Vial) 1 units SQ ACHS [facility]; Protocol Last Admin: 11/06/18 06:38 Dose: Not Given Lidocaine (Lidoderm Patch -) 1 patch TP DAILY [facility] Last Admin: 11/06/18 09:17 Dose: 1 patch Lisinopril (Prinivil) 2.5 mg PO BID [facility] Last Admin: 11/06/18 09:45 Dose: Not Given Metoprolol Tartrate (Lopressor -) 25 mg PO BID [facility] Last Admin: 11/06/18 09:42 Dose: Not Given Miscellaneous (Lidoderm Patch Removal) 1 each MC DAILY@2200 [facility] Last Admin: 11/05/18 22:27 Dose: 1 each Multivitamins/Minerals/Vitamin C (Tab-A-Vit -) 1 tab PO DAILY [facility] Last Admin: 11/06/18 09:17 Dose: 1 tab Ondansetron HCl (Zofran Injection) 8 mg IVPB Q8H PRN PRN Reason: NAUSEA AND/OR VOMITING Last Admin: 11/04/18 10:01 Dose: 8 mg Pantoprazole Sodium (Protonix -) 40 mg PO DAILY [facility] Last Admin: 11/06/18 09:17 Dose: 40 mg Sucralfate (Carafate -) 1 gm PO ACHS [facility] Last Admin: 11/06/18 06:37 Dose: 1 gm - Objective Vital Signs: Vital Signs Temperature 97.9 F 11/06/18 06:27 Pulse Rate 61 11/06/18 06:27 Respiratory Rate 18 11/06/18 06:27 Blood Pressure 134/74 11/06/18 06:27 O2 Sat by Pulse Oximetry (%) 98 11/05/18 21:00 Constitutional: Yes: Well Nourished, Calm Eyes: Yes: WNL HENT: Yes: WNL, Tonsillar Exudate Cardiovascular: Yes: Pulse Irregular, S1 (varies in intensity) Respiratory: Yes: WNL Gastrointestinal: Yes: Soft ...Rectal Exam: Yes: Deferred Genitourinary: No: Anuria Breast(s): Yes: WNL Musculoskeletal: Yes: Muscle Weakness Extremities: Yes: Cool Edema: No Peripheral Pulses WNL: Yes Integumentary: Yes: WNL Neurological: Yes: Alert, Oriented, Aphasia, Unsteady Gait, Weakness Psychiatric: Yes: Other (anxiety/depression) Labs: CBC, BMP 11/06/18 06:30 11/06/18 06:30 INR, PTT INR 1.41 (0.83-1.09) H 11/06/18 06:30 Abnormal Lab Results 11/06/18 11/06/18 11/06/18 06:30 06:30 06:30 WBC 3.4 L RBC 3.44 L Hgb 8.8 L Hct 27.6 L RDW 19.5 H Eosinophils % 7.6 H PT with INR 16.70 H INR 1.41 H Potassium 3.4 L Anion Gap 6 L Creatinine 0.4 L Calcium 7.8 L Total Bilirubin 1.8 H Direct Bilirubin 1.6 H AST 194 H ALT 177 H Alkaline Phosphatase 975 H Total Protein 4.3 L Albumin 2.0 L HDL Cholesterol 11/06/18 06:30 WBC RBC Hgb Hct RDW Eosinophils % PT with INR INR Potassium Anion Gap Creatinine Calcium Total Bilirubin Direct Bilirubin AST ALT Alkaline Phosphatase Total Protein Albumin HDL Cholesterol 32 L Problem List - Problems (1) Elevated LFTs Assessment/Plan: Increasing LFTS and alk phos this admission. Statin held. SSRIs rarelhy increase LFTS (< 1%). F/u with GI, heme/onc. Code(s): R94.5 - ABNORMAL RESULTS OF LIVER FUNCTION STUDIES (2) Acute on chronic diastolic CHF (congestive heart failure) Assessment/Plan: On metoprolol and lisinopril. Code(s): I50.33 - ACUTE ON CHRONIC DIASTOLIC (CONGESTIVE) HEART FAILURE (3) Anemia Code(s): D64.9 - ANEMIA, UNSPECIFIED Qualifiers: Anemia type: unspecified type Qualified Code(s): D64.9 - Anemia, unspecified (4) Anxiety and depression Assessment/Plan: On SSRI. Code(s): F41.9 - ANXIETY DISORDER, UNSPECIFIED; F32.9 - MAJOR DEPRESSIVE DISORDER, SINGLE EPISODE, UNSPECIFIED (5) Atrial flutter Assessment/Plan: ON metoprolol for HR control. Has been on apixaban: ? breakthrough embolic CVA. f/u anticoagulant advice with hematolgy/oncology. 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 F/u with GI, heme/onc. Code(s): C18.9 - MALIGNANT NEOPLASM OF COLON, UNSPECIFIED (9) Diabetes Code(s): E11.9 - TYPE 2 DIABETES MELLITUS WITHOUT COMPLICATIONS (10) Fall Code(s): W19.XXXA - UNSPECIFIED FALL, INITIAL ENCOUNTER Qualifiers: Encounter type: initial encounter Qualified Code(s): W19.XXXA - Unspecified fall, initial encounter (11) HTN (hypertension) Assessment/Plan: on metoprolol and lisinopril. Code(s): I10 - ESSENTIAL (PRIMARY) HYPERTENSION (12) Headache Code(s): R51 - HEADACHE Qualifiers: Headache type: tension-type Headache chronicity pattern: acute headache Intractability: not intractable Qualified Code(s): G44.209 - Tension-type headache, unspecified, not intractable (13) Hyperlipidemia Code(s): E78.5 - HYPERLIPIDEMIA, UNSPECIFIED (14) Obesity Code(s): E66.9 - OBESITY, UNSPECIFIED (15) Weakness Code(s): R53.1 - WEAKNESS (16) CVA (cerebral vascular accident) Code(s): I63.9 - CEREBRAL INFARCTION, UNSPECIFIED
--- NOTE | 2018-11-06 11:16 | PN ---
Progress Note, Physician Chief Complaint: Pt alert; denies chest pain or dhyspnea. History of Present Illness: The patient is a 63 year old white woman from [place] with a significant past medical history of SVT (s/p ablation), afib (on Eliquis), HTN, DM, COPD, C3 -C7 herniation, multiple CVAs who presents to the emergency department with vomiting and elevated LFTs. Patient notes he was sent to the ED by Dr. Faith for further evaluation, a CT scan, and admission. The patient reports she fell last night as she was getting out of bed. The patient denies any head trauma, - Current Medication List Current Medications: Active Medications Alprazolam (Xanax -) 0.25 mg PO BID PRN PRN Reason: AGITATION Last Admin: 11/05/18 22:07 Dose: 0.25 mg Escitalopram Oxalate (Lexapro -) 20 mg PO DAILY [facility] Last Admin: 11/06/18 09:17 Dose: 20 mg Ferrous Sulfate (Feosol -) 325 mg PO TIDCM [facility] Last Admin: 11/06/18 09:18 Dose: 325 mg Folic Acid (Folic Acid -) 1 mg PO DAILY [facility] Last Admin: 11/06/18 09:17 Dose: 1 mg Insulin Aspart (Novolog Vial) 1 units SQ ACHS [facility]; Protocol Last Admin: 11/06/18 06:38 Dose: Not Given Lidocaine (Lidoderm Patch -) 1 patch TP DAILY [facility] Last Admin: 11/06/18 09:17 Dose: 1 patch Lisinopril (Prinivil) 2.5 mg PO BID [facility] Last Admin: 11/06/18 09:45 Dose: Not Given Metoprolol Tartrate (Lopressor -) 25 mg PO BID [facility] Last Admin: 11/06/18 09:42 Dose: Not Given Miscellaneous (Lidoderm Patch Removal) 1 each MC DAILY@2200 [facility] Last Admin: 11/05/18 22:27 Dose: 1 each Multivitamins/Minerals/Vitamin C (Tab-A-Vit -) 1 tab PO DAILY [facility] Last Admin: 11/06/18 09:17 Dose: 1 tab Ondansetron HCl (Zofran Injection) 8 mg IVPB Q8H PRN PRN Reason: NAUSEA AND/OR VOMITING Last Admin: 11/04/18 10:01 Dose: 8 mg Pantoprazole Sodium (Protonix -) 40 mg PO DAILY [facility] Last Admin: 11/06/18 09:17 Dose: 40 mg Sucralfate (Carafate -) 1 gm PO ACHS [facility] Last Admin: 11/06/18 06:37 Dose: 1 gm - Objective Vital Signs: Vital Signs Temperature 97.9 F 11/06/18 06:27 Pulse Rate 61 11/06/18 06:27 Respiratory Rate 18 11/06/18 06:27 Blood Pressure 134/74 11/06/18 06:27 O2 Sat by Pulse Oximetry (%) 98 11/05/18 21:00 Constitutional: Yes: Calm Eyes: Yes: WNL HENT: Yes: WNL Neck: Yes: WNL Cardiovascular: Yes: Pulse Irregular, S1 (varies in intensity), S2 Respiratory: Yes: WNL Gastrointestinal: Yes: Soft, Abdomen, Obese ...Rectal Exam: Yes: Deferred Genitourinary: No: Anuria Breast(s): Yes: WNL Musculoskeletal: Yes: Muscle Weakness Extremities: Yes: Cool Edema: No Peripheral Pulses WNL: No Neurological: Yes: Alert, Pre-Existing Deficit, Weakness Psychiatric: Yes: Other Labs: CBC, BMP 11/06/18 06:30 11/06/18 06:30 INR, PTT INR 1.41 (0.83-1.09) H 11/06/18 06:30 Abnormal Lab Results 11/08/18 11/08/18 11/08/18 07:00 07:00 07:00 Hgb 9.9 L Hct 29.9 L RDW 20.5 H Eosinophils % 5.2 H PT with INR 13.90 H INR 1.18 H Anion Gap 7 L Creatinine 0.5 L Calcium 7.7 L Direct Bilirubin AST 82 H ALT 121 H Alkaline Phosphatase 923 H Total Protein 4.4 L Albumin 2.0 L 11/08/18 07:00 Hgb Hct RDW Eosinophils % PT with INR INR Anion Gap Creatinine Calcium Direct Bilirubin 0.6 H AST ALT Alkaline Phosphatase Total Protein Albumin Problem List - Problems (1) Elevated LFTs Assessment/Plan: Increasing LFTS and alk phos this admission. Statin held.Pt had been on macrodantin before. SSRIs rarelhy increase LFTS (< 1%). Suspicionf for liver metastases from colon CA. F/u with GI, heme/onc. Apixaban held in anticipation of possible procedure (e.g. liver biopsy); start Lovenox 12 hours after the last dose of apixaban which was at 10 pm last night. Pt has an GUERA compatible PPM that was recently placed for AF with slow VR. However, discussion with MR alexander: the MRI unit in the hospital does not have the capability to do the test, nor is there protocol in place to do so. Code(s): R94.5 - ABNORMAL RESULTS OF LIVER FUNCTION STUDIES (2) Acute on chronic diastolic CHF (congestive heart failure) Assessment/Plan: On metoprolol and lisinopril. Code(s): I50.33 - ACUTE ON CHRONIC DIASTOLIC (CONGESTIVE) HEART FAILURE (3) Anemia Code(s): D64.9 - ANEMIA, UNSPECIFIED Qualifiers: Anemia type: unspecified type Qualified Code(s): D64.9 - Anemia, unspecified (4) Anxiety and depression Assessment/Plan: On SSRI. Code(s): F41.9 - ANXIETY DISORDER, UNSPECIFIED; F32.9 - MAJOR DEPRESSIVE DISORDER, SINGLE EPISODE, UNSPECIFIED (5) Atrial flutter Assessment/Plan: ON metoprolol for HR control. Apixapabn held; Lovenox started in anticipation of procedure. 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 Code(s): K22.70 - CALDERON'S ESOPHAGUS WITHOUT DYSPLASIA (7) COPD (chronic obstructive pulmonary disease) Code(s): J44.9 - CHRONIC OBSTRUCTIVE PULMONARY DISEASE, UNSPECIFIED (8) Colon cancer Code(s): C18.9 - MALIGNANT NEOPLASM OF COLON, UNSPECIFIED (9) Diabetes Code(s): E11.9 - TYPE 2 DIABETES MELLITUS WITHOUT COMPLICATIONS (10) Fall Code(s): W19.XXXA - UNSPECIFIED FALL, INITIAL ENCOUNTER Qualifiers: Encounter type: initial encounter Qualified Code(s): W19.XXXA - Unspecified fall, initial encounter (11) HTN (hypertension) Code(s): I10 - ESSENTIAL (PRIMARY) HYPERTENSION (12) Headache Code(s): R51 - HEADACHE Qualifiers: Headache type: tension-type Headache chronicity pattern: acute headache Intractability: not intractable Qualified Code(s): G44.209 - Tension-type headache, unspecified, not intractable (13) Hyperlipidemia Code(s): E78.5 - HYPERLIPIDEMIA, UNSPECIFIED (14) Obesity Code(s): E66.9 - OBESITY, UNSPECIFIED (15) Weakness Code(s): R53.1 - WEAKNESS (16) CVA (cerebral vascular accident) Code(s): I63.9 - CEREBRAL INFARCTION, UNSPECIFIED
[2018-11-06] MEDS ORDERED: ENOXAPARIN NA (PORCINE) 80 MG/0.8 ML DISP.SYRIN SQ ONE (11:36)
--- NOTE | 2018-11-06 13:05 | PN.GI ---
GI Progress Note Subjective: GI NOte: Denies abdominal pain but is constipated. Will start Miralax. Mentally alert. LFTs not improving. Discussed case with Dr Faith and Dr Goodman and with neurophysiology tech. MRI is not possible at [facility] with our current generation MRI and given her PPM. - Objective Vital Signs: Vital Signs Temperature 97.9 F 11/06/18 06:27 Pulse Rate 61 11/06/18 06:27 Respiratory Rate 18 11/06/18 06:27 Blood Pressure 134/74 11/06/18 06:27 O2 Sat by Pulse Oximetry (%) 98 11/05/18 21:00 Laboratory Tests 11/02/18 11/04/18 11/05/18 06:00 08:25 06:35 WBC Hgb 8.5 L Plt Count Retic Count 3.07 H D Ferritin 61.5 Total Bilirubin Direct Bilirubin AST ALT Alkaline Phosphatase 11/06/18 11/06/18 06:30 06:30 WBC 3.4 L Hgb 8.8 L Plt Count 171 Retic Count Ferritin Total Bilirubin 1.8 H Direct Bilirubin 1.6 H AST 194 H ALT 177 H Alkaline Phosphatase 975 H Constitutional: Calm ...Auscultate: Yes: Normoactive Bowel Sounds ...Palpate: Yes: Soft, Other (nontender) Labs: CBC, BMP 11/06/18 06:30 11/06/18 06:30 INR, PTT INR 1.41 (0.83-1.09) H 11/06/18 06:30 Assessment/Plan IMpression: Abnormal LFTs: Macrodantin cholestatic DILI vs metastatic liver cancer. 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
--- NOTE | 2018-11-06 20:21 | PN ---
Progress Note (short form) - Note Progress Note: Patient seen and examined Feels Ok Last Vital Signs Temp Pulse Resp BP Pulse Ox 97.9 F 82 22 H 129/64 96 11/06/18 14:14 11/06/18 14:14 11/06/18 14:14 11/06/18 14:14 11/06/18 09:00 Cor: RSR, No murmurs, No gallops Lungs: Clear to P&A Abd: Soft, Normal bowel sounds, No organomegaly Ext:No significant edema Labs/Meds reviewed A/P 63 y/o history of right hemicolectomy for a T3, N0 invasive adenoca with 0/21 nodes. Tumor penetrated the muscularis propria and invaded the pericolonic fat. Margins clear. No MSI. No perineural invasion. LVI as risk factor. Recently seen and decided against adjuvant therapy in view of T3 lesion , ( Stage II) and co- morbid conditions. Now with progressive abnormal LFT's with anorexia, general malaise and lassitude. CT with non specific periportal nodes, hepatomegaly and new splenomegaly. Mildly enlarged Argelia hepatis and retroperitoneal adenopathy will check cultures will check duple to r/o portal vein thrombus CEA normal ? liver biopsy ct head -- subacute infarct on eliquis On lovenox
[2018-11-06] MEDS: ALPRAZolam 0.25 MG TABLET PO PRN (22:47)
[2018-11-06] MEDS: ENOXAPARIN NA (PORCINE) 80 MG/0.8 ML DISP.SYRIN SQ SCH (22:47)
[2018-11-06] MEDS: LIDOCAINE PATCH REMOVAL MC SCH (22:47)
[2018-11-06] MEDS: POLYETHYLENE GLYCOL 3350 119 GM BTL PO SCH (22:49)
--- NOTE | 2018-11-07 06:10 | PN ---
Progress Note, Physician Chief Complaint: feels better no N/V no pain LFTs slightly better today - Current Medication List Current Medications: Active Medications Alprazolam (Xanax -) 0.25 mg PO BID PRN PRN Reason: AGITATION Last Admin: 11/06/18 22:47 Dose: 0.25 mg Enoxaparin Sodium (Lovenox -) 80 mg SQ Q12H [facility] Last Admin: 11/06/18 22:47 Dose: 80 mg Escitalopram Oxalate (Lexapro -) 20 mg PO DAILY [facility] Last Admin: 11/06/18 09:17 Dose: 20 mg Ferrous Sulfate (Feosol -) 325 mg PO TIDCM [facility] Last Admin: 11/06/18 18:30 Dose: 325 mg Folic Acid (Folic Acid -) 1 mg PO DAILY [facility] Last Admin: 11/06/18 09:17 Dose: 1 mg Insulin Aspart (Novolog Vial) 1 units SQ [facility]; Protocol Last Admin: 11/06/18 22:50 Dose: Not Given Lidocaine (Lidoderm Patch -) 1 patch TP DAILY [facility] Last Admin: 11/06/18 10:00 Dose: Not Given Lisinopril (Prinivil) 2.5 mg PO BID [facility] Last Admin: 11/06/18 22:46 Dose: 2.5 mg Metoprolol Tartrate (Lopressor -) 25 mg PO BID [facility] Last Admin: 11/06/18 22:47 Dose: 25 mg Miscellaneous (Lidoderm Patch Removal) 1 each MC DAILY@2200 [facility] Last Admin: 11/06/18 22:47 Dose: 1 each Multivitamins/Minerals/Vitamin C (Tab-A-Vit -) 1 tab PO DAILY [facility] Last Admin: 11/06/18 09:17 Dose: 1 tab Ondansetron HCl (Zofran Injection) 8 mg IVPB Q8H PRN PRN Reason: NAUSEA AND/OR VOMITING Last Admin: 11/04/18 10:01 Dose: 8 mg Pantoprazole Sodium (Protonix -) 40 mg PO DAILY [facility] Last Admin: 11/06/18 09:17 Dose: 40 mg Polyethylene Glycol (Miralax (For Daily Use) -) 17 gm PO BID [facility] Last Admin: 11/06/18 22:49 Dose: 17 gm Sucralfate (Carafate -) 1 gm PO [facility] Last Admin: 11/06/18 22:46 Dose: 1 gm - Objective Vital Signs: Vital Signs Temperature 97.9 F 11/06/18 22:29 Pulse Rate 89 11/06/18 22:29 Respiratory Rate 20 11/06/18 22:29 Blood Pressure 144/80 11/06/18 22:29 O2 Sat by Pulse Oximetry (%) 96 11/06/18 21:00 Constitutional: Yes: Calm Eyes: Yes: Conjunctiva Clear HENT: Yes: Atraumatic Neck: Yes: Supple Cardiovascular: Yes: Regular Rate and Rhythm Respiratory: Yes: CTA Bilaterally Gastrointestinal: Yes: Soft. No: Tenderness Genitourinary: No: Hematuria Musculoskeletal: No: Joint Stiffness, Joint Swelling Extremities: No: Cold, Cool, Cyanosis Edema: No Integumentary: No: Rash, Venous Stasis Changes Neurological: Yes: WNL, Alert, Oriented ...Motor Strength: WNL Psychiatric: Yes: WNL, Alert, Oriented. No: Agitated, Suicidal Ideation Labs: CBC, BMP 11/06/18 06:30 11/06/18 06:30 INR, PTT INR 1.41 (0.83-1.09) H 11/06/18 06:30 - ....Imaging Other: Report Reviewed Assessment/Plan Patient is a 63F from [place] w/ PMHx SVT s/p ablation,P afib on Eliquis, HTN, DM, COPD. C3-C7 herniation, multiple CVAs, anemia, colon CA s/p recent R hemicolectomy, remote breast CA s/p lumpectomy, benign thyroid nodule, admitted with vomiting and elevated LFTs;. s/p recent UTI / ATB x 5 days 1 month ago; Recurrent falls; on head CT evidence of recent subacute new CVA nonhg R frontal (not present on head CT from September) despite eliquis tx. Switched to sq lovenox in anticipation for liver biopsy f/u LFTs - today slightly better; falls pfx d/w pt do not get OOB alone she understood prognosis guarded d/w pt and staff called and d/w pt's son Bill all the above / phone
[2018-11-07] MEDS: SUCRALFATE 1 GM TABLET (FP) PO SCH ×4 (06:13→22:46)
[2018-11-07] MEDS: INSULIN (NOVOLOG) ASPART 100 UNITS/ML 10ML VIAL SQ SCH ×4 (06:14→22:55)
[2018-11-07 08:36] LABS: BASO % 0.5 % (0-2.0); EOS % 5.8 % (0-4.5); HEMATOCRIT 29.7 % (32.4-45.2); HEMOGLOBIN 9.5 GM/dL (10.7-15.3); LYMPH % 18.5 % (8-40); MCH 25.7 pg (25.7-33.7); MEAN CELL VOLUME 80.2 fl (80-96); MEAN PLT VOLUME 8.8 fl (7.5-11.1); MONO % 7.4 % (3.8-10.2); NEUT % 67.8 % (42.8-82.8); PLATELET COUNT 206 K/MM3 (134-434); WHITE BLOOD COUNT 4.5 K/mm3 (4.0-10.0)
[2018-11-07 08:42] LABS: INR 1.28 (0.83-1.09); PROTHROMBIN TIME (PATIENT) 15.1 SEC (9.7-13.0)
[2018-11-07 08:49] LABS: ALK PHOS 906 U/L (45-117); ANION GAP 7 MMOL/L (8-16); BILIRUBIN,TOTAL 1.2 mg/dL (0.2-1); BLOOD UREA NITROGEN 5 mg/dL (7-18); CHLORIDE 105 mmol/L (98-107); CO2 28 mmol/L (21-32); CREATININE 0.5 mg/dL (0.55-1.3); GAMMA GLUTAMYL TRANSPEPTIDASE 743 U/L (5-85); GLUCOSE,RANDOM 75 mg/dL (74-106); POTASSIUM 3.3 mmol/L (3.5-5.1); SGOT/AST 123 U/L (15-37); SGPT/ALT 151 U/L (13-61); SODIUM 140 mmol/L (136-145); TOT PROT 4.3 g/dl (6.4-8.2)
[2018-11-07] MEDS: PANTOPRAZOLE 40 MG TABLET (FP) PO SCH (09:47)
[2018-11-07] MEDS: LISINOPRIL 5 MG TABLET (FP) PO SCH ×2 (09:48→22:46)
[2018-11-07] MEDS: ESCITALOPRAM OXALATE 20 MG TABLET (FP) PO SCH (09:50)
[2018-11-07] MEDS: FOLIC ACID 1 MG TABLET (FP) PO SCH (09:50)
[2018-11-07] MEDS: METOPROLOL TARTRATE 25 MG TABLET (FP) PO SCH ×2 (09:51→22:47)
[2018-11-07] MEDS: MULTIVITAMINS (DAILY MVI) TABLET (FP) PO SCH (09:51)
[2018-11-07] MEDS: LIDOCAINE 5% TOPICAL PATCH TP SCH (09:52)
[2018-11-07] MEDS: FERROUS SO4 325 MG TABLET (FP) PO SCH ×3 (09:54→16:46)
[2018-11-07] MEDS: ENOXAPARIN NA (PORCINE) 80 MG/0.8 ML DISP.SYRIN SQ SCH ×2 (09:54→22:46)
[2018-11-07] MEDS: POLYETHYLENE GLYCOL 3350 119 GM BTL PO SCH ×2 (09:55→22:47)
[2018-11-07] MEDS ORDERED: POTASSIUM CHLORIDE TABS 20 MEQ TABLET.ER (FP) PO SCH (10:00)
[2018-11-07] MEDS: POTASSIUM CHLORIDE TABS 20 MEQ TABLET.ER (FP) PO SCH (11:33)
[2018-11-07] MEDS: LIDOCAINE PATCH REMOVAL MC SCH (22:47)
[2018-11-08] MEDS: INSULIN (NOVOLOG) ASPART 100 UNITS/ML 10ML VIAL SQ SCH ×4 (06:01→23:00)
[2018-11-08] MEDS: SUCRALFATE 1 GM TABLET (FP) PO SCH ×4 (06:14→22:42)
[2018-11-08 07:36] LABS: BASO % 0.5 % (0-2.0); EOS % 5.2 % (0-4.5); HEMATOCRIT 29.9 % (32.4-45.2); HEMOGLOBIN 9.9 GM/dL (10.7-15.3); LYMPH % 18.3 % (8-40); MCH 26.8 pg (25.7-33.7); MCHC 33.1 g/dl (32.0-36.0); MEAN CELL VOLUME 80.9 fl (80-96); MEAN PLT VOLUME 8.8 fl (7.5-11.1); MONO % 7.7 % (3.8-10.2); NEUT % 68.3 % (42.8-82.8); PLATELET COUNT 234 K/MM3 (134-434); RBC 3.69 M/mm3 (3.60-5.2); RDW 20.5 % (11.6-15.6); WHITE BLOOD COUNT 4.4 K/mm3 (4.0-10.0)
[2018-11-08 08:03] LABS: ALK PHOS 923 U/L (45-117); ANION GAP 7 MMOL/L (8-16); BILIRUBIN,TOTAL 0.8 mg/dL (0.2-1); BLOOD UREA NITROGEN 9 mg/dL (7-18); CALCIUM 7.7 mg/dL (8.5-10.1); CHLORIDE 105 mmol/L (98-107); CO2 27 mmol/L (21-32); CREATININE 0.5 mg/dL (0.55-1.3); GLUCOSE,RANDOM 83 mg/dL (74-106); POTASSIUM 3.6 mmol/L (3.5-5.1); SGOT/AST 82 U/L (15-37); SGPT/ALT 121 U/L (13-61); SODIUM 139 mmol/L (136-145); TOT PROT 4.4 g/dl (6.4-8.2)
[2018-11-08] MEDS: FERROUS SO4 325 MG TABLET (FP) PO SCH ×3 (08:30→17:47)
--- NOTE | 2018-11-08 08:49 | PN ---
Progress Note, Physician Chief Complaint: feeling better no new c/o labs better - Current Medication List Current Medications: Active Medications Alprazolam (Xanax -) 0.25 mg PO BID PRN PRN Reason: AGITATION Last Admin: 11/06/18 22:47 Dose: 0.25 mg Enoxaparin Sodium (Lovenox -) 80 mg SQ Q12H [facility] Last Admin: 11/07/18 22:46 Dose: 80 mg Escitalopram Oxalate (Lexapro -) 20 mg PO DAILY [facility] Last Admin: 11/07/18 09:50 Dose: 20 mg Ferrous Sulfate (Feosol -) 325 mg PO TIDCM [facility] Last Admin: 11/08/18 08:30 Dose: 325 mg Folic Acid (Folic Acid -) 1 mg PO DAILY [facility] Last Admin: 11/07/18 09:50 Dose: 1 mg Insulin Aspart (Novolog Vial) 1 units SQ ACHS [facility]; Protocol Last Admin: 11/08/18 06:01 Dose: Not Given Lidocaine (Lidoderm Patch -) 1 patch TP DAILY [facility] Last Admin: 11/07/18 09:52 Dose: 1 patch Lisinopril (Prinivil) 2.5 mg PO BID [facility] Last Admin: 11/07/18 22:46 Dose: 2.5 mg Metoprolol Tartrate (Lopressor -) 25 mg PO BID [facility] Last Admin: 11/07/18 22:47 Dose: 25 mg Miscellaneous (Lidoderm Patch Removal) 1 each MC DAILY@2200 [facility] Last Admin: 11/07/18 22:47 Dose: 1 each Multivitamins/Minerals/Vitamin C (Tab-A-Vit -) 1 tab PO DAILY [facility] Last Admin: 11/07/18 09:51 Dose: 1 tab Ondansetron HCl (Zofran Injection) 8 mg IVPB Q8H PRN PRN Reason: NAUSEA AND/OR VOMITING Last Admin: 11/04/18 10:01 Dose: 8 mg Pantoprazole Sodium (Protonix -) 40 mg PO DAILY [facility] Last Admin: 11/07/18 09:47 Dose: 40 mg Polyethylene Glycol (Miralax (For Daily Use) -) 17 gm PO BID [facility] Last Admin: 11/07/18 22:47 Dose: 17 gm Potassium Chloride (K-Dur -) 20 meq PO DAILY [facility] Last Admin: 11/07/18 11:33 Dose: 20 meq Sucralfate (Carafate -) 1 gm PO ACHS [facility] Last Admin: 11/08/18 06:14 Dose: 1 gm - Objective Vital Signs: Vital Signs Temperature 97.9 F 11/08/18 06:00 Pulse Rate 87 11/08/18 06:00 Respiratory Rate 18 11/08/18 06:00 Blood Pressure 130/84 11/08/18 06:00 O2 Sat by Pulse Oximetry (%) 96 11/07/18 09:00 Constitutional: Yes: No Distress, Calm Eyes: Yes: Conjunctiva Clear HENT: Yes: Atraumatic Neck: Yes: Supple Cardiovascular: Yes: Regular Rate and Rhythm Respiratory: Yes: CTA Bilaterally Gastrointestinal: Yes: Soft. No: Tenderness Genitourinary: No: Hematuria Musculoskeletal: No: Joint Stiffness, Joint Swelling Extremities: No: Cold, Cool, Cyanosis Edema: No Integumentary: No: Rash, Venous Stasis Changes Neurological: Yes: Alert ...Motor Strength: WNL Psychiatric: Yes: Alert. No: Agitated, Suicidal Ideation Labs: CBC, BMP 11/08/18 07:00 11/08/18 07:00 INR, PTT INR 1.28 (0.83-1.09) H 11/07/18 07:00 - ....Imaging Other: Report Reviewed Assessment/Plan Patient is a 63F from [facility] w/ PMHx SVT s/p ablation,P afib on Eliquis, HTN, DM, COPD. C3-C7 herniation, multiple CVAs, anemia, colon CA s/p recent R hemicolectomy, remote breast CA s/p lumpectomy, benign thyroid nodule, admitted with vomiting and elevated LFTs;. s/p recent UTI / ATB x 5 days 1 month ago; Recurrent falls; on head CT evidence of recent subacute new CVA nonhg R frontal (not present on head CT from September) despite eliquis tx. Switched to sq lovenox further AC to be determined f/u LFTs - better; will dwGI heme onc the need for liver biopsy anymore; pt's son expressed wish to have PET scan done; d/w him PET would be done outpt - [facility] does not have it falls pfx d/w pt do not get OOB alone she understood prognosis guarded d/w pt and staff called and d/w pt's son Bill all the above / phone
[2018-11-08 08:50] LABS: INR 1.18 (0.83-1.09); PROTHROMBIN TIME (PATIENT) 13.9 SEC (9.7-13.0)
--- NOTE | 2018-11-08 09:03 | PN ---
Progress Note (short form) - Note Progress Note: Neurology - History of Present Illness 63F from [place] w/ PMHx SVT s/p ablation, afib on Eliquis, HTN, DM, COPD. C3 -C7 herniation, multiple CVAs here today with vomiting and elevated LFTs. Patient is currently under the care of Dr Faith, who was sent the patient in for admission. US done on 10/26 showed fatty liver, no other abnormalities. Patient reported that she had recent fall as she got out of bed. Denied head trauma but CT head completed and showed area of subacute infarct in R bird radiata. Also showed ischemic infarcts in b/l bird as well as right occipital. I was notified by primary and discussed case. She is on AC, Eliquis, and did not hold AC. Repeat CT head confirmed findings. LDL normal at 52. Patient remains alert, awake, cooperative. Does have lapses in mental status at times. Remains stable, spoke with PCP before weekend regarding plan for ultrasound guided liver biopsy. Patient AC to be held prior to procedure, advise restarting as soon as possible after. Active Medications Alprazolam (Xanax -) 0.25 mg PO BID PRN PRN Reason: AGITATION Last Admin: 11/06/18 22:47 Dose: 0.25 mg Enoxaparin Sodium (Lovenox -) 80 mg SQ Q12H [facility] Last Admin: 11/07/18 22:46 Dose: 80 mg Escitalopram Oxalate (Lexapro -) 20 mg PO DAILY [facility] Last Admin: 11/07/18 09:50 Dose: 20 mg Ferrous Sulfate (Feosol -) 325 mg PO TIDCM [facility] Last Admin: 11/08/18 08:30 Dose: 325 mg Folic Acid (Folic Acid -) 1 mg PO DAILY [facility] Last Admin: 11/07/18 09:50 Dose: 1 mg Insulin Aspart (Novolog Vial) 1 units SQ ACHS [facility]; Protocol Last Admin: 11/08/18 06:01 Dose: Not Given Lidocaine (Lidoderm Patch -) 1 patch TP DAILY [facility] Last Admin: 11/07/18 09:52 Dose: 1 patch Lisinopril (Prinivil) 2.5 mg PO BID [facility] Last Admin: 11/07/18 22:46 Dose: 2.5 mg Metoprolol Tartrate (Lopressor -) 25 mg PO BID [facility] Last Admin: 11/07/18 22:47 Dose: 25 mg Miscellaneous (Lidoderm Patch Removal) 1 each MC DAILY@2200 [facility] Last Admin: 11/07/18 22:47 Dose: 1 each Multivitamins/Minerals/Vitamin C (Tab-A-Vit -) 1 tab PO DAILY [facility] Last Admin: 11/07/18 09:51 Dose: 1 tab Ondansetron HCl (Zofran Injection) 8 mg IVPB Q8H PRN PRN Reason: NAUSEA AND/OR VOMITING Last Admin: 11/04/18 10:01 Dose: 8 mg Pantoprazole Sodium (Protonix -) 40 mg PO DAILY [facility] Last Admin: 11/07/18 09:47 Dose: 40 mg Polyethylene Glycol (Miralax (For Daily Use) -) 17 gm PO BID [facility] Last Admin: 11/07/18 22:47 Dose: 17 gm Potassium Chloride (K-Dur -) 20 meq PO DAILY [facility] Last Admin: 11/07/18 11:33 Dose: 20 meq Sucralfate (Carafate -) 1 gm PO ACHS [facility] Last Admin: 11/08/18 06:14 Dose: 1 gm *Physical Exam Vital Signs Period Temp Pulse Resp BP Sys/Juarez Pulse Ox Last 24 Hr 97.9 F-98.3 F 87-92 18-18 113-144/73-94 GENERAL: Awake, alert, and fully oriented, in no acute distress HEAD: No signs of trauma, normocephalic, atraumatic EYES: PERRLA, EOMI, sclera anicteric, conjunctiva clear ENT: Auricles normal inspection, hearing grossly normal, nares patent, oropharynx clear without exudates. Moist mucosa NECK: Normal ROM, supple, no lymphadenopathy, JVD, or masses LUNGS: No distress, speaks full sentences, clear to auscultation bilaterally HEART: Regular rate and rhythm, normal S1 and S2, no murmurs, rubs or gallops, peripheral pulses normal and equal bilaterally. ABDOMEN: Soft, +RUQ tenderness, normoactive bowel sounds. No guarding, no rebound. No masses EXTREMITIES: Normal inspection, Normal range of motion, no edema. No clubbing or cyanosis. NEUROLOGICAL: Cranial nerves II through XII grossly intact. Normal speech, no focal sensorimotor deficits, finger to nose normal, sensory intact. SKIN: Warm, Dry, normal turgor, no rashes or lesions noted. CBCD WBC 4.4 K/mm3 (4.0-10.0) 11/08/18 07:00 RBC 3.69 M/mm3 (3.60-5.2) 11/08/18 07:00 Hgb 9.9 GM/dL (10.7-15.3) L 11/08/18 07:00 Hct 29.9 % (32.4-45.2) L 11/08/18 07:00 MCV 80.9 fl (80-96) 11/08/18 07:00 MCHC 33.1 g/dl (32.0-36.0) 11/08/18 07:00 RDW 20.5 % (11.6-15.6) H 11/08/18 07:00 Plt Count 234 K/MM3 (134-434) 11/08/18 07:00 MPV 8.8 fl (7.5-11.1) 11/08/18 07:00 CMP Sodium 139 mmol/L (136-145) 11/08/18 07:00 Potassium 3.6 mmol/L (3.5-5.1) 11/08/18 07:00 Chloride 105 mmol/L (98-107) 11/08/18 07:00 Carbon Dioxide 27 mmol/L (21-32) 11/08/18 07:00 Anion Gap 7 MMOL/L (8-16) L 11/08/18 07:00 BUN 9 mg/dL (7-18) 11/08/18 07:00 Creatinine 0.5 mg/dL (0.55-1.3) L 11/08/18 07:00 Creat Clearance w eGFR 125.43 (>60) 11/08/18 07:00 Random Glucose 83 mg/dL (74-106) 11/08/18 07:00 Calcium 7.7 mg/dL (8.5-10.1) L 11/08/18 07:00 Total Bilirubin 0.8 mg/dL (0.2-1) 11/08/18 07:00 AST 82 U/L (15-37) H 11/08/18 07:00 ALT 121 U/L (13-61) H 11/08/18 07:00 Alkaline Phosphatase 923 U/L (45-117) H 11/08/18 07:00 Total Protein 4.4 g/dl (6.4-8.2) L 11/08/18 07:00 Albumin 2.0 g/dl (3.4-5.0) L 11/08/18 07:00 CARDIAC ENZYMES Creatine Kinase 11 U/L (26-192) L 11/02/18 06:00 Troponin I < 0.02 ng/ml (0.00-0.05) 11/02/18 05:30 Medical Decision Making 63F from [place] w/ PMHx SVT s/p ablation, afib on Eliquis, HTN, DM, COPD. C3 -C7 herniation, multiple CVAs here today with vomiting and elevated LFTs. Patient is currently under the care of Dr Faith, who was sent the patient in for admission. US done on 10/26 showed fatty liver, no other abnormalities. Patient reported that she had recent fall as she got out of bed. Denied head trauma but CT head completed and showed area of subacute infarct in R bird radiata. Also showed ischemic infarcts in b/l bird as well as right occipital. I was notified by primary and discussed case. She is on AC, Eliquis, and did not hold AC. Repeat CT head confirmed findings. LDL normal at 52. Patient remains alert, awake, cooperative. Does have lapses in mental status at times. Remains stable, expect further improvement with time and being in more familiar enviorment. Continue medical optimization. BP monitoring, maintain <140 /90 for now, <130/80 as outpatient. Can have outpatient follow up for more formal memory evaluation. Defer to GI/IR regarding timing for US guided liver biopsy, can hold AC for procedure, should restart AC as soon as possible after procedure when hemostatis occurs. Neurologically stable at this time.
--- NOTE | 2018-11-08 09:18 | PN ---
Progress Note, Physician Chief Complaint: Pt alert;lying in bed. Offers no complaints. History of Present Illness: The patient is a 63 year old white woman from [place] with a significant past medical history of SVT (s/p ablation), afib (on Eliquis), HTN, DM, COPD, C3 -C7 herniation, multiple CVAs who presents to the emergency department with vomiting and elevated LFTs. Patient notes he was sent to the ED by Dr. Faith for further evaluation, a CT scan, and admission. The patient reports she fell last night as she was getting out of bed. The patient denies any head trauma, - Current Medication List Current Medications: Active Medications Alprazolam (Xanax -) 0.25 mg PO BID PRN PRN Reason: AGITATION Last Admin: 11/06/18 22:47 Dose: 0.25 mg Enoxaparin Sodium (Lovenox -) 80 mg SQ Q12H [facility] Last Admin: 11/07/18 22:46 Dose: 80 mg Escitalopram Oxalate (Lexapro -) 20 mg PO DAILY [facility] Last Admin: 11/07/18 09:50 Dose: 20 mg Ferrous Sulfate (Feosol -) 325 mg PO TIDCM [facility] Last Admin: 11/08/18 08:30 Dose: 325 mg Folic Acid (Folic Acid -) 1 mg PO DAILY [facility] Last Admin: 11/07/18 09:50 Dose: 1 mg Insulin Aspart (Novolog Vial) 1 units SQ ACHS [facility]; Protocol Last Admin: 11/08/18 06:01 Dose: Not Given Lidocaine (Lidoderm Patch -) 1 patch TP DAILY [facility] Last Admin: 11/07/18 09:52 Dose: 1 patch Lisinopril (Prinivil) 2.5 mg PO BID [facility] Last Admin: 11/07/18 22:46 Dose: 2.5 mg Metoprolol Tartrate (Lopressor -) 25 mg PO BID [facility] Last Admin: 11/07/18 22:47 Dose: 25 mg Miscellaneous (Lidoderm Patch Removal) 1 each MC DAILY@2200 [facility] Last Admin: 11/07/18 22:47 Dose: 1 each Multivitamins/Minerals/Vitamin C (Tab-A-Vit -) 1 tab PO DAILY [facility] Last Admin: 11/07/18 09:51 Dose: 1 tab Ondansetron HCl (Zofran Injection) 8 mg IVPB Q8H PRN PRN Reason: NAUSEA AND/OR VOMITING Last Admin: 11/04/18 10:01 Dose: 8 mg Pantoprazole Sodium (Protonix -) 40 mg PO DAILY [facility] Last Admin: 11/07/18 09:47 Dose: 40 mg Polyethylene Glycol (Miralax (For Daily Use) -) 17 gm PO BID [facility] Last Admin: 11/07/18 22:47 Dose: 17 gm Potassium Chloride (K-Dur -) 20 meq PO DAILY [facility] Last Admin: 11/07/18 11:33 Dose: 20 meq Sucralfate (Carafate -) 1 gm PO ACHS [facility] Last Admin: 11/08/18 06:14 Dose: 1 gm - Objective Vital Signs: Vital Signs Temperature 97.9 F 11/08/18 06:00 Pulse Rate 87 11/08/18 06:00 Respiratory Rate 18 11/08/18 06:00 Blood Pressure 130/84 11/08/18 06:00 O2 Sat by Pulse Oximetry (%) 96 11/07/18 09:00 Constitutional: Yes: Calm Eyes: Yes: WNL HENT: Yes: WNL Neck: Yes: WNL Cardiovascular: Yes: Pulse Irregular, S1 (varies in intensity), S2 Respiratory: Yes: WNL Gastrointestinal: Yes: Soft ...Rectal Exam: Yes: Deferred Genitourinary: No: Anuria Breast(s): Yes: WNL Musculoskeletal: Yes: Muscle Weakness Extremities: Yes: Cool Edema: No Peripheral Pulses WNL: Yes Integumentary: Yes: WNL Neurological: Yes: Weakness Psychiatric: Yes: Other Labs: CBC, BMP 11/08/18 07:00 11/08/18 07:00 INR, PTT INR 1.18 (0.83-1.09) H 11/08/18 07:00 Abnormal Lab Results 11/08/18 11/08/18 11/08/18 07:00 07:00 07:00 Hgb 9.9 L Hct 29.9 L RDW 20.5 H Eosinophils % 5.2 H PT with INR 13.90 H INR 1.18 H Anion Gap 7 L Creatinine 0.5 L Calcium 7.7 L Direct Bilirubin AST 82 H ALT 121 H Alkaline Phosphatase 923 H Total Protein 4.4 L Albumin 2.0 L 11/08/18 07:00 Hgb Hct RDW Eosinophils % PT with INR INR Anion Gap Creatinine Calcium Direct Bilirubin 0.6 H AST ALT Alkaline Phosphatase Total Protein Albumin Problem List - Problems (1) Elevated LFTs Assessment/Plan: Increasing LFTS and alk phos this admission. Statin held.Pt had been on macrodantin before. SSRIs rarelhy increase LFTS (< 1%). Suspicionf for liver metastases from colon CA. F/u with GI, heme/onc. Apixaban held in anticipation of possible procedure (e.g. liver biopsy); start Lovenox 12 hours after the last dose of apixaban which was at 10 pm last night. Pt has an GUERA compatible PPM that was recently placed for AF with slow VR. However, discussion with MR tech: the MRI unit in the hospital does not have the capability to do the test, nor is there protocol in place to do so. Code(s): R94.5 - ABNORMAL RESULTS OF LIVER FUNCTION STUDIES (2) Acute on chronic diastolic CHF (congestive heart failure) Assessment/Plan: On metoprolol and lisinopril. 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 Code(s): K22.70 - CALDERON'S ESOPHAGUS WITHOUT DYSPLASIA (7) COPD (chronic obstructive pulmonary disease) Code(s): J44.9 - CHRONIC OBSTRUCTIVE PULMONARY DISEASE, UNSPECIFIED (8) Colon cancer Code(s): C18.9 - MALIGNANT NEOPLASM OF COLON, UNSPECIFIED (9) Diabetes Code(s): E11.9 - TYPE 2 DIABETES MELLITUS WITHOUT COMPLICATIONS (10) Fall Code(s): W19.XXXA - UNSPECIFIED FALL, INITIAL ENCOUNTER Qualifiers: Encounter type: initial encounter Qualified Code(s): W19.XXXA - Unspecified fall, initial encounter (11) HTN (hypertension) Code(s): I10 - ESSENTIAL (PRIMARY) HYPERTENSION (12) Headache Code(s): R51 - HEADACHE Qualifiers: Headache type: tension-type Headache chronicity pattern: acute headache Intractability: not intractable Qualified Code(s): G44.209 - Tension-type headache, unspecified, not intractable (13) Hyperlipidemia Code(s): E78.5 - HYPERLIPIDEMIA, UNSPECIFIED (14) Obesity Code(s): E66.9 - OBESITY, UNSPECIFIED (15) Weakness Code(s): R53.1 - WEAKNESS (16) CVA (cerebral vascular accident) Code(s): I63.9 - CEREBRAL INFARCTION, UNSPECIFIED
[2018-11-08] MEDS: POTASSIUM CHLORIDE TABS 20 MEQ TABLET.ER (FP) PO SCH (10:02)
[2018-11-08] MEDS: METOPROLOL TARTRATE 25 MG TABLET (FP) PO SCH ×2 (10:02→22:43)
[2018-11-08] MEDS: MULTIVITAMINS (DAILY MVI) TABLET (FP) PO SCH (10:02)
[2018-11-08] MEDS: ESCITALOPRAM OXALATE 20 MG TABLET (FP) PO SCH (10:02)
[2018-11-08] MEDS: FOLIC ACID 1 MG TABLET (FP) PO SCH (10:03)
[2018-11-08] MEDS: LISINOPRIL 5 MG TABLET (FP) PO SCH ×2 (10:03→22:42)
[2018-11-08] MEDS: PANTOPRAZOLE 40 MG TABLET (FP) PO SCH (10:03)
[2018-11-08] MEDS: LIDOCAINE 5% TOPICAL PATCH TP SCH (10:04)
[2018-11-08] MEDS: ENOXAPARIN NA (PORCINE) 80 MG/0.8 ML DISP.SYRIN SQ SCH (10:04)
[2018-11-08] MEDS: POLYETHYLENE GLYCOL 3350 119 GM BTL PO SCH ×2 (10:09→22:43)
[2018-11-08 11:00] LABS: ANISOCYTOSIS 1+; MACROCYTOSIS 1+; OVALOCYTE 1+; PLATELET ESTIMATE NORMAL
--- NOTE | 2018-11-08 12:17 | PN ---
Progress Note, Physician History of Present Illness: The patient is a 63 year old female, from [place] with a significant past medical history of SVT (s/p ablation), afib (on Eliquis), HTN, DM, COPD, C3-C7 herniation, multiple CVAs who presents to the emergency department with vomiting and elevated LFTs. Patient notes he was sent to the ED by Dr. Faith for further evaluation, a CT scan, and admission. The patient reports she fell last night as she was getting out of bed. The patient denies any head trauma, - Current Medication List Current Medications: Active Medications Alprazolam (Xanax -) 0.25 mg PO BID PRN PRN Reason: AGITATION Last Admin: 11/06/18 22:47 Dose: 0.25 mg Enoxaparin Sodium (Lovenox -) 80 mg SQ Q12H [facility] Last Admin: 11/08/18 10:04 Dose: 80 mg Escitalopram Oxalate (Lexapro -) 20 mg PO DAILY [facility] Last Admin: 11/08/18 10:02 Dose: 20 mg Ferrous Sulfate (Feosol -) 325 mg PO TIDCM [facility] Last Admin: 11/08/18 08:30 Dose: 325 mg Folic Acid (Folic Acid -) 1 mg PO DAILY [facility] Last Admin: 11/08/18 10:03 Dose: 1 mg Insulin Aspart (Novolog Vial) 1 units SQ ACHS [facility]; Protocol Last Admin: 11/08/18 10:35 Dose: Not Given Lidocaine (Lidoderm Patch -) 1 patch TP DAILY [facility] Last Admin: 11/08/18 10:04 Dose: Not Given Lisinopril (Prinivil) 2.5 mg PO BID [facility] Last Admin: 11/08/18 10:03 Dose: 2.5 mg Metoprolol Tartrate (Lopressor -) 25 mg PO BID [facility] Last Admin: 11/08/18 10:02 Dose: 25 mg Miscellaneous (Lidoderm Patch Removal) 1 each MC DAILY@2200 [facility] Last Admin: 11/07/18 22:47 Dose: 1 each Multivitamins/Minerals/Vitamin C (Tab-A-Vit -) 1 tab PO DAILY [facility] Last Admin: 11/08/18 10:02 Dose: 1 tab Ondansetron HCl (Zofran Injection) 8 mg IVPB Q8H PRN PRN Reason: NAUSEA AND/OR VOMITING Last Admin: 11/04/18 10:01 Dose: 8 mg Pantoprazole Sodium (Protonix -) 40 mg PO DAILY [facility] Last Admin: 11/08/18 10:03 Dose: 40 mg Polyethylene Glycol (Miralax (For Daily Use) -) 17 gm PO BID [facility] Last Admin: 11/08/18 10:09 Dose: 17 gm Potassium Chloride (K-Dur -) 20 meq PO DAILY [facility] Last Admin: 11/08/18 10:02 Dose: 20 meq Sucralfate (Carafate -) 1 gm PO ACHS [facility] Last Admin: 11/08/18 06:14 Dose: 1 gm - Objective Vital Signs: Vital Signs Temperature 97.9 F 11/08/18 06:00 Pulse Rate 87 11/08/18 06:00 Respiratory Rate 18 11/08/18 06:00 Blood Pressure 130/84 11/08/18 06:00 O2 Sat by Pulse Oximetry (%) 96 11/07/18 09:00 Eyes: Yes: WNL, Conjunctiva Clear, EOM Intact HENT: Yes: WNL, Atraumatic, Normocephalic Neck: Yes: WNL, Supple, Trachea Midline Cardiovascular: Yes: WNL, Regular Rate and Rhythm Respiratory: Yes: WNL, Regular, CTA Bilaterally Gastrointestinal: Yes: WNL, Normal Bowel Sounds Genitourinary: Yes: WNL Musculoskeletal: Yes: WNL Extremities: Yes: WNL Edema: No Integumentary: Yes: WNL ...Motor Strength: WNL Psychiatric: Yes: WNL Labs: CBC, BMP 11/08/18 07:00 11/08/18 07:00 INR, PTT INR 1.18 (0.83-1.09) H 11/08/18 07:00 Assessment/Plan - Problems (1) Elevated LFTs Code(s): R94.5 - ABNORMAL RESULTS OF LIVER FUNCTION STUDIES (2) Acute on chronic diastolic CHF (congestive heart failure) 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 Code(s): K22.70 - CALDERON'S ESOPHAGUS WITHOUT DYSPLASIA (7) COPD (chronic obstructive pulmonary disease) Code(s): J44.9 - CHRONIC OBSTRUCTIVE PULMONARY DISEASE, UNSPECIFIED (8) Colon cancer Code(s): C18.9 - MALIGNANT NEOPLASM OF COLON, UNSPECIFIED (9) Diabetes Code(s): E11.9 - TYPE 2 DIABETES MELLITUS WITHOUT COMPLICATIONS (10) Fall Code(s): W19.XXXA - UNSPECIFIED FALL, INITIAL ENCOUNTER Qualifiers: Encounter type: initial encounter Qualified Code(s): W19.XXXA - Unspecified fall, initial encounter (11) HTN (hypertension) Code(s): I10 - ESSENTIAL (PRIMARY) HYPERTENSION (12) Headache Code(s): R51 - HEADACHE Qualifiers: Headache type: tension-type Headache chronicity pattern: acute headache Intractability: not intractable Qualified Code(s): G44.209 - Tension-type headache, unspecified, not intractable (13) Hyperlipidemia Code(s): E78.5 - HYPERLIPIDEMIA, UNSPECIFIED (14) Obesity Code(s): E66.9 - OBESITY, UNSPECIFIED (15) Weakness Code(s): R53.1 - WEAKNESS (16) CVA (cerebral vascular accident) Code(s): I63.9 - CEREBRAL INFARCTION, UNSPECIFIED
[2018-11-08] MEDS ORDERED: MORPHINE SULFATE 2 MG/ML VIAL IVPUSH ONE (13:30)
--- NOTE | 2018-11-08 13:59 | PN ---
Physical Exam: SUBJECTIVE: Patient seen and examined at bedside. Denies any acute complaints. Denies vomiting, abdominal pain, chest pain, SOB, fevers, chills. OBJECTIVE: Vital Signs Period Temp Pulse Resp BP Sys/Juarez Pulse Ox Last 24 Hr 97.9 F-98.3 F 87-92 18-18 113-133/73-85 GENERAL: A&Ox3, no acute distress EYES: PERRLA, EOMI ENT: Moist mucus membranes NECK: No JVD LUNGS: CTA, no wheezes HEART: RRR, no murmurs ABDOMEN: Soft, nontender, BS present, well healed surgical scar noted on abdomen MUSCULOSKELETAL: No CVA Tenderness EXTREMITIES: 2+ pulses, no edema. NEUROLOGICAL: Cranial nerves II-XII intact. Laboratory Results - last 24 hr 11/07/18 11/07/18 11/08/18 16:29 22:53 05:21 WBC RBC Hgb Hct MCV MCH MCHC RDW Plt Count MPV Absolute Neuts (auto) Neutrophils % Lymphocytes % Monocytes % Eosinophils % Basophils % Nucleated RBC % Hypochromia Platelet Estimate Polychromasia Poikilocytosis Anisocytosis Microcytosis Macrocytosis Ovalocytes PT with INR INR Sodium Potassium Chloride Carbon Dioxide Anion Gap BUN Creatinine Creat Clearance w eGFR POC Glucometer 113 78 76 Random Glucose Calcium Total Bilirubin Direct Bilirubin AST ALT Alkaline Phosphatase Total Protein Albumin 11/08/18 11/08/18 11/08/18 07:00 07:00 07:00 WBC 4.4 RBC 3.69 Hgb 9.9 L Hct 29.9 L MCV 80.9 MCH 26.8 MCHC 33.1 RDW 20.5 H Plt Count 234 MPV 8.8 Absolute Neuts (auto) 3.0 Neutrophils % 68.3 Lymphocytes % 18.3 Monocytes % 7.7 Eosinophils % 5.2 H Basophils % 0.5 Nucleated RBC % 0 Hypochromia 0 Platelet Estimate Normal Polychromasia 0 Poikilocytosis 2+ Anisocytosis 1+ Microcytosis 1+ Macrocytosis 1+ Ovalocytes 1+ PT with INR 13.90 H INR 1.18 H Sodium 139 Potassium 3.6 Chloride 105 Carbon Dioxide 27 Anion Gap 7 L BUN 9 Creatinine 0.5 L Creat Clearance w eGFR 125.43 POC Glucometer Random Glucose 83 Calcium 7.7 L Total Bilirubin 0.8 Direct Bilirubin AST 82 H ALT 121 H Alkaline Phosphatase 923 H Total Protein 4.4 L Albumin 2.0 L 11/08/18 11/08/18 07:00 10:34 WBC RBC Hgb Hct MCV MCH MCHC RDW Plt Count MPV Absolute Neuts (auto) Neutrophils % Lymphocytes % Monocytes % Eosinophils % Basophils % Nucleated RBC % Hypochromia Platelet Estimate Polychromasia Poikilocytosis Anisocytosis Microcytosis Macrocytosis Ovalocytes PT with INR INR Sodium Potassium Chloride Carbon Dioxide Anion Gap BUN Creatinine Creat Clearance w eGFR POC Glucometer 145 Random Glucose Calcium Total Bilirubin Direct Bilirubin 0.6 H AST ALT Alkaline Phosphatase Total Protein Albumin Active Medications Generic Name Dose Route Start Last Admin Trade Name Freq PRN Reason Stop Dose Admin Alprazolam 0.25 mg 11/01/18 20:53 11/06/18 22:47 Xanax - PO 0.25 mg BID PRN Administration AGITATION Enoxaparin Sodium 80 mg 11/06/18 22:00 11/08/18 10:04 Lovenox - SQ 80 mg Q12H [facility] Administration Escitalopram Oxalate 20 mg 11/02/18 10:00 11/08/18 10:02 Lexapro - PO 20 mg DAILY [facility] Administration Ferrous Sulfate 325 mg 11/01/18 22:00 11/08/18 12:53 Feosol - PO 325 mg TIDCM [facility] Administration Folic Acid 1 mg 11/02/18 10:00 11/08/18 10:03 Folic Acid - PO 1 mg DAILY [facility] Administration Insulin Aspart 1 units 11/02/18 16:30 11/08/18 10:35 Novolog Vial SQ Not Given ACHS [facility] Protocol Lidocaine 1 patch 11/04/18 18:45 11/08/18 10:04 Lidoderm Patch - TP Not Given DAILY [facility] Lisinopril 2.5 mg 11/03/18 22:00 11/08/18 10:03 Prinivil PO 2.5 mg BID [facility] Administration Metoprolol Tartrate 25 mg 11/01/18 22:00 11/08/18 10:02 Lopressor - PO 25 mg BID [facility] Administration Miscellaneous 1 each 11/05/18 22:00 11/07/18 22:47 Lidoderm Patch Removal MC 1 each DAILY@2200 [facility] Administration Multivitamins/Minerals/Vitamin C 1 tab 11/02/18 10:00 11/08/18 10:02 Tab-A-Vit - PO 1 tab DAILY [facility] Administration Ondansetron HCl 8 mg 11/01/18 21:04 11/04/18 10:01 Zofran Injection IVPB 8 mg Q8H PRN Administration NAUSEA AND/OR VOMITING Pantoprazole Sodium 40 mg 11/02/18 10:00 11/08/18 10:03 Protonix - PO 40 mg DAILY [facility] Administration Polyethylene Glycol 17 gm 11/06/18 22:00 11/08/18 10:09 Miralax (For Daily Use) - PO 17 gm BID [facility] Administration Potassium Chloride 20 meq 11/07/18 10:00 11/08/18 10:02 K-Dur - PO 20 meq DAILY [facility] Administration Sucralfate 1 gm 11/01/18 22:00 11/08/18 12:53 Carafate - PO 1 gm ACHS [facility] Administration ASSESSMENT/PLAN: DRAFT 63 year old female wit choudhury history of SVT, afib on eliquis, HTN, DM, COPD, CVA, recent colon CA s/p R hemicolectomy recently, and R breast CA s/p lumpectomy initially presented with vomiting and elevated LFTs Elevated LFTS: with hepatosplenomegaly and CT evidence of periportal/ retroperitoneal lymphadenopathy; LFTs improved but have not resolved -no hepatotoxic meds -hepatitis negative -CEA is negative -CT evidence of hepatic steatosis -duplex negative for hepatic thrombosis -may need liver biopsy Colon CA: T3 N0 invasive adenocarcinoma with 0/21 lymph nodes and clear surgical margins, patient decided not to pursue adjuvant chemotherapy -margins negative -CEA negative -no overt metastatic lesions, although there is lymphadenopathy Subacute cerebral infarct: seen on head CT, patient already on eliquis -may need to consider switching to coumadin Prophylaxis: jimena Allen PGY2 Will discuss with Dr. Westfall Visit type - Emergency Visit Emergency Visit: No - New Patient This patient is new to me today: Yes Date on this admission: 11/08/18 - Critical Care Critical Care patient: No
[2018-11-08] MEDS: LIDOCAINE PATCH REMOVAL MC SCH (22:43)
[2018-11-09] MEDS: ENOXAPARIN NA (PORCINE) 80 MG/0.8 ML DISP.SYRIN SQ SCH ×3 (00:15→21:24)
[2018-11-09] MEDS: SUCRALFATE 1 GM TABLET (FP) PO SCH ×4 (06:55→21:24)
[2018-11-09] MEDS: INSULIN (NOVOLOG) ASPART 100 UNITS/ML 10ML VIAL SQ SCH ×4 (06:58→21:25)
[2018-11-09 08:32] LABS: EOS % 4.3 % (0-4.5); HEMATOCRIT 31.7 % (32.4-45.2); HEMOGLOBIN 10.3 GM/dL (10.7-15.3); LYMPH % 25.5 % (8-40); MCH 26.4 pg (25.7-33.7); MCHC 32.5 g/dl (32.0-36.0); MEAN CELL VOLUME 81.1 fl (80-96); MEAN PLT VOLUME 8.3 fl (7.5-11.1); MONO % 7.1 % (3.8-10.2); NEUT % 62.1 % (42.8-82.8); PLATELET COUNT 286 K/MM3 (134-434); RBC 3.91 M/mm3 (3.60-5.2); RDW 20.1 % (11.6-15.6); WHITE BLOOD COUNT 4.2 K/mm3 (4.0-10.0)
--- NOTE | 2018-11-09 08:43 | PN ---
Progress Note, Physician Chief Complaint: in bed awake alert NAD VSS no N/V feeling better LFTs improving; no liver biopsy to be done (d/w GI and heme and cardiology - will have to decide on further AC0 dw pt's son he would like to hold off liver biopsy too and to pursue PET scan r/ o mets - d/w son PET will have to be done as outpt after DC from H - Current Medication List Current Medications: Active Medications Alprazolam (Xanax -) 0.25 mg PO BID PRN PRN Reason: AGITATION Last Admin: 11/06/18 22:47 Dose: 0.25 mg Enoxaparin Sodium (Lovenox -) 80 mg SQ Q12H [facility] Last Admin: 11/09/18 00:15 Dose: 80 mg Escitalopram Oxalate (Lexapro -) 20 mg PO DAILY [facility] Last Admin: 11/08/18 10:02 Dose: 20 mg Ferrous Sulfate (Feosol -) 325 mg PO TIDCM [facility] Last Admin: 11/08/18 17:47 Dose: 325 mg Folic Acid (Folic Acid -) 1 mg PO DAILY [facility] Last Admin: 11/08/18 10:03 Dose: 1 mg Insulin Aspart (Novolog Vial) 1 units SQ [facility]; Protocol Last Admin: 11/09/18 06:58 Dose: Not Given Lidocaine (Lidoderm Patch -) 1 patch TP DAILY [facility] Last Admin: 11/08/18 10:04 Dose: Not Given Lisinopril (Prinivil) 2.5 mg PO BID [facility] Last Admin: 11/08/18 22:42 Dose: 2.5 mg Metoprolol Tartrate (Lopressor -) 25 mg PO BID [facility] Last Admin: 11/08/18 22:43 Dose: 25 mg Miscellaneous (Lidoderm Patch Removal) 1 each MC DAILY@2200 [facility] Last Admin: 11/08/18 22:43 Dose: 1 each Multivitamins/Minerals/Vitamin C (Tab-A-Vit -) 1 tab PO DAILY [facility] Last Admin: 11/08/18 10:02 Dose: 1 tab Ondansetron HCl (Zofran Injection) 8 mg IVPB Q8H PRN PRN Reason: NAUSEA AND/OR VOMITING Last Admin: 11/04/18 10:01 Dose: 8 mg Pantoprazole Sodium (Protonix -) 40 mg PO DAILY [facility] Last Admin: 11/08/18 10:03 Dose: 40 mg Polyethylene Glycol (Miralax (For Daily Use) -) 17 gm PO BID [facility] Last Admin: 11/08/18 22:43 Dose: 17 gm Potassium Chloride (K-Dur -) 20 meq PO DAILY [facility] Last Admin: 11/08/18 10:02 Dose: 20 meq Sucralfate (Carafate -) 1 gm PO ACHS [facility] Last Admin: 11/09/18 06:55 Dose: Not Given - Objective Vital Signs: Vital Signs Temperature 98 F 11/09/18 06:27 Pulse Rate 61 11/09/18 06:27 Respiratory Rate 18 11/09/18 06:27 Blood Pressure 118/67 11/09/18 06:27 O2 Sat by Pulse Oximetry (%) 95 11/08/18 21:00 Constitutional: Yes: No Distress, Calm Eyes: Yes: Conjunctiva Clear HENT: Yes: Atraumatic Neck: Yes: Supple Cardiovascular: Yes: Regular Rate and Rhythm Respiratory: Yes: CTA Bilaterally Gastrointestinal: Yes: Soft. No: Tenderness Genitourinary: No: Hematuria Musculoskeletal: No: Joint Stiffness, Joint Swelling Extremities: No: Cold, Cool, Cyanosis Edema: No Integumentary: No: Rash, Venous Stasis Changes Neurological: Yes: Alert ...Motor Strength: WNL Psychiatric: Yes: Alert. No: Agitated Labs: INR, PTT INR 1.18 (0.83-1.09) H 11/08/18 07:00 - ....Imaging Other: Report Reviewed Assessment/Plan Patient is a 63F from [facility] w/ PMHx SVT s/p ablation,P afib on Eliquis, HTN, DM, COPD. C3-C7 herniation, multiple CVAs, anemia, colon CA s/p recent R hemicolectomy, remote breast CA s/p lumpectomy, benign thyroid nodule, admitted with vomiting and elevated LFTs; Recurrent falls; on head CT evidence of recent subacute new CVA nonhg R frontal despite eliquis tx. Switched to sq lovenox - further AC to be determined f/u LFTs - better; falls pfx d/w pt do not get OOB alone she understood prognosis guarded will need SNF when medically stable d/w pt and staff
--- NOTE | 2018-11-09 09:08 | PN ---
Progress Note (short form) - Note Progress Note: Neurology - History of Present Illness 63F from [place] w/ PMHx SVT s/p ablation, afib on Eliquis, HTN, DM, COPD. C3 -C7 herniation, multiple CVAs here today with vomiting and elevated LFTs. Patient is currently under the care of Dr Faith, who was sent the patient in for admission. US done on 10/26 showed fatty liver, no other abnormalities. Patient reported that she had recent fall as she got out of bed. Denied head trauma but CT head completed and showed area of subacute infarct in R bird radiata. Also showed ischemic infarcts in b/l bird as well as right occipital. I was notified by primary and discussed case. She is on AC, Eliquis, and did not hold AC. Repeat CT head confirmed findings. LDL normal at 52. Patient remains alert, awake, cooperative. Does have lapses in mental status at times. Is more oriented for me now. She can tell me she's in the hospital, is able to tell me it's October 2018 now which she was having trouble with earlier in her admission. Active Medications Alprazolam (Xanax -) 0.25 mg PO BID PRN PRN Reason: AGITATION Last Admin: 11/06/18 22:47 Dose: 0.25 mg Enoxaparin Sodium (Lovenox -) 80 mg SQ Q12H [facility] Last Admin: 11/09/18 00:15 Dose: 80 mg Escitalopram Oxalate (Lexapro -) 20 mg PO DAILY [facility] Last Admin: 11/08/18 10:02 Dose: 20 mg Ferrous Sulfate (Feosol -) 325 mg PO TIDCM [facility] Last Admin: 11/08/18 17:47 Dose: 325 mg Folic Acid (Folic Acid -) 1 mg PO DAILY [facility] Last Admin: 11/08/18 10:03 Dose: 1 mg Insulin Aspart (Novolog Vial) 1 units SQ ACHS [facility]; Protocol Last Admin: 11/09/18 06:58 Dose: Not Given Lidocaine (Lidoderm Patch -) 1 patch TP DAILY [facility] Last Admin: 11/08/18 10:04 Dose: Not Given Lisinopril (Prinivil) 2.5 mg PO BID [facility] Last Admin: 11/08/18 22:42 Dose: 2.5 mg Metoprolol Tartrate (Lopressor -) 25 mg PO BID [facility] Last Admin: 11/08/18 22:43 Dose: 25 mg Miscellaneous (Lidoderm Patch Removal) 1 each MC DAILY@2200 [facility] Last Admin: 11/08/18 22:43 Dose: 1 each Multivitamins/Minerals/Vitamin C (Tab-A-Vit -) 1 tab PO DAILY [facility] Last Admin: 11/08/18 10:02 Dose: 1 tab Ondansetron HCl (Zofran Injection) 8 mg IVPB Q8H PRN PRN Reason: NAUSEA AND/OR VOMITING Last Admin: 11/04/18 10:01 Dose: 8 mg Pantoprazole Sodium (Protonix -) 40 mg PO DAILY [facility] Last Admin: 11/08/18 10:03 Dose: 40 mg Polyethylene Glycol (Miralax (For Daily Use) -) 17 gm PO BID [facility] Last Admin: 11/08/18 22:43 Dose: 17 gm Potassium Chloride (K-Dur -) 20 meq PO DAILY [facility] Last Admin: 11/08/18 10:02 Dose: 20 meq Sucralfate (Carafate -) 1 gm PO ACHS [facility] Last Admin: 11/09/18 06:55 Dose: Not Given *Physical Exam Vital Signs Period Temp Pulse Resp BP Sys/Juarez Pulse Ox Last 24 Hr 97.2 F-98 F 61-91 17-18 118-156/67-84 95 GENERAL: Awake, alert, and fully oriented, in no acute distress HEAD: No signs of trauma, normocephalic, atraumatic EYES: PERRLA, EOMI, sclera anicteric, conjunctiva clear ENT: Auricles normal inspection, hearing grossly normal, nares patent, oropharynx clear without exudates. Moist mucosa NECK: Normal ROM, supple, no lymphadenopathy, JVD, or masses LUNGS: No distress, speaks full sentences, clear to auscultation bilaterally HEART: Regular rate and rhythm, normal S1 and S2, no murmurs, rubs or gallops, peripheral pulses normal and equal bilaterally. ABDOMEN: Soft, +RUQ tenderness, normoactive bowel sounds. No guarding, no rebound. No masses EXTREMITIES: Normal inspection, Normal range of motion, no edema. No clubbing or cyanosis. NEUROLOGICAL: Cranial nerves II through XII grossly intact. Normal speech, no focal sensorimotor deficits, finger to nose normal, sensory intact. SKIN: Warm, Dry, normal turgor, no rashes or lesions noted. CBCD WBC 4.2 K/mm3 (4.0-10.0) 11/09/18 08:20 RBC 3.91 M/mm3 (3.60-5.2) 11/09/18 08:20 Hgb 10.3 GM/dL (10.7-15.3) L 11/09/18 08:20 Hct 31.7 % (32.4-45.2) L 11/09/18 08:20 MCV 81.1 fl (80-96) 11/09/18 08:20 MCHC 32.5 g/dl (32.0-36.0) 11/09/18 08:20 RDW 20.1 % (11.6-15.6) H 11/09/18 08:20 Plt Count 286 K/MM3 (134-434) D 11/09/18 08:20 MPV 8.3 fl (7.5-11.1) 11/09/18 08:20 CMP Sodium 139 mmol/L (136-145) 11/08/18 07:00 Potassium 3.6 mmol/L (3.5-5.1) 11/08/18 07:00 Chloride 105 mmol/L (98-107) 11/08/18 07:00 Carbon Dioxide 27 mmol/L (21-32) 11/08/18 07:00 Anion Gap 7 MMOL/L (8-16) L 11/08/18 07:00 BUN 9 mg/dL (7-18) 11/08/18 07:00 Creatinine 0.5 mg/dL (0.55-1.3) L 11/08/18 07:00 Creat Clearance w eGFR 125.43 (>60) 11/08/18 07:00 Random Glucose 83 mg/dL (74-106) 11/08/18 07:00 Calcium 7.7 mg/dL (8.5-10.1) L 11/08/18 07:00 Total Bilirubin 0.8 mg/dL (0.2-1) 11/08/18 07:00 AST 82 U/L (15-37) H 11/08/18 07:00 ALT 121 U/L (13-61) H 11/08/18 07:00 Alkaline Phosphatase 923 U/L (45-117) H 11/08/18 07:00 Total Protein 4.4 g/dl (6.4-8.2) L 11/08/18 07:00 Albumin 2.0 g/dl (3.4-5.0) L 11/08/18 07:00 CARDIAC ENZYMES Creatine Kinase 11 U/L (26-192) L 11/02/18 06:00 Troponin I < 0.02 ng/ml (0.00-0.05) 11/02/18 05:30 Medical Decision Making 63F from [place] w/ PMHx SVT s/p ablation, afib on Eliquis, HTN, DM, COPD. C3 -C7 herniation, multiple CVAs here today with vomiting and elevated LFTs. Patient is currently under the care of Dr Faith, who was sent the patient in for admission. US done on 10/26 showed fatty liver, no other abnormalities. Patient reported that she had recent fall as she got out of bed. Denied head trauma but CT head completed and showed area of subacute infarct in R bird radiata. Also showed ischemic infarcts in b/l bird as well as right occipital. I was notified by primary and discussed case. She is on AC, Eliquis, and did not hold AC. Repeat CT head confirmed findings. LDL normal at 52. Patient remains alert, awake, cooperative. Does have lapses in mental status at times. Remains stable, expect further improvement with time and being in more familiar enviorment. Continue medical optimization. BP monitoring, maintain <140 /90 for now, <130/80 as outpatient. Can have outpatient follow up for more formal memory evaluation. Does have lapses in mental status at times. Is more oriented for me now. She can tell me she's in the hospital, is able to tell me it's October 2018 now which she was having trouble with earlier in her admission. Neurologically improving at this time.
[2018-11-09 09:12] LABS: ALBUMIN 2.1 g/dl (3.4-5.0); ALK PHOS 841 U/L (45-117); ANION GAP 5 MMOL/L (8-16); BILIRUBIN,DIRECT 0.5 mg/dL (0.0-0.2); BILIRUBIN,TOTAL 0.7 mg/dL (0.2-1); BLOOD UREA NITROGEN 9 mg/dL (7-18); CALCIUM 8.2 mg/dL (8.5-10.1); CHLORIDE 105 mmol/L (98-107); CO2 29 mmol/L (21-32); CREATININE 0.5 mg/dL (0.55-1.3); GLUCOSE,RANDOM 91 mg/dL (74-106); POTASSIUM 3.9 mmol/L (3.5-5.1); SGOT/AST 60 U/L (15-37); SGPT/ALT 101 U/L (13-61); SODIUM 139 mmol/L (136-145); TOT PROT 4.7 g/dl (6.4-8.2)
[2018-11-09] MEDS: ALPRAZolam 0.25 MG TABLET PO PRN (09:54)
[2018-11-09] MEDS: FERROUS SO4 325 MG TABLET (FP) PO SCH ×3 (09:55→18:28)
[2018-11-09] MEDS: METOPROLOL TARTRATE 25 MG TABLET (FP) PO SCH ×2 (09:55→21:24)
[2018-11-09] MEDS: PANTOPRAZOLE 40 MG TABLET (FP) PO SCH (09:55)
[2018-11-09] MEDS: POTASSIUM CHLORIDE TABS 20 MEQ TABLET.ER (FP) PO SCH (09:55)
[2018-11-09] MEDS: MULTIVITAMINS (DAILY MVI) TABLET (FP) PO SCH (09:55)
[2018-11-09] MEDS: ESCITALOPRAM OXALATE 20 MG TABLET (FP) PO SCH (09:55)
[2018-11-09] MEDS: LISINOPRIL 5 MG TABLET (FP) PO SCH ×2 (09:55→21:24)
[2018-11-09] MEDS: FOLIC ACID 1 MG TABLET (FP) PO SCH (09:55)
[2018-11-09] MEDS: LIDOCAINE 5% TOPICAL PATCH TP SCH (09:57)
[2018-11-09] MEDS: POLYETHYLENE GLYCOL 3350 119 GM BTL PO SCH ×2 (09:59→21:24)
[2018-11-09 10:20] LABS: INR 1.04 (0.83-1.09); PROTHROMBIN TIME (PATIENT) 12.3 SEC (9.7-13.0)
--- NOTE | 2018-11-09 16:19 | PN ---
Physical Exam: SUBJECTIVE: Patient seen and examined and examined. A&Ox2. No acute distress, no complaints. No further belly pain. Denies nausea/vomiting. OBJECTIVE: Vital Signs Period Temp Pulse Resp BP Sys/Juarez Pulse Ox Last 24 Hr 97.2 F-98.0 F 61-91 18-18 118-156/67-88 95-97 GENERAL: A&Ox3, no acute distress EYES: PERRLA, EOMI ENT: Moist mucus membranes NECK: No JVD LUNGS: CTA, no wheezes HEART: RRR, no murmurs ABDOMEN: Soft, nontender, BS present, well healed surgical scar noted on abdomen MUSCULOSKELETAL: No CVA Tenderness EXTREMITIES: 2+ pulses, no edema. NEUROLOGICAL: Cranial nerves II-XII intact. Laboratory Results - last 24 hr 11/08/18 11/08/18 11/09/18 17:48 22:59 06:57 WBC RBC Hgb Hct MCV MCH MCHC RDW Plt Count MPV Absolute Neuts (auto) Neutrophils % Lymphocytes % Monocytes % Eosinophils % Basophils % Nucleated RBC % PT with INR INR Sodium Potassium Chloride Carbon Dioxide Anion Gap BUN Creatinine Creat Clearance w eGFR POC Glucometer 144 110 84 Random Glucose Calcium Total Bilirubin Direct Bilirubin AST ALT Alkaline Phosphatase Total Protein Albumin 11/09/18 11/09/18 11/09/18 08:20 08:20 08:20 WBC 4.2 RBC 3.91 Hgb 10.3 L Hct 31.7 L MCV 81.1 MCH 26.4 MCHC 32.5 RDW 20.1 H Plt Count 286 D MPV 8.3 Absolute Neuts (auto) 2.6 Neutrophils % 62.1 Lymphocytes % 25.5 D Monocytes % 7.1 Eosinophils % 4.3 Basophils % 1.0 Nucleated RBC % 0 PT with INR 12.30 INR 1.04 Sodium 139 Potassium 3.9 Chloride 105 Carbon Dioxide 29 Anion Gap 5 L BUN 9 Creatinine 0.5 L Creat Clearance w eGFR 125.43 POC Glucometer Random Glucose 91 Calcium 8.2 L Total Bilirubin 0.7 Direct Bilirubin 0.5 H AST 60 H ALT 101 H Alkaline Phosphatase 841 H Total Protein 4.7 L Albumin 2.1 L 11/09/18 10:38 WBC RBC Hgb Hct MCV MCH MCHC RDW Plt Count MPV Absolute Neuts (auto) Neutrophils % Lymphocytes % Monocytes % Eosinophils % Basophils % Nucleated RBC % PT with INR INR Sodium Potassium Chloride Carbon Dioxide Anion Gap BUN Creatinine Creat Clearance w eGFR POC Glucometer 146 Random Glucose Calcium Total Bilirubin Direct Bilirubin AST ALT Alkaline Phosphatase Total Protein Albumin Active Medications Generic Name Dose Route Start Last Admin Trade Name Freq PRN Reason Stop Dose Admin Alprazolam 0.25 mg 11/01/18 20:53 11/09/18 09:54 Xanax - PO 0.25 mg BID PRN Administration AGITATION Enoxaparin Sodium 80 mg 11/06/18 22:00 11/09/18 09:54 Lovenox - SQ 80 mg Q12H [facility] Administration Escitalopram Oxalate 20 mg 11/02/18 10:00 11/09/18 09:55 Lexapro - PO 20 mg DAILY [facility] Administration Ferrous Sulfate 325 mg 11/01/18 22:00 11/09/18 15:19 Feosol - PO 325 mg TIDCM [facility] Administration Folic Acid 1 mg 11/02/18 10:00 11/09/18 09:55 Folic Acid - PO 1 mg DAILY [facility] Administration Insulin Aspart 1 units 11/02/18 16:30 11/09/18 10:39 Novolog Vial SQ Not Given ACHS [facility] Protocol Lidocaine 1 patch 11/04/18 18:45 11/09/18 09:57 Lidoderm Patch - TP 1 patch DAILY [facility] Administration Lisinopril 2.5 mg 11/03/18 22:00 11/09/18 09:55 Prinivil PO 2.5 mg BID [facility] Administration Metoprolol Tartrate 25 mg 11/01/18 22:00 11/09/18 09:55 Lopressor - PO 25 mg BID [facility] Administration Miscellaneous 1 each 11/05/18 22:00 11/08/18 22:43 Lidoderm Patch Removal MC 1 each DAILY@2200 [facility] Administration Multivitamins/Minerals/Vitamin C 1 tab 11/02/18 10:00 11/09/18 09:55 Tab-A-Vit - PO 1 tab DAILY [facility] Administration Ondansetron HCl 8 mg 11/01/18 21:04 11/04/18 10:01 Zofran Injection IVPB 8 mg Q8H PRN Administration NAUSEA AND/OR VOMITING Pantoprazole Sodium 40 mg 11/02/18 10:00 11/09/18 09:55 Protonix - PO 40 mg DAILY [facility] Administration Polyethylene Glycol 17 gm 11/06/18 22:00 11/09/18 09:59 Miralax (For Daily Use) - PO 17 gm BID [facility] Administration Potassium Chloride 20 meq 11/07/18 10:00 11/09/18 09:55 K-Dur - PO 20 meq DAILY [facility] Administration Sucralfate 1 gm 11/01/18 22:00 11/09/18 10:36 Carafate - PO 1 gm ACHS [facility] Administration ASSESSMENT/PLAN: DRAFT 63 year old female wit choudhury history of SVT, afib on eliquis, HTN, DM, COPD, CVA, recent colon CA s/p R hemicolectomy recently, and R breast CA s/p lumpectomy initially presented with vomiting and elevated LFTs Elevated LFTS: LFTs improved -no hepatotoxic meds -hepatitis negative -CEA is negative -CT evidence of hepatic steatosis -duplex negative for hepatic thrombosis Afib: patient will be started on coumadin Colon CA: T3 N0 invasive adenocarcinoma with 0/21 lymph nodes and clear surgical margins, patient decided not to pursue adjuvant chemotherapy -margins negative -CEA negative -no overt metastatic lesions, although there is lymphadenopathy Subacute cerebral infarct: seen on head CT, patient already on eliquis -may need to consider switching to coumadin Prophylaxis: jimena Allen PGY2 Will discuss with Dr. Kraus Visit type - Emergency Visit Emergency Visit: No - New Patient This patient is new to me today: No - Critical Care Critical Care patient: No
--- NOTE | 2018-11-09 20:02 | PN ---
Teaching Attending Note Name of Resident: Jamar Allen ATTENDING PHYSICIAN STATEMENT I saw and evaluated the patient. I reviewed the resident's note and discussed the case with the resident. I agree with the resident's findings and plan as documented. SUBJECTIVE: Patient seen and examined Discussed with Dr. Faith Difficult problem Patient is a fall risk . 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 Would therefore consider switching a/c to coumadin. Unfortunately patient with abnormal LFT's and can anticipate difficulties in regulation of INR with highs and lows. Since coumadin makes sense in view of infarct on eliquis, Coumadin will need be monitored carefully as outpatient to titrate to therapeutic levels. OBJECTIVE: ASSESSMENT AND PLAN: Problem List - Problems (1) Elevated LFTs Code(s): R94.5 - ABNORMAL RESULTS OF LIVER FUNCTION STUDIES
--- NOTE | 2018-11-09 20:36 | PN.GI ---
GI Progress Note Subjective: GO NOte: LFTs are improving albeit slowly. This is usually the case in drug induced cholestasis. This decrease argues against infiltrative metastatic disease but does not absolutely exclude it. PET scan would be helpful - Objective Vital Signs: Vital Signs Temperature 98.0 F 11/09/18 18:00 Pulse Rate 90 11/09/18 18:00 Respiratory Rate 20 11/09/18 18:00 Blood Pressure 129/76 11/09/18 18:00 O2 Sat by Pulse Oximetry (%) 97 11/09/18 10:00 Constitutional: No Distress ...Auscultate: Yes: Normoactive Bowel Sounds ...Palpate: Yes: Soft, Other (notender) Labs: CBC, BMP 11/09/18 08:20 11/09/18 08:20 INR, PTT INR 1.04 (0.83-1.09) 11/09/18 08:20 Assessment/Plan Impression Resolving Macrodantin induced cholestasis Colon cancer with wall penetration Plan: Defer liver biopsy and watch LFT pattern Consider PET scan as outpatient Problem List - Problems (1) Abnormal liver function Code(s): R94.5 - ABNORMAL RESULTS OF LIVER FUNCTION STUDIES (2) Colon cancer Code(s): C18.9 - MALIGNANT NEOPLASM OF COLON, UNSPECIFIED (3) Carter's esophagus determined by biopsy Code(s): K22.70 - CARTER'S ESOPHAGUS WITHOUT DYSPLASIA (4) CVA (cerebral vascular accident) Code(s): I63.9 - CEREBRAL INFARCTION, UNSPECIFIED (5) Fatty (change of) liver, not elsewhere classified Code(s): K76.0 - FATTY (CHANGE OF) LIVER, NOT ELSEWHERE CLASSIFIED (6) GI bleed Code(s): K92.2 - GASTROINTESTINAL HEMORRHAGE, UNSPECIFIED
[2018-11-09] MEDS: LIDOCAINE PATCH REMOVAL MC SCH (21:24)
[2018-11-10] MEDS: INSULIN (NOVOLOG) ASPART 100 UNITS/ML 10ML VIAL SQ SCH ×4 (06:57→22:05)
[2018-11-10] MEDS: SUCRALFATE 1 GM TABLET (FP) PO SCH ×4 (06:57→22:04)
[2018-11-10 07:41] LABS: ALBUMIN 2.2 g/dl (3.4-5.0); ALK PHOS 790 U/L (45-117); ANION GAP 9 MMOL/L (8-16); BILIRUBIN,DIRECT 0.4 mg/dL (0.0-0.2); BILIRUBIN,TOTAL 0.6 mg/dL (0.2-1); BLOOD UREA NITROGEN 8 mg/dL (7-18); CALCIUM 8.1 mg/dL (8.5-10.1); CHLORIDE 107 mmol/L (98-107); CO2 25 mmol/L (21-32); CREATININE 0.6 mg/dL (0.55-1.3); GLUCOSE,RANDOM 111 mg/dL (74-106); POTASSIUM 3.7 mmol/L (3.5-5.1); SGOT/AST 48 U/L (15-37); SGPT/ALT 82 U/L (13-61); SODIUM 141 mmol/L (136-145); TOT PROT 4.7 g/dl (6.4-8.2)
[2018-11-10] MEDS ORDERED: PT OWN MED DRAWER 7, Y5N ONE (09:08)
[2018-11-10] MEDS: LISINOPRIL 5 MG TABLET (FP) PO SCH ×2 (09:12→22:05)
[2018-11-10] MEDS: FERROUS SO4 325 MG TABLET (FP) PO SCH ×3 (09:12→17:53)
[2018-11-10] MEDS: MULTIVITAMINS (DAILY MVI) TABLET (FP) PO SCH (09:12)
[2018-11-10] MEDS: POTASSIUM CHLORIDE TABS 20 MEQ TABLET.ER (FP) PO SCH (09:12)
[2018-11-10] MEDS: FOLIC ACID 1 MG TABLET (FP) PO SCH (09:12)
[2018-11-10] MEDS: PANTOPRAZOLE 40 MG TABLET (FP) PO SCH (09:13)
[2018-11-10] MEDS: LIDOCAINE 5% TOPICAL PATCH TP SCH (09:13)
[2018-11-10] MEDS: METOPROLOL TARTRATE 25 MG TABLET (FP) PO SCH ×2 (09:13→22:05)
[2018-11-10] MEDS: ESCITALOPRAM OXALATE 20 MG TABLET (FP) PO SCH (09:13)
[2018-11-10] MEDS: POLYETHYLENE GLYCOL 3350 119 GM BTL PO SCH ×2 (09:13→22:05)
--- NOTE | 2018-11-10 09:13 | PN ---
Progress Note (short form) - Note Progress Note: Neurology - History of Present Illness 63F from [place] w/ PMHx SVT s/p ablation, afib on Eliquis, HTN, DM, COPD. C3 -C7 herniation, multiple CVAs here today with vomiting and elevated LFTs. Patient is currently under the care of Dr Faith, who was sent the patient in for admission. US done on 10/26 showed fatty liver, no other abnormalities. Patient reported that she had recent fall as she got out of bed. Denied head trauma but CT head completed and showed area of subacute infarct in R bird radiata. Also showed ischemic infarcts in b/l bird as well as right occipital. I was notified by primary and discussed case. She is on AC, Eliquis, and did not hold AC. Repeat CT head confirmed findings. LDL normal at 52. Patient remains alert, awake, cooperative. Does have lapses in mental status at times. Is much improved and more oriented for me now. She can tell me she's in the hospital, is able to tell me it's October 2018 now which she was having trouble with earlier in her admission. Liver biopsy referred per notes as her LFTs have improved, albeit slowly, and patient clinically improving. She was encouraged by this. Advised outpatient follow up. Active Medications Alprazolam (Xanax -) 0.25 mg PO BID PRN PRN Reason: AGITATION Last Admin: 11/09/18 09:54 Dose: 0.25 mg Enoxaparin Sodium (Lovenox -) 80 mg SQ Q12H [facility] Last Admin: 11/09/18 21:24 Dose: 80 mg Escitalopram Oxalate (Lexapro -) 20 mg PO DAILY [facility] Last Admin: 11/09/18 09:55 Dose: 20 mg Ferrous Sulfate (Feosol -) 325 mg PO TIDCM [facility] Last Admin: 11/09/18 18:28 Dose: 325 mg Folic Acid (Folic Acid -) 1 mg PO DAILY [facility] Last Admin: 11/09/18 09:55 Dose: 1 mg Insulin Aspart (Novolog Vial) 1 units SQ ACHS [facility]; Protocol Last Admin: 11/10/18 06:57 Dose: Not Given Lidocaine (Lidoderm Patch -) 1 patch TP DAILY [facility] Last Admin: 11/09/18 09:57 Dose: 1 patch Lisinopril (Prinivil) 2.5 mg PO BID [facility] Last Admin: 11/09/18 21:24 Dose: 2.5 mg Metoprolol Tartrate (Lopressor -) 25 mg PO BID [facility] Last Admin: 11/09/18 21:24 Dose: 25 mg Miscellaneous (Lidoderm Patch Removal) 1 each MC DAILY@2200 [facility] Last Admin: 11/09/18 21:24 Dose: 1 each Multivitamins/Minerals/Vitamin C (Tab-A-Vit -) 1 tab PO DAILY [facility] Last Admin: 11/09/18 09:55 Dose: 1 tab Ondansetron HCl (Zofran Injection) 8 mg IVPB Q8H PRN PRN Reason: NAUSEA AND/OR VOMITING Last Admin: 11/04/18 10:01 Dose: 8 mg Pantoprazole Sodium (Protonix -) 40 mg PO DAILY [facility] Last Admin: 11/09/18 09:55 Dose: 40 mg Polyethylene Glycol (Miralax (For Daily Use) -) 17 gm PO BID [facility] Last Admin: 11/09/18 21:24 Dose: 17 gm Potassium Chloride (K-Dur -) 20 meq PO DAILY [facility] Last Admin: 11/09/18 09:55 Dose: 20 meq Sucralfate (Carafate -) 1 gm PO ACHS [facility] Last Admin: 11/10/18 06:57 Dose: 1 gm *Physical Exam Vital Signs Period Temp Pulse Resp BP Sys/Juarez Pulse Ox Last 24 Hr 97.9 F-98.1 F 67-91 18-20 120-144/68-88 97-97 GENERAL: Awake, alert, and fully oriented, in no acute distress HEAD: No signs of trauma, normocephalic, atraumatic EYES: PERRLA, EOMI, sclera anicteric, conjunctiva clear ENT: Auricles normal inspection, hearing grossly normal, nares patent, oropharynx clear without exudates. Moist mucosa NECK: Normal ROM, supple, no lymphadenopathy, JVD, or masses LUNGS: No distress, speaks full sentences, clear to auscultation bilaterally HEART: Regular rate and rhythm, normal S1 and S2, no murmurs, rubs or gallops, peripheral pulses normal and equal bilaterally. ABDOMEN: Soft, +RUQ tenderness, normoactive bowel sounds. No guarding, no rebound. No masses EXTREMITIES: Normal inspection, Normal range of motion, no edema. No clubbing or cyanosis. NEUROLOGICAL: Cranial nerves II through XII grossly intact. Normal speech, no focal sensorimotor deficits, finger to nose normal, sensory intact. SKIN: Warm, Dry, normal turgor, no rashes or lesions noted. CBCD WBC 4.2 K/mm3 (4.0-10.0) 11/09/18 08:20 RBC 3.91 M/mm3 (3.60-5.2) 11/09/18 08:20 Hgb 10.3 GM/dL (10.7-15.3) L 11/09/18 08:20 Hct 31.7 % (32.4-45.2) L 11/09/18 08:20 MCV 81.1 fl (80-96) 11/09/18 08:20 MCHC 32.5 g/dl (32.0-36.0) 11/09/18 08:20 RDW 20.1 % (11.6-15.6) H 11/09/18 08:20 Plt Count 286 K/MM3 (134-434) D 11/09/18 08:20 MPV 8.3 fl (7.5-11.1) 11/09/18 08:20 CMP Sodium 141 mmol/L (136-145) 11/10/18 06:00 Potassium 3.7 mmol/L (3.5-5.1) 11/10/18 06:00 Chloride 107 mmol/L (98-107) 11/10/18 06:00 Carbon Dioxide 25 mmol/L (21-32) 11/10/18 06:00 Anion Gap 9 MMOL/L (8-16) 11/10/18 06:00 BUN 8 mg/dL (7-18) 11/10/18 06:00 Creatinine 0.6 mg/dL (0.55-1.3) 11/10/18 06:00 Creat Clearance w eGFR 101.63 (>60) 11/10/18 06:00 Random Glucose 111 mg/dL (74-106) H 11/10/18 06:00 Calcium 8.1 mg/dL (8.5-10.1) L 11/10/18 06:00 Total Bilirubin 0.6 mg/dL (0.2-1) 11/10/18 06:00 AST 48 U/L (15-37) H 11/10/18 06:00 ALT 82 U/L (13-61) H 11/10/18 06:00 Alkaline Phosphatase 790 U/L (45-117) H 11/10/18 06:00 Total Protein 4.7 g/dl (6.4-8.2) L 11/10/18 06:00 Albumin 2.2 g/dl (3.4-5.0) L 11/10/18 06:00 CARDIAC ENZYMES Creatine Kinase 11 U/L (26-192) L 11/02/18 06:00 Troponin I < 0.02 ng/ml (0.00-0.05) 11/02/18 05:30 Medical Decision Making 63F from [place] w/ PMHx SVT s/p ablation, afib on Eliquis, HTN, DM, COPD. C3 -C7 herniation, multiple CVAs here today with vomiting and elevated LFTs. Patient is currently under the care of Dr Faith, who was sent the patient in for admission. US done on 10/26 showed fatty liver, no other abnormalities. Patient reported that she had recent fall as she got out of bed. Denied head trauma but CT head completed and showed area of subacute infarct in R bird radiata. Also showed ischemic infarcts in b/l bird as well as right occipital. I was notified by primary and discussed case. She is on AC, Eliquis, and did not hold AC. Repeat CT head confirmed findings. LDL normal at 52. Patient remains alert, awake, cooperative. Mental status much improved. Can have outpatient follow up for more formal memory evaluation. Liver biopsy defferred as LFTs improving and clinically better.
[2018-11-10] MEDS: ENOXAPARIN NA (PORCINE) 80 MG/0.8 ML DISP.SYRIN SQ SCH ×2 (09:14→22:05)
[2018-11-10] MEDS: ALPRAZolam 0.25 MG TABLET PO PRN ×2 (09:22→22:05)
--- NOTE | 2018-11-10 09:40 | PN ---
Progress Note, Physician Chief Complaint: in bed awake alert NAD VSS afebrile d/w heme dr Kraus given eliquis failure we would start coumadin with tight INR control; when INR2-3 will DC to SNF for PT and needs close labs f/u and metastatic w/u as outpt (see instructions) d/w pt and son about plan and f/u needed they understood and agreed with plan. - Current Medication List Current Medications: Active Medications Alprazolam (Xanax -) 0.25 mg PO BID PRN PRN Reason: AGITATION Last Admin: 11/10/18 09:22 Dose: 0.25 mg Atorvastatin Calcium (Lipitor -) 10 mg PO HS [facility] Enoxaparin Sodium (Lovenox -) 80 mg SQ Q12H [facility] Last Admin: 11/10/18 09:14 Dose: 80 mg Escitalopram Oxalate (Lexapro -) 10 mg PO DAILY [facility] Ferrous Sulfate (Feosol -) 325 mg PO TIDCM [facility] Last Admin: 11/10/18 09:12 Dose: 325 mg Folic Acid (Folic Acid -) 1 mg PO DAILY [facility] Last Admin: 11/10/18 09:12 Dose: 1 mg Insulin Aspart (Novolog Vial) 1 units SQ ACHS [facility]; Protocol Last Admin: 11/10/18 06:57 Dose: Not Given Lidocaine (Lidoderm Patch -) 1 patch TP DAILY [facility] Last Admin: 11/10/18 09:13 Dose: 1 patch Lisinopril (Prinivil) 2.5 mg PO BID [facility] Last Admin: 11/10/18 09:12 Dose: 2.5 mg Metoprolol Tartrate (Lopressor -) 25 mg PO BID [facility] Last Admin: 11/10/18 09:13 Dose: 25 mg Miscellaneous (Lidoderm Patch Removal) 1 each MC DAILY@2200 [facility] Last Admin: 11/09/18 21:24 Dose: 1 each Multivitamins/Minerals/Vitamin C (Tab-A-Vit -) 1 tab PO DAILY [facility] Last Admin: 11/10/18 09:12 Dose: 1 tab Ondansetron HCl (Zofran Injection) 8 mg IVPB Q8H PRN PRN Reason: NAUSEA AND/OR VOMITING Last Admin: 11/04/18 10:01 Dose: 8 mg Pantoprazole Sodium (Protonix -) 40 mg PO DAILY [facility] Last Admin: 11/10/18 09:13 Dose: 40 mg Polyethylene Glycol (Miralax (For Daily Use) -) 17 gm PO BID [facility] Last Admin: 11/10/18 09:13 Dose: 17 gm Potassium Chloride (K-Dur -) 20 meq PO DAILY [facility] Last Admin: 11/10/18 09:12 Dose: 20 meq Sucralfate (Carafate -) 1 gm PO ACHS [facility] Last Admin: 11/10/18 06:57 Dose: 1 gm Warfarin Sodium (Coumadin -) 5 mg PO ONCE@1800 ONE Stop: 11/10/18 18:01 - Objective Vital Signs: Vital Signs Temperature 98.1 F 11/10/18 06:00 Pulse Rate 87 11/10/18 06:00 Respiratory Rate 20 11/10/18 06:00 Blood Pressure 123/80 11/10/18 06:00 O2 Sat by Pulse Oximetry (%) 97 11/09/18 21:00 Constitutional: Yes: No Distress, Calm Eyes: Yes: Conjunctiva Clear HENT: Yes: Atraumatic Neck: Yes: Supple Cardiovascular: Yes: Regular Rate and Rhythm Respiratory: Yes: CTA Bilaterally Gastrointestinal: Yes: Soft. No: Tenderness Genitourinary: No: Hematuria Musculoskeletal: No: Joint Stiffness, Joint Swelling Extremities: No: Cold, Cool, Cyanosis Edema: No Integumentary: No: Rash, Venous Stasis Changes Neurological: Yes: Alert ...Motor Strength: WNL Psychiatric: Yes: Alert. No: Agitated, Suicidal Ideation Labs: CBC, BMP 11/09/18 08:20 11/10/18 06:00 INR, PTT INR 1.04 (0.83-1.09) 11/09/18 08:20 - ....Imaging Other: Report Reviewed Assessment/Plan Patient is a 63F from [facility] w/ PMHx SVT s/p ablation,P afib on Eliquis, HTN, DM, COPD. C3-C7 herniation, multiple CVAs, anemia, colon CA s/p recent R hemicolectomy, remote breast CA s/p lumpectomy, benign thyroid nodule, admitted with vomiting and elevated LFTs; Recurrent falls; on head CT evidence of recent subacute new CVA nonhg R frontal despite eliquis tx. Switched to sq lovenox - start coumadin, cautiously given h/o liver ds ( improving) falls pfx d/w pt do not get OOB alone she understood prognosis guarded will need SNF when medically stable d/w pt and staff
--- NOTE | 2018-11-10 09:44 | PN ---
Progress Note, Physician Chief Complaint: Pt alert;lying in bed, taking to son on the phone. Denies chest pain, dyspnea, dizziness, blurry vision. History of Present Illness: The patient is a 63 year old white woman from [place] with a significant past medical history of PSVT (s/p ablation), afib (on Eliquis), HTN, DM, COPD, C3-C7 herniation, obese, sedentary, multiple recent CVAs, who presents to the emergency department with vomiting and elevated LFTs. Patient notes he was sent to the ED by Dr. Faith for further evaluation, a CT scan, and admission. The patient reports she fell last night as she was getting out of bed. The patient denies any head trauma, - Current Medication List Current Medications: Active Medications Alprazolam (Xanax -) 0.25 mg PO BID PRN PRN Reason: AGITATION Last Admin: 11/10/18 09:22 Dose: 0.25 mg Atorvastatin Calcium (Lipitor -) 10 mg PO HS [facility] Enoxaparin Sodium (Lovenox -) 80 mg SQ Q12H [facility] Last Admin: 11/10/18 09:14 Dose: 80 mg Escitalopram Oxalate (Lexapro -) 10 mg PO DAILY [facility] Ferrous Sulfate (Feosol -) 325 mg PO TIDCM [facility] Last Admin: 11/10/18 09:12 Dose: 325 mg Folic Acid (Folic Acid -) 1 mg PO DAILY [facility] Last Admin: 11/10/18 09:12 Dose: 1 mg Insulin Aspart (Novolog Vial) 1 units SQ ACHS [facility]; Protocol Last Admin: 11/10/18 06:57 Dose: Not Given Lidocaine (Lidoderm Patch -) 1 patch TP DAILY [facility] Last Admin: 11/10/18 09:13 Dose: 1 patch Lisinopril (Prinivil) 2.5 mg PO BID [facility] Last Admin: 11/10/18 09:12 Dose: 2.5 mg Metoprolol Tartrate (Lopressor -) 25 mg PO BID [facility] Last Admin: 11/10/18 09:13 Dose: 25 mg Miscellaneous (Lidoderm Patch Removal) 1 each MC DAILY@2200 [facility] Last Admin: 11/09/18 21:24 Dose: 1 each Multivitamins/Minerals/Vitamin C (Tab-A-Vit -) 1 tab PO DAILY [facility] Last Admin: 11/10/18 09:12 Dose: 1 tab Ondansetron HCl (Zofran Injection) 8 mg IVPB Q8H PRN PRN Reason: NAUSEA AND/OR VOMITING Last Admin: 11/04/18 10:01 Dose: 8 mg Pantoprazole Sodium (Protonix -) 40 mg PO DAILY [facility] Last Admin: 11/10/18 09:13 Dose: 40 mg Polyethylene Glycol (Miralax (For Daily Use) -) 17 gm PO BID [facility] Last Admin: 11/10/18 09:13 Dose: 17 gm Potassium Chloride (K-Dur -) 20 meq PO DAILY [facility] Last Admin: 11/10/18 09:12 Dose: 20 meq Sucralfate (Carafate -) 1 gm PO ACHS [facility] Last Admin: 11/10/18 06:57 Dose: 1 gm Warfarin Sodium (Coumadin -) 5 mg PO ONCE@1800 ONE Stop: 11/10/18 18:01 - Objective Vital Signs: Vital Signs Temperature 98.1 F 11/10/18 06:00 Pulse Rate 87 11/10/18 06:00 Respiratory Rate 20 11/10/18 06:00 Blood Pressure 123/80 11/10/18 06:00 O2 Sat by Pulse Oximetry (%) 97 11/09/18 21:00 Constitutional: Yes: Calm Eyes: Yes: WNL HENT: Yes: WNL Neck: Yes: WNL Cardiovascular: Yes: S1 (varies in intensity), S2 Respiratory: Yes: WNL Gastrointestinal: Yes: Soft ...Rectal Exam: Yes: Deferred Genitourinary: No: Anuria Musculoskeletal: Yes: Muscle Weakness Extremities: Yes: Cool Edema: No Peripheral Pulses WNL: Yes Integumentary: Yes: WNL Neurological: Yes: Alert, Unsteady Gait, Weakness Psychiatric: Yes: Other (anxeity/depression) Labs: CBC, BMP 11/09/18 08:20 11/10/18 06:00 INR, PTT INR 1.04 (0.83-1.09) 11/09/18 08:20 - ....Imaging EKG: Image Reviewed (atrial flutter) Problem List - Problems (1) Elevated LFTs Assessment/Plan: Increasing LFTS and alk phos this admission. Statin held; LFTs are starting to improve. .Pt had been on macrodantin before. SSRIs rarely increase LFTS (< 1%). Suspicion for liver metastases from colon CA. F/u with GI, heme/onc. Apixaban held in anticipation of possible procedure (e.g. liver biopsy); start Lovenox 12 hours after the last dose of apixaban which was at 10 pm last night.Optimal long-term anticoagulant has yet to be decided; "breadthrough CVA this admission while on apixaban must be taken into consideration. Pt has an GUERA compatible PPM that was recently placed for AF with slow VR. However, discussion with MR alexander: the MRI unit in the hospital does not have the capability to do the test, nor is there protocol in place to do so. Since stopping statin, LFTs having been improving. If statin is deemed important to restart, would use pravastatin. Code(s): R94.5 - ABNORMAL RESULTS OF LIVER FUNCTION STUDIES (2) Acute on chronic diastolic CHF (congestive heart failure) Assessment/Plan: On metoprolol and lisinopril. Code(s): I50.33 - ACUTE ON CHRONIC DIASTOLIC (CONGESTIVE) HEART FAILURE (3) Anemia Code(s): D64.9 - ANEMIA, UNSPECIFIED Qualifiers: Anemia type: unspecified type Qualified Code(s): D64.9 - Anemia, unspecified (4) Anxiety and depression Assessment/Plan: On SSRI. Code(s): F41.9 - ANXIETY DISORDER, UNSPECIFIED; F32.9 - MAJOR DEPRESSIVE DISORDER, SINGLE EPISODE, UNSPECIFIED (5) Atrial flutter Assessment/Plan: ON metoprolol for HR control. Apixapabn held; Lovenox started in anticipation of procedure.Pts son now prefers to have PET scan instead, if LFT elevation persists and liver mass etiology is required. 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 Code(s): K22.70 - CALDERON'S ESOPHAGUS WITHOUT DYSPLASIA (7) COPD (chronic obstructive pulmonary disease) Code(s): J44.9 - CHRONIC OBSTRUCTIVE PULMONARY DISEASE, UNSPECIFIED (8) Colon cancer Code(s): C18.9 - MALIGNANT NEOPLASM OF COLON, UNSPECIFIED (9) Diabetes Code(s): E11.9 - TYPE 2 DIABETES MELLITUS WITHOUT COMPLICATIONS (10) Fall Code(s): W19.XXXA - UNSPECIFIED FALL, INITIAL ENCOUNTER Qualifiers: Encounter type: initial encounter Qualified Code(s): W19.XXXA - Unspecified fall, initial encounter (11) HTN (hypertension) Code(s): I10 - ESSENTIAL (PRIMARY) HYPERTENSION (12) Headache Code(s): R51 - HEADACHE Qualifiers: Headache type: tension-type Headache chronicity pattern: acute headache Intractability: not intractable Qualified Code(s): G44.209 - Tension-type headache, unspecified, not intractable (13) Hyperlipidemia Code(s): E78.5 - HYPERLIPIDEMIA, UNSPECIFIED (14) Obesity Code(s): E66.9 - OBESITY, UNSPECIFIED (15) Weakness Code(s): R53.1 - WEAKNESS (16) CVA (cerebral vascular accident) Code(s): I63.9 - CEREBRAL INFARCTION, UNSPECIFIED
--- NOTE | 2018-11-10 11:04 | PN ---
Progress Note, Physician History of Present Illness: The patient is a 63 year old female, from [place] with a significant past medical history of SVT (s/p ablation), afib (on Eliquis), HTN, DM, COPD, C3-C7 herniation, multiple CVAs who presents to the emergency department with vomiting and elevated LFTs. Patient notes he was sent to the ED by Dr. Faith for further evaluation, a CT scan, and admission. The patient reports she fell last night as she was getting out of bed. The patient denies any head trauma, - Current Medication List Current Medications: Active Medications Alprazolam (Xanax -) 0.25 mg PO BID PRN PRN Reason: AGITATION Last Admin: 11/10/18 09:22 Dose: 0.25 mg Atorvastatin Calcium (Lipitor -) 10 mg PO HS [facility] Enoxaparin Sodium (Lovenox -) 80 mg SQ Q12H [facility] Last Admin: 11/10/18 09:14 Dose: 80 mg Escitalopram Oxalate (Lexapro -) 10 mg PO DAILY [facility] Ferrous Sulfate (Feosol -) 325 mg PO TIDCM [facility] Last Admin: 11/10/18 09:12 Dose: 325 mg Folic Acid (Folic Acid -) 1 mg PO DAILY [facility] Last Admin: 11/10/18 09:12 Dose: 1 mg Insulin Aspart (Novolog Vial) 1 units SQ ACHS [facility]; Protocol Last Admin: 11/10/18 06:57 Dose: Not Given Lidocaine (Lidoderm Patch -) 1 patch TP DAILY [facility] Last Admin: 11/10/18 09:13 Dose: 1 patch Lisinopril (Prinivil) 2.5 mg PO BID [facility] Last Admin: 11/10/18 09:12 Dose: 2.5 mg Metoprolol Tartrate (Lopressor -) 25 mg PO BID [facility] Last Admin: 11/10/18 09:13 Dose: 25 mg Miscellaneous (Lidoderm Patch Removal) 1 each MC DAILY@2200 [facility] Last Admin: 11/09/18 21:24 Dose: 1 each Multivitamins/Minerals/Vitamin C (Tab-A-Vit -) 1 tab PO DAILY [facility] Last Admin: 11/10/18 09:12 Dose: 1 tab Ondansetron HCl (Zofran Injection) 8 mg IVPB Q8H PRN PRN Reason: NAUSEA AND/OR VOMITING Last Admin: 11/04/18 10:01 Dose: 8 mg Pantoprazole Sodium (Protonix -) 40 mg PO DAILY [facility] Last Admin: 11/10/18 09:13 Dose: 40 mg Polyethylene Glycol (Miralax (For Daily Use) -) 17 gm PO BID [facility] Last Admin: 11/10/18 09:13 Dose: 17 gm Potassium Chloride (K-Dur -) 20 meq PO DAILY [facility] Last Admin: 11/10/18 09:12 Dose: 20 meq Sucralfate (Carafate -) 1 gm PO ACHS [facility] Last Admin: 11/10/18 06:57 Dose: 1 gm Warfarin Sodium (Coumadin -) 5 mg PO ONCE@1800 ONE Stop: 11/10/18 18:01 - Objective Vital Signs: Vital Signs Temperature 98.1 F 11/10/18 06:00 Pulse Rate 87 11/10/18 06:00 Respiratory Rate 20 11/10/18 06:00 Blood Pressure 123/80 11/10/18 06:00 O2 Sat by Pulse Oximetry (%) 97 11/10/18 10:00 Eyes: Yes: WNL, Conjunctiva Clear, EOM Intact HENT: Yes: WNL, Atraumatic, Normocephalic Neck: Yes: WNL, Supple, Trachea Midline Cardiovascular: Yes: WNL, Regular Rate and Rhythm Respiratory: Yes: WNL, Regular, CTA Bilaterally Gastrointestinal: Yes: WNL, Normal Bowel Sounds Genitourinary: Yes: WNL Musculoskeletal: Yes: WNL Extremities: Yes: WNL Edema: No Integumentary: Yes: WNL Neurological: Yes: WNL, Alert, Oriented ...Motor Strength: WNL Psychiatric: Yes: WNL Labs: CBC, BMP 11/09/18 08:20 11/10/18 06:00 INR, PTT INR 1.04 (0.83-1.09) 11/09/18 08:20 Assessment/Plan - Problems (1) Elevated LFTs Assessment/Plan: Increasing LFTS and alk phos this admission. Statin held; LFTs are starting to improve. .Pt had been on macrodantin before. SSRIs rarely increase LFTS (< 1%). Suspicion for liver metastases from colon CA. F/u with GI, heme/onc. Apixaban held in anticipation of possible procedure (e.g. liver biopsy); start Lovenox 12 hours after the last dose of apixaban which was at 10 pm last night.Optimal long-term anticoagulant has yet to be decided; "breadthrough CVA this admission while on apixaban must be taken into consideration. Pt has an GUERA compatible PPM that was recently placed for AF with slow VR. However, discussion with MR alexander: the MRI unit in the hospital does not have the capability to do the test, nor is there protocol in place to do so. Since stopping statin, LFTs having been improving. If statin is deemed important to restart, would use pravastatin. Code(s): R94.5 - ABNORMAL RESULTS OF LIVER FUNCTION STUDIES (2) Acute on chronic diastolic CHF (congestive heart failure) Assessment/Plan: On metoprolol and lisinopril. Code(s): I50.33 - ACUTE ON CHRONIC DIASTOLIC (CONGESTIVE) HEART FAILURE (3) Anemia Code(s): D64.9 - ANEMIA, UNSPECIFIED Qualifiers: Anemia type: unspecified type Qualified Code(s): D64.9 - Anemia, unspecified (4) Anxiety and depression Assessment/Plan: On SSRI. Code(s): F41.9 - ANXIETY DISORDER, UNSPECIFIED; F32.9 - MAJOR DEPRESSIVE DISORDER, SINGLE EPISODE, UNSPECIFIED (5) Atrial flutter Assessment/Plan: ON metoprolol for HR control. Apixapabn held; Lovenox started in anticipation of procedure.Pts son now prefers to have PET scan instead, if LFT elevation persists and liver mass etiology is required. 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 Code(s): K22.70 - CALDERON'S ESOPHAGUS WITHOUT DYSPLASIA (7) COPD (chronic obstructive pulmonary disease) Code(s): J44.9 - CHRONIC OBSTRUCTIVE PULMONARY DISEASE, UNSPECIFIED (8) Colon cancer Code(s): C18.9 - MALIGNANT NEOPLASM OF COLON, UNSPECIFIED (9) Diabetes Code(s): E11.9 - TYPE 2 DIABETES MELLITUS WITHOUT COMPLICATIONS (10) Fall Code(s): W19.XXXA - UNSPECIFIED FALL, INITIAL ENCOUNTER Qualifiers: Encounter type: initial encounter Qualified Code(s): W19.XXXA - Unspecified fall, initial encounter (11) HTN (hypertension) Code(s): I10 - ESSENTIAL (PRIMARY) HYPERTENSION (12) Headache Code(s): R51 - HEADACHE Qualifiers: Headache type: tension-type Headache chronicity pattern: acute headache Intractability: not intractable Qualified Code(s): G44.209 - Tension-type headache, unspecified, not intractable (13) Hyperlipidemia Code(s): E78.5 - HYPERLIPIDEMIA, UNSPECIFIED (14) Obesity Code(s): E66.9 - OBESITY, UNSPECIFIED (15) Weakness Code(s): R53.1 - WEAKNESS (16) CVA (cerebral vascular accident) Code(s): I63.9 - CEREBRAL INFARCTION, UNSPECIFIED
[2018-11-10] MEDS: ESCITALOPRAM OXALATE 10 MG TABLET (FP) PO SCH (11:48)
[2018-11-10] MEDS ORDERED: WARFARIN NA 5 MG TABLET (UD) PO ONE (18:00)
--- NOTE | 2018-11-10 19:48 | PN ---
Progress Note (short form) - Note Progress Note: Patient seen and examined . Denies abdominal pain. Abdone is soft and non tender Having tarry stools according to nurses. A/C being held and GI to follow up. Problem List - Problems (1) Elevated LFTs Code(s): R94.5 - ABNORMAL RESULTS OF LIVER FUNCTION STUDIES
[2018-11-10] MEDS: ATORVASTATIN CA 10 MG TABLET (FP) PO SCH (22:05)
[2018-11-10] MEDS: LIDOCAINE PATCH REMOVAL MC SCH (22:18)
--- NOTE | 2018-11-11 06:49 | PN ---
Progress Note, Physician History of Present Illness: awake alert denies any abdominal pain or c/o had 1 black stool yesterday before coumadin given (did not receive coumadin but received sq lovenox) - Current Medication List Current Medications: Active Medications Alprazolam (Xanax -) 0.25 mg PO BID PRN PRN Reason: AGITATION Last Admin: 11/10/18 22:05 Dose: 0.25 mg Atorvastatin Calcium (Lipitor -) 10 mg PO HS [facility] Last Admin: 11/10/18 22:05 Dose: 10 mg Enoxaparin Sodium (Lovenox -) 80 mg SQ Q12H [facility] Last Admin: 11/10/18 22:05 Dose: 80 mg Escitalopram Oxalate (Lexapro -) 10 mg PO DAILY [facility] Last Admin: 11/10/18 11:48 Dose: 10 mg Ferrous Sulfate (Feosol -) 325 mg PO TIDCM [facility] Last Admin: 11/10/18 17:53 Dose: 325 mg Folic Acid (Folic Acid -) 1 mg PO DAILY [facility] Last Admin: 11/10/18 09:12 Dose: 1 mg Insulin Aspart (Novolog Vial) 1 units SQ [facility]; Protocol Last Admin: 11/10/18 22:05 Dose: Not Given Lidocaine (Lidoderm Patch -) 1 patch TP DAILY [facility] Last Admin: 11/10/18 09:13 Dose: 1 patch Lisinopril (Prinivil) 2.5 mg PO BID [facility] Last Admin: 11/10/18 22:05 Dose: 2.5 mg Metoprolol Tartrate (Lopressor -) 25 mg PO BID [facility] Last Admin: 11/10/18 22:05 Dose: 25 mg Miscellaneous (Lidoderm Patch Removal) 1 each MC DAILY@2200 [facility] Last Admin: 11/10/18 22:18 Dose: 1 each Multivitamins/Minerals/Vitamin C (Tab-A-Vit -) 1 tab PO DAILY [facility] Last Admin: 11/10/18 09:12 Dose: 1 tab Ondansetron HCl (Zofran Injection) 8 mg IVPB Q8H PRN PRN Reason: NAUSEA AND/OR VOMITING Last Admin: 11/04/18 10:01 Dose: 8 mg Pantoprazole Sodium (Protonix -) 40 mg PO DAILY [facility] Last Admin: 11/10/18 09:13 Dose: 40 mg Polyethylene Glycol (Miralax (For Daily Use) -) 17 gm PO BID [facility] Last Admin: 11/10/18 22:05 Dose: 17 gm Potassium Chloride (K-Dur -) 20 meq PO DAILY [facility] Last Admin: 11/10/18 09:12 Dose: 20 meq Sucralfate (Carafate -) 1 gm PO ACHS [facility] Last Admin: 11/10/18 22:04 Dose: 1 gm - Objective Vital Signs: Vital Signs Temperature 97.4 F L 11/11/18 06:00 Pulse Rate 73 11/11/18 06:00 Respiratory Rate 18 11/11/18 06:00 Blood Pressure 137/62 11/11/18 06:00 O2 Sat by Pulse Oximetry (%) 97 11/10/18 21:00 Constitutional: Yes: No Distress, Calm Eyes: Yes: Conjunctiva Clear HENT: Yes: Atraumatic Neck: Yes: Supple Cardiovascular: Yes: Regular Rate and Rhythm Respiratory: Yes: CTA Bilaterally Gastrointestinal: Yes: Soft. No: Tenderness Genitourinary: No: Hematuria Musculoskeletal: No: Joint Stiffness, Joint Swelling Extremities: No: Cold, Cool, Cyanosis Edema: No Integumentary: No: Rash, Venous Stasis Changes Neurological: Yes: Alert ...Motor Strength: WNL Psychiatric: Yes: Alert. No: Agitated Labs: CBC, BMP 11/09/18 08:20 11/10/18 06:00 INR, PTT INR 1.04 (0.83-1.09) 11/09/18 08:20 - ....Imaging Other: Report Reviewed Assessment/Plan Patient is a 63F from [facility] w/ PMHx SVT s/p ablation,P afib on Eliquis, HTN, DM, COPD. C3-C7 herniation, multiple CVAs, anemia, colon CA s/p recent R hemicolectomy, remote breast CA s/p lumpectomy, benign thyroid nodule, admitted with vomiting elevated LFTs; Recurrent falls; on head CT evidence of recent subacute new CVA nonhg R frontal despite eliquis tx. on sq lovenox - black stools x 1 r/o GI bleed; hold coumadin, GI eval; po PPIs and f/u labs falls pfx d/w pt do not get OOB alone she understood prognosis guarded will need SNF when medically stable d/w pt, will call pt's son
[2018-11-11] MEDS: SUCRALFATE 1 GM TABLET (FP) PO SCH ×4 (06:53→22:58)
[2018-11-11] MEDS: INSULIN (NOVOLOG) ASPART 100 UNITS/ML 10ML VIAL SQ SCH ×4 (06:54→23:26)
[2018-11-11 07:32] LABS: HEMATOCRIT 30.2 % (32.4-45.2); HEMOGLOBIN 9.3 GM/dL (10.7-15.3); MCH 24.9 pg (25.7-33.7); MCHC 30.6 g/dl (32.0-36.0); MEAN CELL VOLUME 81.2 fl (80-96); MEAN PLT VOLUME 8.6 fl (7.5-11.1); PLATELET COUNT 232 K/MM3 (134-434); RBC 3.72 M/mm3 (3.60-5.2); RDW 20.6 % (11.6-15.6); WHITE BLOOD COUNT 4.7 K/mm3 (4.0-10.0)
[2018-11-11 07:57] LABS: INR 1.08 (0.83-1.09); PROTHROMBIN TIME (PATIENT) 12.7 SEC (9.7-13.0)
[2018-11-11 08:00] LABS: ALBUMIN 2.1 g/dl (3.4-5.0); ALK PHOS 645 U/L (45-117); ANION GAP 6 MMOL/L (8-16); BILIRUBIN,DIRECT 0.4 mg/dL (0.0-0.2); BILIRUBIN,TOTAL 0.4 mg/dL (0.2-1); BLOOD UREA NITROGEN 8 mg/dL (7-18); CHLORIDE 106 mmol/L (98-107); CO2 28 mmol/L (21-32); CREATININE 0.5 mg/dL (0.55-1.3); GLUCOSE,RANDOM 82 mg/dL (74-106); SGOT/AST 38 U/L (15-37); SGPT/ALT 64 U/L (13-61); SODIUM 140 mmol/L (136-145); TOT PROT 4.5 g/dl (6.4-8.2)
--- NOTE | 2018-11-11 09:17 | PN ---
Progress Note (short form) - Note Progress Note: Neurology - History of Present Illness 63F from [place] w/ PMHx SVT s/p ablation, afib on Eliquis, HTN, DM, COPD. C3 -C7 herniation, multiple CVAs here today with vomiting and elevated LFTs. Patient is currently under the care of Dr Faith, who was sent the patient in for admission. US done on 10/26 showed fatty liver, no other abnormalities. Patient reported that she had recent fall as she got out of bed. Denied head trauma but CT head completed and showed area of subacute infarct in R bird radiata. Also showed ischemic infarcts in b/l bird as well as right occipital. I was notified by primary and discussed case. She is on AC, Eliquis, and did not hold AC. Repeat CT head confirmed findings. LDL normal at 52. Patient remains alert, awake, cooperative. Does have lapses in mental status at times. Is much improved and more oriented for me now. She can tell me she's in the hospital, is able to tell me it's October 2018 but first believed it Aug or January. Liver biopsy referred per notes as her LFTs have improved, possibly due to statin being discontinued Active Medications Alprazolam (Xanax -) 0.25 mg PO BID PRN PRN Reason: AGITATION Last Admin: 11/10/18 22:05 Dose: 0.25 mg Atorvastatin Calcium (Lipitor -) 10 mg PO HS [facility] Last Admin: 11/10/18 22:05 Dose: 10 mg Enoxaparin Sodium (Lovenox -) 80 mg SQ Q12H [facility] Last Admin: 11/10/18 22:05 Dose: 80 mg Escitalopram Oxalate (Lexapro -) 10 mg PO DAILY [facility] Last Admin: 11/10/18 11:48 Dose: 10 mg Ferrous Sulfate (Feosol -) 325 mg PO TIDCM [facility] Last Admin: 11/10/18 17:53 Dose: 325 mg Folic Acid (Folic Acid -) 1 mg PO DAILY [facility] Last Admin: 11/10/18 09:12 Dose: 1 mg Insulin Aspart (Novolog Vial) 1 units SQ ACHS [facility]; Protocol Last Admin: 11/11/18 06:54 Dose: Not Given Lidocaine (Lidoderm Patch -) 1 patch TP DAILY [facility] Last Admin: 11/10/18 09:13 Dose: 1 patch Lisinopril (Prinivil) 2.5 mg PO BID [facility] Last Admin: 11/10/18 22:05 Dose: 2.5 mg Metoprolol Tartrate (Lopressor -) 25 mg PO BID [facility] Last Admin: 11/10/18 22:05 Dose: 25 mg Miscellaneous (Lidoderm Patch Removal) 1 each MC DAILY@2200 [facility] Last Admin: 11/10/18 22:18 Dose: 1 each Multivitamins/Minerals/Vitamin C (Tab-A-Vit -) 1 tab PO DAILY [facility] Last Admin: 11/10/18 09:12 Dose: 1 tab Ondansetron HCl (Zofran Injection) 8 mg IVPB Q8H PRN PRN Reason: NAUSEA AND/OR VOMITING Last Admin: 11/04/18 10:01 Dose: 8 mg Pantoprazole Sodium (Protonix -) 40 mg PO DAILY [facility] Last Admin: 11/10/18 09:13 Dose: 40 mg Polyethylene Glycol (Miralax (For Daily Use) -) 17 gm PO BID [facility] Last Admin: 11/10/18 22:05 Dose: 17 gm Potassium Chloride (K-Dur -) 20 meq PO DAILY [facility] Last Admin: 11/10/18 09:12 Dose: 20 meq Sucralfate (Carafate -) 1 gm PO ACHS [facility] Last Admin: 11/11/18 06:53 Dose: 1 gm *Physical Exam Vital Signs Temperature 97.4 F L 11/11/18 06:00 Pulse Rate 73 11/11/18 06:00 Respiratory Rate 18 11/11/18 06:00 Blood Pressure 137/62 11/11/18 06:00 O2 Sat by Pulse Oximetry (%) 97 11/10/18 21:00 GENERAL: Awake, alert, and fully oriented, in no acute distress HEAD: No signs of trauma, normocephalic, atraumatic EYES: PERRLA, EOMI, sclera anicteric, conjunctiva clear ENT: Auricles normal inspection, hearing grossly normal, nares patent, oropharynx clear without exudates. Moist mucosa NECK: Normal ROM, supple, no lymphadenopathy, JVD, or masses LUNGS: No distress, speaks full sentences, clear to auscultation bilaterally HEART: Regular rate and rhythm, normal S1 and S2, no murmurs, rubs or gallops, peripheral pulses normal and equal bilaterally. ABDOMEN: Soft, +RUQ tenderness, normoactive bowel sounds. No guarding, no rebound. No masses EXTREMITIES: Normal inspection, Normal range of motion, no edema. No clubbing or cyanosis. NEUROLOGICAL: Cranial nerves II through XII grossly intact. Normal speech, no focal sensorimotor deficits, finger to nose normal, sensory intact. SKIN: Warm, Dry, normal turgor, no rashes or lesions noted. CBCD WBC 4.7 K/mm3 (4.0-10.0) 11/11/18 06:35 RBC 3.72 M/mm3 (3.60-5.2) 11/11/18 06:35 Hgb 9.3 GM/dL (10.7-15.3) L 11/11/18 06:35 Hct 30.2 % (32.4-45.2) L 11/11/18 06:35 MCV 81.2 fl (80-96) 11/11/18 06:35 MCHC 30.6 g/dl (32.0-36.0) L 11/11/18 06:35 RDW 20.6 % (11.6-15.6) H 11/11/18 06:35 Plt Count 232 K/MM3 (134-434) 11/11/18 06:35 MPV 8.6 fl (7.5-11.1) 11/11/18 06:35 CMP Sodium 140 mmol/L (136-145) 11/11/18 06:35 Potassium 4.0 mmol/L (3.5-5.1) 11/11/18 06:35 Chloride 106 mmol/L (98-107) 11/11/18 06:35 Carbon Dioxide 28 mmol/L (21-32) 11/11/18 06:35 Anion Gap 6 MMOL/L (8-16) L 11/11/18 06:35 BUN 8 mg/dL (7-18) 11/11/18 06:35 Creatinine 0.5 mg/dL (0.55-1.3) L 11/11/18 06:35 Creat Clearance w eGFR 125.43 (>60) 11/11/18 06:35 Calcium 8.0 mg/dL (8.5-10.1) L 11/11/18 06:35 Total Bilirubin 0.4 mg/dL (0.2-1) 11/11/18 06:35 AST 38 U/L (15-37) H 11/11/18 06:35 ALT 64 U/L (13-61) H 11/11/18 06:35 Alkaline Phosphatase 645 U/L (45-117) H 11/11/18 06:35 Total Protein 4.5 g/dl (6.4-8.2) L 11/11/18 06:35 Albumin 2.1 g/dl (3.4-5.0) L 11/11/18 06:35 Medical Decision Making 63F from [place] w/ PMHx SVT s/p ablation, afib on Eliquis, HTN, DM, COPD. C3 -C7 herniation, multiple CVAs here today with vomiting and elevated LFTs. Patient is currently under the care of Dr Faith, who was sent the patient in for admission. US done on 10/26 showed fatty liver, no other abnormalities. Patient reported that she had recent fall as she got out of bed. Denied head trauma but CT head completed and showed area of subacute infarct in R bird radiata. Also showed ischemic infarcts in b/l bird as well as right occipital. I was notified by primary and discussed case. She is on AC, Eliquis, and did not hold AC. Repeat CT head confirmed findings. LDL normal at 52. Statin being held due to LFTs. Defer to cards regarding statin, though would recommend repeat LFTs in 4-6 weeks if patient remains off it. Patient remains alert, awake, cooperative. Mental status improved though more somnolent this AM and having trouble with month. Can have outpatient follow up for more formal memory evaluation. Liver biopsy defferred as LFTs improving and clinically better.
[2018-11-11] MEDS ORDERED: PT OWN MED DRAWER 7, Y5N ONE (09:39)
[2018-11-11] MEDS: LISINOPRIL 5 MG TABLET (FP) PO SCH ×2 (09:44→22:59)
[2018-11-11] MEDS: PANTOPRAZOLE 40 MG TABLET (FP) PO SCH (09:45)
[2018-11-11] MEDS: POTASSIUM CHLORIDE TABS 20 MEQ TABLET.ER (FP) PO SCH (09:45)
[2018-11-11] MEDS: METOPROLOL TARTRATE 25 MG TABLET (FP) PO SCH ×2 (09:45→22:58)
[2018-11-11] MEDS: ESCITALOPRAM OXALATE 10 MG TABLET (FP) PO SCH (09:45)
[2018-11-11] MEDS: FERROUS SO4 325 MG TABLET (FP) PO SCH ×3 (09:45→17:24)
[2018-11-11] MEDS: FOLIC ACID 1 MG TABLET (FP) PO SCH (09:45)
[2018-11-11] MEDS: LIDOCAINE 5% TOPICAL PATCH TP SCH (09:46)
[2018-11-11] MEDS: ENOXAPARIN NA (PORCINE) 80 MG/0.8 ML DISP.SYRIN SQ SCH ×2 (09:46→23:27)
[2018-11-11] MEDS: POLYETHYLENE GLYCOL 3350 119 GM BTL PO SCH ×2 (09:47→23:08)
[2018-11-11] MEDS: MULTIVITAMINS (DAILY MVI) TABLET (FP) PO SCH (10:04)
[2018-11-11] MEDS: ALPRAZolam 0.25 MG TABLET PO PRN ×2 (12:30→23:31)
--- NOTE | 2018-11-11 21:45 | PN.GI ---
GI Progress Note Subjective: GI NOte: Asked to re-evaluate Rowena due to occult bleeding in the setting of initiating coumadin therapy. Rowena denies abdominal pain, nausea or vomiting. She had both an EGD and a colonoscopy in 09/04 when the colon cancer was found. 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 She has been on a PPI. I advised Rowena to have an EGD tomorrow to assess her gastritis status. After discussing the potential adverse effects Rowena declined. - Objective Vital Signs: Vital Signs Temperature 98.0 F 11/11/18 18:00 Pulse Rate 88 11/11/18 18:00 Respiratory Rate 20 11/11/18 18:00 Blood Pressure 144/78 11/11/18 18:00 O2 Sat by Pulse Oximetry (%) 97 11/10/18 21:00 Laboratory Tests 11/05/18 11/06/18 11/06/18 06:35 06:30 06:30 Hgb 8.5 L 8.8 L AST 194 H ALT 177 H Alkaline Phosphatase 975 H 11/07/18 11/08/18 11/08/18 07:00 07:00 07:00 Hgb 9.5 L 9.9 L AST ALT Alkaline Phosphatase 923 H 11/09/18 11/09/18 11/11/18 08:20 08:20 06:35 Hgb 10.3 L 9.3 L AST 60 H ALT 101 H Alkaline Phosphatase 841 H Constitutional: No Distress ...Auscultate: Yes: Normoactive Bowel Sounds ...Palpate: Yes: Soft, Other (nontender) Labs: CBC, BMP 11/11/18 06:35 11/11/18 06:35 INR, PTT INR 1.08 (0.83-1.09) 11/11/18 06:35 Assessment/Plan Impression: I suspect Rowena's occult bleeding reflects a healing anastomosis but cannot exclude erosive stress gastritis or ulcer, vascular ectasias, GERD among others Cholestatic DILI related to Macrodantin Plan: EGD offered but declined. I question whether Rowena understands the full nature of her condition and whether she is competent to make this decision. A psych evaluation should be considered Will start Coumadin and observe her Hb closely- discussed with the nurse Problem List - Problems (1) GI bleed Assessment/Plan: I suspect her occult bleeding reflects a healing anastomosis but cannot exclude erosive stress gastritis or ulcer, vascular ectasias, GERD and etc. EGD offered but declined. I question whether Rowena understands the full nature of her condition and whether she is competent to make this decision. Code(s): K92.2 - GASTROINTESTINAL HEMORRHAGE, UNSPECIFIED (2) Abnormal liver function Code(s): R94.5 - ABNORMAL RESULTS OF LIVER FUNCTION STUDIES (3) Colon cancer Code(s): C18.9 - MALIGNANT NEOPLASM OF COLON, UNSPECIFIED (4) Carter's esophagus determined by biopsy Code(s): K22.70 - CARTER'S ESOPHAGUS WITHOUT DYSPLASIA (5) CVA (cerebral vascular accident) Code(s): I63.9 - CEREBRAL INFARCTION, UNSPECIFIED (6) Fatty (change of) liver, not elsewhere classified Code(s): K76.0 - FATTY (CHANGE OF) LIVER, NOT ELSEWHERE CLASSIFIED
[2018-11-11] MEDS ORDERED: WARFARIN NA 5 MG TABLET (UD) PO ONE (22:00)
[2018-11-11] MEDS: ATORVASTATIN CA 10 MG TABLET (FP) PO SCH (22:58)
[2018-11-11] MEDS: LIDOCAINE PATCH REMOVAL MC SCH (23:06)
[2018-11-12] MEDS: SUCRALFATE 1 GM TABLET (FP) PO SCH ×4 (06:10→21:42)
[2018-11-12] MEDS: INSULIN (NOVOLOG) ASPART 100 UNITS/ML 10ML VIAL SQ SCH ×4 (06:14→21:43)
[2018-11-12] MEDS ORDERED: INSULIN (NOVOLOG) ASPART 100 UNITS/ML 10ML VIAL ONE (06:26)
[2018-11-12 07:48] LABS: BASO % 0.6 % (0-2.0); EOS % 4.8 % (0-4.5); HEMATOCRIT 30.3 % (32.4-45.2); HEMOGLOBIN 9.4 GM/dL (10.7-15.3); LYMPH % 17.8 % (8-40); MCH 25.2 pg (25.7-33.7); MCHC 30.9 g/dl (32.0-36.0); MEAN CELL VOLUME 81.5 fl (80-96); MEAN PLT VOLUME 8.5 fl (7.5-11.1); MONO % 6.4 % (3.8-10.2); NEUT % 70.4 % (42.8-82.8); PLATELET COUNT 207 K/MM3 (134-434); RBC 3.72 M/mm3 (3.60-5.2); RDW 20.4 % (11.6-15.6); RETICULOCYTES 4.76 % (0.5-1.5); WHITE BLOOD COUNT 4.1 K/mm3 (4.0-10.0)
--- NOTE | 2018-11-12 07:49 | PN ---
Progress Note, Physician Chief Complaint: awake alert NAD in good spirits no new c.o no N/V ate OK - Current Medication List Current Medications: Active Medications Alprazolam (Xanax -) 0.25 mg PO BID PRN PRN Reason: AGITATION Last Admin: 11/11/18 23:31 Dose: 0.25 mg Atorvastatin Calcium (Lipitor -) 10 mg PO HS [facility] Last Admin: 11/11/18 22:58 Dose: 10 mg Enoxaparin Sodium (Lovenox -) 80 mg SQ Q12H [facility] Last Admin: 11/11/18 23:27 Dose: Not Given Escitalopram Oxalate (Lexapro -) 10 mg PO DAILY [facility] Last Admin: 11/11/18 09:45 Dose: 10 mg Ferrous Sulfate (Feosol -) 325 mg PO TIDCM [facility] Last Admin: 11/11/18 17:24 Dose: 325 mg Folic Acid (Folic Acid -) 1 mg PO DAILY [facility] Last Admin: 11/11/18 09:45 Dose: 1 mg Insulin Aspart (Novolog Vial) 1 units SQ [facility]; Protocol Last Admin: 11/12/18 06:14 Dose: Not Given Lidocaine (Lidoderm Patch -) 1 patch TP DAILY [facility]S [facility] Last Admin: 11/11/18 09:46 Dose: 1 patch Lisinopril (Prinivil) 2.5 mg PO BID [facility] 234 [facility] Last Admin: 11/11/18 22:59 Dose: 2.5 mg Metoprolol Tartrate (Lopressor -) 25 mg PO BID [facility] 234 [facility] Last Admin: 11/11/18 22:58 Dose: 25 mg Miscellaneous (Lidoderm Patch Removal) 1 each MC DAILY@2200 [facility] 234 [facility]S [facility] Last Admin: 11/11/18 23:06 Dose: Not Given Multivitamins/Minerals/Vitamin C (Tab-A-Vit -) 1 tab PO DAILY [facility]S [facility] Last Admin: 11/11/18 10:04 Dose: 1 tab Ondansetron HCl (Zofran Injection) 8 mg IVPB Q8H PRN PRN Reason: NAUSEA AND/OR VOMITING Last Admin: 11/04/18 10:01 Dose: 8 mg Pantoprazole Sodium (Protonix -) 40 mg PO DAILY [facility] Last Admin: 11/11/18 09:45 Dose: 40 mg Polyethylene Glycol (Miralax (For Daily Use) -) 17 gm PO BID [facility] Last Admin: 11/11/18 23:08 Dose: Not Given Potassium Chloride (K-Dur -) 20 meq PO DAILY [facility] Last Admin: 11/11/18 09:45 Dose: 20 meq Sucralfate (Carafate -) 1 gm PO ACHS [facility] Last Admin: 11/12/18 06:10 Dose: 1 gm - Objective Vital Signs: Vital Signs Temperature 98 F 11/12/18 06:00 Pulse Rate 72 11/12/18 06:00 Respiratory Rate 17 11/12/18 06:00 Blood Pressure 137/60 11/12/18 06:00 O2 Sat by Pulse Oximetry (%) 98 11/11/18 21:00 Constitutional: Yes: No Distress, Calm Eyes: Yes: Conjunctiva Clear HENT: Yes: Atraumatic Neck: Yes: Supple Cardiovascular: Yes: Regular Rate and Rhythm Respiratory: Yes: CTA Bilaterally Gastrointestinal: Yes: Soft. No: Tenderness Genitourinary: No: CVA Tenderness - Left, CVA Tenderness - Right Musculoskeletal: No: Joint Stiffness, Joint Swelling Extremities: No: Cold, Cool, Cyanosis Edema: No Integumentary: No: Rash, Venous Stasis Changes Neurological: Yes: WNL, Alert, Oriented ...Motor Strength: WNL Psychiatric: Yes: WNL, Alert, Oriented. No: Agitated, Suicidal Ideation Labs: CBC, BMP 11/11/18 06:35 INR, PTT INR 1.08 (0.83-1.09) 11/11/18 06:35 - ....Imaging Other: Report Reviewed Assessment/Plan Patient is a 63F from [facility] w/ PMHx SVT s/p ablation,P afib on Eliquis, HTN, DM, COPD. C3-C7 herniation, multiple CVAs, anemia, colon CA s/p recent R hemicolectomy, remote breast CA s/p lumpectomy, benign thyroid nodule, admitted with vomiting elevated LFTs; Recurrent falls; on head CT evidence of recent subacute new CVA nonhg R frontal despite eliquis tx. on sq lovenox - black stools x 1 r/o GI bleed; started po coumadin, GI f/u; po PPIs and f/u labs pt absolutely refuses EGD, d/w pt indications and alternatives; d/w pt risks of AC and GI Bleed; needs AC given recurrent CVAs; she understands but does not want any endoscopic procedures at this point; monitor INR and CBC closely; no recurrent GIB today; UCX ESBL: Isolation; ID eval falls pfx d/w pt do not get OOB alone she understood prognosis guarded will need SNF when medically stable d/w pt, will call pt's son
[2018-11-12 07:59] LABS: ALBUMIN 2.1 g/dl (3.4-5.0); BILIRUBIN,DIRECT 0.3 mg/dL (0.0-0.2); BILIRUBIN,TOTAL 0.6 mg/dL (0.2-1); TOT PROT 4.6 g/dl (6.4-8.2)
[2018-11-12 08:15] LABS: PROTHROMBIN TIME (PATIENT) 11.8 SEC (9.7-13.0)
[2018-11-12 08:18] LABS: ACTIVATED PTT 40.6 SECONDS (25.2-36.5)
--- NOTE | 2018-11-12 10:08 | PN ---
Progress Note (short form) - Note Progress Note: Neurology - History of Present Illness 63F from [place] w/ PMHx SVT s/p ablation, afib on Eliquis, HTN, DM, COPD. C3 -C7 herniation, multiple CVAs here today with vomiting and elevated LFTs. Patient is currently under the care of Dr Faith, who was sent the patient in for admission. US done on 10/26 showed fatty liver, no other abnormalities. Patient reported that she had recent fall as she got out of bed. Denied head trauma but CT head completed and showed area of subacute infarct in R bird radiata. Also showed ischemic infarcts in b/l bird as well as right occipital. I was notified by primary and discussed case. She is on AC, Eliquis, and did not hold AC. Repeat CT head confirmed findings. LDL normal at 52. Patient remains alert, awake, cooperative. Does have lapses in mental status at times. Is much improved and more oriented for me now. She can tell me she's in the hospital, is able to tell me it's October 2018 but first said Diane again today. Liver biopsy referred per notes as her LFTs have improved, possibly due to statin being discontinued. Per notes, black tarry stool and getting medically stabilized, plan for SNF when able. Active Medications Alprazolam (Xanax -) 0.25 mg PO BID PRN PRN Reason: AGITATION Last Admin: 11/11/18 23:31 Dose: 0.25 mg Atorvastatin Calcium (Lipitor -) 10 mg PO HS [facility] Last Admin: 11/11/18 22:58 Dose: 10 mg Enoxaparin Sodium (Lovenox -) 80 mg SQ Q12H [facility] Last Admin: 11/11/18 23:27 Dose: Not Given Escitalopram Oxalate (Lexapro -) 10 mg PO DAILY [facility] Last Admin: 11/11/18 09:45 Dose: 10 mg Ferrous Sulfate (Feosol -) 325 mg PO TIDCM [facility] Last Admin: 11/11/18 17:24 Dose: 325 mg Folic Acid (Folic Acid -) 1 mg PO DAILY [facility] Last Admin: 11/11/18 09:45 Dose: 1 mg Insulin Aspart (Novolog Vial) 1 units SQ ACHS [facility]; Protocol Last Admin: 11/12/18 06:14 Dose: Not Given Lidocaine (Lidoderm Patch -) 1 patch TP DAILY [facility] Last Admin: 11/11/18 09:46 Dose: 1 patch Lisinopril (Prinivil) 2.5 mg PO BID [facility] Last Admin: 11/11/18 22:59 Dose: 2.5 mg Metoprolol Tartrate (Lopressor -) 25 mg PO BID [facility] Last Admin: 11/11/18 22:58 Dose: 25 mg Miscellaneous (Lidoderm Patch Removal) 1 each MC DAILY@2200 [facility] Last Admin: 11/11/18 23:06 Dose: Not Given Multivitamins/Minerals/Vitamin C (Tab-A-Vit -) 1 tab PO DAILY [facility] Last Admin: 11/11/18 10:04 Dose: 1 tab Ondansetron HCl (Zofran Injection) 8 mg IVPB Q8H PRN PRN Reason: NAUSEA AND/OR VOMITING Last Admin: 11/04/18 10:01 Dose: 8 mg Pantoprazole Sodium (Protonix -) 40 mg PO DAILY [facility] Last Admin: 11/11/18 09:45 Dose: 40 mg Polyethylene Glycol (Miralax (For Daily Use) -) 17 gm PO BID [facility] Last Admin: 11/11/18 23:08 Dose: Not Given Potassium Chloride (K-Dur -) 20 meq PO DAILY [facility] Last Admin: 11/11/18 09:45 Dose: 20 meq Sucralfate (Carafate -) 1 gm PO ACHS [facility] Last Admin: 11/12/18 06:10 Dose: 1 gm *Physical Exam Vital Signs Period Temp Pulse Resp BP Sys/Juarez Pulse Ox Last 24 Hr 97.5 F-98.0 F 72-94 17-20 117-144/60-78 98 GENERAL: Awake, alert, and fully oriented, in no acute distress HEAD: No signs of trauma, normocephalic, atraumatic EYES: PERRLA, EOMI, sclera anicteric, conjunctiva clear ENT: Auricles normal inspection, hearing grossly normal, nares patent, oropharynx clear without exudates. Moist mucosa NECK: Normal ROM, supple, no lymphadenopathy, JVD, or masses LUNGS: No distress, speaks full sentences, clear to auscultation bilaterally HEART: Regular rate and rhythm, normal S1 and S2, no murmurs, rubs or gallops, peripheral pulses normal and equal bilaterally. ABDOMEN: Soft, +RUQ tenderness, normoactive bowel sounds. No guarding, no rebound. No masses EXTREMITIES: Normal inspection, Normal range of motion, no edema. No clubbing or cyanosis. NEUROLOGICAL: Cranial nerves II through XII grossly intact. Normal speech, no focal sensorimotor deficits, finger to nose normal, sensory intact. SKIN: Warm, Dry, normal turgor, no rashes or lesions noted. CBCD WBC 4.1 K/mm3 (4.0-10.0) 11/12/18 06:40 RBC 3.72 M/mm3 (3.60-5.2) 11/12/18 06:40 Hgb 9.4 GM/dL (10.7-15.3) L 11/12/18 06:40 Hct 30.3 % (32.4-45.2) L 11/12/18 06:40 MCV 81.5 fl (80-96) 11/12/18 06:40 MCHC 30.9 g/dl (32.0-36.0) L 11/12/18 06:40 RDW 20.4 % (11.6-15.6) H 11/12/18 06:40 Plt Count 207 K/MM3 (134-434) 11/12/18 06:40 MPV 8.5 fl (7.5-11.1) 11/12/18 06:40 CMP Sodium 140 mmol/L (136-145) 11/11/18 06:35 Potassium 4.0 mmol/L (3.5-5.1) 11/11/18 06:35 Chloride 106 mmol/L (98-107) 11/11/18 06:35 Carbon Dioxide 28 mmol/L (21-32) 11/11/18 06:35 Anion Gap 6 MMOL/L (8-16) L 11/11/18 06:35 BUN 8 mg/dL (7-18) 11/11/18 06:35 Creatinine 0.5 mg/dL (0.55-1.3) L 11/11/18 06:35 Creat Clearance w eGFR 125.43 (>60) 11/11/18 06:35 Random Glucose 82 mg/dL (74-106) 11/11/18 06:35 Calcium 8.0 mg/dL (8.5-10.1) L 11/11/18 06:35 Total Bilirubin 0.6 mg/dL (0.2-1) 11/12/18 06:40 AST 50 U/L (15-37) H 11/12/18 06:40 ALT 60 U/L (13-61) 11/12/18 06:40 Alkaline Phosphatase 621 U/L (45-117) H 11/12/18 06:40 Total Protein 4.6 g/dl (6.4-8.2) L 11/12/18 06:40 Albumin 2.1 g/dl (3.4-5.0) L 11/12/18 06:40 CARDIAC ENZYMES Creatine Kinase 11 U/L (26-192) L 11/02/18 06:00 Troponin I < 0.02 ng/ml (0.00-0.05) 11/02/18 05:30 Medical Decision Making 63F from [place] w/ PMHx SVT s/p ablation, afib on Eliquis, HTN, DM, COPD. C3 -C7 herniation, multiple CVAs here today with vomiting and elevated LFTs. Patient is currently under the care of Dr Faith, who was sent the patient in for admission. US done on 10/26 showed fatty liver, no other abnormalities. Patient reported that she had recent fall as she got out of bed. Denied head trauma but CT head completed and showed area of subacute infarct in R bird radiata. Also showed ischemic infarcts in b/l bird as well as right occipital. I was notified by primary and discussed case. She is on AC, Eliquis, and did not hold AC. Repeat CT head confirmed findings. LDL normal at 52. Statin being held due to LFTs. Defer to cards regarding statin, though would recommend repeat LFTs in 4-6 weeks if patient remains off it. Patient remains alert, awake, cooperative. Mental status improved though more somnolent this AM and having trouble with month still. Can have outpatient follow up for more formal memory evaluation. She can tell me she's in the hospital, is able to tell me it's October 2018 but first said Diane again today. Liver biopsy referred per notes as her LFTs have improved, possibly due to statin being discontinued. Per notes, black tarry stool and getting medically stabilized, plan for SNF when able.
[2018-11-12] MEDS ORDERED: PT OWN MED DRAWER 7, Y5N ONE (11:31)
[2018-11-12] MEDS: FERROUS SO4 325 MG TABLET (FP) PO SCH ×3 (11:38→18:21)
[2018-11-12] MEDS: FOLIC ACID 1 MG TABLET (FP) PO SCH (11:39)
[2018-11-12] MEDS: POLYETHYLENE GLYCOL 3350 119 GM BTL PO SCH ×2 (11:39→21:44)
[2018-11-12] MEDS: MULTIVITAMINS (DAILY MVI) TABLET (FP) PO SCH (11:39)
[2018-11-12] MEDS: POTASSIUM CHLORIDE TABS 20 MEQ TABLET.ER (FP) PO SCH (11:40)
[2018-11-12] MEDS: PANTOPRAZOLE 40 MG TABLET (FP) PO SCH (11:40)
[2018-11-12] MEDS: ESCITALOPRAM OXALATE 10 MG TABLET (FP) PO SCH (11:40)
[2018-11-12] MEDS: LISINOPRIL 5 MG TABLET (FP) PO SCH ×2 (11:40→21:42)
[2018-11-12] MEDS: METOPROLOL TARTRATE 25 MG TABLET (FP) PO SCH ×2 (11:40→21:42)
[2018-11-12] MEDS: LIDOCAINE 5% TOPICAL PATCH TP SCH (11:41)
[2018-11-12] MEDS: ENOXAPARIN NA (PORCINE) 80 MG/0.8 ML DISP.SYRIN SQ SCH ×2 (11:42→21:43)
--- NOTE | 2018-11-12 14:15 | PN ---
Progress Note (short form) - Note Progress Note: GI NOte: Had black formed BM but no overt bleeding after 1 dose of coumadin last night. LFTs continue to normalize. Dr Maria will be covering this weekend. Problem List - Problems (1) GI bleed Code(s): K92.2 - GASTROINTESTINAL HEMORRHAGE, UNSPECIFIED (2) Abnormal liver function Code(s): R94.5 - ABNORMAL RESULTS OF LIVER FUNCTION STUDIES (3) Colon cancer Code(s): C18.9 - MALIGNANT NEOPLASM OF COLON, UNSPECIFIED (4) Carter's esophagus determined by biopsy Code(s): K22.70 - CARTER'S ESOPHAGUS WITHOUT DYSPLASIA (5) CVA (cerebral vascular accident) Code(s): I63.9 - CEREBRAL INFARCTION, UNSPECIFIED (6) Fatty (change of) liver, not elsewhere classified Code(s): K76.0 - FATTY (CHANGE OF) LIVER, NOT ELSEWHERE CLASSIFIED
[2018-11-12] MEDS ORDERED: WARFARIN NA 2.5 MG TABLET (FP) PO ONE (18:00)
--- NOTE | 2018-11-12 18:00 | PN ---
Progress Note (short form) - Note Progress Note: ID consult dictated imp/reccd hospital day #10 63 yo female admitted from [place] with vomiting, abnormal LFTS, fall on 11/02 she has had a complicated hospital course including subacute infarcs while on anticoagulation anemia lfts have improved asked to comment on postivie urine culture- 2 organisms no UA she has had no fever or leukocytosis since admission she denies cvat or dysuria, or suprapubic pain exam is unremarkable suspect this is asymptomatic bacteriuria given the lack of symptoms and 2 organism isolated (poor specimen obtained) will require contact isolation as one the organisms is an ESBL media producer multiple allergies noted over 45 minutes spent in reading the chart and evaluating this patient Problem List - Problems (1) Asymptomatic bacteriuria Code(s): R82.71 - BACTERIURIA (2) Carrier of extended-spectrum beta-lactamase (ESBL) producing Klebsiella oxytoca Code(s): Z22.39 - CARRIER OF OTHER SPECIFIED BACTERIAL DISEASES (3) Allergy to multiple antibiotics Code(s): Z88.1 - ALLERGY STATUS TO OTHER ANTIBIOTIC AGENTS STATUS
--- NOTE | 2018-11-12 19:08 | CONS ---
DATE OF CONSULTATION: DATE OF DICTATION: 11/12/2018 REQUESTED BY: Nyla Faith MD This is a 63-year-old woman originally admitted on November 02, 2018 from the [place] with vomiting and high liver function tests. She has multiple medical problems including atrial fibrillation on Eliquis. She has had multiple CVAs in the past. She has a history of anemia and colon cancer status post a recent right hemicolectomy. She had apparently sustained a fall at the [place] [facility] prior to transfer. She had a CT scan that showed an area of subacute infarct and ischemic infarcts bilaterally. She was noted to have LFTs that improved after admission and that have continued to improve. She was seen by Hematology. She was seen for a GI consultation for her abnormal LFTs as well as for her anemia. She was evaluated by Neurology for the new subacute CVAs and by Oncology for elevated LFTs in the setting of her recent diagnosis of colon cancer. I am asked to see her now because a urine culture was sent on the . It is unclear why that is growing two organisms - a klebsiella ESBL and a proteus - and I was asked to comment on the significance. No urinalysis was sent. In speaking with the patient, she denies any dysuria, back pain or abdominal pain. She is resting comfortably. She has had no fever since admission. PAST MEDICAL HISTORY: Notable for a history of atrial fibrillation, SVT status post ablation, CHF, hypertension, hyperlipidemia, CVA in the past, asthma, COPD, GERD, fatty liver, anemia, chronic low back pain, osteoarthritis, diabetes, recent diagnosis of colon cancer status post right hemicolectomy, remote history of breast cancer status post lumpectomy, history of thyroid nodule status post benign biopsy. SOCIAL HISTORY: She is currently living at the [place] [facility]. 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. No history of any recent travel. FAMILY HISTORY: Notable for diabetes and heart disease. ALLERGIES: CIPROFLOXACIN, PENICILLIN, TETRACYCLINES. CURRENT MEDICATIONS: At the [place] [facility], her current medications include multivitamins, alprazolam, apixaban, atorvastatin, Lexapro, folic acid, pantoprazole, ferrous sulfate, lisinopril, metoprolol and sucralfate. REVIEW OF SYSTEMS: She has no complaints and is resting comfortably. PHYSICAL EXAMINATION: GENERAL: She is alert. VITALS: Temperature is 98.4, pulse is 89, blood pressure 116/72, respiratory rate 17. HEENT: Normocephalic. Eyes are anicteric. NECK: Supple. LUNGS: Clear to auscultation. HEART: Regular rate and rhythm. ABDOMEN: Soft, nontender. No suprapubic or CVA tenderness. EXTREMITIES: No edema. LABS: White count is 4.1, hemoglobin of 9.4, platelets of 207,000. BUN is 8, creatinine is 0.5, AST is 50, ALT is 60, alkaline phosphatase is 621. Blood cultures were negative on admission. The urine culture is as previously stated. IN SUMMARY: 1. This is an elderly woman with asymptomatic bacteriuria. I do not think we need to treat her at this time. She will need to be in isolation while in the hospital as one of the organisms in her urine was an extended spectrum beta-lactamase commercial producer. 2. Status post recent cerebrovascular accident. 3. Anemia on anticoagulation per Dr. Faith. Please call back if needed. NATAN REA M.D. [id number]
[2018-11-12] MEDS: ATORVASTATIN CA 10 MG TABLET (FP) PO SCH (21:42)
[2018-11-12] MEDS: LIDOCAINE PATCH REMOVAL MC SCH (21:42)
[2018-11-12] MEDS: ALPRAZolam 0.25 MG TABLET PO PRN (21:43)
--- NOTE | 2018-11-12 23:37 | PN ---
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 Tumor penetrated the muscularis propria and invaded the pericolonic fat. Margins clear. No MSI. No perineural invasion. LVI as risk factor. Recently seen and decided against adjuvant therapy in view of T3 lesion , ( Stage II) and co- morbid conditions. CT with non specific periportal nodes, hepatomegaly and new splenomegaly. Mildly enlarged Argelia hepatis and retroperitoneal adenopathy CEA normal LFTs improved--patients son refused biopsy PET-CT as outpatient CT head-- subacute infarct on eliquis On lovenox
--- NOTE | 2018-11-13 05:19 | PN ---
Progress Note, Physician Chief Complaint: Pt alert; crying (cannot reach son on the phone); tries to express herself verbally, but often unable to put words together in coherent phrase. History of Present Illness: The patient is a 63 year old white woman from [place] with a significant past medical history of PSVT (s/p ablation), afib (on Eliquis), HTN, DM, COPD, C3-C7 herniation, obese, sedentary, multiple recent CVAs, who presents to the emergency department with vomiting and elevated LFTs. Patient notes he was sent to the ED by Dr. Faith for further evaluation, a CT scan, and admission. The patient reports she fell last night as she was getting out of bed. The patient denies any head trauma, - Current Medication List Current Medications: Active Medications Alprazolam (Xanax -) 0.25 mg PO BID PRN PRN Reason: AGITATION Last Admin: 11/12/18 21:43 Dose: 0.25 mg Atorvastatin Calcium (Lipitor -) 10 mg PO HS [facility] Last Admin: 11/12/18 21:42 Dose: 10 mg Enoxaparin Sodium (Lovenox -) 80 mg SQ Q12H [facility] Last Admin: 11/12/18 21:43 Dose: Not Given Escitalopram Oxalate (Lexapro -) 10 mg PO DAILY [facility] Last Admin: 11/12/18 11:40 Dose: 10 mg Ferrous Sulfate (Feosol -) 325 mg PO TIDCM [facility] Last Admin: 11/12/18 18:21 Dose: 325 mg Folic Acid (Folic Acid -) 1 mg PO DAILY [facility] Last Admin: 11/12/18 11:39 Dose: 1 mg Insulin Aspart (Novolog Vial) 1 units SQ [facility]; Protocol Last Admin: 11/12/18 21:43 Dose: Not Given Lidocaine (Lidoderm Patch -) 1 patch TP DAILY [facility] Last Admin: 11/12/18 11:41 Dose: Not Given Lisinopril (Prinivil) 2.5 mg PO BID [facility] Last Admin: 11/12/18 21:42 Dose: 2.5 mg Metoprolol Tartrate (Lopressor -) 25 mg PO BID [facility] Last Admin: 11/12/18 21:42 Dose: 25 mg Miscellaneous (Lidoderm Patch Removal) 1 each MC DAILY@2200 [facility] Last Admin: 11/12/18 21:42 Dose: Not Given Multivitamins/Minerals/Vitamin C (Tab-A-Vit -) 1 tab PO DAILY [facility] Last Admin: 11/12/18 11:39 Dose: 1 tab Ondansetron HCl (Zofran Injection) 8 mg IVPB Q8H PRN PRN Reason: NAUSEA AND/OR VOMITING Last Admin: 11/04/18 10:01 Dose: 8 mg Pantoprazole Sodium (Protonix -) 40 mg PO DAILY [facility] Last Admin: 11/12/18 11:40 Dose: 40 mg Polyethylene Glycol (Miralax (For Daily Use) -) 17 gm PO BID [facility] Last Admin: 11/12/18 21:44 Dose: Not Given Potassium Chloride (K-Dur -) 20 meq PO DAILY [facility] Last Admin: 11/12/18 11:40 Dose: 20 meq Sucralfate (Carafate -) 1 gm PO ACHS [facility] Last Admin: 11/12/18 21:42 Dose: 1 gm - Objective Vital Signs: Vital Signs Temperature 98.4 F 11/12/18 18:15 Pulse Rate 93 H 11/13/18 00:00 Respiratory Rate 20 11/13/18 00:00 Blood Pressure 127/72 11/13/18 00:00 O2 Sat by Pulse Oximetry (%) 98 11/12/18 21:00 Constitutional: Yes: Anxious, Obese Eyes: Yes: WNL HENT: Yes: WNL Neck: Yes: WNL, Thyromegaly Cardiovascular: Yes: S1, S2 Respiratory: Yes: WNL Gastrointestinal: Yes: Soft, Abdomen, Obese ...Rectal Exam: Yes: Deferred Genitourinary: No: Anuria Breast(s): Yes: WNL Musculoskeletal: Yes: Muscle Weakness Extremities: Yes: Cool Edema: No Peripheral Pulses WNL: Yes Integumentary: Yes: WNL Psychiatric: Yes: Alert, Agitated, Other Labs: CBC, BMP 11/12/18 06:40 11/11/18 06:35 INR, PTT INR 1.00 (0.83-1.09) 11/12/18 06:40 Problem List - Problems (1) Elevated LFTs Assessment/Plan: Since stopping statin, LFTs having been improving. If statin is deemed important to restart, would use pravastatin. Code(s): R94.5 - ABNORMAL RESULTS OF LIVER FUNCTION STUDIES (2) Acute on chronic diastolic CHF (congestive heart failure) Assessment/Plan: On metoprolol and lisinopril. Code(s): I50.33 - ACUTE ON CHRONIC DIASTOLIC (CONGESTIVE) HEART FAILURE (3) Anemia Assessment/Plan: Off anticoagulant due to black stools; f/u workup by GI, hematology. Code(s): D64.9 - ANEMIA, UNSPECIFIED Qualifiers: Anemia type: unspecified type Qualified Code(s): D64.9 - Anemia, unspecified (4) Anxiety and depression Assessment/Plan: On SSRI. Code(s): F41.9 - ANXIETY DISORDER, UNSPECIFIED; F32.9 - MAJOR DEPRESSIVE DISORDER, SINGLE EPISODE, UNSPECIFIED (5) Atrial flutter Assessment/Plan: ON metoprolol for HR control. For restart of anticoagulant (likely warfarin) when cleared by hematology, GI ( anemia; black stools recently). ?breakthrough CVA despite being on apixaban. 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 F/u with GI, heme/onc. Code(s): C18.9 - MALIGNANT NEOPLASM OF COLON, UNSPECIFIED (9) Diabetes Code(s): E11.9 - TYPE 2 DIABETES MELLITUS WITHOUT COMPLICATIONS (10) Fall Code(s): W19.XXXA - UNSPECIFIED FALL, INITIAL ENCOUNTER Qualifiers: Encounter type: initial encounter Qualified Code(s): W19.XXXA - Unspecified fall, initial encounter (11) HTN (hypertension) Assessment/Plan: on metoprolol and lisinopril. Code(s): I10 - ESSENTIAL (PRIMARY) HYPERTENSION (12) Headache Code(s): R51 - HEADACHE Qualifiers: Headache type: tension-type Headache chronicity pattern: acute headache Intractability: not intractable Qualified Code(s): G44.209 - Tension-type headache, unspecified, not intractable (13) Hyperlipidemia Code(s): E78.5 - HYPERLIPIDEMIA, UNSPECIFIED (14) Obesity Code(s): E66.9 - OBESITY, UNSPECIFIED (15) Weakness Code(s): R53.1 - WEAKNESS (16) CVA (cerebral vascular accident) Assessment/Plan: Evidence of new CVA. Pt needs evaluation of efficacy of anticoaguant(s), if this incident shows "breakthrough" incident despite regular use of DOAC. Warfarin may be the new agent of choice. F/u with hematolgy/oncology/GI. Code(s): I63.9 - CEREBRAL INFARCTION, UNSPECIFIED
--- NOTE | 2018-11-13 05:57 | PN ---
Progress Note, Physician Chief Complaint: Pt alert; says she was able to reach son by telephone. History of Present Illness: The patient is a 63 year old white woman from [place] with a significant past medical history of PSVT (s/p ablation), afib (on Eliquis), HTN, DM, COPD, C3-C7 herniation, obese, sedentary, multiple recent CVAs, who presents to the emergency department with vomiting and elevated LFTs. Patient notes he was sent to the ED by Dr. Faith for further evaluation, a CT scan, and admission. The patient reports she fell last night as she was getting out of bed. The patient denies any head trauma, - Current Medication List Current Medications: Active Medications Alprazolam (Xanax -) 0.25 mg PO BID PRN PRN Reason: AGITATION Last Admin: 11/12/18 21:43 Dose: 0.25 mg Atorvastatin Calcium (Lipitor -) 10 mg PO HS [facility] Last Admin: 11/12/18 21:42 Dose: 10 mg Enoxaparin Sodium (Lovenox -) 80 mg SQ Q12H [facility] Last Admin: 11/12/18 21:43 Dose: Not Given Escitalopram Oxalate (Lexapro -) 10 mg PO DAILY [facility] Last Admin: 11/12/18 11:40 Dose: 10 mg Ferrous Sulfate (Feosol -) 325 mg PO TIDCM [facility] Last Admin: 11/12/18 18:21 Dose: 325 mg Folic Acid (Folic Acid -) 1 mg PO DAILY [facility] Last Admin: 11/12/18 11:39 Dose: 1 mg Insulin Aspart (Novolog Vial) 1 units SQ ACHS [facility]; Protocol Last Admin: 11/12/18 21:43 Dose: Not Given Lidocaine (Lidoderm Patch -) 1 patch TP DAILY [facility] Last Admin: 11/12/18 11:41 Dose: Not Given Lisinopril (Prinivil) 2.5 mg PO BID [facility] Last Admin: 11/12/18 21:42 Dose: 2.5 mg Metoprolol Tartrate (Lopressor -) 25 mg PO BID [facility] Last Admin: 11/12/18 21:42 Dose: 25 mg Miscellaneous (Lidoderm Patch Removal) 1 each MC DAILY@2200 [facility] Last Admin: 11/12/18 21:42 Dose: Not Given Multivitamins/Minerals/Vitamin C (Tab-A-Vit -) 1 tab PO DAILY [facility] Last Admin: 11/12/18 11:39 Dose: 1 tab Ondansetron HCl (Zofran Injection) 8 mg IVPB Q8H PRN PRN Reason: NAUSEA AND/OR VOMITING Last Admin: 11/04/18 10:01 Dose: 8 mg Pantoprazole Sodium (Protonix -) 40 mg PO DAILY [facility] Last Admin: 11/12/18 11:40 Dose: 40 mg Polyethylene Glycol (Miralax (For Daily Use) -) 17 gm PO BID [facility] Last Admin: 11/12/18 21:44 Dose: Not Given Potassium Chloride (K-Dur -) 20 meq PO DAILY [facility] Last Admin: 11/12/18 11:40 Dose: 20 meq Sucralfate (Carafate -) 1 gm PO ACHS [facility] Last Admin: 11/12/18 21:42 Dose: 1 gm - Objective Vital Signs: Vital Signs Temperature 98.4 F 11/12/18 18:15 Pulse Rate 93 H 11/13/18 00:00 Respiratory Rate 20 11/13/18 00:00 Blood Pressure 127/72 11/13/18 00:00 O2 Sat by Pulse Oximetry (%) 98 11/12/18 21:00 Constitutional: Yes: Obese Eyes: Yes: WNL HENT: Yes: WNL Neck: Yes: WNL Cardiovascular: Yes: S1, S2 Respiratory: Yes: WNL Gastrointestinal: Yes: Soft ...Rectal Exam: Yes: Deferred Genitourinary: No: Anuria Breast(s): Yes: WNL Musculoskeletal: Yes: Muscle Weakness Extremities: Yes: Cool Edema: No Peripheral Pulses WNL: Yes Integumentary: Yes: WNL Neurological: Yes: Alert, Weakness Psychiatric: Yes: Alert, Other (anxiety/depression) Labs: CBC, BMP 11/12/18 06:40 11/11/18 06:35 INR, PTT INR 1.00 (0.83-1.09) 11/12/18 06:40 Problem List - Problems (1) Elevated LFTs Assessment/Plan: Since stopping statin, LFTs having been improving. If statin is deemed important to restart (multiple CVAs), would use pravastatin , then f/u LFTs carefully. Code(s): R94.5 - ABNORMAL RESULTS OF LIVER FUNCTION STUDIES (2) Acute on chronic diastolic CHF (congestive heart failure) Assessment/Plan: On metoprolol and lisinopril. Code(s): I50.33 - ACUTE ON CHRONIC DIASTOLIC (CONGESTIVE) HEART FAILURE (3) Anemia Assessment/Plan: Off anticoagulant due to black stools; continue workup by GI, hematology. Code(s): D64.9 - ANEMIA, UNSPECIFIED Qualifiers: Anemia type: unspecified type Qualified Code(s): D64.9 - Anemia, unspecified (4) Anxiety and depression Assessment/Plan: On SSRI. Consider psychologic counseling (recent of mother;dificulty articulating thoughts; periods of crying). Code(s): F41.9 - ANXIETY DISORDER, UNSPECIFIED; F32.9 - MAJOR DEPRESSIVE DISORDER, SINGLE EPISODE, UNSPECIFIED (5) Atrial flutter Assessment/Plan: ON metoprolol for HR control. For restart of anticoagulant (likely warfarin) when cleared by hematology, GI ( anemia; black stools recently). ?breakthrough CVA despite being on apixaban. F/u EKG. 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 F/u with GI, heme/onc. Code(s): C18.9 - MALIGNANT NEOPLASM OF COLON, UNSPECIFIED (9) Diabetes Code(s): E11.9 - TYPE 2 DIABETES MELLITUS WITHOUT COMPLICATIONS (10) Fall Assessment/Plan: f/u with neurology. Physical rehabilitation. Code(s): W19.XXXA - UNSPECIFIED FALL, INITIAL ENCOUNTER Qualifiers: Encounter type: initial encounter Qualified Code(s): W19.XXXA - Unspecified fall, initial encounter (11) HTN (hypertension) Assessment/Plan: on metoprolol and lisinopril. Code(s): I10 - ESSENTIAL (PRIMARY) HYPERTENSION (12) Headache Code(s): R51 - HEADACHE Qualifiers: Headache type: tension-type Headache chronicity pattern: acute headache Intractability: not intractable Qualified Code(s): G44.209 - Tension-type headache, unspecified, not intractable (13) Hyperlipidemia Code(s): E78.5 - HYPERLIPIDEMIA, UNSPECIFIED (14) Obesity Code(s): E66.9 - OBESITY, UNSPECIFIED (15) Weakness Code(s): R53.1 - WEAKNESS (16) CVA (cerebral vascular accident) Assessment/Plan: Evidence of new CVA. Pt needs evaluation of efficacy of anticoaguant(s), if this incident shows "breakthrough" incident despite regular use of DOAC. Warfarin may be the new agent of choice. F/u with hematolgy/oncology/GI. F/u with neurologist. Code(s): I63.9 - CEREBRAL INFARCTION, UNSPECIFIED
[2018-11-13] MEDS: SUCRALFATE 1 GM TABLET (FP) PO SCH ×4 (06:35→21:53)
[2018-11-13] MEDS: INSULIN (NOVOLOG) ASPART 100 UNITS/ML 10ML VIAL SQ SCH ×4 (06:35→22:05)
[2018-11-13] MEDS: FERROUS SO4 325 MG TABLET (FP) PO SCH ×3 (08:36→16:39)
[2018-11-13 08:37] LABS: BASO % 0.6 % (0-2.0); EOS % 3.8 % (0-4.5); HEMATOCRIT 32.1 % (32.4-45.2); HEMOGLOBIN 9.8 GM/dL (10.7-15.3); LYMPH % 18.1 % (8-40); MCH 24.9 pg (25.7-33.7); MCHC 30.6 g/dl (32.0-36.0); MEAN CELL VOLUME 81.5 fl (80-96); MEAN PLT VOLUME 8.7 fl (7.5-11.1); MONO % 6.9 % (3.8-10.2); NEUT % 70.6 % (42.8-82.8); PLATELET COUNT 232 K/MM3 (134-434); RBC 3.94 M/mm3 (3.60-5.2); RDW 19.7 % (11.6-15.6); WHITE BLOOD COUNT 4.6 K/mm3 (4.0-10.0)
[2018-11-13 09:08] LABS: ALBUMIN 2.2 g/dl (3.4-5.0); ALK PHOS 573 U/L (45-117); ANION GAP 6 MMOL/L (8-16); BILIRUBIN,TOTAL 0.4 mg/dL (0.2-1); BLOOD UREA NITROGEN 9 mg/dL (7-18); CALCIUM 8.2 mg/dL (8.5-10.1); CHLORIDE 105 mmol/L (98-107); CO2 29 mmol/L (21-32); CREATININE 0.5 mg/dL (0.55-1.3); GLUCOSE,RANDOM 96 mg/dL (74-106); POTASSIUM 4.1 mmol/L (3.5-5.1); SGOT/AST 45 U/L (15-37); SGPT/ALT 51 U/L (13-61); SODIUM 140 mmol/L (136-145); TOT PROT 4.7 g/dl (6.4-8.2)
[2018-11-13] MEDS: LISINOPRIL 5 MG TABLET (FP) PO SCH ×2 (09:15→21:53)
[2018-11-13] MEDS: ESCITALOPRAM OXALATE 10 MG TABLET (FP) PO SCH (09:15)
[2018-11-13] MEDS: POLYETHYLENE GLYCOL 3350 119 GM BTL PO SCH ×2 (09:15→21:58)
[2018-11-13] MEDS: POTASSIUM CHLORIDE TABS 20 MEQ TABLET.ER (FP) PO SCH (09:15)
[2018-11-13] MEDS: PANTOPRAZOLE 40 MG TABLET (FP) PO SCH (09:15)
[2018-11-13] MEDS: MULTIVITAMINS (DAILY MVI) TABLET (FP) PO SCH (09:15)
[2018-11-13] MEDS: LIDOCAINE 5% TOPICAL PATCH TP SCH ×2 (09:16→09:20)
[2018-11-13] MEDS: ENOXAPARIN NA (PORCINE) 80 MG/0.8 ML DISP.SYRIN SQ SCH ×3 (09:16→21:53)
[2018-11-13] MEDS: FOLIC ACID 1 MG TABLET (FP) PO SCH (09:16)
[2018-11-13] MEDS: METOPROLOL TARTRATE 25 MG TABLET (FP) PO SCH ×2 (09:17→21:53)
--- NOTE | 2018-11-13 09:25 | PN ---
Progress Note, Physician Chief Complaint: awake alert NAD in bed no GI bleed INR pending on sq lovenox BID and po coumadin close f./u INR and CBC does not want EGD/ nor colonoscopy - Current Medication List Current Medications: Active Medications Alprazolam (Xanax -) 0.25 mg PO BID PRN PRN Reason: AGITATION Last Admin: 11/12/18 21:43 Dose: 0.25 mg Atorvastatin Calcium (Lipitor -) 10 mg PO HS [facility] Last Admin: 11/12/18 21:42 Dose: 10 mg Enoxaparin Sodium (Lovenox -) 80 mg SQ Q12H [facility] Last Admin: 11/13/18 09:16 Dose: Not Given Escitalopram Oxalate (Lexapro -) 10 mg PO DAILY [facility] Last Admin: 11/13/18 09:15 Dose: 10 mg Ferrous Sulfate (Feosol -) 325 mg PO TIDCM [facility] Last Admin: 11/13/18 08:36 Dose: 325 mg Folic Acid (Folic Acid -) 1 mg PO DAILY [facility] Last Admin: 11/13/18 09:16 Dose: 1 mg Insulin Aspart (Novolog Vial) 1 units SQ [facility]; Protocol Last Admin: 11/13/18 06:35 Dose: Not Given Lidocaine (Lidoderm Patch -) 1 patch TP DAILY [facility] Last Admin: 11/13/18 09:20 Dose: Not Given Lisinopril (Prinivil) 2.5 mg PO BID [facility] Last Admin: 11/13/18 09:15 Dose: 2.5 mg Metoprolol Tartrate (Lopressor -) 25 mg PO BID [facility] Last Admin: 11/13/18 09:17 Dose: 25 mg Miscellaneous (Lidoderm Patch Removal) 1 each MC DAILY@2200 [facility] Last Admin: 11/12/18 21:42 Dose: Not Given Multivitamins/Minerals/Vitamin C (Tab-A-Vit -) 1 tab PO DAILY [facility] Last Admin: 11/13/18 09:15 Dose: 1 tab Ondansetron HCl (Zofran Injection) 8 mg IVPB Q8H PRN PRN Reason: NAUSEA AND/OR VOMITING Last Admin: 11/04/18 10:01 Dose: 8 mg Pantoprazole Sodium (Protonix -) 40 mg PO DAILY [facility] Last Admin: 11/13/18 09:15 Dose: 40 mg Polyethylene Glycol (Miralax (For Daily Use) -) 17 gm PO BID [facility] Last Admin: 11/13/18 09:15 Dose: 17 gm Potassium Chloride (K-Dur -) 20 meq PO DAILY [facility] Last Admin: 11/13/18 09:15 Dose: 20 meq Sucralfate (Carafate -) 1 gm PO ACHS [facility] Last Admin: 11/13/18 06:35 Dose: 1 gm - Objective Vital Signs: Vital Signs Temperature 97.8 F 11/13/18 06:00 Pulse Rate 62 11/13/18 06:00 Respiratory Rate 20 11/13/18 06:00 Blood Pressure 105/60 11/13/18 06:00 O2 Sat by Pulse Oximetry (%) 98 11/12/18 21:00 Constitutional: Yes: No Distress, Calm Eyes: Yes: Conjunctiva Clear HENT: Yes: Atraumatic Neck: Yes: Supple Cardiovascular: Yes: Regular Rate and Rhythm Respiratory: Yes: CTA Bilaterally Gastrointestinal: Yes: Soft. No: Tenderness Genitourinary: No: Hematuria Musculoskeletal: No: Joint Stiffness, Joint Swelling Extremities: No: Cold, Cool, Cyanosis Edema: No Integumentary: No: Rash, Venous Stasis Changes Neurological: Yes: Alert, Oriented ...Motor Strength: WNL Psychiatric: Yes: Alert, Oriented. No: Agitated, Suicidal Ideation Labs: CBC, BMP 11/13/18 08:00 11/13/18 08:00 INR, PTT INR 1.00 (0.83-1.09) 11/12/18 06:40 - ....Imaging Other: Report Reviewed Assessment/Plan Patient is a 63F from [facility] w/ PMHx SVT s/p ablation,P afib on Eliquis, HTN, DM, COPD. C3-C7 herniation, multiple CVAs, anemia, colon CA s/p recent R hemicolectomy, remote breast CA s/p lumpectomy, benign thyroid nodule, admitted with vomiting elevated LFTs; Recurrent falls; on head CT evidence of recent subacute new CVA nonhg R frontal despite eliquis tx. on sq lovenox - no more GI bleed; started po coumadin, GI f/u; po PPIs and f/u labs pt absolutely refuses EGD, d/w pt indications and alternatives; d/w pt risks of AC and GI Bleed; needs AC given recurrent CVAs; she understands but does not want any endoscopic procedures at this point; monitor INR and CBC closely; no recurrent GIB today; UCX ESBL: Isolation; ID eval no ATB per ID falls pfx d/w pt do not get OOB alone she understood prognosis guarded will need SNF when medically stable d/w pt, will call pt's son
--- NOTE | 2018-11-13 11:31 | PN ---
Progress Note, Physician History of Present Illness: The patient is a 63 year old female, from [place] with a significant past medical history of SVT (s/p ablation), afib (on Eliquis), HTN, DM, COPD, C3-C7 herniation, multiple CVAs who presents to the emergency department with vomiting and elevated LFTs. Patient notes he was sent to the ED by Dr. Faith for further evaluation, a CT scan, and admission. The patient reports she fell last night as she was getting out of bed. The patient denies any head trauma, - Current Medication List Current Medications: Active Medications Alprazolam (Xanax -) 0.25 mg PO BID PRN PRN Reason: AGITATION Last Admin: 11/12/18 21:43 Dose: 0.25 mg Atorvastatin Calcium (Lipitor -) 10 mg PO HS [facility] Last Admin: 11/12/18 21:42 Dose: 10 mg Enoxaparin Sodium (Lovenox -) 80 mg SQ Q12H [facility] Last Admin: 11/13/18 09:58 Dose: 80 mg Escitalopram Oxalate (Lexapro -) 10 mg PO DAILY [facility] Last Admin: 11/13/18 09:15 Dose: 10 mg Ferrous Sulfate (Feosol -) 325 mg PO TIDCM [facility] Last Admin: 11/13/18 08:36 Dose: 325 mg Folic Acid (Folic Acid -) 1 mg PO DAILY [facility] Last Admin: 11/13/18 09:16 Dose: 1 mg Insulin Aspart (Novolog Vial) 1 units SQ ACHS [facility]; Protocol Last Admin: 11/13/18 06:35 Dose: Not Given Lidocaine (Lidoderm Patch -) 1 patch TP DAILY [facility] Last Admin: 11/13/18 09:20 Dose: Not Given Lisinopril (Prinivil) 2.5 mg PO BID [facility] Last Admin: 11/13/18 09:15 Dose: 2.5 mg Metoprolol Tartrate (Lopressor -) 25 mg PO BID [facility] Last Admin: 11/13/18 09:17 Dose: 25 mg Miscellaneous (Lidoderm Patch Removal) 1 each MC DAILY@2200 [facility] Last Admin: 11/12/18 21:42 Dose: Not Given Multivitamins/Minerals/Vitamin C (Tab-A-Vit -) 1 tab PO DAILY [facility] Last Admin: 11/13/18 09:15 Dose: 1 tab Ondansetron HCl (Zofran Injection) 8 mg IVPB Q8H PRN PRN Reason: NAUSEA AND/OR VOMITING Last Admin: 11/04/18 10:01 Dose: 8 mg Pantoprazole Sodium (Protonix -) 40 mg PO DAILY [facility] Last Admin: 11/13/18 09:15 Dose: 40 mg Polyethylene Glycol (Miralax (For Daily Use) -) 17 gm PO BID [facility] Last Admin: 11/13/18 09:15 Dose: 17 gm Potassium Chloride (K-Dur -) 20 meq PO DAILY [facility] Last Admin: 11/13/18 09:15 Dose: 20 meq Sucralfate (Carafate -) 1 gm PO ACHS [facility] Last Admin: 11/13/18 06:35 Dose: 1 gm Warfarin Sodium (Coumadin -) 2.5 mg PO ONCE@1800 ONE Stop: 11/13/18 18:01 - Objective Vital Signs: Vital Signs Temperature 97.8 F 11/13/18 06:00 Pulse Rate 62 11/13/18 06:00 Respiratory Rate 20 11/13/18 06:00 Blood Pressure 105/60 11/13/18 06:00 O2 Sat by Pulse Oximetry (%) 95 11/13/18 09:00 Eyes: Yes: WNL, Conjunctiva Clear, EOM Intact HENT: Yes: WNL, Atraumatic, Normocephalic Neck: Yes: WNL, Supple, Trachea Midline Cardiovascular: Yes: WNL, Regular Rate and Rhythm Respiratory: Yes: WNL, Regular, CTA Bilaterally Gastrointestinal: Yes: WNL, Normal Bowel Sounds Genitourinary: Yes: WNL Musculoskeletal: Yes: WNL Extremities: Yes: WNL Edema: No Integumentary: Yes: WNL Neurological: Yes: WNL, Alert, Oriented ...Motor Strength: WNL Psychiatric: Yes: WNL Labs: CBC, BMP 11/13/18 08:00 11/13/18 08:00 INR, PTT INR 1.00 (0.83-1.09) 11/12/18 06:40 Assessment/Plan - Problems (1) Elevated LFTs Assessment/Plan: Since stopping statin, LFTs having been improving. If statin is deemed important to restart (multiple CVAs), would use pravastatin , then f/u LFTs carefully. Code(s): R94.5 - ABNORMAL RESULTS OF LIVER FUNCTION STUDIES (2) Acute on chronic diastolic CHF (congestive heart failure) Assessment/Plan: On metoprolol and lisinopril. Code(s): I50.33 - ACUTE ON CHRONIC DIASTOLIC (CONGESTIVE) HEART FAILURE (3) Anemia Assessment/Plan: Off anticoagulant due to black stools; continue workup by GI, hematology. Code(s): D64.9 - ANEMIA, UNSPECIFIED Qualifiers: Anemia type: unspecified type Qualified Code(s): D64.9 - Anemia, unspecified (4) Anxiety and depression Assessment/Plan: On SSRI. Consider psychologic counseling (recent of mother;dificulty articulating thoughts; periods of crying). Code(s): F41.9 - ANXIETY DISORDER, UNSPECIFIED; F32.9 - MAJOR DEPRESSIVE DISORDER, SINGLE EPISODE, UNSPECIFIED (5) Atrial flutter Assessment/Plan: ON metoprolol for HR control. For restart of anticoagulant (likely warfarin) when cleared by hematology, GI ( anemia; black stools recently). ?breakthrough CVA despite being on apixaban. F/u EKG. 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 F/u with GI, heme/onc. Code(s): C18.9 - MALIGNANT NEOPLASM OF COLON, UNSPECIFIED (9) Diabetes Code(s): E11.9 - TYPE 2 DIABETES MELLITUS WITHOUT COMPLICATIONS (10) Fall Assessment/Plan: f/u with neurology. Physical rehabilitation. Code(s): W19.XXXA - UNSPECIFIED FALL, INITIAL ENCOUNTER Qualifiers: Encounter type: initial encounter Qualified Code(s): W19.XXXA - Unspecified fall, initial encounter (11) HTN (hypertension) Assessment/Plan: on metoprolol and lisinopril. Code(s): I10 - ESSENTIAL (PRIMARY) HYPERTENSION (12) Headache Code(s): R51 - HEADACHE Qualifiers: Headache type: tension-type Headache chronicity pattern: acute headache Intractability: not intractable Qualified Code(s): G44.209 - Tension-type headache, unspecified, not intractable (13) Hyperlipidemia Code(s): E78.5 - HYPERLIPIDEMIA, UNSPECIFIED (14) Obesity Code(s): E66.9 - OBESITY, UNSPECIFIED (15) Weakness Code(s): R53.1 - WEAKNESS (16) CVA (cerebral vascular accident) Assessment/Plan: Evidence of new CVA. Pt needs evaluation of efficacy of anticoaguant(s), if this incident shows "breakthrough" incident despite regular use of DOAC. Warfarin may be the new agent of choice. F/u with hematolgy/oncology/GI. F/u with neurologist. Code(s): I63.9 - CEREBRAL INFARCTION, UNSPECIFIED
[2018-11-13 12:45] LABS: INR 1.16 (0.83-1.09); PROTHROMBIN TIME (PATIENT) 13.7 SEC (9.7-13.0)
[2018-11-13] MEDS ORDERED: WARFARIN NA 2.5 MG TABLET (FP) PO ONE (18:00)
--- NOTE | 2018-11-13 18:21 | PN ---
Progress Note (short form) - Note Progress Note: Patient seen in follow up. No new complaints. No significant events overnight. Inpatient Meds reviewed. Current Medications Generic Name Dose Route Start Last Admin Trade Name Freq PRN Reason Stop Dose Admin Alprazolam 0.25 mg 11/01/18 20:53 11/12/18 21:43 Xanax - PO 0.25 mg BID PRN Administration AGITATION Atorvastatin Calcium 10 mg 11/10/18 22:00 11/12/18 21:42 Lipitor - PO 10 mg HS [facility] Administration Enoxaparin Sodium 80 mg 11/06/18 22:00 11/13/18 09:58 Lovenox - SQ 80 mg Q12H [facility] Administration Escitalopram Oxalate 10 mg 11/10/18 10:00 11/13/18 09:15 Lexapro - PO 10 mg DAILY [facility] Administration Ferrous Sulfate 325 mg 11/01/18 22:00 11/13/18 16:39 Feosol - PO 325 mg TIDCM [facility] Administration Folic Acid 1 mg 11/02/18 10:00 11/13/18 09:16 Folic Acid - PO 1 mg DAILY [facility] Administration Insulin Aspart 1 units 11/02/18 16:30 11/13/18 16:39 Novolog Vial SQ Not Given ACHS [facility] Protocol Lidocaine 1 patch 11/04/18 18:45 11/13/18 09:20 Lidoderm Patch - TP Not Given DAILY [facility] Lisinopril 2.5 mg 11/03/18 22:00 11/13/18 09:15 Prinivil PO 2.5 mg BID [facility] Administration Metoprolol Tartrate 25 mg 11/01/18 22:00 11/13/18 09:17 Lopressor - PO 25 mg BID [facility] Administration Miscellaneous 1 each 11/05/18 22:00 11/12/18 21:42 Lidoderm Patch Removal MC Not Given DAILY@2200 [facility] Multivitamins/Minerals/Vitamin C 1 tab 11/02/18 10:00 11/13/18 09:15 Tab-A-Vit - PO 1 tab DAILY [facility] Administration Ondansetron HCl 8 mg 11/01/18 21:04 11/04/18 10:01 Zofran Injection IVPB 8 mg Q8H PRN Administration NAUSEA AND/OR VOMITING Pantoprazole Sodium 40 mg 11/02/18 10:00 11/13/18 09:15 Protonix - PO 40 mg DAILY [facility] Administration Polyethylene Glycol 17 gm 11/06/18 22:00 11/13/18 09:15 Miralax (For Daily Use) - PO 17 gm BID [facility] Administration Potassium Chloride 20 meq 11/07/18 10:00 11/13/18 09:15 K-Dur - PO 20 meq DAILY [facility] Administration Sucralfate 1 gm 11/01/18 22:00 11/13/18 16:39 Carafate - PO 1 gm ACHS [facility] Administration On Examination: Last Vital Signs Temp Pulse Resp BP Pulse Ox 98.4 F 85 21 H 125/85 95 11/13/18 17:35 11/13/18 17:35 11/13/18 17:35 11/13/18 17:35 11/13/18 09:00 General: In no acute distress, lying comfortably in bed. Extremities: No pallor or icterus. No pedal edema. No palpable lymphadenopathy. CVS: S1, S2, regular, no gallop or murmur. Chest: good air entry bilaterally, clear Abdomen: Non-distended, non-tender, no palpable organomegaly. Neuro: Alert, oriented, non-focal. Labs: CBC, BMP 11/13/18 08:00 11/13/18 08:00 Assessment. Recently diagnosed colon cancer - August 2018 - [id number] - refused adjuvant chemotherapy. Now admitted with nausea and elevated LFT's - CT unimpressive - possible new splenomegaly and non-specific new peritoneal lymphadenopathy Biopsy declined. Previously on Eliquis for AF - recent CT brain suggests possible new frontal cortical infarct - presently on full dose LMWH. Liver enzymes normalizing- ?resolving drug reaction. Will follow.
[2018-11-13] MEDS: ALPRAZolam 0.25 MG TABLET PO PRN (21:53)
[2018-11-13] MEDS: ATORVASTATIN CA 10 MG TABLET (FP) PO SCH (21:53)
[2018-11-13] MEDS: LIDOCAINE PATCH REMOVAL MC SCH (22:04)
[2018-11-14] MEDS: SUCRALFATE 1 GM TABLET (FP) PO SCH ×4 (06:30→23:28)
[2018-11-14] MEDS: INSULIN (NOVOLOG) ASPART 100 UNITS/ML 10ML VIAL SQ SCH ×2 (06:30→11:24)
--- NOTE | 2018-11-14 08:45 | PN ---
Progress Note, Physician Chief Complaint: in bed awake alert NAD INR 1.4 no bleed brown stools per staff today - Current Medication List Current Medications: Active Medications Alprazolam (Xanax -) 0.25 mg PO BID PRN PRN Reason: AGITATION Last Admin: 11/13/18 21:53 Dose: 0.25 mg Atorvastatin Calcium (Lipitor -) 10 mg PO HS [facility] Last Admin: 11/13/18 21:53 Dose: 10 mg Enoxaparin Sodium (Lovenox -) 80 mg SQ Q12H [facility] Last Admin: 11/13/18 21:53 Dose: 80 mg Escitalopram Oxalate (Lexapro -) 10 mg PO DAILY [facility] Last Admin: 11/13/18 09:15 Dose: 10 mg Ferrous Sulfate (Feosol -) 325 mg PO TIDCM [facility] Last Admin: 11/13/18 16:39 Dose: 325 mg Folic Acid (Folic Acid -) 1 mg PO DAILY [facility] Last Admin: 11/13/18 09:16 Dose: 1 mg Insulin Aspart (Novolog Vial) 1 units SQ [facility]; Protocol Last Admin: 11/14/18 06:30 Dose: Not Given Lidocaine (Lidoderm Patch -) 1 patch TP DAILY [facility] Last Admin: 11/13/18 09:20 Dose: Not Given Lisinopril (Prinivil) 2.5 mg PO BID [facility] Last Admin: 11/13/18 21:53 Dose: 2.5 mg Metoprolol Tartrate (Lopressor -) 25 mg PO BID [facility] Last Admin: 11/13/18 21:53 Dose: 25 mg Miscellaneous (Lidoderm Patch Removal) 1 each MC DAILY@2200 [facility] Last Admin: 11/13/18 22:04 Dose: Not Given Multivitamins/Minerals/Vitamin C (Tab-A-Vit -) 1 tab PO DAILY [facility] Last Admin: 11/13/18 09:15 Dose: 1 tab Ondansetron HCl (Zofran Injection) 8 mg IVPB Q8H PRN PRN Reason: NAUSEA AND/OR VOMITING Last Admin: 11/04/18 10:01 Dose: 8 mg Pantoprazole Sodium (Protonix -) 40 mg PO DAILY [facility] Last Admin: 11/13/18 09:15 Dose: 40 mg Polyethylene Glycol (Miralax (For Daily Use) -) 17 gm PO BID [facility] Last Admin: 11/13/18 21:58 Dose: 17 gm Potassium Chloride (K-Dur -) 20 meq PO DAILY [facility] Last Admin: 11/13/18 09:15 Dose: 20 meq Sucralfate (Carafate -) 1 gm PO ACHS [facility] Last Admin: 11/14/18 06:30 Dose: 1 gm - Objective Vital Signs: Vital Signs Temperature 97.9 F 11/14/18 05:00 Pulse Rate 87 11/14/18 05:00 Respiratory Rate 20 11/14/18 05:00 Blood Pressure 129/69 11/14/18 05:00 O2 Sat by Pulse Oximetry (%) 99 11/13/18 21:00 Constitutional: Yes: No Distress, Calm Eyes: Yes: Conjunctiva Clear HENT: Yes: Atraumatic Neck: Yes: Supple Cardiovascular: Yes: Regular Rate and Rhythm Respiratory: Yes: CTA Bilaterally Gastrointestinal: Yes: Soft. No: Tenderness Genitourinary: No: Hematuria Musculoskeletal: No: Joint Stiffness, Joint Swelling Extremities: No: Cold, Cool, Cyanosis Edema: No Integumentary: No: Rash, Venous Stasis Changes Neurological: Yes: WNL, Alert ...Motor Strength: WNL Psychiatric: Yes: WNL, Alert. No: Agitated, Suicidal Ideation Labs: CBC, BMP 11/13/18 08:00 11/13/18 08:00 INR, PTT INR 1.16 (0.83-1.09) H 11/13/18 08:00 - ....Imaging Other: Report Reviewed Assessment/Plan Patient is a 63F from [place] w/ PMHx SVT s/p ablation,P afib on Eliquis, HTN, DM, COPD. C3-C7 herniation, multiple CVAs, anemia, colon CA s/p recent R hemicolectomy, remote breast CA s/p lumpectomy, benign thyroid nodule, admitted with vomiting elevated LFTs; now improved almost normal; recurrent CVAs on coumadin per INR s/p GI Bleed and colon CA; GI f/u; po PPIs and f/u labs UCX ESBL: Isolation; ID eval no ATB per ID falls pfx d/w pt do not get OOB alone she understood prognosis guarded will need SNF when medically stable; pt absolutely refues to go back to [place], d/w CM and staff will need close outpt f/u cardio pulm GI and ONC; metastatic w/u as outpt, PET scan; close and tight INR control d/w pt and d/w pt's son Bill all the above
--- NOTE | 2018-11-14 08:51 | PN ---
Progress Note, Physician History of Present Illness: The patient is a 63 year old female, from [place] with a significant past medical history of SVT (s/p ablation), afib (on Eliquis), HTN, DM, COPD, C3-C7 herniation, multiple CVAs who presents to the emergency department with vomiting and elevated LFTs. Patient notes he was sent to the ED by Dr. Faith for further evaluation, a CT scan, and admission. The patient reports she fell last night as she was getting out of bed. The patient denies any head trauma, - Current Medication List Current Medications: Active Medications Alprazolam (Xanax -) 0.25 mg PO BID PRN PRN Reason: AGITATION Last Admin: 11/13/18 21:53 Dose: 0.25 mg Atorvastatin Calcium (Lipitor -) 10 mg PO HS [facility] Last Admin: 11/13/18 21:53 Dose: 10 mg Enoxaparin Sodium (Lovenox -) 80 mg SQ Q12H [facility] Last Admin: 11/13/18 21:53 Dose: 80 mg Escitalopram Oxalate (Lexapro -) 10 mg PO DAILY [facility] Last Admin: 11/13/18 09:15 Dose: 10 mg Ferrous Sulfate (Feosol -) 325 mg PO TIDCM [facility] Last Admin: 11/13/18 16:39 Dose: 325 mg Folic Acid (Folic Acid -) 1 mg PO DAILY [facility] Last Admin: 11/13/18 09:16 Dose: 1 mg Insulin Aspart (Novolog Vial) 1 units SQ ACHS [facility]; Protocol Last Admin: 11/14/18 06:30 Dose: Not Given Lidocaine (Lidoderm Patch -) 1 patch TP DAILY [facility] Last Admin: 11/13/18 09:20 Dose: Not Given Lisinopril (Prinivil) 2.5 mg PO BID [facility] Last Admin: 11/13/18 21:53 Dose: 2.5 mg Metoprolol Tartrate (Lopressor -) 25 mg PO BID [facility] Last Admin: 11/13/18 21:53 Dose: 25 mg Miscellaneous (Lidoderm Patch Removal) 1 each MC DAILY@2200 [facility] Last Admin: 11/13/18 22:04 Dose: Not Given Multivitamins/Minerals/Vitamin C (Tab-A-Vit -) 1 tab PO DAILY [facility] Last Admin: 11/13/18 09:15 Dose: 1 tab Ondansetron HCl (Zofran Injection) 8 mg IVPB Q8H PRN PRN Reason: NAUSEA AND/OR VOMITING Last Admin: 11/04/18 10:01 Dose: 8 mg Pantoprazole Sodium (Protonix -) 40 mg PO DAILY [facility] Last Admin: 11/13/18 09:15 Dose: 40 mg Polyethylene Glycol (Miralax (For Daily Use) -) 17 gm PO BID [facility] Last Admin: 11/13/18 21:58 Dose: 17 gm Potassium Chloride (K-Dur -) 20 meq PO DAILY [facility] Last Admin: 11/13/18 09:15 Dose: 20 meq Sucralfate (Carafate -) 1 gm PO ACHS [facility] Last Admin: 11/14/18 06:30 Dose: 1 gm - Objective Vital Signs: Vital Signs Temperature 97.9 F 11/14/18 05:00 Pulse Rate 87 11/14/18 05:00 Respiratory Rate 20 11/14/18 05:00 Blood Pressure 129/69 11/14/18 05:00 O2 Sat by Pulse Oximetry (%) 99 11/13/18 21:00 Eyes: Yes: WNL, Conjunctiva Clear, EOM Intact HENT: Yes: WNL, Atraumatic, Normocephalic Neck: Yes: WNL, Supple, Trachea Midline Cardiovascular: Yes: WNL, Regular Rate and Rhythm Respiratory: Yes: WNL, Regular, CTA Bilaterally Gastrointestinal: Yes: WNL, Normal Bowel Sounds Genitourinary: Yes: WNL Musculoskeletal: Yes: WNL Extremities: Yes: WNL Edema: No Integumentary: Yes: WNL Neurological: Yes: WNL, Alert, Oriented ...Motor Strength: WNL Psychiatric: Yes: WNL Labs: CBC, BMP 11/13/18 08:00 11/13/18 08:00 INR, PTT INR 1.16 (0.83-1.09) H 11/13/18 08:00 Assessment/Plan - Problems (1) Elevated LFTs Assessment/Plan: Since stopping statin, LFTs having been improving. If statin is deemed important to restart (multiple CVAs), would use pravastatin , then f/u LFTs carefully. Code(s): R94.5 - ABNORMAL RESULTS OF LIVER FUNCTION STUDIES (2) Acute on chronic diastolic CHF (congestive heart failure) Assessment/Plan: On metoprolol and lisinopril. Code(s): I50.33 - ACUTE ON CHRONIC DIASTOLIC (CONGESTIVE) HEART FAILURE (3) Anemia Assessment/Plan: Off anticoagulant due to black stools; continue workup by GI, hematology. Code(s): D64.9 - ANEMIA, UNSPECIFIED Qualifiers: Anemia type: unspecified type Qualified Code(s): D64.9 - Anemia, unspecified (4) Anxiety and depression Assessment/Plan: On SSRI. Consider psychologic counseling (recent of mother;dificulty articulating thoughts; periods of crying). Code(s): F41.9 - ANXIETY DISORDER, UNSPECIFIED; F32.9 - MAJOR DEPRESSIVE DISORDER, SINGLE EPISODE, UNSPECIFIED (5) Atrial flutter Assessment/Plan: ON metoprolol for HR control. on warfarin no more gi bleeds awaiting INR. ?breakthrough CVA despite being on apixaban. F/u EKG. 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 F/u with GI, heme/onc. Code(s): C18.9 - MALIGNANT NEOPLASM OF COLON, UNSPECIFIED (9) Diabetes Code(s): E11.9 - TYPE 2 DIABETES MELLITUS WITHOUT COMPLICATIONS (10) Fall Assessment/Plan: f/u with neurology. Physical rehabilitation. Code(s): W19.XXXA - UNSPECIFIED FALL, INITIAL ENCOUNTER Qualifiers: Encounter type: initial encounter Qualified Code(s): W19.XXXA - Unspecified fall, initial encounter (11) HTN (hypertension) Assessment/Plan: on metoprolol and lisinopril. Code(s): I10 - ESSENTIAL (PRIMARY) HYPERTENSION (12) Headache Code(s): R51 - HEADACHE Qualifiers: Headache type: tension-type Headache chronicity pattern: acute headache Intractability: not intractable Qualified Code(s): G44.209 - Tension-type headache, unspecified, not intractable (13) Hyperlipidemia Code(s): E78.5 - HYPERLIPIDEMIA, UNSPECIFIED (14) Obesity Code(s): E66.9 - OBESITY, UNSPECIFIED (15) Weakness Code(s): R53.1 - WEAKNESS (16) CVA (cerebral vascular accident) Assessment/Plan: Evidence of new CVA. Pt needs evaluation of efficacy of anticoaguant(s), if this incident shows "breakthrough" incident despite regular use of DOAC. Warfarin may be the new agent of choice. F/u with hematolgy/oncology/GI. F/u with neurologist. Code(s): I63.9 - CEREBRAL INFARCTION, UNSPECIFIED
[2018-11-14 09:14] LABS: BASO % 0.4 % (0-2.0); EOS % 3.3 % (0-4.5); HEMATOCRIT 31.2 % (32.4-45.2); HEMOGLOBIN 9.5 GM/dL (10.7-15.3); LYMPH % 16.1 % (8-40); MCHC 30.5 g/dl (32.0-36.0); MEAN CELL VOLUME 82.1 fl (80-96); MEAN PLT VOLUME 9.3 fl (7.5-11.1); MONO % 7.2 % (3.8-10.2); PLATELET COUNT 206 K/MM3 (134-434); WHITE BLOOD COUNT 5.3 K/mm3 (4.0-10.0)
[2018-11-14] MEDS: FOLIC ACID 1 MG TABLET (FP) PO SCH (09:29)
[2018-11-14] MEDS: PANTOPRAZOLE 40 MG TABLET (FP) PO SCH (09:29)
[2018-11-14] MEDS: POTASSIUM CHLORIDE TABS 20 MEQ TABLET.ER (FP) PO SCH (09:29)
[2018-11-14] MEDS: FERROUS SO4 325 MG TABLET (FP) PO SCH ×3 (09:29→16:49)
[2018-11-14] MEDS: ALPRAZolam 0.25 MG TABLET PO PRN ×2 (09:29→23:28)
[2018-11-14] MEDS: LISINOPRIL 5 MG TABLET (FP) PO SCH ×2 (09:30→23:28)
[2018-11-14] MEDS: METOPROLOL TARTRATE 25 MG TABLET (FP) PO SCH ×2 (09:31→23:28)
[2018-11-14] MEDS: ENOXAPARIN NA (PORCINE) 80 MG/0.8 ML DISP.SYRIN SQ SCH ×2 (09:31→23:28)
[2018-11-14] MEDS: ESCITALOPRAM OXALATE 10 MG TABLET (FP) PO SCH (09:31)
[2018-11-14] MEDS: POLYETHYLENE GLYCOL 3350 119 GM BTL PO SCH ×2 (09:31→23:28)
[2018-11-14] MEDS: LIDOCAINE 5% TOPICAL PATCH TP SCH (09:31)
[2018-11-14] MEDS: MULTIVITAMINS (DAILY MVI) TABLET (FP) PO SCH (09:31)
[2018-11-14 09:44] LABS: INR 1.39 (0.83-1.09); PROTHROMBIN TIME (PATIENT) 16.5 SEC (9.7-13.0)
[2018-11-14 09:57] LABS: ALBUMIN 2.2 g/dl (3.4-5.0); ALK PHOS 499 U/L (45-117); ANION GAP 5 MMOL/L (8-16); BILIRUBIN,TOTAL 0.4 mg/dL (0.2-1); BLOOD UREA NITROGEN 10 mg/dL (7-18); CALCIUM 8.2 mg/dL (8.5-10.1); CHLORIDE 104 mmol/L (98-107); CO2 29 mmol/L (21-32); CREATININE 0.5 mg/dL (0.55-1.3); GLUCOSE,RANDOM 95 mg/dL (74-106); POTASSIUM 4.1 mmol/L (3.5-5.1); SGOT/AST 39 U/L (15-37); SGPT/ALT 44 U/L (13-61); SODIUM 138 mmol/L (136-145); TOT PROT 4.6 g/dl (6.4-8.2)
--- NOTE | 2018-11-14 11:33 | PN ---
Progress Note (short form) - Note Progress Note: Patient seen in follow up. No new complaints. No significant events overnight. Inpatient Meds reviewed. Current Medications Alprazolam (Xanax -) 0.25 mg PO BID PRN PRN Reason: AGITATION Last Admin: 11/14/18 09:29 Dose: 0.25 mg Atorvastatin Calcium (Lipitor -) 10 mg PO HS [facility] Last Admin: 11/13/18 21:53 Dose: 10 mg Enoxaparin Sodium (Lovenox -) 80 mg SQ Q12H [facility] Last Admin: 11/14/18 09:31 Dose: 80 mg Escitalopram Oxalate (Lexapro -) 10 mg PO DAILY [facility] Last Admin: 11/14/18 09:31 Dose: 10 mg Ferrous Sulfate (Feosol -) 325 mg PO TIDCM [facility] Last Admin: 11/14/18 09:29 Dose: 325 mg Folic Acid (Folic Acid -) 1 mg PO DAILY [facility] Last Admin: 11/14/18 09:29 Dose: 1 mg Insulin Aspart (Novolog Vial) 1 units SQ [facility]; Protocol Last Admin: 11/14/18 11:24 Dose: Not Given Lidocaine (Lidoderm Patch -) 1 patch TP DAILY [facility] Last Admin: 11/14/18 09:31 Dose: Not Given Lisinopril (Prinivil) 2.5 mg PO BID [facility] Last Admin: 11/14/18 09:30 Dose: 2.5 mg Metoprolol Tartrate (Lopressor -) 25 mg PO BID [facility] Last Admin: 11/14/18 09:31 Dose: 25 mg Miscellaneous (Lidoderm Patch Removal) 1 each MC DAILY@2200 [facility] Last Admin: 11/13/18 22:04 Dose: Not Given Multivitamins/Minerals/Vitamin C (Tab-A-Vit -) 1 tab PO DAILY [facility] Last Admin: 11/14/18 09:31 Dose: 1 tab Ondansetron HCl (Zofran Injection) 8 mg IVPB Q8H PRN PRN Reason: NAUSEA AND/OR VOMITING Last Admin: 11/04/18 10:01 Dose: 8 mg Pantoprazole Sodium (Protonix -) 40 mg PO DAILY [facility] Last Admin: 11/14/18 09:29 Dose: 40 mg Polyethylene Glycol (Miralax (For Daily Use) -) 17 gm PO BID [facility] Last Admin: 11/14/18 09:31 Dose: 17 gm Potassium Chloride (K-Dur -) 20 meq PO DAILY [facility] Last Admin: 11/14/18 09:29 Dose: 20 meq Sucralfate (Carafate -) 1 gm PO ACHS [facility] Last Admin: 11/14/18 11:23 Dose: 1 gm On Examination: Last Vital Signs Temp Pulse Resp BP Pulse Ox 98.4 F 91 H 18 144/99 99 11/14/18 09:00 11/14/18 09:00 11/14/18 09:00 11/14/18 09:00 11/13/18 21:00 General: In no acute distress,sitting up in bed Extremities: No pallor or icterus. No pedal edema. No palpable lymphadenopathy. CVS: S1, S2, regular, no gallop or murmur. Chest: good air entry bilaterally, clear Abdomen: Non-distended, non-tender, no palpable organomegaly. Neuro: Alert, oriented, non-focal. Labs: CBC, BMP 11/14/18 07:40 11/14/18 07:40 Assessment. Recently diagnosed colon cancer - August 2018 - [id number] - refused adjuvant chemotherapy. Now admitted with nausea and elevated LFT's - CT unimpressive - possible new splenomegaly and non-specific new peritoneal lymphadenopathy Biopsy declined. Previously on Eliquis for AF - recent CT brain suggests possible new frontal cortical infarct - presently on full dose LMWH transitioning to warfarin. From hematology point of view difficult to ascertain whether perception that a new cerebral infarct occurred while on Eliquis implies DOAC failure and whether warfarin would be a better option in this context. Would defer to cardiology and neurology. Possibly may do better with addition of ASA. Liver enzymes normalizing- ?resolving drug reaction. Will follow.
[2018-11-14] MEDS ORDERED: WARFARIN NA 2.5 MG TABLET (FP) PO SCH (18:00)
[2018-11-14] MEDS: LIDOCAINE PATCH REMOVAL MC SCH (23:27)
[2018-11-14] MEDS: ATORVASTATIN CA 10 MG TABLET (FP) PO SCH (23:28)
[2018-11-15 06:58] LABS: BASO % 0.5 % (0-2.0); EOS % 2.8 % (0-4.5); HEMATOCRIT 32.1 % (32.4-45.2); HEMOGLOBIN 9.9 GM/dL (10.7-15.3); LYMPH % 20.3 % (8-40); MCH 25.5 pg (25.7-33.7); MCHC 30.9 g/dl (32.0-36.0); MEAN CELL VOLUME 82.3 fl (80-96); MEAN PLT VOLUME 8.9 fl (7.5-11.1); MONO % 8.6 % (3.8-10.2); NEUT % 67.8 % (42.8-82.8); PLATELET COUNT 226 K/MM3 (134-434); RDW 19.6 % (11.6-15.6); WHITE BLOOD COUNT 5.3 K/mm3 (4.0-10.0)
[2018-11-15] MEDS: SUCRALFATE 1 GM TABLET (FP) PO SCH ×4 (07:06→21:25)
[2018-11-15] MEDS: INSULIN (NOVOLOG) ASPART 100 UNITS/ML 10ML VIAL SQ SCH (07:08)
[2018-11-15 07:09] LABS: INR 1.3 (0.83-1.09); PROTHROMBIN TIME (PATIENT) 15.4 SEC (9.7-13.0)
[2018-11-15 07:28] LABS: ALBUMIN 2.3 g/dl (3.4-5.0); ALK PHOS 482 U/L (45-117); ANION GAP 6 MMOL/L (8-16); BILIRUBIN,TOTAL 0.4 mg/dL (0.2-1); BLOOD UREA NITROGEN 13 mg/dL (7-18); CALCIUM 8.6 mg/dL (8.5-10.1); CHLORIDE 104 mmol/L (98-107); CO2 28 mmol/L (21-32); CREATININE 0.6 mg/dL (0.55-1.3); GLUCOSE,RANDOM 97 mg/dL (74-106); SGOT/AST 38 U/L (15-37); SGPT/ALT 42 U/L (13-61); SODIUM 138 mmol/L (136-145)
[2018-11-15] MEDS: FERROUS SO4 325 MG TABLET (FP) PO SCH ×3 (08:43→18:36)
--- NOTE | 2018-11-15 09:03 | PN ---
Progress Note (short form) - Note Progress Note: Neurology - History of Present Illness 63F from [place] w/ PMHx SVT s/p ablation, afib on Eliquis, HTN, DM, COPD. C3 -C7 herniation, multiple CVAs here today with vomiting and elevated LFTs. Patient is currently under the care of Dr Faith, who was sent the patient in for admission. US done on 10/26 showed fatty liver, no other abnormalities. Patient reported that she had recent fall as she got out of bed. Denied head trauma but CT head completed and showed area of subacute infarct in R bird radiata. Also showed ischemic infarcts in b/l bird as well as right occipital. I was notified by primary and discussed case. She is on AC, Eliquis, and did not hold AC. Repeat CT head confirmed findings. LDL normal at 52. Patient remains alert, awake, cooperative. Does have lapses in mental status at times. Is more oriented for me now. She can tell me she's in the hospital, again initially says January but then switched to October, informer her that it's now November. Patient without new complaints. Active Medications Alprazolam (Xanax -) 0.25 mg PO BID PRN PRN Reason: AGITATION Last Admin: 11/14/18 23:28 Dose: 0.25 mg Atorvastatin Calcium (Lipitor -) 10 mg PO HS [facility] Last Admin: 11/14/18 23:28 Dose: 10 mg Enoxaparin Sodium (Lovenox -) 80 mg SQ Q12H [facility] Last Admin: 11/14/18 23:28 Dose: 80 mg Escitalopram Oxalate (Lexapro -) 10 mg PO DAILY [facility] Last Admin: 11/14/18 09:31 Dose: 10 mg Ferrous Sulfate (Feosol -) 325 mg PO TIDCM [facility] Last Admin: 11/14/18 16:49 Dose: 325 mg Folic Acid (Folic Acid -) 1 mg PO DAILY [facility] Last Admin: 11/14/18 09:29 Dose: 1 mg Insulin Aspart (Novolog Vial) 1 units SQ AM [facility]; Protocol Last Admin: 11/15/18 07:08 Dose: Not Given Lidocaine (Lidoderm Patch -) 1 patch TP DAILY [facility] Last Admin: 11/14/18 09:31 Dose: Not Given Lisinopril (Prinivil) 5 mg PO BID [facility] Last Admin: 11/14/18 23:28 Dose: 5 mg Metoprolol Tartrate (Lopressor -) 25 mg PO BID [facility] Last Admin: 11/14/18 23:28 Dose: 25 mg Miscellaneous (Lidoderm Patch Removal) 1 each MC DAILY@2200 [facility] Last Admin: 11/14/18 23:27 Dose: Not Given Multivitamins/Minerals/Vitamin C (Tab-A-Vit -) 1 tab PO DAILY [facility] Last Admin: 11/14/18 09:31 Dose: 1 tab Ondansetron HCl (Zofran Injection) 8 mg IVPB Q8H PRN PRN Reason: NAUSEA AND/OR VOMITING Last Admin: 11/04/18 10:01 Dose: 8 mg Pantoprazole Sodium (Protonix -) 40 mg PO DAILY [facility] Last Admin: 11/14/18 09:29 Dose: 40 mg Polyethylene Glycol (Miralax (For Daily Use) -) 17 gm PO BID [facility] Last Admin: 11/14/18 23:28 Dose: 17 gm Potassium Chloride (K-Dur -) 20 meq PO DAILY [facility] Last Admin: 11/14/18 09:29 Dose: 20 meq Sucralfate (Carafate -) 1 gm PO ACHS [facility] Last Admin: 11/15/18 07:06 Dose: 1 gm Warfarin Sodium (Coumadin -) 2.5 mg PO DAILY@1800 [facility] Last Admin: 11/14/18 17:49 Dose: 2.5 mg *Physical Exam Vital Signs Period Temp Pulse Resp BP Sys/Juarez Pulse Ox Last 24 Hr 97.2 F-98.5 F 60-79 17-20 105-134/59-77 98 GENERAL: Awake, alert, and fully oriented, in no acute distress HEAD: No signs of trauma, normocephalic, atraumatic EYES: PERRLA, EOMI, sclera anicteric, conjunctiva clear ENT: Auricles normal inspection, hearing grossly normal, nares patent, oropharynx clear without exudates. Moist mucosa NECK: Normal ROM, supple, no lymphadenopathy, JVD, or masses LUNGS: No distress, speaks full sentences, clear to auscultation bilaterally HEART: Regular rate and rhythm, normal S1 and S2, no murmurs, rubs or gallops, peripheral pulses normal and equal bilaterally. ABDOMEN: Soft, +RUQ tenderness, normoactive bowel sounds. No guarding, no rebound. No masses EXTREMITIES: Normal inspection, Normal range of motion, no edema. No clubbing or cyanosis. NEUROLOGICAL: Cranial nerves II through XII grossly intact. Normal speech, no focal sensorimotor deficits, finger to nose normal, sensory intact. SKIN: Warm, Dry, normal turgor, no rashes or lesions noted. CBCD WBC 5.3 K/mm3 (4.0-10.0) 11/15/18 06:15 RBC 3.90 M/mm3 (3.60-5.2) 11/15/18 06:15 Hgb 9.9 GM/dL (10.7-15.3) L 11/15/18 06:15 Hct 32.1 % (32.4-45.2) L 11/15/18 06:15 MCV 82.3 fl (80-96) 11/15/18 06:15 MCHC 30.9 g/dl (32.0-36.0) L 11/15/18 06:15 RDW 19.6 % (11.6-15.6) H 11/15/18 06:15 Plt Count 226 K/MM3 (134-434) 11/15/18 06:15 MPV 8.9 fl (7.5-11.1) 11/15/18 06:15 CMP Sodium 138 mmol/L (136-145) 11/15/18 06:15 Potassium 4.0 mmol/L (3.5-5.1) 11/15/18 06:15 Chloride 104 mmol/L (98-107) 11/15/18 06:15 Carbon Dioxide 28 mmol/L (21-32) 11/15/18 06:15 Anion Gap 6 MMOL/L (8-16) L 11/15/18 06:15 BUN 13 mg/dL (7-18) 11/15/18 06:15 Creatinine 0.6 mg/dL (0.55-1.3) 11/15/18 06:15 Creat Clearance w eGFR 101.63 (>60) 11/15/18 06:15 Random Glucose 97 mg/dL (74-106) 11/15/18 06:15 Calcium 8.6 mg/dL (8.5-10.1) 11/15/18 06:15 Total Bilirubin 0.4 mg/dL (0.2-1) 11/15/18 06:15 AST 38 U/L (15-37) H 11/15/18 06:15 ALT 42 U/L (13-61) 11/15/18 06:15 Alkaline Phosphatase 482 U/L (45-117) H 11/15/18 06:15 Total Protein 5.0 g/dl (6.4-8.2) L 11/15/18 06:15 Albumin 2.3 g/dl (3.4-5.0) L 11/15/18 06:15 CARDIAC ENZYMES Creatine Kinase 11 U/L (26-192) L 11/02/18 06:00 Troponin I < 0.02 ng/ml (0.00-0.05) 11/02/18 05:30 Medical Decision Making 63F from [place] w/ PMHx SVT s/p ablation, afib on Eliquis, HTN, DM, COPD. C3 -C7 herniation, multiple CVAs here today with vomiting and elevated LFTs. Patient is currently under the care of Dr Faith, who was sent the patient in for admission. US done on 10/26 showed fatty liver, no other abnormalities. Patient reported that she had recent fall as she got out of bed. Denied head trauma but CT head completed and showed area of subacute infarct in R bird radiata. Also showed ischemic infarcts in b/l bird as well as right occipital. I was notified by primary and discussed case. She is on AC, Eliquis, and did not hold AC. Repeat CT head confirmed findings. LDL normal at 52. Statin being held due to LFTs. Defer to cards regarding statin, though would recommend repeat LFTs in 4-6 weeks if patient remains off it. Patient remains alert, awake, cooperative. Mental status improved though more somnolent this AM and having trouble with month still. Can have outpatient follow up for more formal memory evaluation. She can tell me she's in the hospital, again initially says January but then switched to October, informer her that it's now November. Patient without new complaints. Liver biopsy referred per notes as her LFTs have improved, possibly due to statin being discontinued.
--- NOTE | 2018-11-15 10:24 | EKG ---
Test Reason : Blood Pressure : / mmHG Vent. Rate : 080 BPM Atrial Rate : 278 BPM P-R Int : 000 ms QRS Dur : 088 ms QT Int : 386 ms P-R-T Axes : 000 027 004 degrees QTc Int : 445 ms ATRIAL FLUTTER WITH VARIABLE A-V BLOCK WITH OCCASIONAL ventricular-paced complexes SEPTAL INFARCT , AGE UNDETERMINED ABNORMAL ECG WHEN COMPARED WITH ECG OF 01-NOV-2018 20:12, DEMAND PACING IS PRESENT Confirmed by ANNAMARIA DE GUZMAN, NACHO ([id number]) on 11/15/2018 10:24:02 AM Referred By: Confirmed By:NACHO YIN MD
[2018-11-15] MEDS: POLYETHYLENE GLYCOL 3350 119 GM BTL PO SCH ×2 (10:42→22:05)
[2018-11-15] MEDS: METOPROLOL TARTRATE 25 MG TABLET (FP) PO SCH ×2 (10:42→21:25)
[2018-11-15] MEDS: MULTIVITAMINS (DAILY MVI) TABLET (FP) PO SCH (10:42)
[2018-11-15] MEDS: LISINOPRIL 5 MG TABLET (FP) PO SCH ×2 (10:42→21:25)
[2018-11-15] MEDS: POTASSIUM CHLORIDE TABS 20 MEQ TABLET.ER (FP) PO SCH (10:43)
[2018-11-15] MEDS: FOLIC ACID 1 MG TABLET (FP) PO SCH (10:43)
[2018-11-15] MEDS: PANTOPRAZOLE 40 MG TABLET (FP) PO SCH (10:43)
[2018-11-15] MEDS: ESCITALOPRAM OXALATE 10 MG TABLET (FP) PO SCH (10:43)
[2018-11-15] MEDS: LIDOCAINE 5% TOPICAL PATCH TP SCH (10:44)
[2018-11-15] MEDS: ENOXAPARIN NA (PORCINE) 80 MG/0.8 ML DISP.SYRIN SQ SCH ×2 (12:02→21:25)
--- NOTE | 2018-11-15 12:43 | PN ---
Progress Note, Physician History of Present Illness: The patient is a 63 year old female, from [place] with a significant past medical history of SVT (s/p ablation), afib (on Eliquis), HTN, DM, COPD, C3-C7 herniation, multiple CVAs who presents to the emergency department with vomiting and elevated LFTs. Patient notes he was sent to the ED by Dr. Faith for further evaluation, a CT scan, and admission. The patient reports she fell last night as she was getting out of bed. The patient denies any head trauma, - Current Medication List Current Medications: Active Medications Alprazolam (Xanax -) 0.25 mg PO BID PRN PRN Reason: AGITATION Last Admin: 11/14/18 23:28 Dose: 0.25 mg Atorvastatin Calcium (Lipitor -) 10 mg PO HS [facility] Last Admin: 11/14/18 23:28 Dose: 10 mg Enoxaparin Sodium (Lovenox -) 80 mg SQ Q12H [facility] Last Admin: 11/15/18 12:02 Dose: 80 mg Escitalopram Oxalate (Lexapro -) 10 mg PO DAILY [facility] Last Admin: 11/15/18 10:43 Dose: 10 mg Ferrous Sulfate (Feosol -) 325 mg PO TIDCM [facility] Last Admin: 11/15/18 12:02 Dose: 325 mg Folic Acid (Folic Acid -) 1 mg PO DAILY [facility] Last Admin: 11/15/18 10:43 Dose: 1 mg Insulin Aspart (Novolog Vial) 1 units SQ AM [facility]; Protocol Last Admin: 11/15/18 07:08 Dose: Not Given Lidocaine (Lidoderm Patch -) 1 patch TP DAILY [facility] Last Admin: 11/15/18 10:44 Dose: Not Given Lisinopril (Prinivil) 5 mg PO BID [facility] Last Admin: 11/15/18 10:42 Dose: 5 mg Metoprolol Tartrate (Lopressor -) 25 mg PO BID [facility] Last Admin: 11/15/18 10:42 Dose: 25 mg Miscellaneous (Lidoderm Patch Removal) 1 each MC DAILY@2200 [facility] Last Admin: 11/14/18 23:27 Dose: Not Given Multivitamins/Minerals/Vitamin C (Tab-A-Vit -) 1 tab PO DAILY [facility] Last Admin: 11/15/18 10:42 Dose: 1 tab Ondansetron HCl (Zofran Injection) 8 mg IVPB Q8H PRN PRN Reason: NAUSEA AND/OR VOMITING Last Admin: 11/04/18 10:01 Dose: 8 mg Pantoprazole Sodium (Protonix -) 40 mg PO DAILY [facility] Last Admin: 11/15/18 10:43 Dose: 40 mg Polyethylene Glycol (Miralax (For Daily Use) -) 17 gm PO BID [facility] Last Admin: 11/15/18 10:42 Dose: Not Given Potassium Chloride (K-Dur -) 20 meq PO DAILY [facility] Last Admin: 11/15/18 10:43 Dose: 20 meq Sucralfate (Carafate -) 1 gm PO ACHS [facility] Last Admin: 11/15/18 10:43 Dose: 1 gm Warfarin Sodium (Coumadin -) 2.5 mg PO DAILY@1800 [facility] Last Admin: 11/14/18 17:49 Dose: 2.5 mg - Objective Vital Signs: Vital Signs Temperature 98 F 11/15/18 10:00 Pulse Rate 69 11/15/18 10:00 Respiratory Rate 20 11/15/18 10:00 Blood Pressure 133/69 11/15/18 10:00 O2 Sat by Pulse Oximetry (%) 98 11/15/18 09:00 Eyes: Yes: WNL, Conjunctiva Clear, EOM Intact HENT: Yes: WNL, Atraumatic, Normocephalic Neck: Yes: WNL, Supple, Trachea Midline Cardiovascular: Yes: Pulse Irregular, S1, S2 Respiratory: Yes: WNL, Regular, CTA Bilaterally Gastrointestinal: Yes: WNL, Normal Bowel Sounds Genitourinary: Yes: WNL Musculoskeletal: Yes: WNL Extremities: Yes: WNL Edema: No Integumentary: Yes: WNL Neurological: Yes: WNL, Alert, Oriented ...Motor Strength: WNL Psychiatric: Yes: WNL Labs: CBC, BMP 11/15/18 06:15 11/15/18 06:15 INR, PTT INR 1.30 (0.83-1.09) H 11/15/18 06:15 Assessment/Plan - Problems (1) Elevated LFTs Assessment/Plan: Since stopping statin, LFTs having been improving. If statin is deemed important to restart (multiple CVAs), would use pravastatin , then f/u LFTs carefully. Code(s): R94.5 - ABNORMAL RESULTS OF LIVER FUNCTION STUDIES (2) Acute on chronic diastolic CHF (congestive heart failure) Assessment/Plan: On metoprolol and lisinopril. Code(s): I50.33 - ACUTE ON CHRONIC DIASTOLIC (CONGESTIVE) HEART FAILURE (3) Anemia Assessment/Plan: Off anticoagulant due to black stools; continue workup by GI, hematology. Code(s): D64.9 - ANEMIA, UNSPECIFIED Qualifiers: Anemia type: unspecified type Qualified Code(s): D64.9 - Anemia, unspecified (4) Anxiety and depression Assessment/Plan: On SSRI. Consider psychologic counseling (recent of mother;dificulty articulating thoughts; periods of crying). Code(s): F41.9 - ANXIETY DISORDER, UNSPECIFIED; F32.9 - MAJOR DEPRESSIVE DISORDER, SINGLE EPISODE, UNSPECIFIED (5) Atrial flutter Assessment/Plan: ON metoprolol for HR control. on warfarin no more gi bleeds awaiting INR. ?breakthrough CVA despite being on apixaban. F/u EKG. 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 F/u with GI, heme/onc. Code(s): C18.9 - MALIGNANT NEOPLASM OF COLON, UNSPECIFIED (9) Diabetes Code(s): E11.9 - TYPE 2 DIABETES MELLITUS WITHOUT COMPLICATIONS (10) Fall Assessment/Plan: f/u with neurology. Physical rehabilitation. Code(s): W19.XXXA - UNSPECIFIED FALL, INITIAL ENCOUNTER Qualifiers: Encounter type: initial encounter Qualified Code(s): W19.XXXA - Unspecified fall, initial encounter (11) HTN (hypertension) Assessment/Plan: on metoprolol and lisinopril. Code(s): I10 - ESSENTIAL (PRIMARY) HYPERTENSION (12) Headache Code(s): R51 - HEADACHE Qualifiers: Headache type: tension-type Headache chronicity pattern: acute headache Intractability: not intractable Qualified Code(s): G44.209 - Tension-type headache, unspecified, not intractable (13) Hyperlipidemia Code(s): E78.5 - HYPERLIPIDEMIA, UNSPECIFIED (14) Obesity Code(s): E66.9 - OBESITY, UNSPECIFIED (15) Weakness Code(s): R53.1 - WEAKNESS (16) CVA (cerebral vascular accident) Assessment/Plan: Evidence of new CVA. Pt needs evaluation of efficacy of anticoaguant(s), if this incident shows "breakthrough" incident despite regular use of DOAC. Warfarin may be the new agent of choice. F/u with hematolgy/oncology/GI. F/u with neurologist. Code(s): I63.9 - CEREBRAL INFARCTION, UNSPECIFIED
[2018-11-15] MEDS: ALPRAZolam 0.25 MG TABLET PO PRN (14:49)
--- NOTE | 2018-11-15 15:47 | PN ---
Progress Note, Physician Chief Complaint: in bed no new medical c/o feels ok but is very upset because she just found out that her [employer] insurance is not active anymore, she has only medicaid now which was started in [place] therefore per CM she can not go to any DC except [place] dw pt's son at [facility] too he is aware - Current Medication List Current Medications: Active Medications Alprazolam (Xanax -) 0.25 mg PO BID PRN PRN Reason: AGITATION Last Admin: 11/15/18 14:49 Dose: 0.25 mg Atorvastatin Calcium (Lipitor -) 10 mg PO HS [facility] Last Admin: 11/14/18 23:28 Dose: 10 mg Enoxaparin Sodium (Lovenox -) 80 mg SQ Q12H [facility] Last Admin: 11/15/18 12:02 Dose: 80 mg Escitalopram Oxalate (Lexapro -) 10 mg PO DAILY [facility] Last Admin: 11/15/18 10:43 Dose: 10 mg Ferrous Sulfate (Feosol -) 325 mg PO TIDCM [facility] Last Admin: 11/15/18 12:02 Dose: 325 mg Folic Acid (Folic Acid -) 1 mg PO DAILY [facility] Last Admin: 11/15/18 10:43 Dose: 1 mg Insulin Aspart (Novolog Vial) 1 units SQ AM [facility]; Protocol Last Admin: 11/15/18 07:08 Dose: Not Given Lidocaine (Lidoderm Patch -) 1 patch TP DAILY [facility] Last Admin: 11/15/18 10:44 Dose: Not Given Lisinopril (Prinivil) 5 mg PO BID [facility] Last Admin: 11/15/18 10:42 Dose: 5 mg Metoprolol Tartrate (Lopressor -) 25 mg PO BID [facility] Last Admin: 11/15/18 10:42 Dose: 25 mg Miscellaneous (Lidoderm Patch Removal) 1 each MC DAILY@2200 [facility] Last Admin: 11/14/18 23:27 Dose: Not Given Multivitamins/Minerals/Vitamin C (Tab-A-Vit -) 1 tab PO DAILY [facility] Last Admin: 11/15/18 10:42 Dose: 1 tab Ondansetron HCl (Zofran Injection) 8 mg IVPB Q8H PRN PRN Reason: NAUSEA AND/OR VOMITING Last Admin: 11/04/18 10:01 Dose: 8 mg Pantoprazole Sodium (Protonix -) 40 mg PO DAILY [facility] Last Admin: 11/15/18 10:43 Dose: 40 mg Polyethylene Glycol (Miralax (For Daily Use) -) 17 gm PO BID [facility] Last Admin: 11/15/18 10:42 Dose: Not Given Potassium Chloride (K-Dur -) 20 meq PO DAILY [facility] Last Admin: 11/15/18 10:43 Dose: 20 meq Sucralfate (Carafate -) 1 gm PO ACHS [facility] Last Admin: 11/15/18 10:43 Dose: 1 gm Warfarin Sodium (Coumadin -) 5 mg PO DAILY@1800 [facility] - Objective Vital Signs: Vital Signs Temperature 98 F 11/15/18 10:00 Pulse Rate 69 11/15/18 10:00 Respiratory Rate 20 11/15/18 10:00 Blood Pressure 133/69 11/15/18 10:00 O2 Sat by Pulse Oximetry (%) 98 11/15/18 09:00 Constitutional: Yes: No Distress, Calm Eyes: Yes: Conjunctiva Clear HENT: Yes: Atraumatic Neck: Yes: Supple Cardiovascular: Yes: Regular Rate and Rhythm Respiratory: Yes: CTA Bilaterally Gastrointestinal: Yes: Soft. No: Tenderness Genitourinary: No: Hematuria Musculoskeletal: No: Joint Stiffness, Joint Swelling Extremities: No: Cold, Cool Edema: No Integumentary: No: Rash, Venous Stasis Changes Neurological: Yes: Alert, Oriented ...Motor Strength: WNL Psychiatric: Yes: Alert, Oriented. No: Agitated Labs: CBC, BMP 11/15/18 06:15 11/15/18 06:15 INR, PTT INR 1.30 (0.83-1.09) H 11/15/18 06:15 - ....Imaging Other: Report Reviewed Assessment/Plan Patient is a 63F from [facility] w/ PMHx SVT s/p ablation,P afib on Eliquis, HTN, DM, COPD. C3-C7 herniation, multiple CVAs, anemia, colon CA s/p recent R hemicolectomy, remote breast CA s/p lumpectomy, benign thyroid nodule, admitted with vomiting elevated LFTs; now improved almost normal; recurrent CVAs on coumadin per INR s/p GI Bleed and colon CA; GI f/u; po PPIs and f/u labs UCX ESBL: Isolation; ID eval no ATB per ID falls pfx d/w pt do not get OOB alone she understood prognosis guarded will need SNF when medically stable; d/w CM and staff will need close outpt f/u cardio pulm GI and ONC; metastatic w/u as outpt, PET scan; close and tight INR control d/w pt and d/w pt's son Bill all the above at bedside referred to d/w CM too
[2018-11-15] MEDS: WARFARIN NA 5 MG TABLET (UD) PO SCH (18:37)
[2018-11-15] MEDS: ATORVASTATIN CA 10 MG TABLET (FP) PO SCH (21:25)
[2018-11-15] MEDS: LIDOCAINE PATCH REMOVAL MC SCH (22:05)
[2018-11-16] MEDS: INSULIN (NOVOLOG) ASPART 100 UNITS/ML 10ML VIAL SQ SCH (06:15)
[2018-11-16] MEDS: SUCRALFATE 1 GM TABLET (FP) PO SCH ×4 (06:20→21:37)
[2018-11-16 08:12] LABS: INR 1.31 (0.83-1.09); PROTHROMBIN TIME (PATIENT) 15.5 SEC (9.7-13.0)
--- NOTE | 2018-11-16 08:53 | PN ---
Progress Note (short form) - Note Progress Note: Neurology - History of Present Illness 63F from [employer] w/ PMHx SVT s/p ablation, afib on Eliquis, HTN, DM, COPD. C3 -C7 herniation, multiple CVAs here today with vomiting and elevated LFTs. Patient is currently under the care of Dr Faith, who was sent the patient in for admission. US done on 10/26 showed fatty liver, no other abnormalities. Patient reported that she had recent fall as she got out of bed. Denied head trauma but CT head completed and showed area of subacute infarct in R bird radiata. Also showed ischemic infarcts in b/l bird as well as right occipital. I was notified by primary and discussed case. She is on AC, Eliquis, and did not hold AC. Repeat CT head confirmed findings. LDL normal at 52. Patient remains alert, awake, cooperative. Does have lapses in mental status at times. Is more oriented for me now. She can tell me she's in the hospital, again initially says January but on second guess able to tell me it's November, was able to state it's the . Can tell me name of President. Patient without new complaints. Active Medications Alprazolam (Xanax -) 0.25 mg PO BID PRN PRN Reason: AGITATION Last Admin: 11/15/18 14:49 Dose: 0.25 mg Atorvastatin Calcium (Lipitor -) 10 mg PO HS [facility] Last Admin: 11/15/18 21:25 Dose: 10 mg Enoxaparin Sodium (Lovenox -) 80 mg SQ Q12H [facility] Last Admin: 11/15/18 21:25 Dose: 80 mg Escitalopram Oxalate (Lexapro -) 10 mg PO DAILY [facility] Last Admin: 11/15/18 10:43 Dose: 10 mg Ferrous Sulfate (Feosol -) 325 mg PO TIDCM [facility] Last Admin: 11/15/18 18:36 Dose: 325 mg Folic Acid (Folic Acid -) 1 mg PO DAILY [facility] Last Admin: 11/15/18 10:43 Dose: 1 mg Insulin Aspart (Novolog Vial) 1 units SQ AM [facility]; Protocol Last Admin: 11/16/18 06:15 Dose: Not Given Lidocaine (Lidoderm Patch -) 1 patch TP DAILY [facility] Last Admin: 04/01/19 10:44 Dose: Not Given Lisinopril (Prinivil) 5 mg PO BID [facility] Last Admin: 11/15/18 21:25 Dose: 5 mg Metoprolol Tartrate (Lopressor -) 25 mg PO BID [facility] Last Admin: 11/15/18 21:25 Dose: 25 mg Miscellaneous (Lidoderm Patch Removal) 1 each MC DAILY@2200 [facility] Last Admin: 11/15/18 22:05 Dose: Not Given Multivitamins/Minerals/Vitamin C (Tab-A-Vit -) 1 tab PO DAILY [facility] Last Admin: 11/15/18 10:42 Dose: 1 tab Ondansetron HCl (Zofran Injection) 8 mg IVPB Q8H PRN PRN Reason: NAUSEA AND/OR VOMITING Last Admin: 11/04/18 10:01 Dose: 8 mg Pantoprazole Sodium (Protonix -) 40 mg PO DAILY [facility] Last Admin: 11/15/18 10:43 Dose: 40 mg Polyethylene Glycol (Miralax (For Daily Use) -) 17 gm PO BID [facility] Last Admin: 11/15/18 22:05 Dose: Not Given Potassium Chloride (K-Dur -) 20 meq PO DAILY [facility] Last Admin: 11/15/18 10:43 Dose: 20 meq Sucralfate (Carafate -) 1 gm PO ACHS [facility] Last Admin: 11/16/18 06:20 Dose: 1 gm Warfarin Sodium (Coumadin -) 5 mg PO DAILY@1800 [facility] Last Admin: 11/15/18 18:37 Dose: 5 mg *Physical Exam Vital Signs Period Temp Pulse Resp BP Sys/Juarez Pulse Ox Last 24 Hr 97.9 F-98.2 F 65-92 18-20 104-136/55-91 98-99 GENERAL: Awake, alert, in no acute distress HEAD: No signs of trauma, normocephalic, atraumatic EYES: PERRLA, EOMI, sclera anicteric, conjunctiva clear ENT: Auricles normal inspection, hearing grossly normal, nares patent, oropharynx clear without exudates. Moist mucosa NECK: Normal ROM, supple, no lymphadenopathy, JVD, or masses LUNGS: No distress, speaks full sentences, clear to auscultation bilaterally HEART: Regular rate and rhythm, normal S1 and S2, no murmurs, rubs or gallops, peripheral pulses normal and equal bilaterally. ABDOMEN: Soft, +RUQ tenderness, normoactive bowel sounds. No guarding, no rebound. No masses EXTREMITIES: Normal inspection, Normal range of motion, no edema. No clubbing or cyanosis. NEUROLOGICAL: Cranial nerves II through XII grossly intact. Normal speech, no focal sensorimotor deficits, finger to nose normal, sensory intact. SKIN: Warm, Dry, normal turgor, no rashes or lesions noted. CBCD WBC 5.3 K/mm3 (4.0-10.0) 11/15/18 06:15 RBC 3.90 M/mm3 (3.60-5.2) 11/15/18 06:15 Hgb 9.9 GM/dL (10.7-15.3) L 11/15/18 06:15 Hct 32.1 % (32.4-45.2) L 11/15/18 06:15 MCV 82.3 fl (80-96) 11/15/18 06:15 MCHC 30.9 g/dl (32.0-36.0) L 11/15/18 06:15 RDW 19.6 % (11.6-15.6) H 11/15/18 06:15 Plt Count 226 K/MM3 (134-434) 11/15/18 06:15 MPV 8.9 fl (7.5-11.1) 11/15/18 06:15 CMP Sodium 138 mmol/L (136-145) 11/15/18 06:15 Potassium 4.0 mmol/L (3.5-5.1) 11/15/18 06:15 Chloride 104 mmol/L (98-107) 11/15/18 06:15 Carbon Dioxide 28 mmol/L (21-32) 11/15/18 06:15 Anion Gap 6 MMOL/L (8-16) L 11/15/18 06:15 BUN 13 mg/dL (7-18) 11/15/18 06:15 Creatinine 0.6 mg/dL (0.55-1.3) 11/15/18 06:15 Creat Clearance w eGFR 101.63 (>60) 11/15/18 06:15 Random Glucose 97 mg/dL (74-106) 11/15/18 06:15 Calcium 8.6 mg/dL (8.5-10.1) 11/15/18 06:15 Total Bilirubin 0.4 mg/dL (0.2-1) 11/15/18 06:15 AST 38 U/L (15-37) H 11/15/18 06:15 ALT 42 U/L (13-61) 11/15/18 06:15 Alkaline Phosphatase 482 U/L (45-117) H 11/15/18 06:15 Total Protein 5.0 g/dl (6.4-8.2) L 11/15/18 06:15 Albumin 2.3 g/dl (3.4-5.0) L 11/15/18 06:15 CARDIAC ENZYMES Creatine Kinase 11 U/L (26-192) L 11/02/18 06:00 Troponin I < 0.02 ng/ml (0.00-0.05) 11/02/18 05:30 Medical Decision Making 63F from [employer] w/ PMHx SVT s/p ablation, afib on Eliquis, HTN, DM, COPD. C3 -C7 herniation, multiple CVAs here today with vomiting and elevated LFTs. Patient is currently under the care of Dr Faith, who was sent the patient in for admission. US done on 10/26 showed fatty liver, no other abnormalities. Patient reported that she had recent fall as she got out of bed. Denied head trauma but CT head completed and showed area of subacute infarct in R bird radiata. Also showed ischemic infarcts in b/l bird as well as right occipital. I was notified by primary and discussed case. She is on AC, Eliquis, and did not hold AC. Repeat CT head confirmed findings. LDL normal at 52. Statin being held due to LFTs. DShe can tell me she's in the hospital, again initially says January but on second guess able to tell me it's November, was able to state it's the 2nd. Can tell me name of President. Patient without new complaints. Can have outpatient follow up for more formal memory evaluation. Awaiting theraputic INR. Discussed with nurse
--- NOTE | 2018-11-16 09:36 | DS ---
Physical Examination Vital Signs: Vital Signs Temperature 97.9 F 11/16/18 06:00 Pulse Rate 68 11/16/18 06:00 Respiratory Rate 18 11/16/18 06:00 Blood Pressure 110/55 L 11/16/18 06:00 O2 Sat by Pulse Oximetry (%) 99 11/15/18 21:00 Labs: CBC, BMP 11/15/18 06:15 11/15/18 06:15 Discharge Summary Reason For Visit: VOMITING Current Active Problems Abnormal liver function (Acute) Allergy to multiple antibiotics (Acute) Asymptomatic bacteriuria (Acute) Carrier of extended-spectrum beta-lactamase (ESBL) producing Klebsiella oxytoca (Acute) Elevated LFTs (Acute) Vomiting (Acute) Condition: Stable - Instructions Diet, Activity, Other Instructions: f/u PCP cardiology neurology GI and Oncology over the next 1-4 weeks; INR q3 days for few weeks until stable 2-3 then weekly f/u CBC CMP q1 week f/u lipids, CPK, TSH q3 months; PET scan r/o mets outpt; Chest Abdomen CT no ivc in 1-2 months f/u adenopathy h/o colon CA f/u with breast surgery dr Aceves for remote h/o breast CA; rheum f/u dr Calixto; thyroid US in January 2019 f/u thyroid nodule (had biopsy benign); endocrine eval outpt [facility] dr Senior pelvic pap exam outpt falls PFX; PT rehab; do not get OOB/OOWC alone; d/w pt and son all the above; Referrals: Nyla Faith S [Primary Care Provider] - Nikita Aceves MD [Staff Physician] - Sivakumar Calixto MD [Staff Physician] - Josr Senior MD [Staff Physician] - Mario Molina MD [Staff Physician] - Mitch Montes MD [Staff Physician] - Boogie Goodman MD [Staff Physician] - Manohar Kraus MD [Staff Physician] - Ara Okeefe MD [Staff Physician] - - Home Medications Comprehensive Discharge Medication List: Ambulatory Orders Multivitamins [Multivit ([facility] Formulary)] 1 tab PO DAILY tab 04/02/18 Alprazolam 0.25 mg PO BID PRN 09/06/18 Apixaban [Eliquis -] 5 mg PO BID 09/06/18 Atorvastatin Ca [Lipitor] 80 mg PO HS 09/06/18 Escitalopram Oxalate [Lexapro -] 20 mg PO DAILY 09/06/18 Folic Acid 1 mg PO DAILY 09/06/18 Pantoprazole Sodium [Protonix] 40 mg PO DAILY 09/06/18 Ferrous Sulfate [Feosol] 325 mg PO TID 11/01/18 Lisinopril [Prinivil] 5 mg PO DAILY 11/01/18 Metoprolol Tartrate [Lopressor -] 25 mg PO DAILY 11/01/18 Sucralfate [Carafate -] 1 gm PO QID 11/01/18
[2018-11-16] MEDS: FERROUS SO4 325 MG TABLET (FP) PO SCH ×3 (10:00→17:11)
[2018-11-16] MEDS: METOPROLOL TARTRATE 25 MG TABLET (FP) PO SCH ×2 (10:01→21:37)
[2018-11-16] MEDS: POTASSIUM CHLORIDE TABS 20 MEQ TABLET.ER (FP) PO SCH (10:01)
[2018-11-16] MEDS: MULTIVITAMINS (DAILY MVI) TABLET (FP) PO SCH (10:01)
[2018-11-16] MEDS: ENOXAPARIN NA (PORCINE) 80 MG/0.8 ML DISP.SYRIN SQ SCH ×2 (10:01→21:37)
[2018-11-16] MEDS: LIDOCAINE 5% TOPICAL PATCH TP SCH (10:02)
[2018-11-16] MEDS: PANTOPRAZOLE 40 MG TABLET (FP) PO SCH (10:02)
[2018-11-16] MEDS: ESCITALOPRAM OXALATE 10 MG TABLET (FP) PO SCH (10:02)
[2018-11-16] MEDS: LISINOPRIL 5 MG TABLET (FP) PO SCH ×2 (10:02→21:37)
[2018-11-16] MEDS: FOLIC ACID 1 MG TABLET (FP) PO SCH (10:02)
[2018-11-16] MEDS: POLYETHYLENE GLYCOL 3350 119 GM BTL PO SCH ×2 (10:03→21:42)
--- NOTE | 2018-11-16 11:06 | PN ---
Progress Note, Physician Chief Complaint: started on coumadin, INR still low; on SQ Lovenox; d/w CM to check if possible to given lovenox 80 mg sq BID in NH until INR comes up to 2 no new c/o feels well but upset because of her [facility] insurance being DCd, is on Medicaid only which was started by [facility] and for this reason she can go only to [facility] per < no other NH would take her, d/w pt and son - Current Medication List Current Medications: Active Medications Alprazolam (Xanax -) 0.25 mg PO BID PRN PRN Reason: AGITATION Last Admin: 11/15/18 14:49 Dose: 0.25 mg Atorvastatin Calcium (Lipitor -) 10 mg PO HS [facility] Last Admin: 11/15/18 21:25 Dose: 10 mg Enoxaparin Sodium (Lovenox -) 80 mg SQ Q12H [facility] Last Admin: 11/16/18 10:01 Dose: 80 mg Escitalopram Oxalate (Lexapro -) 10 mg PO DAILY [facility] Last Admin: 11/16/18 10:02 Dose: 10 mg Ferrous Sulfate (Feosol -) 325 mg PO TIDCM [facility] Last Admin: 11/16/18 10:00 Dose: 325 mg Folic Acid (Folic Acid -) 1 mg PO DAILY [facility] Last Admin: 11/16/18 10:02 Dose: 1 mg Insulin Aspart (Novolog Vial) 1 units SQ AM [facility]; Protocol Last Admin: 11/16/18 06:15 Dose: Not Given Lidocaine (Lidoderm Patch -) 1 patch TP DAILY [facility] Last Admin: 11/16/18 10:02 Dose: Not Given Lisinopril (Prinivil) 5 mg PO BID [facility] Last Admin: 11/16/18 10:02 Dose: 5 mg Metoprolol Tartrate (Lopressor -) 25 mg PO BID [facility] Last Admin: 11/16/18 10:01 Dose: 25 mg Miscellaneous (Lidoderm Patch Removal) 1 each MC DAILY@2200 [facility] Last Admin: 11/15/18 22:05 Dose: Not Given Multivitamins/Minerals/Vitamin C (Tab-A-Vit -) 1 tab PO DAILY [facility] Last Admin: 11/16/18 10:01 Dose: 1 tab Ondansetron HCl (Zofran Injection) 8 mg IVPB Q8H PRN PRN Reason: NAUSEA AND/OR VOMITING Last Admin: 11/04/18 10:01 Dose: 8 mg Pantoprazole Sodium (Protonix -) 40 mg PO DAILY [facility] Last Admin: 11/16/18 10:02 Dose: 40 mg Polyethylene Glycol (Miralax (For Daily Use) -) 17 gm PO BID [facility] Last Admin: 11/16/18 10:03 Dose: Not Given Potassium Chloride (K-Dur -) 20 meq PO DAILY [facility] Last Admin: 11/16/18 10:01 Dose: 20 meq Sucralfate (Carafate -) 1 gm PO ACHS [facility] Last Admin: 11/16/18 10:02 Dose: 1 gm Warfarin Sodium (Coumadin -) 5 mg PO DAILY@1800 [facility] Last Admin: 11/15/18 18:37 Dose: 5 mg - Objective Vital Signs: Vital Signs Temperature 98.4 F 11/16/18 10:00 Pulse Rate 92 H 11/16/18 10:00 Respiratory Rate 18 11/16/18 10:00 Blood Pressure 116/86 11/16/18 10:00 O2 Sat by Pulse Oximetry (%) 99 11/15/18 21:00 Constitutional: Yes: No Distress, Calm Eyes: Yes: Conjunctiva Clear HENT: Yes: Atraumatic Neck: Yes: Supple Cardiovascular: Yes: Regular Rate and Rhythm Respiratory: Yes: CTA Bilaterally Gastrointestinal: Yes: Soft. No: Tenderness Genitourinary: No: CVA Tenderness - Left, CVA Tenderness - Right, Hematuria Musculoskeletal: No: Joint Stiffness, Joint Swelling Extremities: No: Cold, Cool, Cyanosis Edema: No Integumentary: No: Pressure Ulcer, Rash, Venous Stasis Changes Neurological: Yes: Alert, Oriented ...Motor Strength: WNL Psychiatric: Yes: Alert, Oriented. No: Agitated, Suicidal Ideation Labs: CBC, BMP 11/15/18 06:15 11/15/18 06:15 INR, PTT INR 1.31 (0.83-1.09) H 11/16/18 07:00 - ....Imaging Other: Report Reviewed Assessment/Plan Patient is a 63F from [facility] w/ PMHx SVT s/p ablation,P afib on Eliquis, HTN, DM, COPD. C3-C7 herniation, multiple CVAs, anemia, colon CA s/p recent R hemicolectomy, remote breast CA s/p lumpectomy, benign thyroid nodule, admitted with elevated LFTs; improved to normal; recurrent CVAs on coumadin per INR; sq lovenox until INR>2 s/p GI Bleed and colon CA; GI f/u; po PPIs and f/u labs; pt refused EGD and / or colonoscopy (any GI procedure at this point) son aware; UCX ESBL: Isolation; ID eval no ATB per ID falls pfx d/w pt do not get OOB alone she understood prognosis guarded will need SNF when medically stable; d/w CM and staff will need close outpt f/u cardio pulm GI and ONC; metastatic w/u as outpt, PET scan; d/w pt and d/w pt's son Bill all the above d.w CM and staff
[2018-11-16] MEDS: WARFARIN NA 5 MG TABLET (UD) PO SCH (17:10)
[2018-11-16] MEDS: ATORVASTATIN CA 10 MG TABLET (FP) PO SCH (21:37)
[2018-11-16] MEDS: LIDOCAINE PATCH REMOVAL MC SCH (21:43)
--- NOTE | 2018-11-17 00:14 | PN ---
Progress Note, Physician Chief Complaint: Pt alert; calm; speaks of her son having to work hard to clean out the house of my parents"; denies anxiety or depression. Denies chest pain, headache, dizziness. History of Present Illness: The patient is a 63 year old white woman from [place] with a significant past medical history of PSVT (s/p ablation), afib (on Eliquis), HTN, DM, COPD, C3-C7 herniation, obese, sedentary, multiple recent CVAs, who presents to the emergency department with vomiting and elevated LFTs. Patient notes he was sent to the ED by Dr. Faith for further evaluation, a CT scan, and admission. The patient reports she fell last night as she was getting out of bed. The patient denies any head trauma, - Current Medication List Current Medications: Active Medications Alprazolam (Xanax -) 0.25 mg PO BID PRN PRN Reason: AGITATION Last Admin: 11/15/18 14:49 Dose: 0.25 mg Atorvastatin Calcium (Lipitor -) 10 mg PO HS [facility] Last Admin: 11/16/18 21:37 Dose: 10 mg Enoxaparin Sodium (Lovenox -) 80 mg SQ Q12H [facility] Last Admin: 11/16/18 21:37 Dose: 80 mg Escitalopram Oxalate (Lexapro -) 10 mg PO DAILY [facility] Last Admin: 11/16/18 10:02 Dose: 10 mg Ferrous Sulfate (Feosol -) 325 mg PO TIDCM [facility] Last Admin: 11/16/18 17:11 Dose: 325 mg Folic Acid (Folic Acid -) 1 mg PO DAILY [facility] Last Admin: 11/16/18 10:02 Dose: 1 mg Insulin Aspart (Novolog Vial) 1 units SQ AM [facility]; Protocol Last Admin: 11/16/18 06:15 Dose: Not Given Lidocaine (Lidoderm Patch -) 1 patch TP DAILY [facility] Last Admin: 11/16/18 10:02 Dose: Not Given Lisinopril (Prinivil) 5 mg PO BID [facility] Last Admin: 11/16/18 21:37 Dose: 5 mg Metoprolol Tartrate (Lopressor -) 25 mg PO BID [facility] Last Admin: 11/16/18 21:37 Dose: 25 mg Miscellaneous (Lidoderm Patch Removal) 1 each MC DAILY@2200 [facility] Last Admin: 11/16/18 21:43 Dose: Not Given Multivitamins/Minerals/Vitamin C (Tab-A-Vit -) 1 tab PO DAILY [facility] Last Admin: 11/16/18 10:01 Dose: 1 tab Ondansetron HCl (Zofran Injection) 8 mg IVPB Q8H PRN PRN Reason: NAUSEA AND/OR VOMITING Last Admin: 11/04/18 10:01 Dose: 8 mg Pantoprazole Sodium (Protonix -) 40 mg PO DAILY [facility] Last Admin: 11/16/18 10:02 Dose: 40 mg Polyethylene Glycol (Miralax (For Daily Use) -) 17 gm PO BID [facility] Last Admin: 11/16/18 21:42 Dose: Not Given Potassium Chloride (K-Dur -) 20 meq PO DAILY [facility] Last Admin: 11/16/18 10:01 Dose: 20 meq Sucralfate (Carafate -) 1 gm PO ACHS [facility] Last Admin: 11/16/18 21:37 Dose: 1 gm Warfarin Sodium (Coumadin -) 5 mg PO DAILY@1800 [facility] Last Admin: 11/16/18 17:10 Dose: 5 mg - Objective Vital Signs: Vital Signs Temperature 98.0 F 11/16/18 20:59 Pulse Rate 91 H 11/16/18 20:59 Respiratory Rate 18 11/16/18 20:59 Blood Pressure 148/96 11/16/18 20:59 O2 Sat by Pulse Oximetry (%) 99 11/16/18 20:59 Constitutional: Yes: Calm Eyes: Yes: WNL HENT: Yes: WNL Neck: Yes: WNL Cardiovascular: Yes: S1 (varies in intensity), S2 Respiratory: Yes: Regular Gastrointestinal: Yes: Soft, Abdomen, Obese ...Rectal Exam: Yes: Deferred Genitourinary: No: Anuria Breast(s): Yes: WNL Musculoskeletal: Yes: Muscle Weakness Extremities: Yes: Cool Edema: No Peripheral Pulses WNL: Yes Integumentary: Yes: WNL Neurological: Yes: Alert, Oriented, Pre-Existing Deficit, Weakness Psychiatric: Yes: Alert, Oriented Labs: CBC, BMP 11/15/18 06:15 11/15/18 06:15 INR, PTT INR 1.31 (0.83-1.09) H 11/16/18 07:00 Abnormal Lab Results 11/16/18 07:00 PT with INR 15.50 H INR 1.31 H Problem List - Problems (1) Elevated LFTs Assessment/Plan: virtually resolved; alkaline phosphatase considerably lower, tough still in 400s. Off statin; may consider starting low-dose pravastatin and observing LFTs closely. Code(s): R94.5 - ABNORMAL RESULTS OF LIVER FUNCTION STUDIES (2) Acute on chronic diastolic CHF (congestive heart failure) Assessment/Plan: On metoprolol and lisinopril. Code(s): I50.33 - ACUTE ON CHRONIC DIASTOLIC (CONGESTIVE) HEART FAILURE (3) Anemia Assessment/Plan: Off anticoagulant due to black stools; continue workup by GI, hematology. Code(s): D64.9 - ANEMIA, UNSPECIFIED Qualifiers: Anemia type: unspecified type Qualified Code(s): D64.9 - Anemia, unspecified (4) Anxiety and depression Assessment/Plan: On SSRI and benzodiazapene. Consider psychologic counseling (recent of mother;difficulty articulating thoughts; periods of crying): though pt today denies any psychological problems.Discussed with pt's RN; pt has apparently alluded to loneliness, and does not like to be away from her son. Code(s): F41.9 - ANXIETY DISORDER, UNSPECIFIED; F32.9 - MAJOR DEPRESSIVE DISORDER, SINGLE EPISODE, UNSPECIFIED (5) Atrial flutter Assessment/Plan: ON metoprolol for HR control (can change to long-acting metoprolol succinate for easier compliance and better cardioprotective record). On warfarin; keep INR 2-3 (discontinue Lovenox when this INR is achieved). 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 Code(s): K22.70 - CALDERON'S ESOPHAGUS WITHOUT DYSPLASIA (7) COPD (chronic obstructive pulmonary disease) Code(s): J44.9 - CHRONIC OBSTRUCTIVE PULMONARY DISEASE, UNSPECIFIED (8) Colon cancer Code(s): C18.9 - MALIGNANT NEOPLASM OF COLON, UNSPECIFIED (9) Diabetes Code(s): E11.9 - TYPE 2 DIABETES MELLITUS WITHOUT COMPLICATIONS (10) Fall Code(s): W19.XXXA - UNSPECIFIED FALL, INITIAL ENCOUNTER Qualifiers: Encounter type: initial encounter Qualified Code(s): W19.XXXA - Unspecified fall, initial encounter (11) HTN (hypertension) Code(s): I10 - ESSENTIAL (PRIMARY) HYPERTENSION (12) Headache Code(s): R51 - HEADACHE Qualifiers: Headache type: tension-type Headache chronicity pattern: acute headache Intractability: not intractable Qualified Code(s): G44.209 - Tension-type headache, unspecified, not intractable (13) Hyperlipidemia Code(s): E78.5 - HYPERLIPIDEMIA, UNSPECIFIED (14) Obesity Code(s): E66.9 - OBESITY, UNSPECIFIED (15) Weakness Code(s): R53.1 - WEAKNESS (16) CVA (cerebral vascular accident) Code(s): I63.9 - CEREBRAL INFARCTION, UNSPECIFIED
[2018-11-17] MEDS: INSULIN (NOVOLOG) ASPART 100 UNITS/ML 10ML VIAL SQ SCH (06:01)
[2018-11-17] MEDS: SUCRALFATE 1 GM TABLET (FP) PO SCH ×4 (06:01→21:37)
--- NOTE | 2018-11-17 08:25 | PN ---
Progress Note, Physician Chief Complaint: awake alert NAD VSS no new c/o; d/w CM : [facility] will NOT be able to given her sq lovenox 80 mg BID for few days until INR>2 d/w pt and son, will have to stay here until INR>2 d/w pt do not get OOB alone but encouraged to do PT with PT rehab staff, she said she will (but she refused few times to do PT) - Current Medication List Current Medications: Active Medications Alprazolam (Xanax -) 0.25 mg PO BID PRN PRN Reason: AGITATION Last Admin: 11/15/18 14:49 Dose: 0.25 mg Atorvastatin Calcium (Lipitor -) 10 mg PO HS [facility] Last Admin: 11/16/18 21:37 Dose: 10 mg Enoxaparin Sodium (Lovenox -) 80 mg SQ Q12H [facility] Last Admin: 11/16/18 21:37 Dose: 80 mg Escitalopram Oxalate (Lexapro -) 10 mg PO DAILY [facility] Last Admin: 11/16/18 10:02 Dose: 10 mg Ferrous Sulfate (Feosol -) 325 mg PO TIDCM [facility] Last Admin: 11/16/18 17:11 Dose: 325 mg Folic Acid (Folic Acid -) 1 mg PO DAILY [facility] Last Admin: 11/16/18 10:02 Dose: 1 mg Insulin Aspart (Novolog Vial) 1 units SQ AM [facility]; Protocol Last Admin: 11/17/18 06:01 Dose: Not Given Lidocaine (Lidoderm Patch -) 1 patch TP DAILY [facility] Last Admin: 11/16/18 10:02 Dose: Not Given Lisinopril (Prinivil) 5 mg PO BID [facility] Last Admin: 11/16/18 21:37 Dose: 5 mg Metoprolol Tartrate (Lopressor -) 25 mg PO BID [facility] Last Admin: 11/16/18 21:37 Dose: 25 mg Miscellaneous (Lidoderm Patch Removal) 1 each MC DAILY@2200 [facility] Last Admin: 11/16/18 21:43 Dose: Not Given Multivitamins/Minerals/Vitamin C (Tab-A-Vit -) 1 tab PO DAILY [facility] Last Admin: 11/16/18 10:01 Dose: 1 tab Ondansetron HCl (Zofran Injection) 8 mg IVPB Q8H PRN PRN Reason: NAUSEA AND/OR VOMITING Last Admin: 11/04/18 10:01 Dose: 8 mg Pantoprazole Sodium (Protonix -) 40 mg PO DAILY [facility] Last Admin: 11/16/18 10:02 Dose: 40 mg Polyethylene Glycol (Miralax (For Daily Use) -) 17 gm PO BID [facility] Last Admin: 11/16/18 21:42 Dose: Not Given Potassium Chloride (K-Dur -) 20 meq PO DAILY [facility] Last Admin: 11/16/18 10:01 Dose: 20 meq Sucralfate (Carafate -) 1 gm PO ACHS [facility] Last Admin: 11/17/18 06:01 Dose: 1 gm Warfarin Sodium (Coumadin -) 5 mg PO DAILY@1800 [facility] Last Admin: 11/16/18 17:10 Dose: 5 mg - Objective Vital Signs: Vital Signs Temperature 98.0 F 11/17/18 05:00 Pulse Rate 88 11/17/18 05:00 Respiratory Rate 18 11/17/18 05:00 Blood Pressure 135/74 11/17/18 05:00 O2 Sat by Pulse Oximetry (%) 99 11/16/18 20:59 Constitutional: Yes: No Distress, Calm Eyes: Yes: Conjunctiva Clear HENT: Yes: Atraumatic Neck: Yes: Supple Cardiovascular: Yes: Regular Rate and Rhythm Respiratory: Yes: CTA Bilaterally Gastrointestinal: Yes: Soft. No: Tenderness Genitourinary: No: CVA Tenderness - Left, CVA Tenderness - Right Musculoskeletal: No: Joint Stiffness, Joint Swelling Extremities: No: Cold, Cool, Erythema Edema: No Integumentary: No: Rash, Venous Stasis Changes Neurological: Yes: Alert, Oriented ...Motor Strength: WNL Psychiatric: Yes: Alert, Oriented. No: Agitated, Suicidal Ideation Labs: CBC, BMP 11/15/18 06:15 11/15/18 06:15 INR, PTT INR 1.31 (0.83-1.09) H 11/16/18 07:00 - ....Imaging Other: Report Reviewed Assessment/Plan Patient is a 63F from [facility] w/ PMHx SVT s/p ablation,P afib on Eliquis, HTN, DM, COPD. C3-C7 herniation, multiple CVAs, anemia, colon CA s/p recent R hemicolectomy, remote breast CA s/p lumpectomy, benign thyroid nodule, admitted with elevated LFTs; improved recurrent CVAs on coumadin per INR; sq lovenox until INR>2 s/p GI Bleed and colon CA; GI f/u; po PPIs and f/u labs; pt refused EGD and / or colonoscopy (any GI procedure at this point) son aware; UCX ESBL: Isolation; ID eval no ATB per ID falls pfx d/w pt do not get OOB alone she understood prognosis guarded will need SNF when INR>2; d/w CM and staff will need close outpt f/u cardio pulm GI and ONC; metastatic w/u as outpt, PET scan; d/w pt and staff
[2018-11-17] MEDS: FERROUS SO4 325 MG TABLET (FP) PO SCH ×3 (08:28→17:48)
[2018-11-17 09:22] LABS: INR 1.44 (0.83-1.09); PROTHROMBIN TIME (PATIENT) 17.1 SEC (9.7-13.0)
[2018-11-17] MEDS: LISINOPRIL 5 MG TABLET (FP) PO SCH ×2 (09:23→21:37)
[2018-11-17] MEDS: PANTOPRAZOLE 40 MG TABLET (FP) PO SCH (09:23)
[2018-11-17] MEDS: METOPROLOL TARTRATE 25 MG TABLET (FP) PO SCH ×2 (09:23→21:37)
[2018-11-17] MEDS: ESCITALOPRAM OXALATE 10 MG TABLET (FP) PO SCH (09:23)
[2018-11-17] MEDS: FOLIC ACID 1 MG TABLET (FP) PO SCH (09:23)
[2018-11-17] MEDS: MULTIVITAMINS (DAILY MVI) TABLET (FP) PO SCH (09:23)
[2018-11-17] MEDS: ENOXAPARIN NA (PORCINE) 80 MG/0.8 ML DISP.SYRIN SQ SCH ×2 (09:23→21:38)
[2018-11-17] MEDS: POTASSIUM CHLORIDE TABS 20 MEQ TABLET.ER (FP) PO SCH (09:23)
[2018-11-17] MEDS: POLYETHYLENE GLYCOL 3350 119 GM BTL PO SCH ×2 (09:24→21:38)
[2018-11-17] MEDS: LIDOCAINE 5% TOPICAL PATCH TP SCH (09:30)
--- NOTE | 2018-11-17 10:44 | PN ---
Progress Note, Physician History of Present Illness: The patient is a 63 year old female, from [place] with a significant past medical history of SVT (s/p ablation), afib (on Eliquis), HTN, DM, COPD, C3-C7 herniation, multiple CVAs who presents to the emergency department with vomiting and elevated LFTs. Patient notes he was sent to the ED by Dr. Faith for further evaluation, a CT scan, and admission. The patient reports she fell last night as she was getting out of bed. The patient denies any head trauma, - Current Medication List Current Medications: Active Medications Alprazolam (Xanax -) 0.25 mg PO BID PRN PRN Reason: AGITATION Last Admin: 11/15/18 14:49 Dose: 0.25 mg Atorvastatin Calcium (Lipitor -) 10 mg PO HS [facility] Last Admin: 11/16/18 21:37 Dose: 10 mg Enoxaparin Sodium (Lovenox -) 80 mg SQ Q12H [facility] Last Admin: 11/17/18 09:23 Dose: 80 mg Escitalopram Oxalate (Lexapro -) 10 mg PO DAILY [facility] Last Admin: 11/17/18 09:23 Dose: 10 mg Ferrous Sulfate (Feosol -) 325 mg PO TIDCM [facility] Last Admin: 11/17/18 08:28 Dose: 325 mg Folic Acid (Folic Acid -) 1 mg PO DAILY [facility] Last Admin: 11/17/18 09:23 Dose: 1 mg Insulin Aspart (Novolog Vial) 1 units SQ AM [facility]; Protocol Last Admin: 11/17/18 06:01 Dose: Not Given Lidocaine (Lidoderm Patch -) 1 patch TP DAILY [facility] Last Admin: 11/17/18 09:30 Dose: Not Given Lisinopril (Prinivil) 5 mg PO BID [facility] Last Admin: 11/17/18 09:23 Dose: 5 mg Metoprolol Tartrate (Lopressor -) 25 mg PO BID [facility] Last Admin: 11/17/18 09:23 Dose: 25 mg Miscellaneous (Lidoderm Patch Removal) 1 each MC DAILY@2200 [facility] Last Admin: 11/16/18 21:43 Dose: Not Given Multivitamins/Minerals/Vitamin C (Tab-A-Vit -) 1 tab PO DAILY [facility] Last Admin: 11/17/18 09:23 Dose: 1 tab Ondansetron HCl (Zofran Injection) 8 mg IVPB Q8H PRN PRN Reason: NAUSEA AND/OR VOMITING Last Admin: 11/04/18 10:01 Dose: 8 mg Pantoprazole Sodium (Protonix -) 40 mg PO DAILY [facility] Last Admin: 11/17/18 09:23 Dose: 40 mg Polyethylene Glycol (Miralax (For Daily Use) -) 17 gm PO BID [facility] Last Admin: 11/17/18 09:24 Dose: Not Given Potassium Chloride (K-Dur -) 20 meq PO DAILY [facility] Last Admin: 11/17/18 09:23 Dose: 20 meq Sucralfate (Carafate -) 1 gm PO ACHS [facility] Last Admin: 11/17/18 06:01 Dose: 1 gm Warfarin Sodium (Coumadin -) 5 mg PO DAILY@1800 [facility] Last Admin: 11/16/18 17:10 Dose: 5 mg - Objective Vital Signs: Vital Signs Temperature 98 F 11/17/18 09:26 Pulse Rate 60 11/17/18 09:26 Respiratory Rate 18 11/17/18 09:26 Blood Pressure 146/77 11/17/18 09:26 O2 Sat by Pulse Oximetry (%) 99 11/17/18 09:00 Eyes: Yes: WNL, Conjunctiva Clear, EOM Intact HENT: Yes: WNL, Atraumatic, Normocephalic Neck: Yes: WNL, Supple, Trachea Midline Cardiovascular: Yes: Pulse Irregular, S1, S2 Respiratory: Yes: WNL, Regular, CTA Bilaterally Gastrointestinal: Yes: WNL, Normal Bowel Sounds Genitourinary: Yes: WNL Musculoskeletal: Yes: WNL Extremities: Yes: WNL Edema: No Integumentary: Yes: WNL Neurological: Yes: WNL, Alert, Oriented ...Motor Strength: WNL Psychiatric: Yes: WNL Labs: CBC, BMP 11/15/18 06:15 11/15/18 06:15 INR, PTT INR 1.44 (0.83-1.09) H 11/17/18 08:35 Assessment/Plan - Problems (1) Elevated LFTs Assessment/Plan: virtually resolved; alkaline phosphatase considerably lower, tough still in 400s. Off statin; may consider starting low-dose pravastatin and observing LFTs closely. Code(s): R94.5 - ABNORMAL RESULTS OF LIVER FUNCTION STUDIES (2) Acute on chronic diastolic CHF (congestive heart failure) Assessment/Plan: On metoprolol and lisinopril. Code(s): I50.33 - ACUTE ON CHRONIC DIASTOLIC (CONGESTIVE) HEART FAILURE (3) Anemia Assessment/Plan: Off anticoagulant due to black stools; continue workup by GI, hematology. Code(s): D64.9 - ANEMIA, UNSPECIFIED Qualifiers: Anemia type: unspecified type Qualified Code(s): D64.9 - Anemia, unspecified (4) Anxiety and depression Assessment/Plan: On SSRI and benzodiazapene. Consider psychologic counseling (recent of mother;difficulty articulating thoughts; periods of crying): though pt today denies any psychological problems.Discussed with pt's RN; pt has apparently alluded to loneliness, and does not like to be away from her son. Code(s): F41.9 - ANXIETY DISORDER, UNSPECIFIED; F32.9 - MAJOR DEPRESSIVE DISORDER, SINGLE EPISODE, UNSPECIFIED (5) Atrial flutter Assessment/Plan: ON metoprolol for HR control (can change to long-acting metoprolol succinate for easier compliance and better cardioprotective record). On warfarin; keep INR 2-3 (discontinue Lovenox when this INR is achieved). 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 Code(s): K22.70 - CALDERON'S ESOPHAGUS WITHOUT DYSPLASIA (7) COPD (chronic obstructive pulmonary disease) Code(s): J44.9 - CHRONIC OBSTRUCTIVE PULMONARY DISEASE, UNSPECIFIED (8) Colon cancer Code(s): C18.9 - MALIGNANT NEOPLASM OF COLON, UNSPECIFIED (9) Diabetes Code(s): E11.9 - TYPE 2 DIABETES MELLITUS WITHOUT COMPLICATIONS (10) Fall Code(s): W19.XXXA - UNSPECIFIED FALL, INITIAL ENCOUNTER Qualifiers: Encounter type: initial encounter Qualified Code(s): W19.XXXA - Unspecified fall, initial encounter (11) HTN (hypertension) Code(s): I10 - ESSENTIAL (PRIMARY) HYPERTENSION (12) Headache Code(s): R51 - HEADACHE Qualifiers: Headache type: tension-type Headache chronicity pattern: acute headache Intractability: not intractable Qualified Code(s): G44.209 - Tension-type headache, unspecified, not intractable (13) Hyperlipidemia Code(s): E78.5 - HYPERLIPIDEMIA, UNSPECIFIED (14) Obesity Code(s): E66.9 - OBESITY, UNSPECIFIED (15) Weakness Code(s): R53.1 - WEAKNESS (16) CVA (cerebral vascular accident) Code(s): I63.9 - CEREBRAL INFARCTION, UNSPECIFIED
[2018-11-17] MEDS: WARFARIN NA 5 MG TABLET (UD) PO SCH (17:49)
[2018-11-17] MEDS: ATORVASTATIN CA 10 MG TABLET (FP) PO SCH (21:37)
[2018-11-17] MEDS: LIDOCAINE PATCH REMOVAL MC SCH (21:38)
[2018-11-18] MEDS: INSULIN (NOVOLOG) ASPART 100 UNITS/ML 10ML VIAL SQ SCH (06:26)
[2018-11-18] MEDS: SUCRALFATE 1 GM TABLET (FP) PO SCH ×4 (06:26→21:39)
[2018-11-18 07:18] LABS: BASO % 0.9 % (0-2.0); EOS % 2.8 % (0-4.5); HEMATOCRIT 31.5 % (32.4-45.2); MCH 26.1 pg (25.7-33.7); MCHC 31.7 g/dl (32.0-36.0); MEAN CELL VOLUME 82.4 fl (80-96); MEAN PLT VOLUME 8.9 fl (7.5-11.1); NEUT % 71.3 % (42.8-82.8); PLATELET COUNT 210 K/MM3 (134-434); RBC 3.82 M/mm3 (3.60-5.2); RDW 19.6 % (11.6-15.6); WHITE BLOOD COUNT 4.1 K/mm3 (4.0-10.0)
[2018-11-18 07:40] LABS: INR 1.69 (0.83-1.09); PROTHROMBIN TIME (PATIENT) 20.1 SEC (9.7-13.0)
--- NOTE | 2018-11-18 07:44 | PN ---
Progress Note, Physician Chief Complaint: INR 1.7 no new c/o in good spirits; in bed, eating potato chips! - Current Medication List Current Medications: Active Medications Alprazolam (Xanax -) 0.25 mg PO BID PRN PRN Reason: AGITATION Last Admin: 11/15/18 14:49 Dose: 0.25 mg Atorvastatin Calcium (Lipitor -) 10 mg PO HS [facility] Last Admin: 11/17/18 21:37 Dose: 10 mg Enoxaparin Sodium (Lovenox -) 80 mg SQ Q12H [facility] Last Admin: 11/17/18 21:38 Dose: 80 mg Escitalopram Oxalate (Lexapro -) 10 mg PO DAILY [facility] Last Admin: 11/17/18 09:23 Dose: 10 mg Ferrous Sulfate (Feosol -) 325 mg PO TIDCM [facility] Last Admin: 11/17/18 17:48 Dose: 325 mg Folic Acid (Folic Acid -) 1 mg PO DAILY [facility] Last Admin: 11/17/18 09:23 Dose: 1 mg Insulin Aspart (Novolog Vial) 1 units SQ AM [facility]; Protocol Last Admin: 11/18/18 06:26 Dose: Not Given Lidocaine (Lidoderm Patch -) 1 patch TP DAILY [facility] Last Admin: 11/17/18 09:30 Dose: Not Given Lisinopril (Prinivil) 5 mg PO BID [facility] Last Admin: 11/17/18 21:37 Dose: 5 mg Metoprolol Tartrate (Lopressor -) 25 mg PO BID [facility] Last Admin: 11/17/18 21:37 Dose: 25 mg Miscellaneous (Lidoderm Patch Removal) 1 each MC DAILY@2200 [facility] Last Admin: 11/17/18 21:38 Dose: Not Given Multivitamins/Minerals/Vitamin C (Tab-A-Vit -) 1 tab PO DAILY [facility] Last Admin: 11/17/18 09:23 Dose: 1 tab Ondansetron HCl (Zofran Injection) 8 mg IVPB Q8H PRN PRN Reason: NAUSEA AND/OR VOMITING Last Admin: 11/04/18 10:01 Dose: 8 mg Pantoprazole Sodium (Protonix -) 40 mg PO DAILY [facility] Last Admin: 11/17/18 09:23 Dose: 40 mg Polyethylene Glycol (Miralax (For Daily Use) -) 17 gm PO BID [facility] Last Admin: 11/17/18 21:38 Dose: Not Given Potassium Chloride (K-Dur -) 20 meq PO DAILY [facility] Last Admin: 11/17/18 09:23 Dose: 20 meq Sucralfate (Carafate -) 1 gm PO ACHS [facility] Last Admin: 11/18/18 06:26 Dose: 1 gm Warfarin Sodium (Coumadin -) 5 mg PO DAILY@1800 [facility] Last Admin: 11/17/18 17:49 Dose: 5 mg - Objective Vital Signs: Vital Signs Temperature 98.2 F 11/18/18 02:03 Pulse Rate 98 H 11/18/18 06:00 Respiratory Rate 18 11/18/18 06:00 Blood Pressure 116/57 L 11/18/18 06:00 O2 Sat by Pulse Oximetry (%) 99 11/17/18 09:00 Constitutional: Yes: No Distress, Calm Eyes: Yes: Conjunctiva Clear HENT: Yes: Atraumatic Neck: Yes: Supple Cardiovascular: Yes: Regular Rate and Rhythm Respiratory: Yes: CTA Bilaterally Gastrointestinal: Yes: Soft. No: Tenderness Genitourinary: No: Hematuria Musculoskeletal: No: Joint Stiffness, Joint Swelling Extremities: No: Cold, Cool, Cyanosis Edema: No Integumentary: No: Rash, Venous Stasis Changes Neurological: Yes: Alert, Oriented ...Motor Strength: WNL Psychiatric: Yes: Alert, Oriented. No: Agitated, Suicidal Ideation Labs: INR, PTT INR 1.69 (0.83-1.09) H 11/18/18 06:20 - ....Imaging Other: Report Reviewed Assessment/Plan Patient is a 63F from [facility] w/ PMHx SVT s/p ablation,P afib on Eliquis, HTN, DM, COPD. C3-C7 herniation, multiple CVAs, anemia, colon CA s/p recent R hemicolectomy, remote breast CA s/p lumpectomy, benign thyroid nodule, admitted with elevated LFTs; improved recurrent CVAs on coumadin per INR; sq lovenox until INR>2 s/p GI Bleed and colon CA; GI f/u; po PPIs and f/u labs; pt refused EGD and / or colonoscopy (any GI procedure at this point) son aware; UCX ESBL: Isolation; ID eval no ATB per ID falls pfx d/w pt do not get OOB alone she understood prognosis guarded will need SNF when INR>2; d/w CM and staff will need close outpt f/u cardio pulm GI and ONC; metastatic w/u as outpt, PET scan; d/w pt and staff
[2018-11-18 08:07] LABS: ALBUMIN 2.5 g/dl (3.4-5.0); ALK PHOS 397 U/L (45-117); ANION GAP 8 MMOL/L (8-16); BILIRUBIN,TOTAL 0.4 mg/dL (0.2-1); BLOOD UREA NITROGEN 9 mg/dL (7-18); CALCIUM 7.9 mg/dL (8.5-10.1); CHLORIDE 106 mmol/L (98-107); CO2 26 mmol/L (21-32); CREATININE 0.5 mg/dL (0.55-1.3); GLUCOSE,RANDOM 104 mg/dL (74-106); POTASSIUM 3.8 mmol/L (3.5-5.1); SGOT/AST 36 U/L (15-37); SGPT/ALT 36 U/L (13-61); SODIUM 140 mmol/L (136-145); TOT PROT 5.2 g/dl (6.4-8.2)
[2018-11-18] MEDS: POTASSIUM CHLORIDE TABS 20 MEQ TABLET.ER (FP) PO SCH (09:42)
[2018-11-18] MEDS: ESCITALOPRAM OXALATE 10 MG TABLET (FP) PO SCH (09:42)
[2018-11-18] MEDS: PANTOPRAZOLE 40 MG TABLET (FP) PO SCH (09:42)
[2018-11-18] MEDS: FERROUS SO4 325 MG TABLET (FP) PO SCH ×3 (09:42→17:34)
[2018-11-18] MEDS: FOLIC ACID 1 MG TABLET (FP) PO SCH (09:42)
[2018-11-18] MEDS: MULTIVITAMINS (DAILY MVI) TABLET (FP) PO SCH (09:42)
[2018-11-18] MEDS: METOPROLOL TARTRATE 25 MG TABLET (FP) PO SCH ×2 (09:42→21:40)
[2018-11-18] MEDS: LISINOPRIL 5 MG TABLET (FP) PO SCH ×2 (09:42→21:41)
[2018-11-18] MEDS: ENOXAPARIN NA (PORCINE) 80 MG/0.8 ML DISP.SYRIN SQ SCH ×2 (09:42→21:41)
[2018-11-18] MEDS: LIDOCAINE 5% TOPICAL PATCH TP SCH (09:43)
[2018-11-18] MEDS: POLYETHYLENE GLYCOL 3350 119 GM BTL PO SCH ×2 (09:51→21:41)
[2018-11-18] MEDS: WARFARIN NA 5 MG TABLET (UD) PO SCH (19:00)
--- NOTE | 2018-11-18 20:35 | PN ---
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 Tumor penetrated the muscularis propria and invaded the pericolonic fat. Margins clear. No MSI. No perineural invasion. LVI as risk factor. Recently seen and decided against adjuvant therapy in view of T3 lesion , ( Stage II) and co- morbid conditions. CT with non specific periportal nodes, hepatomegaly and new splenomegaly. Mildly enlarged Argelia hepatis and retroperitoneal adenopathy CEA normal LFTs improved--patients son refused biopsy PET-CT as outpatient CT head-- subacute infarct on eliquis On lovenox---bridging to coumadin
[2018-11-18] MEDS: ATORVASTATIN CA 10 MG TABLET (FP) PO SCH (21:40)
[2018-11-18] MEDS: ALPRAZolam 0.25 MG TABLET PO PRN (21:40)
[2018-11-18] MEDS: LIDOCAINE PATCH REMOVAL MC SCH (21:45)
[2018-11-19] MEDS: SUCRALFATE 1 GM TABLET (FP) PO SCH ×4 (06:37→21:34)
[2018-11-19] MEDS: INSULIN (NOVOLOG) ASPART 100 UNITS/ML 10ML VIAL SQ SCH (06:43)
[2018-11-19 08:55] LABS: INR 1.9 (0.83-1.09); PROTHROMBIN TIME (PATIENT) 22.6 SEC (9.7-13.0)
--- NOTE | 2018-11-19 09:56 | PN ---
Progress Note, Physician Chief Complaint: awake alert NAD VSS labs OK LFTs NL INR 1.9 - Current Medication List Current Medications: Active Medications Alprazolam (Xanax -) 0.25 mg PO BID PRN PRN Reason: AGITATION Last Admin: 11/18/18 21:40 Dose: 0.25 mg Atorvastatin Calcium (Lipitor -) 20 mg PO HS [facility] Enoxaparin Sodium (Lovenox -) 80 mg SQ Q12H [facility] Last Admin: 11/18/18 21:41 Dose: 80 mg Escitalopram Oxalate (Lexapro -) 10 mg PO DAILY [facility] Last Admin: 11/18/18 09:42 Dose: 10 mg Ferrous Sulfate (Feosol -) 325 mg PO TIDCM [facility] Last Admin: 11/18/18 17:34 Dose: 325 mg Folic Acid (Folic Acid -) 1 mg PO DAILY [facility] Last Admin: 11/18/18 09:42 Dose: 1 mg Insulin Aspart (Novolog Vial) 1 units SQ AM [facility]; Protocol Last Admin: 11/19/18 06:43 Dose: Not Given Lidocaine (Lidoderm Patch -) 1 patch TP DAILY [facility] Last Admin: 11/18/18 09:43 Dose: Not Given Lisinopril (Prinivil) 5 mg PO BID [facility] Last Admin: 11/18/18 21:41 Dose: 5 mg Metoprolol Tartrate (Lopressor -) 25 mg PO BID [facility] Last Admin: 11/18/18 21:40 Dose: 25 mg Miscellaneous (Lidoderm Patch Removal) 1 each MC DAILY@2200 [facility] Last Admin: 11/18/18 21:45 Dose: Not Given Multivitamins/Minerals/Vitamin C (Tab-A-Vit -) 1 tab PO DAILY [facility] Last Admin: 11/18/18 09:42 Dose: 1 tab Ondansetron HCl (Zofran Injection) 8 mg IVPB Q8H PRN PRN Reason: NAUSEA AND/OR VOMITING Last Admin: 11/04/18 10:01 Dose: 8 mg Pantoprazole Sodium (Protonix -) 40 mg PO DAILY [facility] Last Admin: 11/18/18 09:42 Dose: 40 mg Polyethylene Glycol (Miralax (For Daily Use) -) 17 gm PO BID [facility] Last Admin: 11/18/18 21:41 Dose: Not Given Potassium Chloride (K-Dur -) 20 meq PO DAILY [facility] Last Admin: 11/18/18 09:42 Dose: 20 meq Sucralfate (Carafate -) 1 gm PO ACHS [facility] Last Admin: 11/19/18 06:37 Dose: 1 gm Warfarin Sodium (Coumadin -) 5 mg PO DAILY@1800 [facility] Last Admin: 11/18/18 19:00 Dose: 5 mg - Objective Vital Signs: Vital Signs Temperature 98.2 F 11/19/18 09:31 Pulse Rate 93 H 11/19/18 09:31 Respiratory Rate 18 11/19/18 09:31 Blood Pressure 136/71 11/19/18 09:31 O2 Sat by Pulse Oximetry (%) 98 11/18/18 21:00 Constitutional: Yes: No Distress, Calm Eyes: Yes: Conjunctiva Clear HENT: Yes: Atraumatic Neck: Yes: Supple Cardiovascular: Yes: Regular Rate and Rhythm Respiratory: Yes: CTA Bilaterally Gastrointestinal: Yes: Soft. No: Tenderness Genitourinary: No: CVA Tenderness - Left, CVA Tenderness - Right Musculoskeletal: No: Joint Stiffness, Joint Swelling Extremities: No: Cold, Cool, Cyanosis Edema: No Integumentary: No: Rash, Venous Stasis Changes Neurological: Yes: Alert, Oriented ...Motor Strength: WNL Psychiatric: Yes: Alert, Oriented. No: Agitated, Suicidal Ideation Labs: CBC, BMP 11/18/18 06:20 11/18/18 06:20 INR, PTT INR 1.90 (0.83-1.09) H 11/19/18 06:25 - ....Imaging Other: Report Reviewed Assessment/Plan Patient is a 63F from [facility] w/ PMHx SVT s/p ablation,P afib on Eliquis, HTN, DM, COPD. C3-C7 herniation, multiple CVAs, anemia, colon CA s/p recent R hemicolectomy, remote breast CA s/p lumpectomy, benign thyroid nodule, admitted with elevated LFTs; improved recurrent CVAs on coumadin per INR; sq lovenox until INR>2 s/p GI Bleed and colon CA; GI f/u; po PPIs and f/u labs; still does not want any GI procedures EGD colonoscopy, stable H&H for now no bleed UCX ESBL: Isolation; ID eval no ATB per ID falls pfx d/w pt do not get OOB alone she understood prognosis guarded will need SNF when INR>2; d/w CM and staff will need close outpt f/u cardio pulm GI and ONC; metastatic w/u as outpt, PET scan; d/w pt and staff
[2018-11-19] MEDS ORDERED: PT OWN MED DRAWER 7, Y5N ONE (10:14)
[2018-11-19] MEDS: LIDOCAINE 5% TOPICAL PATCH TP SCH (10:17)
[2018-11-19] MEDS: POTASSIUM CHLORIDE TABS 20 MEQ TABLET.ER (FP) PO SCH (10:19)
[2018-11-19] MEDS: PANTOPRAZOLE 40 MG TABLET (FP) PO SCH (10:21)
[2018-11-19] MEDS: FOLIC ACID 1 MG TABLET (FP) PO SCH (10:21)
[2018-11-19] MEDS: METOPROLOL TARTRATE 25 MG TABLET (FP) PO SCH ×2 (10:21→21:35)
[2018-11-19] MEDS: POLYETHYLENE GLYCOL 3350 119 GM BTL PO SCH ×2 (10:21→21:35)
[2018-11-19] MEDS: MULTIVITAMINS (DAILY MVI) TABLET (FP) PO SCH (10:21)
[2018-11-19] MEDS: LISINOPRIL 5 MG TABLET (FP) PO SCH ×2 (10:21→21:34)
[2018-11-19] MEDS: FERROUS SO4 325 MG TABLET (FP) PO SCH ×3 (10:21→17:52)
[2018-11-19] MEDS: ESCITALOPRAM OXALATE 10 MG TABLET (FP) PO SCH (10:21)
[2018-11-19] MEDS: ENOXAPARIN NA (PORCINE) 80 MG/0.8 ML DISP.SYRIN SQ SCH ×2 (10:22→21:35)
[2018-11-19] MEDS: WARFARIN NA 5 MG TABLET (UD) PO SCH (17:52)
[2018-11-19] MEDS: LIDOCAINE PATCH REMOVAL MC SCH (21:34)
[2018-11-19] MEDS: ATORVASTATIN CA 20 MG TABLET (FP) PO SCH (21:34)
[2018-11-20] MEDS: INSULIN (NOVOLOG) ASPART 100 UNITS/ML 10ML VIAL SQ SCH (06:33)
[2018-11-20] MEDS: SUCRALFATE 1 GM TABLET (FP) PO SCH ×4 (06:34→23:12)
[2018-11-20 07:40] LABS: INR 1.94 (0.83-1.09)
[2018-11-20] MEDS: POLYETHYLENE GLYCOL 3350 119 GM BTL PO SCH ×2 (13:01→23:13)
[2018-11-20] MEDS: PANTOPRAZOLE 40 MG TABLET (FP) PO SCH (13:01)
[2018-11-20] MEDS: ESCITALOPRAM OXALATE 10 MG TABLET (FP) PO SCH (13:01)
[2018-11-20] MEDS: LISINOPRIL 5 MG TABLET (FP) PO SCH ×2 (13:01→23:13)
[2018-11-20] MEDS: POTASSIUM CHLORIDE TABS 20 MEQ TABLET.ER (FP) PO SCH (13:01)
[2018-11-20] MEDS: ALPRAZolam 0.25 MG TABLET PO PRN ×2 (13:01→23:13)
[2018-11-20] MEDS: MULTIVITAMINS (DAILY MVI) TABLET (FP) PO SCH (13:01)
[2018-11-20] MEDS: FOLIC ACID 1 MG TABLET (FP) PO SCH (13:01)
[2018-11-20] MEDS: ENOXAPARIN NA (PORCINE) 80 MG/0.8 ML DISP.SYRIN SQ SCH ×2 (13:01→23:13)
[2018-11-20] MEDS: METOPROLOL TARTRATE 25 MG TABLET (FP) PO SCH ×2 (13:01→23:13)
[2018-11-20] MEDS: FERROUS SO4 325 MG TABLET (FP) PO SCH ×2 (13:02→18:20)
[2018-11-20] MEDS: LIDOCAINE 5% TOPICAL PATCH TP SCH (13:02)
--- NOTE | 2018-11-20 13:52 | PN ---
Progress Note, Physician History of Present Illness: Pt w/o weakness of the arma or legs, change in voice. Pt w/o CP, palp, SOB. - Current Medication List Current Medications: Active Medications Alprazolam (Xanax -) 0.25 mg PO BID PRN PRN Reason: AGITATION Last Admin: 11/20/18 13:01 Dose: 0.25 mg Atorvastatin Calcium (Lipitor -) 20 mg PO HS [facility] Last Admin: 11/19/18 21:34 Dose: 20 mg Enoxaparin Sodium (Lovenox -) 80 mg SQ Q12H [facility] Last Admin: 11/20/18 13:01 Dose: 80 mg Escitalopram Oxalate (Lexapro -) 10 mg PO DAILY [facility] Last Admin: 11/20/18 13:01 Dose: 10 mg Ferrous Sulfate (Feosol -) 325 mg PO TIDCM [facility] Last Admin: 11/20/18 13:02 Dose: Not Given Folic Acid (Folic Acid -) 1 mg PO DAILY [facility] Last Admin: 11/20/18 13:01 Dose: 1 mg Insulin Aspart (Novolog Vial) 1 units SQ AM [facility]; Protocol Last Admin: 11/20/18 06:33 Dose: Not Given Lidocaine (Lidoderm Patch -) 1 patch TP DAILY [facility] Last Admin: 11/20/18 13:02 Dose: Not Given Lisinopril (Prinivil) 5 mg PO BID [facility] Last Admin: 11/20/18 13:01 Dose: 5 mg Metoprolol Tartrate (Lopressor -) 25 mg PO BID [facility] Last Admin: 11/20/18 13:01 Dose: 25 mg Miscellaneous (Lidoderm Patch Removal) 1 each MC DAILY@2200 [facility] Last Admin: 11/19/18 21:34 Dose: Not Given Multivitamins/Minerals/Vitamin C (Tab-A-Vit -) 1 tab PO DAILY [facility] Last Admin: 11/20/18 13:01 Dose: 1 tab Pantoprazole Sodium (Protonix -) 40 mg PO DAILY [facility] Last Admin: 11/20/18 13:01 Dose: 40 mg Polyethylene Glycol (Miralax (For Daily Use) -) 17 gm PO BID [facility] Last Admin: 11/20/18 13:01 Dose: Not Given Potassium Chloride (K-Dur -) 20 meq PO DAILY [facility] Last Admin: 11/20/18 13:01 Dose: 20 meq Sucralfate (Carafate -) 1 gm PO ACHS [facility] Last Admin: 11/20/18 13:02 Dose: 1 gm Warfarin Sodium (Coumadin -) 5 mg PO DAILY@1800 [facility] Last Admin: 11/19/18 17:52 Dose: 5 mg - Objective Vital Signs: Vital Signs Temperature 97.7 F 11/20/18 06:00 Pulse Rate 81 11/20/18 06:00 Respiratory Rate 20 11/20/18 06:00 Blood Pressure 125/71 11/20/18 06:00 O2 Sat by Pulse Oximetry (%) 96 11/19/18 21:00 Constitutional: Yes: No Distress, Calm Cardiovascular: Yes: Regular Rate and Rhythm, S1, S2 Respiratory: Yes: Regular, CTA Bilaterally. No: Rales Gastrointestinal: Yes: Normal Bowel Sounds, Soft. No: Tenderness Edema: No Neurological: Yes: Alert, Oriented Labs: CBC, BMP 11/18/18 06:20 11/18/18 06:20 INR, PTT INR 1.94 (0.83-1.09) H 11/20/18 06:30 Problem List - Problems (1) Abnormal liver function Code(s): R94.5 - ABNORMAL RESULTS OF LIVER FUNCTION STUDIES (2) CVA (cerebral vascular accident) Code(s): I63.9 - CEREBRAL INFARCTION, UNSPECIFIED (3) Atrial flutter Code(s): I48.92 - UNSPECIFIED ATRIAL FLUTTER Qualifiers: Atrial flutter type: unspecified Qualified Code(s): I48.92 - Unspecified atrial flutter (5) Anemia Code(s): D64.9 - ANEMIA, UNSPECIFIED (6) H/O right hemicolectomy Code(s): Z90.49 - ACQUIRED ABSENCE OF OTHER SPECIFIED PARTS OF DIGESTIVE TRACT (7) Anemia Code(s): D64.9 - ANEMIA, UNSPECIFIED Qualifiers: Anemia type: unspecified type Qualified Code(s): D64.9 - Anemia, unspecified (8) Obesity Code(s): E66.9 - OBESITY, UNSPECIFIED Assessment/Plan INR still not therapeutic but trending up. Continue Warfarin Continue Lovenox SQ BID until INR 2 or higher Cont other meds Case was d/w pt'd nurse.
[2018-11-20] MEDS: WARFARIN NA 5 MG TABLET (UD) PO SCH (19:16)
[2018-11-20] MEDS: LIDOCAINE PATCH REMOVAL MC SCH (23:12)
[2018-11-20] MEDS: ATORVASTATIN CA 20 MG TABLET (FP) PO SCH (23:13)
[2018-11-21] MEDS: SUCRALFATE 1 GM TABLET (FP) PO SCH ×4 (06:32→23:09)
[2018-11-21] MEDS: INSULIN (NOVOLOG) ASPART 100 UNITS/ML 10ML VIAL SQ SCH (06:33)
[2018-11-21 07:32] LABS: INR 1.8 (0.83-1.09); PROTHROMBIN TIME (PATIENT) 21.4 SEC (9.7-13.0)
[2018-11-21] MEDS: MULTIVITAMINS (DAILY MVI) TABLET (FP) PO SCH (09:50)
[2018-11-21] MEDS: ESCITALOPRAM OXALATE 10 MG TABLET (FP) PO SCH (09:50)
[2018-11-21] MEDS: METOPROLOL TARTRATE 25 MG TABLET (FP) PO SCH ×2 (09:50→23:17)
[2018-11-21] MEDS: LISINOPRIL 5 MG TABLET (FP) PO SCH ×2 (09:50→23:17)
[2018-11-21] MEDS: PANTOPRAZOLE 40 MG TABLET (FP) PO SCH (09:51)
[2018-11-21] MEDS: FOLIC ACID 1 MG TABLET (FP) PO SCH (09:51)
[2018-11-21] MEDS: FERROUS SO4 325 MG TABLET (FP) PO SCH ×3 (09:51→18:08)
[2018-11-21] MEDS: POTASSIUM CHLORIDE TABS 20 MEQ TABLET.ER (FP) PO SCH (09:51)
[2018-11-21] MEDS: ENOXAPARIN NA (PORCINE) 80 MG/0.8 ML DISP.SYRIN SQ SCH ×2 (09:53→23:17)
[2018-11-21] MEDS: LIDOCAINE 5% TOPICAL PATCH TP SCH (09:53)
[2018-11-21] MEDS: POLYETHYLENE GLYCOL 3350 119 GM BTL PO SCH ×2 (09:53→23:10)
--- NOTE | 2018-11-21 10:15 | PN ---
Progress Note, Physician History of Present Illness: Pt w/o weakness of arms or legs, change in voice/ vision. Pt w/o CP, palp, SOB. - Current Medication List Current Medications: Active Medications Alprazolam (Xanax -) 0.25 mg PO BID PRN PRN Reason: AGITATION Last Admin: 11/20/18 23:13 Dose: 0.25 mg Atorvastatin Calcium (Lipitor -) 20 mg PO HS [facility] Last Admin: 11/20/18 23:13 Dose: 20 mg Enoxaparin Sodium (Lovenox -) 80 mg SQ Q12H [facility] Last Admin: 11/21/18 09:53 Dose: 80 mg Escitalopram Oxalate (Lexapro -) 10 mg PO DAILY [facility] Last Admin: 11/21/18 09:50 Dose: 10 mg Ferrous Sulfate (Feosol -) 325 mg PO TIDCM [facility] Last Admin: 11/21/18 09:51 Dose: 325 mg Folic Acid (Folic Acid -) 1 mg PO DAILY [facility] Last Admin: 11/21/18 09:51 Dose: 1 mg Insulin Aspart (Novolog Vial) 1 units SQ AM [facility]; Protocol Last Admin: 11/21/18 06:33 Dose: Not Given Lidocaine (Lidoderm Patch -) 1 patch TP DAILY [facility] Last Admin: 11/21/18 09:53 Dose: Not Given Lisinopril (Prinivil) 5 mg PO BID [facility] Last Admin: 11/21/18 09:50 Dose: 5 mg Metoprolol Tartrate (Lopressor -) 25 mg PO BID [facility] Last Admin: 11/21/18 09:50 Dose: 25 mg Miscellaneous (Lidoderm Patch Removal) 1 each MC DAILY@2200 [facility] Last Admin: 11/20/18 23:12 Dose: Not Given Multivitamins/Minerals/Vitamin C (Tab-A-Vit -) 1 tab PO DAILY [facility] Last Admin: 11/21/18 09:50 Dose: 1 tab Pantoprazole Sodium (Protonix -) 40 mg PO DAILY [facility] Last Admin: 11/21/18 09:51 Dose: 40 mg Polyethylene Glycol (Miralax (For Daily Use) -) 17 gm PO BID [facility] Last Admin: 11/21/18 09:53 Dose: Not Given Potassium Chloride (K-Dur -) 20 meq PO DAILY [facility] Last Admin: 11/21/18 09:51 Dose: 20 meq Sucralfate (Carafate -) 1 gm PO ACHS [facility] Last Admin: 11/21/18 06:32 Dose: Not Given Warfarin Sodium (Coumadin -) 5 mg PO DAILY@1800 [facility] Last Admin: 11/20/18 19:16 Dose: 5 mg - Objective Vital Signs: Vital Signs Temperature 97.2 F L 11/21/18 06:00 Pulse Rate 63 11/21/18 06:00 Respiratory Rate 20 11/21/18 06:00 Blood Pressure 132/76 11/21/18 06:00 O2 Sat by Pulse Oximetry (%) 96 11/20/18 21:00 Constitutional: Yes: No Distress, Calm Cardiovascular: Yes: Regular Rate and Rhythm, S1, S2 Respiratory: Yes: Regular, CTA Bilaterally. No: Rales Gastrointestinal: Yes: Normal Bowel Sounds, Soft. No: Tenderness Edema: No Neurological: Yes: Alert, Oriented Labs: CBC, BMP 11/18/18 06:20 11/18/18 06:20 INR, PTT INR 1.80 (0.83-1.09) H 11/21/18 06:30 Problem List - Problems (1) Abnormal liver function Code(s): R94.5 - ABNORMAL RESULTS OF LIVER FUNCTION STUDIES (2) CVA (cerebral vascular accident) Code(s): I63.9 - CEREBRAL INFARCTION, UNSPECIFIED (3) Atrial flutter Code(s): I48.92 - UNSPECIFIED ATRIAL FLUTTER Qualifiers: Atrial flutter type: unspecified Qualified Code(s): I48.92 - Unspecified atrial flutter (5) Anemia Code(s): D64.9 - ANEMIA, UNSPECIFIED (6) H/O right hemicolectomy Code(s): Z90.49 - ACQUIRED ABSENCE OF OTHER SPECIFIED PARTS OF DIGESTIVE TRACT (7) Anemia Code(s): D64.9 - ANEMIA, UNSPECIFIED Qualifiers: Anemia type: unspecified type Qualified Code(s): D64.9 - Anemia, unspecified (8) Obesity Code(s): E66.9 - OBESITY, UNSPECIFIED Assessment/Plan INR still not therapeutic, today is trending down. To give extra Warfarin today Continue Lovenox SQ BID until INR 2 or higher Cont other meds Case was d/w pt'd nurse.
[2018-11-21] MEDS ORDERED: WARFARIN NA 2.5 MG TABLET (FP) PO ONE (18:00)
[2018-11-21] MEDS: WARFARIN NA 5 MG TABLET (UD) PO SCH (18:08)
--- NOTE | 2018-11-21 20:23 | PN ---
Progress Note, Physician Chief Complaint: Pt is cryiny, saying thery are keeping her here for too long. History of Present Illness: The patient is a 63 year old white woman from [place] with a significant past medical history of PSVT (s/p ablation), afib (on Eliquis), HTN, DM, COPD, C3-C7 herniation, obese, sedentary, multiple recent CVAs, who presents to the emergency department with vomiting and elevated LFTs. Patient notes he was sent to the ED by Dr. Faith for further evaluation, a CT scan, and admission. The patient reports she fell last night as she was getting out of bed. The patient denies any head trauma, - Current Medication List Current Medications: Active Medications Alprazolam (Xanax -) 0.25 mg PO BID PRN PRN Reason: AGITATION Last Admin: 11/20/18 23:13 Dose: 0.25 mg Atorvastatin Calcium (Lipitor -) 20 mg PO HS [facility] Last Admin: 11/20/18 23:13 Dose: 20 mg Enoxaparin Sodium (Lovenox -) 80 mg SQ Q12H [facility] Last Admin: 11/21/18 09:53 Dose: 80 mg Escitalopram Oxalate (Lexapro -) 10 mg PO DAILY [facility] Last Admin: 11/21/18 09:50 Dose: 10 mg Ferrous Sulfate (Feosol -) 325 mg PO TIDCM [facility] Last Admin: 11/21/18 18:08 Dose: 325 mg Folic Acid (Folic Acid -) 1 mg PO DAILY [facility] Last Admin: 11/21/18 09:51 Dose: 1 mg Insulin Aspart (Novolog Vial) 1 units SQ AM [facility]; Protocol Last Admin: 11/21/18 06:33 Dose: Not Given Lidocaine (Lidoderm Patch -) 1 patch TP DAILY [facility] Last Admin: 11/21/18 09:53 Dose: Not Given Lisinopril (Prinivil) 5 mg PO BID [facility] Last Admin: 11/21/18 09:50 Dose: 5 mg Metoprolol Tartrate (Lopressor -) 25 mg PO BID [facility] Last Admin: 11/21/18 09:50 Dose: 25 mg Miscellaneous (Lidoderm Patch Removal) 1 each MC DAILY@2200 [facility] Last Admin: 11/20/18 23:12 Dose: Not Given Multivitamins/Minerals/Vitamin C (Tab-A-Vit -) 1 tab PO DAILY [facility] Last Admin: 11/21/18 09:50 Dose: 1 tab Pantoprazole Sodium (Protonix -) 40 mg PO DAILY [facility] Last Admin: 11/21/18 09:51 Dose: 40 mg Polyethylene Glycol (Miralax (For Daily Use) -) 17 gm PO BID [facility] Last Admin: 11/21/18 09:53 Dose: Not Given Potassium Chloride (K-Dur -) 20 meq PO DAILY [facility] Last Admin: 11/21/18 09:51 Dose: 20 meq Sucralfate (Carafate -) 1 gm PO ACHS [facility] Last Admin: 11/21/18 18:08 Dose: 1 gm Warfarin Sodium (Coumadin -) 5 mg PO DAILY@1800 [facility] Last Admin: 11/21/18 18:08 Dose: 5 mg - Objective Vital Signs: Vital Signs Temperature 98.2 F 11/21/18 18:30 Pulse Rate 71 11/21/18 18:30 Respiratory Rate 18 11/21/18 18:30 Blood Pressure 115/66 11/21/18 18:30 O2 Sat by Pulse Oximetry (%) 96 11/21/18 09:00 Labs: CBC, BMP 11/18/18 06:20 11/18/18 06:20 INR, PTT INR 1.80 (0.83-1.09) H 11/21/18 06:30 Abnormal Lab Results 11/21/18 06:30 PT with INR 21.40 H INR 1.80 H Problem List - Problems (1) Acute on chronic diastolic CHF (congestive heart failure) Assessment/Plan: On metoprolol and lisinopril. Code(s): I50.33 - ACUTE ON CHRONIC DIASTOLIC (CONGESTIVE) HEART FAILURE (2) Anemia Code(s): D64.9 - ANEMIA, UNSPECIFIED Qualifiers: (3) Anxiety and depression Code(s): F41.9 - ANXIETY DISORDER, UNSPECIFIED; F32.9 - MAJOR DEPRESSIVE DISORDER, SINGLE EPISODE, UNSPECIFIED (4) Atrial flutter Assessment/Plan: ON metoprolol for HR control (can change to long-acting metoprolol succinate for easier compliance and better cardioprotective record). On warfarin; keep INR 2-3 (discontinue Lovenox when this INR is achieved). 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 Code(s): K22.70 - CALDERON'S ESOPHAGUS WITHOUT DYSPLASIA (6) COPD (chronic obstructive pulmonary disease) Code(s): J44.9 - CHRONIC OBSTRUCTIVE PULMONARY DISEASE, UNSPECIFIED (7) Colon cancer Code(s): C18.9 - MALIGNANT NEOPLASM OF COLON, UNSPECIFIED (8) Diabetes Code(s): E11.9 - TYPE 2 DIABETES MELLITUS WITHOUT COMPLICATIONS (9) Fall Code(s): W19.XXXA - UNSPECIFIED FALL, INITIAL ENCOUNTER Qualifiers: Encounter type: initial encounter Qualified Code(s): W19.XXXA - Unspecified fall, initial encounter (10) HTN (hypertension) Code(s): I10 - ESSENTIAL (PRIMARY) HYPERTENSION (11) Headache Code(s): R51 - HEADACHE Qualifiers: Headache type: tension-type Headache chronicity pattern: acute headache Intractability: not intractable Qualified Code(s): G44.209 - Tension-type headache, unspecified, not intractable (12) Hyperlipidemia Code(s): E78.5 - HYPERLIPIDEMIA, UNSPECIFIED (13) Obesity Code(s): E66.9 - OBESITY, UNSPECIFIED (14) Weakness Code(s): R53.1 - WEAKNESS (15) CVA (cerebral vascular accident) Code(s): I63.9 - CEREBRAL INFARCTION, UNSPECIFIED
[2018-11-21] MEDS: LIDOCAINE PATCH REMOVAL MC SCH (23:10)
[2018-11-21] MEDS: ALPRAZolam 0.25 MG TABLET PO PRN (23:17)
[2018-11-21] MEDS: ATORVASTATIN CA 20 MG TABLET (FP) PO SCH (23:17)
[2018-11-22] MEDS: SUCRALFATE 1 GM TABLET (FP) PO SCH ×2 (06:08→10:46)
[2018-11-22] MEDS: INSULIN (NOVOLOG) ASPART 100 UNITS/ML 10ML VIAL SQ SCH (06:09)
[2018-11-22 07:18] VITALS: BP 112/52; PULSE 64; TEMP 98.6
[2018-11-22 07:28] LABS: INR 2.32 (0.83-1.09); PROTHROMBIN TIME (PATIENT) 27.6 SEC (9.7-13.0)
--- NOTE | 2018-11-22 09:27 | DS ---
Physical Examination Vital Signs: Vital Signs Temperature 98.6 F 11/22/18 06:00 Pulse Rate 64 11/22/18 06:00 Respiratory Rate 20 11/22/18 06:00 Blood Pressure 112/52 L 11/22/18 06:00 O2 Sat by Pulse Oximetry (%) 96 11/21/18 21:00 Findings/Remarks: in bed awake alert NAD VSS afebrile no bleeding NL BM in good spirits; eating home made cookies! INR 2.3 OK to go to SNF d/w pt and son plan and f/u needed d/w pt falls pfx, decubs pfx - to ask for help if needs OOB she is aware and said she will Constitutional: Yes: No Distress, Calm Eyes: Yes: Conjunctiva Clear HENT: Yes: Atraumatic Neck: Yes: Supple Cardiovascular: Yes: Regular Rate and Rhythm Respiratory: Yes: CTA Bilaterally Gastrointestinal: Yes: Soft. No: Tenderness Renal/: No: Hematuria Musculoskeletal: No: Joint Stiffness, Joint Swelling Extremities: No: Cold, Cool, Cyanosis Edema: No Integumentary: No: Rash, Venous Stasis Changes Neurological: Yes: WNL, Alert ...Motor Strength: WNL Psychiatric: Yes: WNL, Alert, Oriented. No: Agitated, Suicidal Ideation Labs: CBC, BMP 11/18/18 06:20 11/18/18 06:20 Discharge Summary Reason For Visit: VOMITING Current Active Problems Abnormal liver function (Acute) Allergy to multiple antibiotics (Acute) Anemia (Acute) Asymptomatic bacteriuria (Acute) Carrier of extended-spectrum beta-lactamase (ESBL) producing Klebsiella oxytoca (Acute) H/O right hemicolectomy (Acute) S/P ablation operation for arrhythmia (Acute) Vomiting (Acute) Procedures: Principal: 63 yof HTN PAfib, recurrent CVAs, DM, thyroid nodule, OA/ DJD, remote breast CA, recent colon CA s/p R hemicolectomy, admitted with high LFTs, cholestasis and new CVA despite eliquis Other Procedures: seen by cardiology, GI, neurology; AC switched from eliquis to coumadin;. seen also by heme onc; pt had guaiac+ stools but refused GI procedures. seen by ID for +UCx - no ATB needed, pt asymptomatic, but needs isolation. Hospital Course: improved with above; DC to SNF> see DC instructions d/w pt and son d.w staff Condition: Stable - Instructions Diet, Activity, Other Instructions: f/u PCP cardiology neurology GI and Oncology over the next 1-4 weeks; INR q3 days for first week then weekly f/u CBC CMP q1 week f/u lipids, CPK, TSH q3 months; PET scan r/o mets outpt; Chest Abdomen CT no ivc in 1-2 months f/u adenopathy h/o colon CA f/u with breast surgery dr Aceves for remote h/o breast CA; rheum f/u dr Calixto; thyroid US in January 2019 f/u thyroid nodule (had biopsy benign); endocrine eval outpt SAMPLE COORDINATOR dr Senior pelvic pap exam outpt falls PFX; PT rehab; do not get OOB/OOWC alone; d/w pt and son all the above; Referrals: Nyla Faith [Primary Care Provider] - Nikita Aceves MD [Staff Physician] - Sivakumar Calixto MD [Staff Physician] - Josr Senior MD [Staff Physician] - Mario Molina MD [Staff Physician] - Mitch Montes MD [Staff Physician] - Boogie Goodman MD [Staff Physician] - Manohar Kraus MD [Staff Physician] - Ara Okeefe MD [Staff Physician] - Disposition: [facility] - Home Medications Comprehensive Discharge Medication List: Ambulatory Orders Multivitamins [Multivit ([facility] Formulary)] 1 tab PO DAILY tab 04/02/18 Alprazolam 0.25 mg PO BID PRN 09/06/18 Escitalopram Oxalate [Lexapro -] 20 mg PO DAILY 09/06/18 Folic Acid 1 mg PO DAILY 09/06/18 Pantoprazole Sodium [Protonix] 40 mg PO DAILY 09/06/18 Ferrous Sulfate [Feosol] 325 mg PO TID 11/01/18 Lisinopril [Prinivil] 5 mg PO DAILY 11/01/18 Sucralfate [Carafate -] 1 gm PO QID 11/01/18 Atorvastatin Ca [Lipitor] 10 mg PO HS tablet 11/16/18 Lidocaine 5% Patch [Lidoderm -] 1 patch TP DAILY patch 11/16/18 Lidocaine Patch Removal [Lidoderm Patch Removal] 1 each MC DAILY@2200 each 10/05 Metoprolol Tartrate [Lopressor -] 25 mg PO BID tablet 11/16/18 Polyethylene Glycol 3350 [Miralax 119 gm Btl -] 17 gm PO BID bottle 11/16/18 Potassium Chloride [K-Dur -] 20 meq PO DAILY tablet.er 11/16/18 Atorvastatin Ca [Lipitor] 40 mg PO HS #30 tablet 11/22/18 Warfarin Sodium 6 mg PO HS 90 Days tablet 11/22/18
--- NOTE | 2018-11-22 10:43 | PN ---
Progress Note, Physician History of Present Illness: The patient is a 63 year old female, from [place] with a significant past medical history of SVT (s/p ablation), afib (on Eliquis), HTN, DM, COPD, C3-C7 herniation, multiple CVAs who presents to the emergency department with vomiting and elevated LFTs. Patient notes he was sent to the ED by Dr. Faith for further evaluation, a CT scan, and admission. The patient reports she fell last night as she was getting out of bed. The patient denies any head trauma, - Current Medication List Current Medications: Active Medications Alprazolam (Xanax -) 0.25 mg PO BID PRN PRN Reason: AGITATION Last Admin: 11/21/18 23:17 Dose: 0.25 mg Atorvastatin Calcium (Lipitor -) 20 mg PO HS [facility] Last Admin: 11/21/18 23:17 Dose: 20 mg Escitalopram Oxalate (Lexapro -) 10 mg PO DAILY [facility] Last Admin: 11/21/18 09:50 Dose: 10 mg Ferrous Sulfate (Feosol -) 325 mg PO TIDCM [facility] Last Admin: 11/21/18 18:08 Dose: 325 mg Folic Acid (Folic Acid -) 1 mg PO DAILY [facility] Last Admin: 11/21/18 09:51 Dose: 1 mg Insulin Aspart (Novolog Vial) 1 units SQ AM [facility]; Protocol Last Admin: 11/22/18 06:09 Dose: Not Given Lidocaine (Lidoderm Patch -) 1 patch TP DAILY [facility] Last Admin: 11/21/18 09:53 Dose: Not Given Lisinopril (Prinivil) 5 mg PO BID [facility] Last Admin: 11/21/18 23:17 Dose: 5 mg Metoprolol Tartrate (Lopressor -) 25 mg PO BID [facility] Last Admin: 11/21/18 23:17 Dose: 25 mg Miscellaneous (Lidoderm Patch Removal) 1 each MC DAILY@2200 [facility] Last Admin: 11/21/18 23:10 Dose: Not Given Multivitamins/Minerals/Vitamin C (Tab-A-Vit -) 1 tab PO DAILY [facility] Last Admin: 11/21/18 09:50 Dose: 1 tab Pantoprazole Sodium (Protonix -) 40 mg PO DAILY [facility] Last Admin: 11/21/18 09:51 Dose: 40 mg Polyethylene Glycol (Miralax (For Daily Use) -) 17 gm PO BID [facility] Last Admin: 11/21/18 23:10 Dose: Not Given Potassium Chloride (K-Dur -) 20 meq PO DAILY [facility] Last Admin: 11/21/18 09:51 Dose: 20 meq Sucralfate (Carafate -) 1 gm PO ACHS [facility] Last Admin: 11/22/18 06:08 Dose: Not Given - Objective Vital Signs: Vital Signs Temperature 98.6 F 11/22/18 06:00 Pulse Rate 64 11/22/18 06:00 Respiratory Rate 20 11/22/18 06:00 Blood Pressure 112/52 L 11/22/18 06:00 O2 Sat by Pulse Oximetry (%) 96 11/21/18 21:00 Eyes: Yes: WNL, Conjunctiva Clear, EOM Intact HENT: Yes: WNL, Atraumatic, Normocephalic Neck: Yes: WNL, Supple, Trachea Midline Cardiovascular: Yes: Pulse Irregular, S1, S2 Respiratory: Yes: WNL, Regular, CTA Bilaterally Gastrointestinal: Yes: WNL, Normal Bowel Sounds Genitourinary: Yes: WNL Musculoskeletal: Yes: WNL Extremities: Yes: WNL Edema: No Integumentary: Yes: WNL ...Motor Strength: WNL Psychiatric: Yes: WNL Labs: CBC, BMP 11/18/18 06:20 11/18/18 06:20 INR, PTT INR 2.32 (0.83-1.09) H 11/22/18 05:10 Assessment/Plan - Problems (1) Acute on chronic diastolic CHF (congestive heart failure) Assessment/Plan: On metoprolol and lisinopril. Code(s): I50.33 - ACUTE ON CHRONIC DIASTOLIC (CONGESTIVE) HEART FAILURE (2) Anemia Code(s): D64.9 - ANEMIA, UNSPECIFIED Qualifiers: (3) Anxiety and depression Code(s): F41.9 - ANXIETY DISORDER, UNSPECIFIED; F32.9 - MAJOR DEPRESSIVE DISORDER, SINGLE EPISODE, UNSPECIFIED (4) Atrial flutter Assessment/Plan: ON metoprolol for HR control (can change to long-acting metoprolol succinate for easier compliance and better cardioprotective record). On warfarin; keep INR 2-3 (discontinue Lovenox when this INR is achieved). 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 Code(s): K22.70 - CALDERON'S ESOPHAGUS WITHOUT DYSPLASIA (6) COPD (chronic obstructive pulmonary disease) Code(s): J44.9 - CHRONIC OBSTRUCTIVE PULMONARY DISEASE, UNSPECIFIED (7) Colon cancer Code(s): C18.9 - MALIGNANT NEOPLASM OF COLON, UNSPECIFIED (8) Diabetes Code(s): E11.9 - TYPE 2 DIABETES MELLITUS WITHOUT COMPLICATIONS (9) Fall Code(s): W19.XXXA - UNSPECIFIED FALL, INITIAL ENCOUNTER Qualifiers: Encounter type: initial encounter Qualified Code(s): W19.XXXA - Unspecified fall, initial encounter (10) HTN (hypertension) Code(s): I10 - ESSENTIAL (PRIMARY) HYPERTENSION (11) Headache Code(s): R51 - HEADACHE Qualifiers: Headache type: tension-type Headache chronicity pattern: acute headache Intractability: not intractable Qualified Code(s): G44.209 - Tension-type headache, unspecified, not intractable (12) Hyperlipidemia Code(s): E78.5 - HYPERLIPIDEMIA, UNSPECIFIED (13) Obesity Code(s): E66.9 - OBESITY, UNSPECIFIED (14) Weakness Code(s): R53.1 - WEAKNESS (15) CVA (cerebral vascular accident) Code(s): I63.9 - CEREBRAL INFARCTION, UNSPECIFIED
[2018-11-22] MEDS: LISINOPRIL 5 MG TABLET (FP) PO SCH (10:45)
[2018-11-22] MEDS: ESCITALOPRAM OXALATE 10 MG TABLET (FP) PO SCH (10:45)
[2018-11-22] MEDS: METOPROLOL TARTRATE 25 MG TABLET (FP) PO SCH (10:45)
[2018-11-22] MEDS: FOLIC ACID 1 MG TABLET (FP) PO SCH (10:45)
[2018-11-22] MEDS: PANTOPRAZOLE 40 MG TABLET (FP) PO SCH (10:45)
[2018-11-22] MEDS: POLYETHYLENE GLYCOL 3350 119 GM BTL PO SCH (10:46)
[2018-11-22] MEDS: FERROUS SO4 325 MG TABLET (FP) PO SCH (10:46)
[2018-11-22] MEDS: LIDOCAINE 5% TOPICAL PATCH TP SCH (10:46)
[2018-11-22] MEDS: MULTIVITAMINS (DAILY MVI) TABLET (FP) PO SCH (10:46)
[2018-11-22] MEDS: POTASSIUM CHLORIDE TABS 20 MEQ TABLET.ER (FP) PO SCH (10:46)
[2018-11-22] MEDS: ALPRAZolam 0.25 MG TABLET PO PRN (10:46)
== END 2018-11-22 11:44 | DRG 64 ==
LOC: JER 17:10 → OBSVTOIN 22:25 → JERBED 22:25 → J5S 11-02 05:45
PROVIDERS: ADMIT Internal Medicine; ATTEND Internal Medicine
DX: I63.9 Cerebral infarction, unspecified (principal); I50.33 Acute on chronic diastolic (congestive) heart failure; I48.92 Unspecified atrial flutter; C18.9 Malignant neoplasm of colon, unspecified; G81.91 Hemiplegia, unspecified affecting right dominant side; D64.9 Anemia, unspecified; F41.8 Other specified anxiety disorders; K22.70 Barrett's esophagus without dysplasia; J44.9 Chronic obstructive pulmonary disease, unspecified; E11.9 Type 2 diabetes mellitus without complications; E78.5 Hyperlipidemia, unspecified; R53.1 Weakness; K76.0 Fatty (change of) liver, not elsewhere classified; E66.9 Obesity, unspecified; Z68.32 Body mass index [BMI] 32.0-32.9, adult; M50.20 Other cervical disc displacement, unspecified cervical region; R94.5 Abnormal results of liver function studies; R51 Headache; I11.0 Hypertensive heart disease with heart failure; I48.0 Paroxysmal atrial fibrillation; R11.10 Vomiting, unspecified; K59.00 Constipation, unspecified
CPT/HCPCS: 36415; 70450-TC; 71045-TC-FY; 74177-TC; 80048; 80053; 80061; 80074; 80076; 82140; 82150; 82248; 82272; 82378; 82390; 82550; 82607; 82728; 82962; 82977; 83010; 83516; 83540; 83615; 83690; 83721; 83880; 84484; 85025; 85027; 85044; 85610; 85651; 85730; 86038; 86140; 86162; 86880; 87040; 87086; 87186; 93005; 93010; 93976; 97116-GP; 97161-GP; 99283-25; J7030

== ENCOUNTER 2019-02-18 08:43 | Emergency (ER) | payer OTHER ==
[2019-02-18 09:05] VITALS: TEMP 97.7; BMI 34.0
--- NOTE | 2019-02-18 10:36 | PDOC ---
Documentation entered by Seng Sawyer SCRIBE, acting as scribe for Mil Martinez MD. Mil Martinez MD: This documentation has been prepared by the Digna santiago Elijah, SCRIBE, under my direction and personally reviewed by me in its entirety. I confirm that the documentation accurately reflects all work, treatment, procedures, and medical decision making performed by me. History of Present Illness - General Chief Complaint: Injury Stated Complaint: FALL Time Seen by Provider: 02/18/19 09:40 History Source: Patient Exam Limitations: No Limitations - History of Present Illness Initial Comments: 02/18/19 09:59 Patient is a 63 year old female with a significant past medical history of SVT ( s/p ablation), afib (on Eliquis), HTN, DM, COPD, C3-C7 herniation, multiple CVAs who presents to the ED s/p fall with pain in L knee and face. Patient reports falling while she was moving a chair. Denies LOC, denies lightheadedness /dizziness prior to falling. Pt states that she landed on her knees and hit her face on the floor. After the fall patient was helped to her bed, brought into the ED and has not ambulated since. Denies Loss of consciousness, nausea, vomiting, dizziness and Lightheadedness. Denies CP/SOB/palpitations. Allergies: Ciprofloxacin, Ciprofloxacin HCL, Penicillins, Tetracyclines PCP: Dr. Faith Past History - Past Medical History Allergies/Adverse Reactions: Allergies Allergy/AdvReac Type Severity Reaction Status Date / Time ciprofloxacin [From Cipro] Allergy Verified 11/01/18 17:18 ciprofloxacin HCl Allergy Verified 11/01/18 17:18 [From Cipro] Penicillins Allergy Verified 11/01/18 17:18 Tetracyclines Allergy Verified 11/01/18 17:18 Home Medications: Ambulatory Orders Multivitamins [Multivit ([facility] Formulary)] 1 tab PO DAILY tab 04/02/18 Alprazolam 0.25 mg PO BID PRN 09/06/18 Escitalopram Oxalate [Lexapro -] 20 mg PO DAILY 09/06/18 Folic Acid 1 mg PO DAILY 09/06/18 Pantoprazole Sodium [Protonix] 40 mg PO DAILY 09/06/18 Ferrous Sulfate [Feosol] 325 mg PO TID 11/01/18 Lisinopril [Prinivil] 5 mg PO DAILY 11/01/18 Sucralfate [Carafate -] 1 gm PO QID 11/01/18 Lidocaine 5% Patch [Lidoderm -] 1 patch TP DAILY patch 11/16/18 Lidocaine Patch Removal [Lidoderm Patch Removal] 1 each MC DAILY@2200 each 10/05 Metoprolol Tartrate [Lopressor -] 25 mg PO BID tablet 11/16/18 Polyethylene Glycol 3350 [Miralax 119 gm Btl -] 17 gm PO BID bottle 11/16/18 Potassium Chloride [K-Dur -] 20 meq PO DAILY tablet.er 11/16/18 Atorvastatin Ca [Lipitor] 40 mg PO HS #30 tablet 11/22/18 Warfarin Sodium 7 mg PO HS 02/18/19 Anemia: Yes Asthma: Yes Cancer: Yes (breast, colon) Cardiac Disorders: Yes (SVT's enlarged heart,ablation) CVA: Yes (multiple - bilateral) COPD: Yes (asthma) CHF: No Dementia: No Diabetes: Yes GI Disorders: (GERD) Disorders: No HTN: Yes Hypercholesterolemia: No Liver Disease: No Seizures: No Thyroid Disease: (thyroid mass) - Surgical History Abdominal Surgery: No Appendectomy: No Cardiac Surgery: Yes (cardiac ablation for SVT'S 1998) Cholecystectomy: No Lung Surgery: No Neurologic Surgery: No Orthopedic Surgery: No - Immunization History Immunization Up to Date: Yes - Suicide/Smoking/Psychosocial Hx Smoking History: Never smoked Have you smoked in the past 12 months: No If you are a former smoker, when did you quit?: 2012 Information on smoking cessation initiated: No Hx Alcohol Use: No Drug/Substance Use Hx: No Substance Use Type: None Hx Substance Use Treatment: No Review of Systems - Review of Systems Comments:: 02/18/19 09:59 GENERAL/CONSTITUTIONAL: No fever or chills. No weakness. HEAD, EYES, EARS, NOSE AND THROAT: + face pain, No change in vision. No ear pain or discharge. No sore throat. CARDIOVASCULAR: No chest pain, no shortness of breath, no loss of consciousness RESPIRATORY: No cough, wheezing, or hemoptysis. GASTROINTESTINAL: No nausea, vomiting, diarrhea or constipation. GENITOURINARY: No dysuria, frequency, or change in urination. MUSCULOSKELETAL: +Pain in Knee. No neck or back pain. SKIN: No rash NEUROLOGIC: No vertigo, no change in strength/sensation. ENDOCRINE: No increased thirst. No abnormal weight change. HEMATOLOGIC/LYMPHATIC: No anemia, easy bleeding, or history of blood clots. ALLERGIC/IMMUNOLOGIC: No hives or skin allergy. *Physical Exam - Vital Signs Last Vital Signs Temp Pulse Resp BP Pulse Ox 97.7 F 83 16 150/88 100 02/18/19 08:49 02/18/19 08:49 02/18/19 08:49 02/18/19 08:49 02/18/19 08:49 - Physical Exam Comments: 02/18/19 10:00 GENERAL: Awake, alert, and fully oriented, in no acute distress. HEAD: + abrasion to forehead and nasal bridge EYES: PERRLA, EOMI, sclera anicteric, conjunctiva clear ENT: Auricles normal inspection, hearing grossly normal, nares patent, oropharynx clear without exudates. Moist mucosa NECK: Nontender, no stepoffs, Normal ROM, supple, no lymphadenopathy, JVD, or masses LUNGS: Breath sounds equal, clear to auscultation bilaterally. No wheezes, and no crackles HEART: Regular rate and rhythm, normal S1 and S2, no murmurs, rubs or gallops ABDOMEN: Soft, nontender, normoactive bowel sounds. No guarding, no rebound. No masses EXTREMITIES: + L knee TTP, ROM limited 2/2 pain, + joint effusion NEUROLOGICAL: Cranial nerves II through XII intact. 5/5 strength and sensation in all extremities, Normal speech, normal cerebellar function SKIN: Warm, Dry, normal turgor, no rashes or lesions noted. Medical Decision Making - Medical Decision Making 02/18/19 10:40 63 F with mechanical fall, now presenting with pain to face and L knee. - CT head/c-spine/facial bones - XR L knee 02/18/19 12:32 CTs negative for fx XR L knee unremarkable XR R knee with ?medial tibial plateau fx Discussed case with Dr. Bullock, who recommends CT of lower extremity. If no fx found on CT, can f/u as outpt 02/18/19 15:10 CT negative for fx Pt able to zinc etcher ED with assistance, though she reports some pain with ambulating. I offered pt admission to hospital given her difficulty ambulating, but pt refused, stating she wants to go home. Pt is well appearing, with normal vitals. Clinically stable for DC at this time. I discussed the physical exam findings, ancillary test results and final diagnoses with the patient. I answered all of the patient's questions. The patient was satisfied with the care received and felt comfortable with the discharge plan and treatment plan. The patient agrees to follow up with the primary care physician within 24-72 hours. 02/19/19 19:32 I called pt's NH today and spoke with nurse caring for Ms. Briones. He reports she is doing much better today, ambulating around the floor. Pain is currently well controlled. *DC/Admit/Observation/Transfer Diagnosis at time of Disposition: Fall - Discharge Dispostion Disposition: HOME Condition at time of disposition: Improved - Referrals Referrals: yNla Faith [Primary Care Provider] - Mario Bullock DO [Staff Physician] - - Patient Instructions Printed Discharge Instructions: How to Prevent Falls Additional Instructions: Your X rays and CT scans did not show any fractures or dislocations. However, this does not rule out all injuries or even small fractures. Please follow up with an orthopedist within 1 week for further evaluation of your knee pain. Call the number provided to make an appointment. In the meantime, AVOID bearing weight on your knees if there is pain. If you experience worsening pain, swelling, or any other concerning symptoms, return to the ER immediately. - Post Discharge Activity - Attestations Physician Attestion: 02/18/19 15:12 I, Dr. Mil Martinez MD, attest that this document has been prepared under my direction and personally reviewed by me in its entirety. I further attest, that it accurately reflects all work, treatment, procedures and medical decision -making performed by me.
[2019-02-18 19:26] VITALS: BP 160/90; PULSE 92
--- NOTE | 2019-02-20 13:44 | EKG ---
Test Reason : Blood Pressure : / mmHG Vent. Rate : 070 BPM Atrial Rate : 250 BPM P-R Int : 000 ms QRS Dur : 090 ms QT Int : 402 ms P-R-T Axes : 000 027 024 degrees QTc Int : 434 ms ATRIAL FLUTTER WITH VARIABLE A-V BLOCK WITH FREQUENT ventricular-paced complexes ABNORMAL ECG Confirmed by MD CARMELITA, PRISCILA ([id number]) on 02/20/2019 1:43:56 PM Referred By: ELVA Confirmed By:PRISCILA MAE MD
== END 2019-02-18 18:45 ==
LOC: JER 08:43
DX: M25.561 Pain in right knee (principal); M25.562 Pain in left knee; W18.39XA Other fall on same level, initial encounter; Y93.89 Activity, other specified; Y92.128 Other place in nursing home as the place of occurrence of the external cause; Y99.8 Other external cause status; I10 Essential (primary) hypertension; I48.91 Unspecified atrial fibrillation; Z79.01 Long term (current) use of anticoagulants; J44.9 Chronic obstructive pulmonary disease, unspecified; J45.909 Unspecified asthma, uncomplicated; E11.9 Type 2 diabetes mellitus without complications; D64.9 Anemia, unspecified; K21.9 Gastro-esophageal reflux disease without esophagitis; E07.9 Disorder of thyroid, unspecified; M50.220 Other cervical disc displacement, mid-cervical region, unspecified level; M50.221 Other cervical disc displacement at C4-C5 level; M50.222 Other cervical disc displacement at C5-C6 level; M50.223 Other cervical disc displacement at C6-C7 level; Z88.0 Allergy status to penicillin; Z88.1 Allergy status to other antibiotic agents
CPT/HCPCS: 70450-TC; 70486-TC; 72125-TC; 72170-TC-FY; 73562-TC-LT-FY; 73562-TC-RT-FY; 73590-TC-LT-FY; 73700-TC-RT; 93005; 93010; 99282-25

== ENCOUNTER 2021-05-23 04:25 | Day surgery (SDC) | payer OTHER ==
[2021-05-22 09:44] VITALS: BMI 46.0
[~2021-05-23 04:25] MED LIST: HEPARIN NA (PORCINE) 5,000 UNITS/ML 1ML VIAL SQ ONE; LIDOCAINE HCL 1%, 10 MG/ML (20ML VIAL) SQ ONE
[2021-05-23] MEDS ORDERED: HEPARIN NA (PORCINE) 5,000 UNITS/ML 1ML VIAL ONE ×2 (07:19→08:46)
[2021-05-23] MEDS ORDERED: LIDOCAINE HCL/PF 2% SDV 5ML VIAL ONE (07:28)
[2021-05-23] MEDS ORDERED: MIDAZOLAM HCL 2 MG/2 ML SINGLE DOSE VIAL ONE (07:29)
[2021-05-23] MEDS ORDERED: PROPOFOL 20 ML ONE (07:29)
[2021-05-23 07:43] VITALS: PULSE 60
[2021-05-23] MEDS ORDERED: CLINDAMYCIN PHOSPHATE 600 MG/4 ML VIAL ONE (08:30)
[2021-05-23] MEDS ORDERED: CLINDAMYCIN 900 MG PREMIX BAG IVPB ONE (08:31)
[2021-05-23] MEDS ORDERED: HEPARIN NA (PORCINE) 5,000 UNITS/ML 1ML VIAL SQ ONE (09:00)
[2021-05-23] MEDS ORDERED: ONDANSETRON 4 MG/2 ML VIAL IVPUSH PRN (10:07)
[2021-05-23] MEDS ORDERED: oxyCODONE HCL 5 MG TABLET PO PRN (10:07)
[2021-05-23] MEDS ORDERED: LACTATED RINGERS SOLUTION 1,000 ML IV SCH (10:15)
[2021-05-23] MEDS ORDERED: ACETAMINOPHEN 325 MG TABLET (FP) PO ONE (12:10)
[2021-05-23 13:59] VITALS: BP 167/80; TEMP 97.6
== END 2021-05-23 12:45 | disposition home or self-care (01) ==
LOC: JASU-SURG 04:25
PROVIDERS: ATTEND Surgery Vascular Surgery
PROC: 047L3Z1 Dilation of Left Femoral Artery using Drug-Coated Balloon, Percutaneous Approach (ICD-10-PCS; principal; 2021-05-23 09:00)
DX: I70.249 Atherosclerosis of native arteries of left leg with ulceration of unspecified site (principal)
CPT/HCPCS: 37225; C2623; 76000-TC-FY; 94760; J1644

== ENCOUNTER 2023-07-23 15:30 | Inpatient (IN) | payer OTHER ==
[2023-07-23 17:43] LABS: BASO % 0.6 % (0-2.0); EOS % 0.2 % (0-4.5); HEMATOCRIT 39.5 % (32.4-45.2); HEMOGLOBIN 13.4 GM/dL (10.7-15.3); LYMPH % 12.2 % (8-40); MEAN CELL VOLUME 85.2 fl (80-96); MEAN PLT VOLUME 8.3 fl (7.5-11.1); MONO % 4.4 % (3.8-10.2); NEUT % 82.6 % (42.8-82.8); PLATELET COUNT 236 10^3/uL (134-434); RBC 4.63 M/mm3 (3.60-5.2); RDW 14.6 % (11.6-15.6); WHITE BLOOD COUNT 10.8 K/mm3 (4.0-10.0)
[2023-07-23 17:53] LABS: INR 1.54 (0.83-1.09); PROTHROMBIN TIME (PATIENT) 17.8 SEC (9.7-13.0)
[2023-07-23 17:56] LABS: ACTIVATED PTT 31.7 SECONDS (25.2-36.5)
[2023-07-23 18:02] LABS: POTASSIUM 3.9 mmol/L (3.5-5.1)
[2023-07-23 18:04] LABS: ALBUMIN 3.1 g/dl (3.4-5.0); BLOOD UREA NITROGEN 12.6 mg/dL (7-18); CALCIUM 8.3 mg/dL (8.5-10.1)
[2023-07-23 18:09] LABS: BILIRUBIN,TOTAL 0.5 mg/dL (0.2-1)
[2023-07-23 18:10] LABS: TOT PROT 6.6 g/dl (6.4-8.2)
[2023-07-23 18:47] LABS: EPI CELLS 14 /uL (0-25.1); HYALINE CASTS 1 /uL (0-3.1); URINE APPEARANCE TURBID; URINE BACTERIA >9,000 /uL (0-1359); URINE BILIRUBIN 1+ (NEGATIVE); URINE COLOR DK YELLOW; URINE GLUCOSE (UA) NEGATIVE (NEGATIVE); URINE KETONE TRACE (NEGATIVE); URINE LEUK ESTERASE 2+ (NEGATIVE); URINE NITRITE POSITIVE (NEGATIVE); URINE PROTEIN 1+ (NEGATIVE); URINE RBC 47 /uL (0-23.9); URINE WBC 2877 /uL (0-25.8)
[2023-07-23] MEDS ORDERED: ERTAPENEM SODIUM 1 GM in SODIUM CHLORIDE 50 ML IVPB ONE (19:08)
[2023-07-23] MEDS ORDERED: ERTAPENEM SODIUM 1 GM VIAL ONE (22:23)
[2023-07-24 02:15] VITALS: BMI 36.7
[2023-07-24] MEDS: FUROSEMIDE 40 MG TABLET (FP) PO SCH ×2 (05:35→13:24)
[2023-07-24] MEDS: INSULIN SLIDING SCALE (NOVOLOG) 1 VIAL SQ SCH ×3 (06:39→17:06)
[2023-07-24] MEDS: FOLIC ACID 1 MG TABLET (FP) PO SCH (10:05)
[2023-07-24] MEDS: POLYETHYLENE GLYCOL (HEALTHYLAX) 3350 17 GM PACKET PO SCH ×2 (10:06→21:52)
[2023-07-24] MEDS: LISINOPRIL 5 MG TABLET PO SCH (10:06)
[2023-07-24] MEDS: SERTRALINE HCL 25 MG TABLET (FP) PO SCH (10:06)
[2023-07-24] MEDS: METOPROLOL TARTRATE 25 MG TABLET (FP) PO SCH ×2 (10:06→21:53)
[2023-07-24] MEDS: PANTOPRAZOLE 40 MG TABLET PO SCH (10:06)
[2023-07-24] MEDS: ERTAPENEM SODIUM 1 GM in SODIUM CHLORIDE 50 ML IVPB SCH (16:53)
[2023-07-24 18:35] LABS: INR 1.42 (0.83-1.09); PROTHROMBIN TIME (PATIENT) 16.4 SEC (9.7-13.0)
[2023-07-24] MEDS: WARFARIN NA 3 MG TABLET PO SCH (18:51)
[2023-07-25] MEDS: FUROSEMIDE 40 MG TABLET (FP) PO SCH ×2 (06:36→14:18)
[2023-07-25] MEDS: INSULIN SLIDING SCALE (NOVOLOG) 1 VIAL SQ SCH ×3 (06:41→17:58)
[2023-07-25 07:25] LABS: INR 1.44 (0.83-1.09); PROTHROMBIN TIME (PATIENT) 16.6 SEC (9.7-13.0)
[2023-07-25] MEDS: PANTOPRAZOLE 40 MG TABLET PO SCH (10:26)
[2023-07-25] MEDS: SERTRALINE HCL 25 MG TABLET (FP) PO SCH (10:26)
[2023-07-25] MEDS: METOPROLOL TARTRATE 25 MG TABLET (FP) PO SCH ×3 (10:26→21:44)
[2023-07-25] MEDS: POLYETHYLENE GLYCOL (HEALTHYLAX) 3350 17 GM PACKET PO SCH ×2 (10:26→21:41)
[2023-07-25] MEDS: ERTAPENEM SODIUM 1 GM in SODIUM CHLORIDE 50 ML IVPB SCH (10:26)
[2023-07-25] MEDS: FOLIC ACID 1 MG TABLET (FP) PO SCH (10:26)
[2023-07-25] MEDS: LISINOPRIL 5 MG TABLET PO SCH (10:26)
[2023-07-25] MEDS: WARFARIN NA 3 MG TABLET PO SCH (17:58)
[2023-07-26] MEDS: INSULIN SLIDING SCALE (NOVOLOG) 1 VIAL SQ SCH ×6 (00:28→21:37)
[2023-07-26] MEDS: FUROSEMIDE 40 MG TABLET (FP) PO SCH ×2 (06:27→14:13)
[2023-07-26 06:51] LABS: INR 1.57 (0.83-1.09); PROTHROMBIN TIME (PATIENT) 18.1 SEC (9.7-13.0)
[2023-07-26 07:05] LABS: CHOLESTEROL 210 mg/dL (50-200)
[2023-07-26 07:07] LABS: HDL CHOLESTEROL 37 mg/dL (40-60); LDL CHOLESTEROL (ONLY SJRH) 147 mg/dL (5-100)
[2023-07-26] MEDS: POLYETHYLENE GLYCOL (HEALTHYLAX) 3350 17 GM PACKET PO SCH ×4 (09:30→22:30)
[2023-07-26] MEDS: CEFTRIAXONE 1 GM in DEXTROSE 5%-WATER - 50 ML IVPB SCH (09:32)
[2023-07-26] MEDS: SERTRALINE HCL 25 MG TABLET (FP) PO SCH (09:33)
[2023-07-26] MEDS: LISINOPRIL 5 MG TABLET PO SCH (09:33)
[2023-07-26] MEDS: FOLIC ACID 1 MG TABLET (FP) PO SCH (09:33)
[2023-07-26] MEDS: PANTOPRAZOLE 40 MG TABLET PO SCH (09:33)
[2023-07-26] MEDS: METOPROLOL TARTRATE 25 MG TABLET (FP) PO SCH ×2 (09:33→21:31)
[2023-07-26] MEDS: WARFARIN NA 2 MG TABLET PO SCH (17:22)
[2023-07-26] MEDS: ATORVASTATIN CA 20 MG TABLET (FP) PO SCH (21:31)
[2023-07-27] MEDS: FUROSEMIDE 40 MG TABLET (FP) PO SCH ×2 (06:18→15:22)
[2023-07-27] MEDS: INSULIN SLIDING SCALE (NOVOLOG) 1 VIAL SQ SCH ×4 (06:19→21:50)
[2023-07-27 07:29] LABS: BASO % 0.6 % (0-2.0); EOS % 2.9 % (0-4.5); HEMATOCRIT 35.2 % (32.4-45.2); MCH 29.3 pg (25.7-33.7); MEAN CELL VOLUME 86.1 fl (80-96); MEAN PLT VOLUME 8.7 fl (7.5-11.1); MONO % 5.7 % (3.8-10.2); NEUT % 79.8 % (42.8-82.8); PLATELET COUNT 195 10^3/uL (134-434); RBC 4.09 M/mm3 (3.60-5.2); RDW 14.1 % (11.6-15.6); WHITE BLOOD COUNT 5.3 K/mm3 (4.0-10.0)
[2023-07-27 07:34] LABS: INR 1.86 (0.83-1.09); PROTHROMBIN TIME (PATIENT) 21.5 SEC (9.7-13.0)
[2023-07-27 07:47] LABS: POTASSIUM 3.1 mmol/L (3.5-5.1)
[2023-07-27 07:50] LABS: ALBUMIN 2.8 g/dl (3.4-5.0); BLOOD UREA NITROGEN 13.5 mg/dL (7-18); CALCIUM 8.2 mg/dL (8.5-10.1)
[2023-07-27 07:53] LABS: CREATININE 0.9 mg/dL (0.55-1.3)
[2023-07-27 07:55] LABS: BILIRUBIN,TOTAL 0.6 mg/dL (0.2-1)
[2023-07-27 07:56] LABS: TOT PROT 5.9 g/dl (6.4-8.2)
[2023-07-27] MEDS: METOPROLOL TARTRATE 25 MG TABLET (FP) PO SCH ×2 (09:44→21:19)
[2023-07-27] MEDS: POLYETHYLENE GLYCOL (HEALTHYLAX) 3350 17 GM PACKET PO SCH ×2 (09:44→21:19)
[2023-07-27] MEDS: LISINOPRIL 5 MG TABLET PO SCH (09:45)
[2023-07-27] MEDS: FOLIC ACID 1 MG TABLET (FP) PO SCH (09:45)
[2023-07-27] MEDS: PANTOPRAZOLE 40 MG TABLET PO SCH (09:45)
[2023-07-27] MEDS: SERTRALINE HCL 25 MG TABLET (FP) PO SCH (09:45)
[2023-07-27] MEDS: CEFTRIAXONE 1 GM in DEXTROSE 5%-WATER - 50 ML IVPB SCH (09:46)
[2023-07-27] MEDS: POTASSIUM CHLORIDE TABS 10 MEQ TABLET.ER (FP) PO SCH (09:59)
[2023-07-27] MEDS: WARFARIN NA 2 MG TABLET PO SCH (18:02)
[2023-07-27] MEDS: ATORVASTATIN CA 20 MG TABLET (FP) PO SCH (21:19)
[2023-07-28] MEDS: FUROSEMIDE 40 MG TABLET (FP) PO SCH ×2 (05:34→14:35)
[2023-07-28] MEDS: INSULIN SLIDING SCALE (NOVOLOG) 1 VIAL SQ SCH ×4 (06:23→22:25)
[2023-07-28 07:26] LABS: INR 2.73 (0.83-1.09); PROTHROMBIN TIME (PATIENT) 31.3 SEC (9.7-13.0)
[2023-07-28 07:27] LABS: POTASSIUM 3.5 mmol/L (3.5-5.1)
[2023-07-28 07:28] LABS: CALCIUM 7.8 mg/dL (8.5-10.1)
[2023-07-28 07:29] LABS: BLOOD UREA NITROGEN 12.4 mg/dL (7-18); MAGNESIUM 1.3 mg/dL (1.8-2.4)
[2023-07-28 07:32] LABS: CREATININE 0.9 mg/dL (0.55-1.3)
[2023-07-28] MEDS: CEFTRIAXONE 1 GM in DEXTROSE 5%-WATER - 50 ML IVPB SCH (09:57)
[2023-07-28] MEDS: SERTRALINE HCL 25 MG TABLET (FP) PO SCH (09:58)
[2023-07-28] MEDS: POTASSIUM CHLORIDE TABS 10 MEQ TABLET.ER (FP) PO SCH (09:58)
[2023-07-28] MEDS: METOPROLOL TARTRATE 25 MG TABLET (FP) PO SCH ×2 (09:58→22:24)
[2023-07-28] MEDS: FOLIC ACID 1 MG TABLET (FP) PO SCH (09:58)
[2023-07-28] MEDS: PANTOPRAZOLE 40 MG TABLET PO SCH (09:58)
[2023-07-28] MEDS: LISINOPRIL 5 MG TABLET PO SCH (09:58)
[2023-07-28] MEDS: POLYETHYLENE GLYCOL (HEALTHYLAX) 3350 17 GM PACKET PO SCH ×2 (09:59→22:25)
[2023-07-28] MEDS ORDERED: WARFARIN NA 3 MG TABLET PO SCH (10:36)
[2023-07-28] MEDS ORDERED: INSULIN (NOVOLOG) ASPART 100 UNITS/ML 10ML VIAL ONE (22:23)
[2023-07-28] MEDS: ATORVASTATIN CA 20 MG TABLET (FP) PO SCH (22:24)
[2023-07-29] MEDS: FUROSEMIDE 40 MG TABLET (FP) PO SCH ×2 (05:42→15:51)
[2023-07-29] MEDS: INSULIN SLIDING SCALE (NOVOLOG) 1 VIAL SQ SCH ×4 (07:01→21:39)
[2023-07-29 07:04] LABS: INR 3.24 (0.83-1.09); PROTHROMBIN TIME (PATIENT) 37.2 SEC (9.7-13.0)
[2023-07-29 07:11] LABS: POTASSIUM 3.6 mmol/L (3.5-5.1)
[2023-07-29 07:12] LABS: CALCIUM 7.9 mg/dL (8.5-10.1)
[2023-07-29 07:13] LABS: BLOOD UREA NITROGEN 11.3 mg/dL (7-18)
[2023-07-29 07:16] LABS: CREATININE 0.9 mg/dL (0.55-1.3)
[2023-07-29] MEDS: CEFTRIAXONE 1 GM in DEXTROSE 5%-WATER - 50 ML IVPB SCH (09:49)
[2023-07-29] MEDS: POTASSIUM CHLORIDE TABS 10 MEQ TABLET.ER (FP) PO SCH (09:49)
[2023-07-29] MEDS: LISINOPRIL 5 MG TABLET PO SCH (09:49)
[2023-07-29] MEDS: PANTOPRAZOLE 40 MG TABLET PO SCH (09:50)
[2023-07-29] MEDS: METOPROLOL TARTRATE 25 MG TABLET (FP) PO SCH ×2 (09:50→21:38)
[2023-07-29] MEDS: SERTRALINE HCL 25 MG TABLET (FP) PO SCH (09:50)
[2023-07-29] MEDS: FOLIC ACID 1 MG TABLET (FP) PO SCH (09:50)
[2023-07-29] MEDS: POLYETHYLENE GLYCOL (HEALTHYLAX) 3350 17 GM PACKET PO SCH ×3 (11:22→21:42)
[2023-07-29 18:14] VITALS: RESP 18
[2023-07-29] MEDS: WARFARIN NA 3 MG TABLET PO SCH (18:32)
[2023-07-29] MEDS: ATORVASTATIN CA 20 MG TABLET (FP) PO SCH (21:38)
[2023-07-29] MEDS: SULFAMETHOXAZOLE/TRIMETHOPRIM 800MG/160MG D.S. TABLET PO SCH (21:38)
[2023-07-30] MEDS: ACETAMINOPHEN 325 MG TABLET (FP) PO PRN ×2 (00:31→17:29)
[2023-07-30] MEDS: FUROSEMIDE 40 MG TABLET (FP) PO SCH ×2 (05:37→15:19)
[2023-07-30] MEDS: INSULIN SLIDING SCALE (NOVOLOG) 1 VIAL SQ SCH ×4 (06:01→21:45)
[2023-07-30 07:31] LABS: INR 3.61 (0.83-1.09); PROTHROMBIN TIME (PATIENT) 41.3 SEC (9.7-13.0)
[2023-07-30] MEDS: SULFAMETHOXAZOLE/TRIMETHOPRIM 800MG/160MG D.S. TABLET PO SCH ×2 (11:45→21:27)
[2023-07-30] MEDS: POTASSIUM CHLORIDE TABS 10 MEQ TABLET.ER (FP) PO SCH (11:45)
[2023-07-30] MEDS: FOLIC ACID 1 MG TABLET (FP) PO SCH (11:45)
[2023-07-30] MEDS: SERTRALINE HCL 25 MG TABLET (FP) PO SCH (11:48)
[2023-07-30] MEDS: POLYETHYLENE GLYCOL (HEALTHYLAX) 3350 17 GM PACKET PO SCH ×2 (11:48→21:28)
[2023-07-30] MEDS: METOPROLOL TARTRATE 25 MG TABLET (FP) PO SCH ×2 (11:49→21:27)
[2023-07-30] MEDS: PANTOPRAZOLE 40 MG TABLET PO SCH (11:49)
[2023-07-30] MEDS: LISINOPRIL 5 MG TABLET PO SCH (11:49)
[2023-07-30] MEDS: WARFARIN NA 3 MG TABLET PO SCH (17:14)
[2023-07-30] MEDS: ATORVASTATIN CA 20 MG TABLET (FP) PO SCH (21:27)
[2023-07-30 21:48] VITALS: BP 117/56; PULSE 60; TEMP 98.9
[2023-07-31] MEDS ORDERED: LIDOCAINE HCL 1%, 10 MG/ML (20ML VIAL) SQ ONE (08:00)
[2023-07-31] MEDS ORDERED: methylPREDNISolone ACET (DEPO) 80 MG/1 ML VIAL IAR ONE (08:00)
== END 2023-07-31 00:45 | DRG 689 ==
LOC: JER 15:30 → JERBED 19:33 → J4W 07-24 01:30
PROVIDERS: ADMIT Internal Medicine; ATTEND Internal Medicine
DX: N39.0 Urinary tract infection, site not specified (principal); G93.41 Metabolic encephalopathy; I69.354 Hemiplegia and hemiparesis following cerebral infarction affecting left non-dominant side; I50.32 Chronic diastolic (congestive) heart failure; K21.9 Gastro-esophageal reflux disease without esophagitis; I11.0 Hypertensive heart disease with heart failure; I50.9 Heart failure, unspecified; E78.5 Hyperlipidemia, unspecified; J44.9 Chronic obstructive pulmonary disease, unspecified; E11.9 Type 2 diabetes mellitus without complications; I48.91 Unspecified atrial fibrillation; B96.20 Unspecified Escherichia coli [E. coli] as the cause of diseases classified elsewhere
CPT/HCPCS: 0241U-QW; 36415; 70450-TC; 71045-TC-FY; 73562-TC-LT-FY; 73562-TC-RT-FY; 80048; 80053; 80061; 81003; 82962; 82977; 83036; 83735; 83880; 84439; 84443; 84484; 85025; 85610; 85730; 86038; 87086; 87186; 87635; 93005; 93010; 95816; 97116-GP; 97162-GP; 99285-25

== ENCOUNTER 2023-11-29 00:23 | Inpatient (IN) | payer OTHER ==
[2023-11-29 00:40] VITALS: BMI 34.4
[2023-11-29 01:45] LABS: BASO % 0.6 % (0-2.0); HEMATOCRIT 35.7 % (32.4-45.2); HEMOGLOBIN 12.3 GM/dL (10.7-15.3); LYMPH % 19.9 % (8-40); MCH 28.1 pg (25.7-33.7); MCHC 34.6 g/dl (32.0-36.0); MEAN CELL VOLUME 81.3 fl (80-96); MEAN PLT VOLUME 8.5 fl (7.5-11.1); MONO % 5.3 % (3.8-10.2); NEUT % 72.2 % (42.8-82.8); PLATELET COUNT 202 10^3/uL (134-434); RBC 4.39 M/mm3 (3.60-5.2); RDW 14.3 % (11.6-15.6); WHITE BLOOD COUNT 7.7 K/mm3 (4.0-10.0)
[2023-11-29 02:10] LABS: POTASSIUM 4.7 mmol/L (3.5-5.1)
[2023-11-29 02:12] LABS: CALCIUM 9.1 mg/dL (8.5-10.1)
[2023-11-29 02:13] LABS: ALBUMIN 2.9 g/dl (3.4-5.0)
[2023-11-29 02:16] LABS: CREATININE 0.9 mg/dL (0.55-1.3)
[2023-11-29 02:17] LABS: BILIRUBIN,TOTAL 0.2 mg/dL (0.2-1); TOT PROT 6.2 g/dl (6.4-8.2)
[2023-11-29 03:22] LABS: BASO % 0.7 % (0-2.0); EOS % 1.9 % (0-4.5); HEMATOCRIT 34.6 % (32.4-45.2); HEMOGLOBIN 11.7 GM/dL (10.7-15.3); LYMPH % 21.9 % (8-40); MCH 27.7 pg (25.7-33.7); MCHC 33.9 g/dl (32.0-36.0); MEAN CELL VOLUME 81.7 fl (80-96); MEAN PLT VOLUME 8.4 fl (7.5-11.1); MONO % 5.6 % (3.8-10.2); NEUT % 69.9 % (42.8-82.8); PLATELET COUNT 190 10^3/uL (134-434); RBC 4.23 M/mm3 (3.60-5.2); RDW 14.3 % (11.6-15.6); WHITE BLOOD COUNT 7.9 K/mm3 (4.0-10.0)
[2023-11-29 03:30] LABS: INR 1.55 (0.83-1.09); PROTHROMBIN TIME (PATIENT) 17.9 SEC (9.7-13.0)
[2023-11-29 03:33] LABS: ACTIVATED PTT 33.1 SECONDS (25.2-36.5)
[2023-11-29] MEDS ORDERED: ACETAMINOPHEN 325 MG TABLET (FP) PO PRN (10:12)
[2023-11-29] MEDS: INSULIN ASPART SLIDING SCALE (NOVOLOG) 1 VIAL SQ SCH (11:11)
[2023-11-29] MEDS ORDERED: FUROSEMIDE 40 MG TABLET (FP) PO SCH (22:00)
[2023-11-29] MEDS ORDERED: METOPROLOL TARTRATE 25 MG TABLET (FP) PO SCH (22:00)
[2023-11-29] MEDS: ATORVASTATIN CA 20 MG TABLET (FP) PO SCH (22:51)
[2023-11-29] MEDS: METOPROLOL TARTRATE 25 MG TABLET (FP) PO SCH (22:52)
[2023-11-29] MEDS: POLYETHYLENE GLYCOL (HEALTHYLAX) 3350 17 GM PACKET PO SCH (22:52)
[2023-11-30] MEDS: FUROSEMIDE 40 MG TABLET (FP) PO SCH (06:18)
[2023-11-30 08:12] LABS: INR 1.31 (0.83-1.09); PROTHROMBIN TIME (PATIENT) 15.2 SEC (9.7-13.0)
[2023-11-30 08:23] LABS: BASO % 0.8 % (0-2.0); EOS % 2.9 % (0-4.5); HEMATOCRIT 34.4 % (32.4-45.2); HEMOGLOBIN 11.6 GM/dL (10.7-15.3); LYMPH % 26.2 % (8-40); MCH 27.8 pg (25.7-33.7); MCHC 33.8 g/dl (32.0-36.0); MEAN CELL VOLUME 82.4 fl (80-96); MEAN PLT VOLUME 9.1 fl (7.5-11.1); MONO % 5.7 % (3.8-10.2); NEUT % 64.4 % (42.8-82.8); PLATELET COUNT 184 10^3/uL (134-434); RBC 4.18 M/mm3 (3.60-5.2); RDW 14.1 % (11.6-15.6); WHITE BLOOD COUNT 5.7 K/mm3 (4.0-10.0)
[2023-11-30 08:28] LABS: POTASSIUM 4.5 mmol/L (3.5-5.1)
[2023-11-30 08:33] LABS: CALCIUM 8.8 mg/dL (8.5-10.1)
[2023-11-30 08:34] LABS: ALBUMIN 2.8 g/dl (3.4-5.0); BLOOD UREA NITROGEN 17.9 mg/dL (7-18)
[2023-11-30 08:37] LABS: CREATININE 0.7 mg/dL (0.55-1.3)
[2023-11-30 08:39] LABS: BILIRUBIN,TOTAL 0.4 mg/dL (0.2-1)
[2023-11-30] MEDS: LISINOPRIL 5 MG TABLET PO SCH (09:31)
[2023-11-30] MEDS: SERTRALINE HCL 25 MG TABLET (FP) PO SCH (09:31)
[2023-11-30] MEDS: PANTOPRAZOLE 40 MG TABLET PO SCH (09:31)
[2023-11-30] MEDS: FOLIC ACID 1 MG TABLET (FP) PO SCH (09:31)
[2023-11-30] MEDS: PEG 3350/NA SULF BICARB CL/KCL 4000 ML SOLN.RECON PO ONE (10:34)
[2023-11-30] MEDS: BISACODYL 5 MG TABLET.DR (FP) PO ONE (17:27)
[2023-11-30] MEDS ORDERED: INSULIN (NOVOLOG) ASPART 100 UNITS/ML 10ML VIAL ONE (21:06)
[2023-12-01] MEDS ORDERED: INSULIN (NOVOLOG) ASPART 100 UNITS/ML 10ML VIAL ONE ×2 (05:32→16:36)
[2023-12-01 08:24] LABS: BASO % 0.4 % (0-2.0); EOS % 2.5 % (0-4.5); HEMATOCRIT 35.1 % (32.4-45.2); HEMOGLOBIN 12.4 GM/dL (10.7-15.3); LYMPH % 20.5 % (8-40); MCH 28.2 pg (25.7-33.7); MCHC 35.2 g/dl (32.0-36.0); MEAN CELL VOLUME 80.1 fl (80-96); MEAN PLT VOLUME 8.7 fl (7.5-11.1); MONO % 5.8 % (3.8-10.2); NEUT % 70.8 % (42.8-82.8); PLATELET COUNT 195 10^3/uL (134-434); RBC 4.38 M/mm3 (3.60-5.2); RDW 13.8 % (11.6-15.6); WHITE BLOOD COUNT 6.8 K/mm3 (4.0-10.0)
[2023-12-01 08:31] LABS: INR 1.26 (0.83-1.09); PROTHROMBIN TIME (PATIENT) 14.6 SEC (9.7-13.0)
[2023-12-01 09:03] LABS: POTASSIUM 3.7 mmol/L (3.5-5.1)
[2023-12-01 09:10] LABS: CALCIUM 8.5 mg/dL (8.5-10.1)
[2023-12-01 09:11] LABS: BLOOD UREA NITROGEN 13.4 mg/dL (7-18)
[2023-12-01 09:14] LABS: CREATININE 0.9 mg/dL (0.55-1.3)
[2023-12-01 09:16] LABS: BILIRUBIN,TOTAL 0.8 mg/dL (0.2-1); TOT PROT 6.1 g/dl (6.4-8.2)
[2023-12-01 14:16] VITALS: BP 123/70; PULSE 71; RESP 18; TEMP 97.5
== END 2023-12-01 18:44 | disposition home health service (06) | DRG 378 ==
LOC: JER 00:23 → JERBED 10:02 → J8W 17:26 → OBSVTOIN 11-30 10:22
PROVIDERS: ADMIT Internal Medicine; ATTEND Nurse Practitioner Acute Care
PROC: 0DBP8ZX Excision of Rectum, Via Natural or Artificial Opening Endoscopic, Diagnostic (ICD-10-PCS; 2023-12-01)
PROC: 0W3P8ZZ Control Bleeding in Gastrointestinal Tract, Via Natural or Artificial Opening Endoscopic (ICD-10-PCS; 2023-12-01)
PROC: 0DB68ZX Excision of Stomach, Via Natural or Artificial Opening Endoscopic, Diagnostic (ICD-10-PCS; 2023-12-01)
PROC: 0DB58ZX Excision of Esophagus, Via Natural or Artificial Opening Endoscopic, Diagnostic (ICD-10-PCS; 2023-12-01)
PROC: 0DBL8ZX Excision of Transverse Colon, Via Natural or Artificial Opening Endoscopic, Diagnostic (ICD-10-PCS; principal; 2023-12-01 10:00)
DX: K92.2 Gastrointestinal hemorrhage, unspecified (principal); I69.354 Hemiplegia and hemiparesis following cerebral infarction affecting left non-dominant side; I69.320 Aphasia following cerebral infarction; K22.70 Barrett's esophagus without dysplasia; K64.4 Residual hemorrhoidal skin tags; I11.0 Hypertensive heart disease with heart failure; I48.91 Unspecified atrial fibrillation; E78.5 Hyperlipidemia, unspecified; K21.9 Gastro-esophageal reflux disease without esophagitis; Z85.038 Personal history of other malignant neoplasm of large intestine; D64.9 Anemia, unspecified; E11.9 Type 2 diabetes mellitus without complications; Z85.3 Personal history of malignant neoplasm of breast; K44.9 Diaphragmatic hernia without obstruction or gangrene; K57.90 Diverticulosis of intestine, part unspecified, without perforation or abscess without bleeding; K63.5 Polyp of colon; K62.1 Rectal polyp
CPT/HCPCS: 36415; 80053; 82272; 82378; 82728; 82962; 83036; 83540; 83550; 84484; 85025; 85610; 85730; 86140; 86850; 86900; 86901; 88305-TC; 93005; 93010; 97116-GP; 97161-GP; 99285-25; G0378

== ENCOUNTER 2024-03-25 15:29 | Inpatient (IN) | payer OTHER ==
[2024-03-25 18:32] LABS: EOS % 1.3 % (0-4.5); HEMATOCRIT 36.2 % (32.4-45.2); HEMOGLOBIN 12.2 GM/dL (10.7-15.3); LYMPH % 15.7 % (8-40); MCH 26.6 pg (25.7-33.7); MCHC 33.8 g/dl (32.0-36.0); MEAN CELL VOLUME 78.9 fl (80-96); MEAN PLT VOLUME 8.9 fl (7.5-11.1); MONO % 5.4 % (3.8-10.2); NEUT % 76.6 % (42.8-82.8); PLATELET COUNT 208 10^3/uL (134-434); RBC 4.59 M/mm3 (3.60-5.2); RDW 14.9 % (11.6-15.6); WHITE BLOOD COUNT 8.7 K/mm3 (4.0-10.0)
[2024-03-25 18:52] LABS: POTASSIUM 4.6 mmol/L (3.5-5.1)
[2024-03-25 18:53] LABS: ALBUMIN 3.2 g/dl (3.4-5.0); BLOOD UREA NITROGEN 18.2 mg/dL (7-18); CALCIUM 8.9 mg/dL (8.5-10.1)
[2024-03-25 18:56] LABS: CREATININE 0.8 mg/dL (0.55-1.3)
[2024-03-25 18:59] LABS: BILIRUBIN,TOTAL 0.4 mg/dL (0.2-1); TOT PROT 6.7 g/dl (6.4-8.2)
[2024-03-25 19:13] LABS: PH,URINE 5.5 (5.0-8.0); URINE APPEARANCE CLEAR; URINE BILIRUBIN NEGATIVE (NEGATIVE); URINE COLOR YELLOW; URINE GLUCOSE (UA) NEGATIVE (NEGATIVE); URINE KETONE NEGATIVE (NEGATIVE); URINE LEUK ESTERASE NEGATIVE (NEGATIVE); URINE NITRITE NEGATIVE (NEGATIVE); URINE PROTEIN NEGATIVE (NEGATIVE)
[2024-03-25] MEDS: FOLIC ACID INJECTION - 1 MG, THIAMINE HCL 100 MG, MULTIVIT INJECTION ADULT 10 ML in SOD... IVPB ONE (21:55)
[2024-03-26] MEDS ORDERED: POLYETHYLENE GLYCOL (HEALTHYLAX) 3350 17 GM PACKET ONE (06:24)
[2024-03-26] MEDS ORDERED: PANTOPRAZOLE 20 MG TABLET PO ONE ×2 (06:25→06:26)
[2024-03-26] MEDS ORDERED: FUROSEMIDE 20 MG TABLET (FP) ONE ×2 (06:25→06:26)
[2024-03-26] MEDS: POLYETHYLENE GLYCOL (HEALTHYLAX) 3350 17 GM PACKET PO SCH (06:31)
[2024-03-26] MEDS: PANTOPRAZOLE 40 MG TABLET PO SCH (06:31)
[2024-03-26] MEDS: FUROSEMIDE 40 MG TABLET (FP) PO SCH (06:31)
[2024-03-26 06:51] LABS: BASO % 0.7 % (0-2.0); EOS % 2.2 % (0-4.5); LYMPH % 20.4 % (8-40); MCH 27.1 pg (25.7-33.7); MCHC 34.3 g/dl (32.0-36.0); MEAN CELL VOLUME 78.9 fl (80-96); MEAN PLT VOLUME 8.7 fl (7.5-11.1); MONO % 5.8 % (3.8-10.2); NEUT % 70.9 % (42.8-82.8); PLATELET COUNT 203 10^3/uL (134-434); RBC 4.44 M/mm3 (3.60-5.2); RDW 14.6 % (11.6-15.6); WHITE BLOOD COUNT 7.3 K/mm3 (4.0-10.0)
[2024-03-26 07:05] LABS: POTASSIUM 3.8 mmol/L (3.5-5.1)
[2024-03-26 07:07] LABS: ALBUMIN 3.2 g/dl (3.4-5.0); CALCIUM 8.4 mg/dL (8.5-10.1)
[2024-03-26 07:08] LABS: BLOOD UREA NITROGEN 15.8 mg/dL (7-18); MAGNESIUM 1.7 mg/dL (1.8-2.4)
[2024-03-26 07:11] LABS: CREATININE 0.8 mg/dL (0.55-1.3); PHOSPHOROUS 2.4 mg/dL (2.5-4.9)
[2024-03-26 07:12] LABS: BILIRUBIN,TOTAL 0.5 mg/dL (0.2-1); INR 1.55 (0.83-1.09); PROTHROMBIN TIME (PATIENT) 17.6 SEC (9.7-13.0); TOT PROT 6.5 g/dl (6.4-8.2)
[2024-03-26] MEDS: INSULIN ASPART SLIDING SCALE (NOVOLOG) 1 VIAL SQ SCH (07:21)
[2024-03-26 10:34] VITALS: BMI 40.6
[2024-03-26] MEDS: METOPROLOL TARTRATE 25 MG TABLET (FP) PO SCH (11:31)
[2024-03-26] MEDS: SERTRALINE HCL 50 MG TABLET (FP) PO SCH (11:32)
[2024-03-26] MEDS: LISINOPRIL 5 MG TABLET PO SCH (11:32)
[2024-03-26] MEDS: WARFARIN NA 2.5 MG TABLET PO SCH (17:35)
[2024-03-26] MEDS: ATORVASTATIN CA 20 MG TABLET (FP) PO SCH (21:31)
[2024-03-26] MEDS ORDERED: PATIENT'S OWN MEDICATION (NON-FORMULARY) (Warfarin Sodium [Warfarin Sodium] 6 MG Tablet) PO SCH (22:00)
[2024-03-27 10:33] LABS: INR 1.39 (0.83-1.09); PROTHROMBIN TIME (PATIENT) 15.8 SEC (9.7-13.0)
[2024-03-27 10:35] LABS: BASO % 0.5 % (0-2.0); EOS % 2.1 % (0-4.5); HEMOGLOBIN 11.9 GM/dL (10.7-15.3); MCH 27.2 pg (25.7-33.7); MCHC 34.9 g/dl (32.0-36.0); MEAN CELL VOLUME 77.9 fl (80-96); MONO % 4.9 % (3.8-10.2); NEUT % 69.5 % (42.8-82.8); PLATELET COUNT 204 10^3/uL (134-434); RBC 4.37 M/mm3 (3.60-5.2); RDW 14.7 % (11.6-15.6); WHITE BLOOD COUNT 6.1 K/mm3 (4.0-10.0)
[2024-03-27 10:52] LABS: POTASSIUM 3.9 mmol/L (3.5-5.1)
[2024-03-27 10:55] LABS: ALBUMIN 3.2 g/dl (3.4-5.0); BLOOD UREA NITROGEN 16.5 mg/dL (7-18); CALCIUM 8.7 mg/dL (8.5-10.1)
[2024-03-27 10:56] LABS: MAGNESIUM 1.7 mg/dL (1.8-2.4)
[2024-03-27 10:58] LABS: CREATININE 1.1 mg/dL (0.55-1.3)
[2024-03-27 10:59] LABS: PHOSPHOROUS 3.1 mg/dL (2.5-4.9)
[2024-03-27 11:00] LABS: BILIRUBIN,TOTAL 0.6 mg/dL (0.2-1); TOT PROT 6.5 g/dl (6.4-8.2)
[2024-03-27] MEDS: WARFARIN NA 5 MG TABLET PO SCH (17:49)
[2024-03-28 10:26] LABS: BASO % 0.4 % (0-2.0); EOS % 2.3 % (0-4.5); HEMATOCRIT 35.2 % (32.4-45.2); HEMOGLOBIN 12.3 GM/dL (10.7-15.3); LYMPH % 19.8 % (8-40); MCH 26.9 pg (25.7-33.7); MEAN PLT VOLUME 8.9 fl (7.5-11.1); MONO % 4.6 % (3.8-10.2); NEUT % 72.9 % (42.8-82.8); PLATELET COUNT 201 10^3/uL (134-434); RBC 4.58 M/mm3 (3.60-5.2); RDW 14.8 % (11.6-15.6); WHITE BLOOD COUNT 6.1 K/mm3 (4.0-10.0)
[2024-03-28 10:30] LABS: INR 1.54 (0.83-1.09); PROTHROMBIN TIME (PATIENT) 17.2 SEC (9.7-13.0)
[2024-03-28 10:42] LABS: POTASSIUM 3.7 mmol/L (3.5-5.1)
[2024-03-28 10:46] LABS: ALBUMIN 3.3 g/dl (3.4-5.0); BLOOD UREA NITROGEN 17.4 mg/dL (7-18); CALCIUM 8.6 mg/dL (8.5-10.1)
[2024-03-28 10:49] LABS: CREATININE 1.1 mg/dL (0.55-1.3)
[2024-03-28 10:51] LABS: BILIRUBIN,TOTAL 0.6 mg/dL (0.2-1); TOT PROT 6.6 g/dl (6.4-8.2)
[2024-03-29 09:27] LABS: BASO % 0.7 % (0-2.0); EOS % 2.3 % (0-4.5); HEMATOCRIT 35.5 % (32.4-45.2); LYMPH % 22.2 % (8-40); MCH 26.5 pg (25.7-33.7); MCHC 33.9 g/dl (32.0-36.0); MEAN CELL VOLUME 78.4 fl (80-96); MEAN PLT VOLUME 9.1 fl (7.5-11.1); MONO % 6.2 % (3.8-10.2); NEUT % 68.6 % (42.8-82.8); PLATELET COUNT 189 10^3/uL (134-434); RBC 4.53 M/mm3 (3.60-5.2); RDW 14.8 % (11.6-15.6); WHITE BLOOD COUNT 6.4 K/mm3 (4.0-10.0)
[2024-03-29 09:37] LABS: INR 1.95 (0.83-1.09)
[2024-03-29 09:43] LABS: POTASSIUM 3.7 mmol/L (3.5-5.1)
[2024-03-29 09:46] LABS: ALBUMIN 3.4 g/dl (3.4-5.0); BLOOD UREA NITROGEN 22.7 mg/dL (7-18); CALCIUM 8.8 mg/dL (8.5-10.1); MAGNESIUM 1.7 mg/dL (1.8-2.4)
[2024-03-29 09:50] LABS: PHOSPHOROUS 3.7 mg/dL (2.5-4.9)
[2024-03-29 09:51] LABS: BILIRUBIN,TOTAL 0.4 mg/dL (0.2-1); TOT PROT 6.6 g/dl (6.4-8.2)
[2024-03-29] MEDS: MAGNESIUM 2GM/50ML STERILE WATER IVPB IVPB ONE (14:34)
[2024-03-29] MEDS: MAGNESIUM OXIDE 400 MG TABLET (FP) PO ONE (15:05)
[2024-03-29 20:50] VITALS: BP 139/76; PULSE 59; RESP 17; TEMP 97.9
[2024-03-29] MEDS ORDERED: ROSUVASTATIN CA 20 MG TABLET PO SCH (22:00)
[2024-03-29 22:41] LABS: N-TERMINAL BNP 98.2 pg/ml (5-125)
== END 2024-03-29 20:20 | disposition home or self-care (01) | DRG 884 ==
LOC: JER 15:29 → JERBED 22:26 → J5S 03-26 09:18 → OBSVTOIN 03-26 15:24
PROVIDERS: ADMIT Internal Medicine
DX: F03.90 Unspecified dementia, unspecified severity, without behavioral disturbance, psychotic disturbance, mood disturbance, and anxiety (principal); I69.354 Hemiplegia and hemiparesis following cerebral infarction affecting left non-dominant side; Z68.41 Body mass index [BMI] 40.0-44.9, adult; J44.9 Chronic obstructive pulmonary disease, unspecified; E78.5 Hyperlipidemia, unspecified; I48.91 Unspecified atrial fibrillation; I10 Essential (primary) hypertension; K76.0 Fatty (change of) liver, not elsewhere classified; D64.9 Anemia, unspecified; E11.9 Type 2 diabetes mellitus without complications; E66.01 Morbid (severe) obesity due to excess calories; F41.8 Other specified anxiety disorders; E04.2 Nontoxic multinodular goiter; I11.0 Hypertensive heart disease with heart failure; I50.9 Heart failure, unspecified; K21.9 Gastro-esophageal reflux disease without esophagitis; G47.30 Sleep apnea, unspecified; K59.00 Constipation, unspecified; Z85.3 Personal history of malignant neoplasm of breast; Z95.0 Presence of cardiac pacemaker; Z88.0 Allergy status to penicillin; Z85.038 Personal history of other malignant neoplasm of large intestine
CPT/HCPCS: 0241U-QW; 36415; 70450-TC; 71045-TC-FY; 74177-TC; 80053; 80061; 81003; 82607; 82746; 82962; 83036; 83090; 83735; 83880; 84100; 84439; 84443; 84484; 85025; 85610; 85730; 86780; 87086; 87186; 93005; 93010; 97116-GP; 97161-GP; 99285-25; G0378; Q9967